=== PATIENT | male | born 1980 | race Caucasian/White ===

== ENCOUNTER 2024-03-31 12:40 | Outpatient (OUT) | payer BC, OTHER, SELFPAY ==
[2024-03-31 13:26] LABS: Alanine Aminotransferase 26 U/L (16-63); Albumin Globulin Ratio 1.3; Alkaline Phosphatase 63 U/L (46-116); Anion Gap 8.9; Aspartate Amino Transferase 12 U/L (15-37); BUN Creatinine Ratio 17.6; Bilirubin Total 0.8 mg/dL (0.2-1.0); Calcium 8.8 mg/dL (8.5-10.1); Carbon Dioxide 29.7 mmol/L (21.0-32.0); Chloride 103 mmol/L (98-107); Estimated GFR (African America >60 (>=60); Estimated GFR (Non-African Ame >60 (>=60); Globulin 3.1 g/dL; Glucose 118 mg/dL (74-106); Potassium 3.6 mmol/L (3.5-5.1); Sodium 138 mmol/L (136-145); Total Protein 7.1 g/dL (6.4-8.2)
== END 2024-03-31 12:41 | disposition home or self-care (01) ==
LOC: LAB 12:45
PROVIDERS: PCP Family Medicine; Visit Provider Family Medicine
DX: Z00.00 Encounter for general adult medical examination without abnormal findings (principal)
CPT/HCPCS: 36415; 80053

== ENCOUNTER 2024-04-10 15:48 | Outpatient (OUT) | payer BC, OTHER, SELFPAY ==
[2024-04-10 16:21] LABS: Estimated Average Glucose 105 mg/dL; Glycohemoglobin A1C 5.3 % (4.5-6.2)
[2024-04-10 16:47] LABS: Alanine Aminotransferase 33 U/L (16-63); Albumin Globulin Ratio 1.3; Albumin Level 3.9 g/dL (3.4-5.0); Alkaline Phosphatase 73 U/L (46-116); Anion Gap 8.8; Aspartate Amino Transferase 16 U/L (15-37); BUN Creatinine Ratio 16.5; Bilirubin Total 0.7 mg/dL (0.2-1.0); Carbon Dioxide 28.8 mmol/L (21.0-32.0); Chloride 102 mmol/L (98-107); Estimated GFR (African America >60 (>=60); Estimated GFR (Non-African Ame >60 (>=60); Glucose 117 mg/dL (74-106); Potassium 3.6 mmol/L (3.5-5.1); Sodium 136 mmol/L (136-145); Total Protein 6.9 g/dL (6.4-8.2)
[2024-04-12 12:09] LABS: Testosterone 230 ng/dL (264-916)
== END 2024-04-10 15:49 | disposition home or self-care (01) ==
PROVIDERS: PCP Family Medicine; Visit Provider Family Medicine
DX: Z00.00 Encounter for general adult medical examination without abnormal findings (principal); R73.9 Hyperglycemia, unspecified; E66.09 Other obesity due to excess calories; Z68.34 Body mass index [BMI] 34.0-34.9, adult
CPT/HCPCS: 36415; 80053; 83036; 84403

== ENCOUNTER 2024-04-19 16:22 | Outpatient (OUT) | payer BC, OTHER, SELFPAY ==
--- OUTSIDE RECORDS SUMMARY | 2024-04-19 16:35 | XMS_ITS | CCD ---
Author Organization [facility]on [facility] Partnership [facility] [employer] Care Team Providers Care Avionics Integration Engineer Name Role Phone DR SAURABH MUSTAFA Admitting Unavailable MISC, DR ACOSTA Primary Care Unavailable FURLOROQUE, DR SAURABH Ricketts Attending Unavailable WEST, DR ANIAL Sofia Consulting Unavailable CHRISTINAMATTIE Attending Unavailable CHRISTINAMATTIE QUARLES Admitting Unavailable FURLOROQUE, DR SAURABH Ricketts Primary Care Unavailable MATTIE VASQUEZ Consulting Unavailable Jakilong Saurabh COPELAND Primary Care Provider [phone] SAURABH MUSTAFA Attending Unavailable SAURABH MUSTAFA Referring Unavailable SAURABH MUSTAFA Primary Care Unavailable SAURABH MUSTAFA Attending Unavailable SAURABH MUSTAFA Referring Unavailable SAURABH MUSTAFA Primary Care Unavailable Problems Active Problems Problem Classification Problem Date Documented Da te Episodic/Chronic Administrative/social admission (4 sources) Encounter for pre-employment examination; Translations: [ENCOUNTER FOR PRE-EMPLOYMENT EXAM] Onset: 04-16-2022 Episodic Contraceptive and procreative management (1 source) Encounter for other general counseling and advice on contraception; Translations: [Encounter for other general counseling and advice on contraception] Onset: 02-20-2024 Episodic Other nutritional; endocrine; and metabolic disorders (2 sources) Obesity caused by energy imbalance; Translations: [Other obesity due to excess calories] Onset: 08-15-2023 08-15-2023 Chronic Other nutritional; endocrine; and metabolic disorders (2 sources) Cholesterol level - finding; Translations: [Lipoprotein deficiency] Onset: 08-15-2023 08-15-2023 Chronic Other nutritional; endocrine; and metabolic disorders (1 source) Body mass index (BMI) 33.0-33.9, adult; Translations: [Body mass index (BMI) 33.0-33.9, adult] Onset: 02-20-2024 Chronic Other nutritional; endocrine; and metabolic disorders (1 source) Other obesity due to excess calories; Translations: [Other obesity due to excess calories] Onset: 08-15-2023 Chronic Other nutritional; endocrine; and metabolic disorders (1 source) Body mass index (BMI) 34.0-34.9, adult; Translations: [Body mass index (BMI) 34.0-34.9, adult] Onset: 08-15-2023 Chronic Unclassified (1 source) discuss dianero Onset: 02-20-2024 Unclassified (1 source) Annual Exam Onset: 08-15-2023 Past or Other Problems Problem Classification Problem Date Documented Da te Episodic/Chronic Mood disorders (1 source) Mood disorders Onset: 08-15-2023 08-15-2023 Neoplasms of unspecified nature or uncertain behavior (3 sources) Neoplasm of uncertain behavior of skin of face; Translations: [Neoplasm of uncertain behavior of skin] Onset: 08-15-2023 08-15-2023 Episodic Results Test Name Value Interpretation Reference Range Facility COMPREHENSIVE METABOLIC PANE [facility] 12-29-2021 Albumin [Mass/Vol] 4.8 g/dL Normal 3.6-5.1 [facility] Comment on above: Performed By: #### 1 023, 0 #### [facility] [place] [address] Retail Pricing Coordinator: Arie Timmons MD Albumin/Globulin [Mass ratio] 2.2 {ratio} Normal 1.0-2.5 [facility] Comment on above: Performed By: #### 1 023, 0 #### [facility] [place] [address] Retail Pricing Coordinator: Arie Timmons MD ALP [Catalytic activity/Vol] 39 U/L Normal 36-130 [facility] Comment on above: Performed By: #### 1 0231, 7600 #### [facility] [place] [address] Retail Pricing Coordinator: Arie Timmons MD ALT [Catalytic activity/Vol] 14 U/L Normal 9-46 [facility] Comment on above: Performed By: #### 1 0231, 7600 #### [facility] of [place] [address] Retail Pricing Coordinator: Arie Timmons MD AST [Catalytic activity/Vol] 15 U/L Normal 10-40 [facility] Comment on above: Performed By: #### 1 0231, 7600 #### [facility] of [place] [address] Retail Pricing Coordinator: Arie Timmons MD Bilirubin [Mass/Vol] 1.1 mg/dL Normal 0.2-1.2 [facility] Comment on above: Performed By: #### 1 023, 7600 #### [facility] of [place] [address] Retail Pricing Coordinator: Aire Timmons MD BUN/CREATININE RATIO NOT APPLICABLE Normal 6-22 [facility] Comment on above: Performed By: #### 1 023, 7600 #### [facility] of [place] [address] Retail Pricing Coordinator: Arie Timmons MD Calcium [Mass/Vol] 9.4 mg/dL Normal 8.6-10.3 [facility] Comment on above: Performed By: #### 1 023, 7600 #### [facility] of [place] [address] Retail Pricing Coordinator: Arie Timmons MD Chloride [Moles/Vol] 105 mmol/L Normal 98-110 [facility] Comment on above: Performed By: #### 1 023, 7600 #### [facility] of [place] [address] Retail Pricing Coordinator: Arie Timmons MD CO2 [Moles/Vol] 26 mmol/L Normal 20-32 [facility] Comment on above: Performed By: #### 1 0231, 7600 #### [facility] of [place] [address] Retail Pricing Coordinator: Arie Timmons MD Creatinine [Mass/Vol] 0.94 mg/dL Normal 0.60-1.35 [facility] Comment on above: Performed By: #### 1 0231, 7600 #### [facility] of [address], [address] [place] [address] Retail Pricing Coordinator: Arie Timmons MD eGFR NON-AFR. JAPANESE 100 mL/min/1.73m2 Normal > OR = 60 [facility] Comment on above: Performed By: #### 1 023, 7600 #### [facility] of [address], [address] [place] [address] Retail Pricing Coordinator: Arie Timmons MD GFR/1.73 sq M.predicted among blacks MDRD (S/P/Bld) [Vol rate/Area] 116 mL/min/{1.73_m2} Normal > OR = 60 [facility] Comment on above: Performed By: #### 1 023, 7600 #### [facility] [address], [address] [place] [address] Retail Pricing Coordinator: Arie Timmons MD Globulin (S) [Mass/Vol] 2.2 g/dL Normal 1.9-3.7 [facility] Comment on above: Performed By: #### 1 023, 7600 #### [facility] [place] [address] Retail Pricing Coordinator: Arie Timmons MD Glucose [Mass/Vol] 86 mg/dL Normal 65-99 [facility] Comment on above: Result Comment: Fasting reference interval Performed By: #### 1 023, 7600 #### [facility] [place] [address] Retail Pricing Coordinator: Arie Timmons MD Potassium [Moles/Vol] 4.0 mmol/L Normal 3.5-5.3 [facility] Comment on above: Performed By: #### 1 0231, 7600 #### [facility] [place] [address] Retail Pricing Coordinator: Arie Timmons MD Protein [Mass/Vol] 7.0 g/dL Normal 6.1-8.1 [facility] Comment on above: Performed By: #### 1 023, 7600 #### [facility] of [place] [address] Retail Pricing Coordinator: Arie Timmons MD Sodium [Moles/Vol] 140 mmol/L Normal 135-146 [facility] Comment on above: Performed By: #### 1 0231, 7600 #### [facility] of [place] [address] Retail Pricing Coordinator: Arie Timmons MD Urea nitrogen [Mass/Vol] 13 mg/dL Normal 7-25 [facility] Comment on above: Performed By: #### 1 0231, 7600 #### [facility] of [place] [address] Retail Pricing Coordinator: Arie Timmons MD LIPID PANEL, [facility] - Cholesterol [Mass/Vol] 175 mg/dL Normal <200 [facility] Comment on above: Performed By: #### 1 0231, 7600 #### [facility] of [place] [address] Retail Pricing Coordinator: Arie Timmons MD Cholesterol in HDL [Mass/Vol] 48 mg/dL Normal > OR = 40 [facility] Comment on above: Performed By: #### 1 0231, 7600 #### [facility] [place] [address] Retail Pricing Coordinator: Arie Timmons MD Cholesterol in LDL [Mass/Vol] 108 mg/dL High [facility] Comment on above: Result Comment: Refe rence range: <100 Desirable range <100 mg/dL for primary prevention; <70 mg/dL for patients with CHD or diabetic patients with > or = 2 CHD risk factors. LDL-C is now calculated using the Janet calculation, which is a validated novel method providing better accuracy than the Friedewald equation in the estimation of LDL-C. Matthew CULVER et al. YESY. 2013;310(19): 7613-7943 (http://education.[employer]/faq/IOP838) Performed By: #### 1 0231, 7600 #### [facility] of [address] [place] [address] Retail Pricing Coordinator: Arie Timmons MD Cholesterol.total/C holesterol in HDL [Mass ratio] 3.6 {ratio} Normal <5.0 [facility] Comment on above: Performed By: #### 1 023, 7600 #### [facility] [address], [address] [place] [address] Retail Pricing Coordinator: Arie Timmons MD NON HDL CHOLESTEROL 127 mg/dL (calc) Normal <130 [facility] Comment on above: Result Comment: For patients with diabetes plus 1 major ASCVD risk factor, treating to a non-HDL-C goal of <100 mg/dL (LDL-C of <70 mg/dL) is considered a therapeutic option. Performed By: #### 1 023, 0 #### [facility] [address], [address] [place] [address] Retail Pricing Coordinator: Arie Timmons MD Triglyceride [Mass/Vol] 97 mg/dL Normal <150 [facility] Comment on above: Performed By: #### 1 023, 0 #### [facility] [address], [address] [place] [address] Retail Pricing Coordinator: Arie Timmons MD COVID-19 [facility] 01-09-20 20 COVID-19 Lab [facility] Not Detected Normal Not Detected [facility] Comment on above: Order Comment: Healt hcare Worker?: N Result Comment: This test was developed and its performance characteristics determined by [employer]. This test has not been FDA cleared or approved. This test has been authorized by FDA under an Emergency Use Authorization (EUA). This test is only authorized for the duration of time the declaration that circumstances exist justifying the authorization of the emergency use of in vitro diagnostic tests for detection of SARS-CoV-2 virus and/or diagnosis of COVID-19 infection under section 564(b)(1) of the Act, 21 U.S.C. 360bbb-3(b)(1), unless the authorization is terminated or revoked sooner. When diagnostic testing is negative, the possibility of a false negative result should be considered in the context of a patient's recent exposures and the presence of clinical signs and symptoms consistent with COVID-19. An individual without symptoms of COVID-19 and who is not shedding SARS-CoV-2 virus would expect to have a negative (not detected) result in this assay. Performed at: [facility] [address] [facility] [place] [id number] Psychiatric Orderly: Desiree Melendez MD, Phone: [phone] PERFORMED BY: [address] [address] PATHOLOGIST SUSTAINABLE AGRICULTURE FACULTY LISETH GRUBBS M.D. Performed By: #### C ORONAVIRUS #### [facility] , Vital Signs Date Time Vital Sign Value Performing Clinician Facility 08-15-2023 16:08-0500 Body height 182.9 cm [employer] Work Phone: [facility] 08-15-2023 16:08-0500 Body mass index (BMI) [Ratio] 34.49 kg/m2 [employer] Work Phone: [facility] 08-15-2023 16:08-0500 Body temperature 98.01 [degF] [employer] Work Phone: [facility] 08-15-2023 16:08-0500 Body weight 115.35 kg [employer] Work Phone: [facility] 08-15-2023 16:08-0500 Diastolic blood pressure 68 mm[Hg] [employer] Work Phone: [facility] 08-15-2023 16:08-0500 Heart rate 58 /min [employer] Work Phone: [facility] 08-15-2023 16:08-0500 SaO2% (BldA) [Mass fraction] 97 % [employer] Work Phone: [facility] 08-15-2023 16:08-0500 Systolic blood pressure 102 mm[Hg] [employer] Work Phone: [facility] Encounters Encounter Date Encounter Type Care Provider Facility Start: 02-20-2024 End: 02-20-2024 ambulatory SAURABH POLLACKROQUE [facility] Start: 08-15-2023 End: 08-15-2023 ambulatory SAURABH G [facility] Start: 08-15-2023 Encounter for genera l adult medical examination without abnormal findings SAURABH G [facility] Start: 08-15-2023 End: 08-15-2023 Patient encounter status Saurabh Mustafa DO Work Phone: [facility] Work Phone: Start: 08-15-2023 End: 08-15-2023 Periodic preventive med est patient 40-64yrs Saurabh Pollacknoreenroque COPELAND Work Phone: [facility] Comment on above: Well adult health juanita (Primary Dx); Class 1 obesity due to excess calories without serious comorbidity with body mass index (BMI) of 34.0 to 34.9 in adult; Neoplasm of uncertain behavior of skin of face; Low HDL (under 40) Start: 04-16-2022 End: 04-17-[address] ANILA JAUREGUI Facility:[facility] Start: 12-11-[address] SAURABH MUSTAFA Fac ility:[facility] Procedures Date Procedure Procedure Detail Performing Clinician Start: 08-15-2023 Adult depression screening assessment Saurabh Mustafa DO Work Phone: Plan of Treatment Date Care Activity Detail Author Start: 11-11-2030 DTaP,Tdap and Td Vaccines (4 - Td or Tdap) DTaP,Tdap and Td Vaccines (4 - Td or Tdap) [facility] Start: 08-20-2024 End: 08-20-2024 Patient encounter procedure 08/20/2024 3:50 PM EST [facility] [address] [place] [address] Moon Saurabh JamarcusDO [address] [place] [address] [facility] Start: 08-15-2024 Adult BMI Screening Adult BMI Screen ing [facility] Start: 08-15-2024 Depression Screening Depression Scre ening [facility] Start: 08-15-2024 Tobacco Screening Tobacco Screening [facility] Start: 07-18-2024 COVID-19 Vaccine (2 - Baltazar risk series) COVID-19 Vaccine (2 - Baltazar risk series) [facility] Comment on above: Postponed from 12/15 (Patient Refused) Start: 1998 Adult BMI Follow Up Plan Adult BMI Follow Up Plan [facility] Immunizations Immunization Date Immunization Notes Care Provider Fa cility 04-26-2023 influenza, injectabl e, quadrivalent, preservative free Saurabh Furlong DO Work Phone: [facility] 04-04-2021 influenza, injectabl e, quadrivalent, preservative free Saurabh Furlong DO Work Phone: [facility] 11-11-2020 diphtheria, tetanus toxoids and pertussis vaccine Saurabh Furlong DO Work Phone: [facility] 04-18-2020 Influenza, injectabl e, Madin [place] Canine Kidney, quadrivalent with preservative Saurabh Furlong DO Work Phone: [facility] 01-09-2020 tetanus toxoid, redu eleazar diphtheria toxoid, and acellular pertussis vaccine, adsorbed Saurabh Furlong DO Work Phone: [facility] 07-23-2019 tetanus toxoid, redu eleazar diphtheria toxoid, and acellular pertussis vaccine, adsorbed Saurabh Furlong DO Work Phone: [facility] 07-22-2019 Influenza, injectabl e, Madin Asmita Canine Kidney, preservative free, quadrivalent Saurabh Furlong DO Work Phone: [facility] 05-09-2017 influenza, injectabl e, quadrivalent, preservative free Saurabh Mustafa DO Work Phone: [facility] Payers Date Payer Category Payer Unknown [id number] 2022 Unknown [id number] 2022 Unknown [id number] 1980 Unknown [id number] 1980 Unknown [id number] 1980 Unknown [id number] 1959 Self-pay Unknown [id number] Social History Date Type Detail Facility Start: 04-05-2017 Tobacco smoking stat [facility] Never smoked tobacco [facility] Start: 04-05-2017 Tobacco use and exposure Smoke less tobacco non-user [facility] Start: 08-15-2023 Alcohol intake Current drinke r of alcohol (finding) [facility] Start: 08-15-2023 History of Social function [facility] Start: 08-15-2023 [facility] CDP [facility] Has the [employer], or [employer] threatened to shut off services in your home in past 12Mo No [facility] Do you belong to any clubs or organizations such as advent groups, unions, fraternal or athletic groups, or school groups? Yes [facility] Are you now , , , , never or living with a partner? [facility] How often to you hav e a drink containing alcohol? Monthly or less [facility] How many standard dr inks containing alcohol do you have on a typical day? 1 or 2 [facility] How often do you hav e 6 or more drinks on 1 occasion? Never [facility] How hard is it for y ou to pay for the very basics like food, housing, medical care, and heating Not hard at all [facility] Do you feel stress - tense, restless, nervous, or anxious, or unable to sleep at night because your mind is troubled all the time - these days [OSQ] Only a little [facility] Start: 04-05-2017 Alcohol Comment social [facility] [employer] [facility] Start: 1980 Sex Assigned At Not on file P Animoto [facility] Medical Equipment Procedure Code Equipment Code Equipment Origin al Text Equipment Identifier Dates Scr Cortical 2.0x10mm - [facility] - [id number] Start: 04-06-2017 History of Present illness Narrative 08-15-2023 Saurabh Jamarucs Mustafa, DO - 08/15/2023 3:50 PM EST Note Date & Type Note Facility 08-15-2023 History of Present illness Narrative Subjective Patient ID: Skyler Barrios is a 42 y.o. male. Skyler presents today for his annual physical. He has been doing well except for 1 problem. He has a growth on the right side of his face that sometimes gets painful when he touches it. He had it frozen in the past by a valet runner. It never fully went away. Sometimes it gets scale over it. He used to get a lot of sun exposure when he was younger. He gets labs done through his work. He said he will bring in a copy for our records. He said everything was good except his good cholesterol was a little low but his bad cholesterol was also low so the nurse told him that it kind of cancels each other out. Annual Exam The following portions of the patient's history were reviewed and updated as appropriate: allergies, current medications, past family history, past medical history, past social history, past surgical history, problem list, and medication reconciliation was completed including current medication and post discharge medication. Review of Systems Constitutional: Negative. HENT: Negative. Eyes: Negative. Respiratory: Negative. Cardiovascular: Negative. Gastrointestinal: Negative. Endocrine: Negative. Genitourinary: Negative. Musculoskeletal: Negative. Skin: Positive for color change. Allergic/Immunologic: Negative. Neurological: Negative. Hematological: Negative. Psychiatric/Behavioral: Negative. Objective Physical Exam Constitutional: Appearance: He is obese. HENT: Head: Normocephalic and atraumatic. Eyes: General: No scleral icterus. Extraocular Movements: Extraocular movements intact. Conjunctiva/sclera: Conjunctivae normal. Cardiovascular: Rate and Rhythm: Normal rate and regular rhythm. Pulses: Normal pulses. Heart sounds: Normal heart sounds. No murmur heard. Pulmonary: Effort: Pulmonary effort is normal. No respiratory distress. Breath sounds: Normal breath sounds. No wheezing, rhonchi or rales. Abdominal: General: Bowel sounds are normal. There is no distension. Palpations: Abdomen is soft. There is no mass. Tenderness: There is no abdominal tenderness. Hernia: No hernia is present. Musculoskeletal: General: No swelling, tenderness or deformity. Cervical back: Neck supple. Right lower leg: No edema. Left lower leg: No edema. Lymphadenopathy: Cervical: No cervical adenopathy. Skin: General: Skin is warm. Findings: Lesion (Red plaque with slight scale on the right side of his cheek, border slightly irregular anteriorly) present. Neurological: General: No focal deficit present. Mental Status: He is alert and oriented to person, place, and time. Cranial Nerves: Cranial nerves 2-12 are intact. Gait: Gait is intact. Psychiatric: Attention and Perception: Attention normal. Mood and Affect: Mood and affect normal. Speech: Speech normal. Behavior: Behavior normal. Behavior is cooperative. Thought Content: Thought content normal. Cognition and Memory: Cognition and memory normal. Judgment: Judgment normal. Assessment/Plan Skyler was seen today for annual exam. Diagnoses and all orders for this visit: Well adult health check Health maintenance discussed. Recommend that he bring in his labs for our records. Encouraged vaccinations but he defers. Class 1 obesity due to excess calories without serious comorbidity with body mass index (BMI) of 34.0 to 34.9 in adult He is obese. He would benefit from weight loss. Diet exercise and weight loss discussed. He is exercising so we did focus more on his diet and where he could trim calorie intake. He will try following his diet. We did discuss medications but will try diet and exercise 1st. Neoplasm of uncertain behavior of skin of face - Ambulatory referral to Dermatology (Non[facility]); Future Lesion on the side of his face looks like an actinic keratosis. Should be treated. I will refer him to Dermatology. Low HDL (under 40) Exercise can raise HDL. It is considered a risk factor for heart disease. Not sure that it cancels out a low LDL. Nonetheless, CV risk is likely low documented in this encounter [facility] Clinical Note 04-18-2022 Note Date & Type Note Facility 04-18-2022 Note EXAMINATION: XR CHES T 2 V HISTORY: History and physical examination, pre-employment COMPARISON: No relevant comparison available. TECHNIQUE: FINDINGS: LUNGS: No significant pulmonary parenchymal abnormalities. VASCULATURE: No increased pulmonary vasculature. PLEURA: No pneumothorax, effusion, or pleural thickening. CARDIAC: No cardiomegaly or cardiac silhouette abnormality. MEDIASTINUM: No visible mass or adenopathy. BONES: No fracture or visible bone lesion. OTHER: Negative. IMPRESSION: Normal examination. Electronically authenticated by: ANILA JAUREGUI Date: 2022-04-18 11:32 [facility] Evaluation note Note Date & Type Note Facility Evaluation note Diagnosis Well adult health check- Primary Unspecified general medical examination Class 1 obesity due to excess calories without serious comorbidity with body mass index (BMI) of 34.0 to 34.9 in adult Neoplasm of uncertain behavior of skin of face Low HDL (under 40) documented in this encounter [facility] Instructions Note Date & Type Note Facility Instructions Not on filedocumented in this en counter [facility] Reason for referral (narrative) Consultation (Routine) - Pending Review Note Date & Type Note Facility Reason for referral (narrati ve) Specialty Diagnoses / Procedures Referred By Sarika t Referred To Contact Dermatology Diagnoses Neoplasm of uncertain behavior of skin of face Saurabh Mustafa DO [address] [facility] [address] Agustin Morgan DO [address] [place] [address] Referral ID Status Reason Start Date Expiration Date Visits Requested Visits Authorized [id number] Pending Review Specialty Services Required 08/15/2023 08/14/2024 [facility] Purpose Family History No Family History Records FoundNo Family History Records FoundNo Family History Records FoundNo Family History Records Found Advance Directives No Advanced Directives Records FoundNo Advanced Directives Records FoundNo Advanced Directives Records FoundNo Advanced Directives Records Found Additional Source Comments (unrecognized sect ion and content) No Status Records FoundNo Status Records FoundNo Status Records FoundNo Status Records Found INFORMATION SOURCE (unrecogn ized section and content) DATE CREATED AUTHOR 02/05/2020 [facility] DATE CREATED AUTHOR AUTHOR'S ORGANIZ ATION 12/30/2021 [facility] DATE CREATED AUTHOR AUTHOR'S ORGANIZ ATION 04/22/2022 [facility] DATE CREATED AUTHOR AUTHOR'S ORGANIZ ATION 02/22/2024 [facility] Reason for Visit (unrecogniz ed section and content) Reason Comments Annual Exam Care Teams (unrecognized sec tion and content) Avionics Integration Engineer Relationship Specialty Start Date End Date Saurabh Mustafa DO [address] [facility] [place], [facility] [place] [address] PCP - General Family Medicine 02/19/20 FOR RECORDS PERTAINING TO PATIENTS WHO ARE OR HAVE BEEN ENROLLED IN A CHEMICAL DEPENDENCY/SUBSTANCEABUSE PROGRAM, SOME INFORMATION MAY BE OMITTED. This clinical summary was aggregated from multiple sources. Caution should be exercised in using it in the provision of clinical care. This summary normalizes information from multiple sources, and as a consequence, information in this document may materially change the coding, format and clinical context of patient data. In addition, data may be omitted in some cases. CLINICAL DECISIONS SHOULD BE BASED ON THE PRIMARY CLINICAL RECORDS. [employer] [facility] provides no warranty or guarantee of the accuracy or completeness of information in this document.
[2024-04-19 16:43] LABS: Basophils Percent Auto 0.7 % (0.2-2.0); Eosinophils Absolute Auto 0.1 10^3/uL (0.0-0.7); Eosinophils Percent Auto 1.4 % (0.9-7.0); Hemoglobin 15.2 g/dL (14.0-18.0); Lymphocytes Absolute Auto 1.4 10^3/uL (1.2-3.8); Lymphocytes Percent Auto 25.5 % (20.5-60.0); Mean Corpuscular HGB Conc 34.5 g/dL (29.9-35.2); Mean Corpuscular Hemoglobin 29.1 pg (25.9-34.0); Mean Corpuscular Volume 84.3 fL (80.0-94.0); Mean Platelet Volume 10.1 fL (9.5-13.5); Monocytes Absolute Auto 0.6 10^3/uL (0.3-0.8); Monocytes Percent Auto 10.1 % (1.7-12.0); Neutrophils Absolute Auto 3.4 10^3/uL (1.4-6.5); Neutrophils Percent Auto 62.3 % (43.0-75.0); Platelet Count 201 10^3/uL (150-450); Red Blood Count 5.22 10^6/uL (4.70-6.10); Red Cell Distribution Width 12.2 % (11.0-15.0); White Blood Count 5.5 10^3/uL (4.0-11.0)
[2024-04-26 15:09] LABS: Free Testosterone(Direct) 8.1 pg/mL (6.8-21.5); Testosterone 264 ng/dL (264-916)
== END 2024-04-19 16:23 | disposition home or self-care (01) ==
LOC: LAB 16:24
PROVIDERS: PCP Family Medicine; Visit Provider Family Medicine
DX: R79.89 Other specified abnormal findings of blood chemistry (principal)
CPT/HCPCS: 36415; 84402; 84403; 85025

== ENCOUNTER 2024-06-13 06:06 | Outpatient (OUT) | payer BC, OTHER, SELFPAY ==
--- OUTSIDE RECORDS SUMMARY | 2024-06-13 06:09 | XMS_ITS | CCD ---
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 Name Role Phone JARVIS, DR SAURABH Ricketts Admitting Unavailable MISC, DR ACOSTA Primary Care Unavailable FURLONG, DR SAURABH Ricketts Attending Unavailable WEST, DR ANILA Sofia Consulting Unavailable CHRISTINAMATTIE Attending Unavailable CHRISTINA, MATTIE Admitting Unavailable FURLONG, DR SAURABH Ricketts Primary Care Unavailable MATTIE VASQUEZ Consulting Unavailable Jakilong Saurabh COPELAND Primary Care Provider SAURABH MUSTAFA Attending Unavailable SAURABH MUSTAFA Referring Unavailable SAURABH MUSTAFA Primary Care Unavailable SAURABH MUSTAFA Attending Unavailable SAURABH MUSTAFA Referring Unavailable SAURABH MUSTAFA Primary Care Unavailable Medications Current Medications Medication Drug Class(es) Dates Sig (Normalized) Sig (Original) tirzepatide, weight loss, (ZEPBOUND) 2.5 mg/0.5 mL pen injector (6 sources) Start: 05-30-2024 tirzepatide, weight loss, (ZEPBOUND) 2.5 mg/0.5 mL pen injector Inject 2.5 mg under the skin every 7 days. 2 mL 2 05/30/2024 Active Start: 02-20-2024 End: 05-30-2024 tirzepatide, weight loss, (Z EPBOUND) 2.5 mg/0.5 mL pen injector Inject 2.5 mg under the skin every 7 days. 2 mL 02/20/2024 05/30/2024 Discontinued (Reorder) Start: 02-20-2024 tirzepatide, w eight loss, (ZEPBOUND) 2.5 mg/0.5 mL pen injector Inject 2.5 mg under the skin every 7 days. 2 mL 02/20/2024 Active Problems Active Problems Problem Classification Problem Date Documented Da te Episodic/Chronic Administrative/social admission (4 sources) Encounter for pre-employment examination; Translations: [ENCOUNTER FOR PRE-EMPLOYMENT EXAM] Onset: 04-16-2022 Episodic Contraceptive and procreative management (1 source) Encounter for other general counseling and advice on contraception; Translations: [Encounter for other general counseling and advice on contraception] Onset: 02-20-2024 Episodic Other nutritional; endocrine; and metabolic disorders (7 sources) Obesity caused by energy imbalance; Translations: [Other obesity due to excess calories] Onset: 08-15-2023 08-15-2023 Chronic Other nutritional; endocrine; and metabolic disorders (7 sources) Cholesterol level - finding; Translations: [Lipoprotein [...] index (BMI) 34.0-34.9, adult] Onset: 08-15-2023 Chronic Other screening for suspected conditions (not mental disorders or infectious disease) (7 sources) Decreased testosterone level ; Translations: [Other specified abnormal findings of blood chemistry] Onset: 04-18-2024 04-18-2024 Episodic Unclassified (1 source) discuss monjaro Onset: 02-20-2024 Unclassified (1 source) Annual Exam Onset: 08-15-2023 Past or Other Problems Problem Classification Problem Date Documented Da te Episodic/Chronic Mood disorders (6 sources) Mood disorders Onset: 08-15-2023 Resolved: 02-20-2024 08-15-2023 Neoplasms of unspecified nature or uncertain behavior (8 sources) Neoplasm of uncertain behavior of skin of face; Translations: [Neoplasm of uncertain behavior of skin] Onset: 08-15-2023 08-15-2023 Episodic Results Test Name Value Interpretation Reference Range Facility COMPREHENSIVE METABOLIC PANE Rodney 12-29-2021 Albumin [Mass/Vol] 4.8 g/dL Normal 3.6-5.1 [facility] Comment on above: Performed By: #### 1 023, 7600 #### [facility] of [address], [address] [place] [address] Syrup Shed Supervisor: Arie Timmons MD Albumin/Globulin [Mass ratio] 2.2 {ratio} Normal 1.0-2.5 [facility] Comment on above: Performed By: #### 1 023, 7600 #### [facility] of [address], [address] [place] [address] Syrup Shed Supervisor: Arie Timmons MD ALP [Catalytic activity/Vol] 39 U/L Normal 36-130 [facility] Comment on above: Performed By: #### 1 023, 7600 #### [facility] of [address], [address] [place] [address] Syrup Shed Supervisor: Arie Timmons MD ALT [Catalytic activity/Vol] 14 U/L Normal 9-46 [facility] Comment on above: Performed By: #### 1 023, 7600 #### [facility] of [place] [address] Syrup Shed Supervisor: Arie Timmons MD AST [Catalytic activity/Vol] 15 U/L Normal 10-40 [facility] Comment on above: Performed By: #### 1 023, 7600 #### [facility] of [address], [address] [place] [address] Syrup Shed Supervisor: Arie Timmons MD Bilirubin [Mass/Vol] 1.1 mg/dL Normal 0.2-1.2 [facility] Comment on above: Performed By: #### 1 0231, 7600 #### [facility] of [place] [address] Syrup Shed Supervisor: Arie Timmons MD BUN/CREATININE RATIO NOT APPLICABLE Normal 6-22 [facility] Comment on above: Performed By: #### 1 0231, 7600 #### [facility] of [address], [address] [place] [address] Syrup Shed Supervisor: Arie Timmons MD Calcium [Mass/Vol] 9.4 mg/dL Normal 8.6-10.3 [facility] Comment on above: Performed By: #### 1 0231, 7600 #### [facility] of [address], [address] [place] [address] Syrup Shed Supervisor: Arie Timmons MD Chloride [Moles/Vol] 105 mmol/L Normal 98-110 [facility] Comment on above: Performed By: #### 1 0231, 7600 #### [facility] of [place] [address] Syrup Shed Supervisor: Arie Timmons MD CO2 [Moles/Vol] 26 mmol/L Normal 20-32 [facility] Comment on above: Performed By: #### 1 0231, 7600 #### [facility] of [place] [address] Syrup Shed Supervisor: Arie Timmons MD Creatinine [Mass/Vol] 0.94 mg/dL Normal 0.60-1.35 [facility] Comment on above: Performed By: #### 1 0231, 7600 #### [facility] of [place] [address] Syrup Shed Supervisor: Arie Timmons MD eGFR NON-AFR. INDONESIAN 100 mL/min/1.73m2 Normal > OR = 60 [facility] Comment on above: Performed By: #### 1 0231, 7600 #### [facility] of [place] [address] Syrup Shed Supervisor: Arie Timmons MD GFR/1.73 sq M.predicted among blacks MDRD (S/P/Bld) [Vol rate/Area] 116 mL/min/{1.73_m2} Normal > OR = 60 [facility] Comment on above: Performed By: #### 1 0231, 7600 #### [facility] of [place] [address] Syrup Shed Supervisor: Arie Timmons MD Globulin (S) [Mass/Vol] 2.2 g/dL Normal 1.9-3.7 [facility] Comment on above: Performed By: #### 1 0231, 7600 #### [facility] of [place] [address] Syrup Shed Supervisor: Arie Timmons MD Glucose [Mass/Vol] 86 mg/dL Normal 65-99 [facility] Comment on above: Result Comment: Fasting reference interval Performed By: #### 1 0231, 7600 #### [facility] [place] [address] Syrup Shed Supervisor: Arie Timmons MD Potassium [Moles/Vol] 4.0 mmol/L Normal 3.5-5.3 [facility] Comment on above: Performed By: #### 1 023, 7600 #### [facility] [place] [address] Syrup Shed Supervisor: Arie Timmons MD Protein [Mass/Vol] 7.0 g/dL Normal 6.1-8.1 [facility] Comment on above: Performed By: #### 1 023, 7600 #### [facility] [place] [address] Syrup Shed Supervisor: Arie Timmons MD Sodium [Moles/Vol] 140 mmol/L Normal 135-146 [facility] Comment on above: Performed By: #### 1 0231, 7600 #### [facility] of [place] [address] Syrup Shed Supervisor: Arie Timmons MD Urea nitrogen [Mass/Vol] 13 mg/dL Normal 7-25 [facility] Comment on above: Performed By: #### 1 0231, 7600 #### [facility] of [place] [address] Syrup Shed Supervisor: Arie Timmons MD LIPID PANEL, [facility] 12-16 Cholesterol [Mass/Vol] 175 mg/dL Normal <200 [facility] Comment on above: Performed By: #### 1 0231, 7599 #### [facility] [address], [address] [place] [address] Syrup Shed Supervisor: Arie Timmons MD Cholesterol in HDL [Mass/Vol] 48 mg/dL Normal > OR = 40 [facility] Comment on above: Performed By: #### 1 230, 7600 #### [facility] [address], [address] [place] [address] Syrup Shed Supervisor: Arie Timmons MD Cholesterol in LDL [Mass/Vol] [...] LDL-C. Matthew CULVER et al. YESY. 2013;310(19): 1759-7450 (http://education.[employer]/faq/OLQ876) Performed By: #### 1 230, 7599 #### [facility] [address], [address] [place] [address] Syrup Shed Supervisor: Arie Timmons MD Cholesterol.total/C holesterol in HDL [Mass ratio] 3.6 {ratio} Normal <5.0 [facility] Comment on above: Performed By: #### 1 230, 0 #### [facility] [address], [address] [place] [address] Syrup Shed Supervisor: Arie Timmons MD NON HDL CHOLESTEROL 127 mg/dL (calc) Normal <130 [facility] Comment on above: Result Comment: For patients with diabetes plus 1 major ASCVD risk factor, treating to a non-HDL-C goal of <100 mg/dL (LDL-C of <70 mg/dL) is considered a therapeutic option. Performed By: #### 1 023, 7600 #### [facility] [address], [address] [place] [address] Syrup Shed Supervisor: Arie Timmons MD Triglyceride [Mass/Vol] 97 mg/dL Normal <150 [facility] Comment on above: Performed By: #### 1 0231, 7600 #### [facility] [address], [address] [place] [address] Syrup Shed Supervisor: Arie Timmons MD COVID-19 [facility] 01-09-20 20 COVID-19 Lab [facility] Not Detected Normal Not Detected [facility] Comment on above: Order Comment: Healt hcare Worker?: N Result Comment: This test was developed and its performance characteristics determined by [employer]. This test has not been FDA cleared [...] detected) result in this assay. Performed at: [facility] [address] [facility], [place] [id number] Otr Truck Driver: Desiree Melendez MD, Phone: [phone] PERFORMED BY: [facility] [address] [place] [address] PATHOLOGIST AREA SAFETY MANAGER LISETH GRUBBS M.D. Performed By: #### C ORONAVIRUS #### [facility] , Vital Signs Date Time Vital Sign Value Performing Clinician Facility 08-15-2023 16:08-0500 Body height 182.9 cm Saurabh Mustafa DO [facility] 08-15-2023 16:08-0500 Body mass index (BMI) [Ratio] 34.49 kg/m2 Saurabh Mustafa DO Work Phone: [employer] 08-15-2023 16:08-0500 Body temperature 98.01 [degF] [facility] Humph[facility]ng [facility] 08-15-2023 16:08-0500 Body weight 115.35 kg Saurabh Humphriesng DO [facility] 08-15-2023 16:08-0500 Diastolic blood pressure 68 mm[Hg] Saurabh Pollacklong DO [facility] 08-15-2023 16:08-0500 Heart rate 58 /min Saurabh Humphriesng DO [facility] 08-15-2023 16:08-0500 SaO2% (BldA) [Mass fraction] 97 % Saurabh Mustafa DO [facility] 08-15-2023 16:08-0500 Systolic blood pressure 102 mm[Hg] Saurabh Mustafa DO Work Phone: [facility] Encounters Encounter Date Encounter Type Care Provider Facility Start: 06-04-2024 End: 06-11-2024 Telephone encounter Saurabh Mustafa DO Work Phone: [facility] Start: 06-01-2024 End: 06-04-2024 Telephone encounter [facility]aurabh Mustafa DO [facility] Start: 05-30-2024 End: 05-30-2024 Refill Saurabh Mustafa DO Work Phone: [facility] Comment on above: Low testosterone in male (Primary Dx) Start: 04-18-2024 End: 04-18-2024 Orders Only Saurabh Mustafa DO Work Phone: [facility] Comment on above: Low testosterone in male (Primary Dx) Start: 02-20-2024 End: 02-20-2024 ambulatory SAURABHKAILEE POLLACKROQUE [facility] Start: 08-15-2023 End: 08-15-2023 ambulatory [place] [facility] Start: 08-15-2023 Encounter for genera l adult medical examination without abnormal findings [place] [facility] Start: 08-15-2023 End: 08-15-2023 Patient encounter status Saurabh Mustafa DO Work Phone: [facility] Work Phone: Start: 08-15-2023 End: 08-15-2023 Periodic preventive med est patient 40-64yrs Saurabh Mustafa DO Work Phone: [facility] Comment on above: Well adult health ch juanita (Primary Dx); Class 1 obesity due to excess calories without serious comorbidity with body mass index (BMI) of 34.0 to 34.9 in adult; Neoplasm of uncertain behavior of skin of face; Low HDL (under 40) Start: 04-16-2022 End: 04-17-[address] ANILA JAUREGUI Facility:[facility] Start: 12-11-[address] SAURABH MUSTAFA Fac ility:[facility] Procedures Date Procedure Procedure Detail Performing Clinician Start: 02-20-2024 Adult depression screening assessment Saurabh Pollackroque COPELAND Work Phone: Start: 08-15-2023 Adult depression screening assessment Saurabh Jakiroque COPELAND Work Phone: Plan of Treatment Date Care Activity Detail Author Start: 11-11-2030 DTaP,Tdap and Td Vaccines (4 - Td or Tdap) DTaP,Tdap and Td Vaccines (4 - Td or Tdap) [facility] Start: 02-19-2025 Adult BMI Screening Adult BMI Screen ing [facility] Start: 02-19-2025 Depression Screening Depression Scre ening [facility] Start: 02-19-2025 Tobacco Screening Tobacco Screening [facility] Start: 08-21-2024 End: 08-21-2024 Patient encounter procedure 08/21/2024 3:00 PM EST Office Visit [facility] [address] [place] [address] [address] [facility] [place] [address] Roger Tuttle MD [facility] [place] [address] [facility] Start: 08-20-2024 End: 08-20-2024 Patient encounter procedure [facility] Start: 08-15-2024 Adult BMI Screening Adult BMI Screen ing [facility] Start: 08-15-2024 Depression Screening Depression Scre ening [facility] Start: 08-15-2024 Tobacco Screening Tobacco Screening [facility] Start: 07-18-2024 COVID-19 Vaccine (2 - Baltazar risk series) COVID-19 Vaccine (2 - Baltazar risk series) [facility] Comment on above: Postponed from 12/15 (Patient Refused) Start: 03-18-2024 Influenza vaccination Influenza Vacc ine [facility] Start: 1998 Adult BMI Follow Up Plan Adult BMI Follow Up Plan [facility] End: 04-18-2025 CBC panel - Blood by Automated count CBC Lab Routine Low testosterone in male 1 Occurrences starting 04/18/2024 until 04/18/2025 [facility] [employer] Comment on above: 1 Occurrences starti ng 04/18/2024 until 04/18/2025 End: 04-18-2025 Testosterone, Total and Free, S Testosterone, Total and Free, S Lab Routine Low testosterone in male 1 Occurrences starting 04/18/2024 until 04/18/2025 [facility] Work Phone: Comment on above: 1 Occurrences starti ng 04/18/2024 until 04/18/2025 End: 05-30-2025 Testosterone, Total and Free, S Testosterone, Total and Free, S Lab Routine Low testosterone in male 1 Occurrences starting 05/30/2024 until 05/30/2025 [facility] Work Phone: Comment on above: 1 Occurrences starti ng 05/30/2024 until 05/30/2025 Immunizations Immunization Date Immunization Notes Care Provider Prosper keating 04-26-2023 influenza, injectabl e, quadrivalent, preservative free Saurabh Furlong DO Work Phone: [facility] 04-26-2023 influenza virus vaccine, unspecified formulation Saurabh Furlong DO Work Phone: [facility] 04-04-2021 influenza, injectabl e, quadrivalent, preservative free Saurabh Furlong DO Work Phone: [facility] 11-11-2020 diphtheria, tetanus toxoids and pertussis vaccine Saurabh Furlong DO Work Phone: [facility] 04-18-2020 Influenza, injectabl e, Madin Asmita Canine Kidney, quadrivalent with preservative Saurabh Furlong DO Work Phone: [facility] 01-09-2020 tetanus toxoid, redu eleazar diphtheria toxoid, and acellular pertussis vaccine, adsorbed Saurabh Furlong DO Work Phone: [facility] 07-23-2019 tetanus toxoid, redu eleazar diphtheria toxoid, and acellular pertussis vaccine, adsorbed Saurabh Furlong DO Work Phone: [facility] 07-22-2019 Influenza, injectabl e, Madin [place] Canine Kidney, preservative free, quadrivalent Saurabh Furlong DO Work Phone: [facility] 05-09-2017 influenza, injectabl e, quadrivalent, preservative free Saurabh Furlong DO Work Phone: [facility] Payers Date Payer Category Payer Managed Care Other (unspecified) MEDICAL [id number] PLAN [id number] 2023 Unknown [id number] 2022 [employer] Managed Care - Other ANTH [id number] 2022 Unknown [id number] 2022 Unknown [id number] 1980 Unknown [id number] 1980 Unknown [id number] 1980 Unknown [id number] 1959 Self-pay Unknown [id number] Social History Date Type Detail Facility Start: 04-05-2017 End: 02-20-2024 Tobacco smoking status NHIS Never smoked tobacco [facility] Start: 04-05-2017 End: 02-20-2024 Tobacco use and exposure Smokeless tobacco non-user [facility] Start: 08-15-2023 End: 02-20-2024 Alcohol intake Current drinker of alcohol (finding) [facility] Start: 08-15-2023 End: 02-20-2024 History of Social function [facility] Start: 08-15-2023 End: 02-20-2024 [facility] LEHRities [facility] Has the [employer], [employer], or water company threatened to shut off services in your home in past 12Mo No [facility] Do you belong to any clubs or organizations such as evangelical groups, unions, fraternal or athletic groups, or school groups? Yes [facility] Are you now , , , , never or living with a partner? [facility] How often to you hav e a drink containing alcohol? Monthly or less [facility] How many standard dr inks containing alcohol do you have on a typical day? 1 or 2 [facility] How often do you hav e 6 or more drinks on 1 occasion? Never [facility] How hard is it for y ou to pay for the very basics like food, housing, medical care, and heating Not hard at all [facility] Do you feel stress - tense, restless, nervous, or anxious, or unable to sleep at night because your mind is troubled all the time - these days [OSQ] Only a little [facility] Start: 04-05-2017 Alcohol Comment social [facility] Start: 1980 Sex Assigned At Not on file P [facility] Start: 02-20-2015 Sex Male (finding) [facility] Medical Equipment Procedure Code Equipment Code Equipment Origin al Text Equipment Identifier Dates Scr Cortical 2.0x10mm - Sna - [id number] Start: 04-06-2017 Scr Cortical 2.0x10mm - Sna - [id number] Start: 04-06-2017 Clinical Notes 04-18-2022 to 06-04-2024 Telephone Encounter - Cherelle Curtis - 06/04/2024 2:45 PM ESTTelephone Encounter - Cherelle Curtis - 06/04/2024 2:45 PM ESTTelephone Encounter - Cherelle Chuckangelesdomobrittani - 06/01/2024 9:54 AM EST Note Date & Type Note Facility 06-04-2024 Miscellaneous Notes Formattin g of this note might be different from the original. He is okay getting [place] please send orders. He also wondered if he would be able to up his dose of zepbound, he feels like its only working a little bit documented in this encounter [facility] 06-04-2024 Telephone encount er Note He is okay getting testosterone done at [place] please send orders. He also wondered if he would be able to up his dose of zepbound, he feels like its only working a little bit [facility] 06-01-2024 Miscellaneous Notes Formattin g of this note is different from the original. He should have a recheck appointment in about 3 months. I can send in the testosterone to [facility]. He needs to get it between 6 and 10:00 a.m. LM on VM documented in this encounter [facility] 06-01-2024 Telephone encount er Note He should have a recheck appointment in about 3 months. I can send in the testosterone to [facility]. He needs to get it between 6 and 10:00 a.m. [facility] 06-01-2024 Telephone encount er Note LM on VM [facility] 05-30-2024 Miscellaneous Notes Formattin g of this note might be different from the original. Patient also called about getting his testosterone rechecked, does he need appointment at all? He should have a recheck appointment in about 3 months. I can send in the testosterone to [facility]. He needs to get it between 6 and 10:00 a.m. documented in this encounter [facility] 05-30-2024 Telephone encount er Note Patient also called about getting his testosterone rechecked, does he need appointment at all? [facility] 05-30-2024 Telephone encount er Note He should have a recheck appointment in about 3 months. I can send in the testosterone to [facility]. He needs to get it between 6 and 10:00 a.m. [facility] 08-15-2023 History of Presen t illness Narrative Subjective Patient ID: Jaime Mccain is a 42 y.o. male. Jaime presents today for his annual physical. He has been doing well except for 1 problem. He has a growth on the right side of his face that sometimes gets painful when he touches it. He had it frozen in the past by a erp consultant. It never fully went away. Sometimes it [...] and memory normal. Judgment: Judgment normal. Assessment/Plan Jaime was seen today for annual exam. Diagnoses [...] is likely low documented in this encounter [facility] 04-18-2022 Note EXAMINATION: XR CHES T 2 [...] by: ANILA JAUREGUI Date: 2022-04-18 11:32 [facility] Evaluation note Diagnosis Well adult health check- Primary Unspecified general medical examination Class 1 obesity due to excess calories without serious comorbidity with body mass index (BMI) of 34.0 to 34.9 in adult Neoplasm of uncertain behavior of skin of face Low HDL (under 40) documented [facility] Diagnosis Low testosterone in male- Primary documented [facility] Diagnosis Low testosterone in male- Primary documented in this encounter [facility] CCBR-SYNARC SystemInstructionsNot on filedocumented in this encounter [facility] SystemInstructionsNot on filedocumented in this encounter [facility] SystemInstructionsNot on filedocumented in this encounter [facility]-SY[facility] SystemInstructionsNot on filedocumented in this encounter [facility] SystemReason for referral (narrative)* Consultation (Routine) - Pending Review Specialty Diagnoses / Procedures Referred By Contac t Referred To Contact Dermatology Diagnoses Neoplasm of uncertain behavior of skin of face Saurabh Mustafa DO [address], [place] [address] [employer] Agustin Fisher, DO [address] [place] [address] Referral ID Status Reason Start Date Expiration Date Visits Requested Visits Authorized [id number] Pending Review Specialty Services Required 08/15/2023 08/14/2024 1 1 [facility]SYNARC System Summary Purpose Family History No Family [...] section and content) DATE CREATED AUTHOR 02/05/2020 [facility] DATE CREATED AUTHOR AUTHOR'S ORGANIZ ATION 12/30/2021 [facility] DATE CREATED AUTHOR AUTHOR'S ORGANIZ ATION 04/22/2022 [facility] DATE CREATED AUTHOR AUTHOR'S ORGANIZ ATION 02/22/2024 [facility] Reason for Visit (unrecogniz ed section and content) Reason Comments Annual Exam Reason Onset Date Comments Med Refill 05/30/2024 Care Teams (unrecognized sec tion and content) 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 Relationship Specialty Start Date End Date Saurabh Mustafa DO [address], [place] [address] PCP - General Family Medicine 02/19/20 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 Relationship Specialty Start Date End Date Saurabh Mustafa DO [address], [place] [address] PCP - General Family Medicine 02/19/20 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 [facility]. provides no warranty or guarantee of the accuracy or completeness of information in this document.
[2024-06-13 06:42] LABS: Basophils Absolute Auto 0.1 10^3/uL (0.0-0.1); Eosinophils Absolute Auto 0.2 10^3/uL (0.0-0.7); Eosinophils Percent Auto 3.1 % (0.9-7.0); Hematocrit 44.3 % (42.0-54.0); Hemoglobin 15.4 g/dL (14.0-18.0); Immature Granulocytes Abs Auto 0.01 10^3/uL (0.00-0.03); Immature Granulocytes Pct Auto 0.2 % (0.0-0.5); Lymphocytes Absolute Auto 1.6 10^3/uL (1.2-3.8); Lymphocytes Percent Auto 30.2 % (20.5-60.0); Mean Corpuscular HGB Conc 34.8 g/dL (29.9-35.2); Mean Corpuscular Hemoglobin 29.1 pg (25.9-34.0); Mean Corpuscular Volume 83.7 fL (80.0-94.0); Mean Platelet Volume 10.3 fL (9.5-13.5); Monocytes Absolute Auto 0.6 10^3/uL (0.3-0.8); Monocytes Percent Auto 11.7 % (1.7-12.0); Neutrophils Absolute Auto 2.8 10^3/uL (1.4-6.5); Neutrophils Percent Auto 53.8 % (43.0-75.0); Platelet Count 192 10^3/uL (150-450); Red Blood Count 5.29 10^6/uL (4.70-6.10); Red Cell Distribution Width 12.3 % (11.0-15.0); White Blood Count 5.2 10^3/uL (4.0-11.0)
[2024-06-17 01:06] LABS: Free Testosterone(Direct) 8.7 pg/mL (6.8-21.5); Testosterone 450 ng/dL (264-916)
== END 2024-06-13 06:07 | disposition home or self-care (01) ==
PROVIDERS: PCP Family Medicine; Visit Provider Family Medicine
DX: R79.89 Other specified abnormal findings of blood chemistry (principal)
CPT/HCPCS: 36415; 84402; 84403; 85025

== ENCOUNTER 2024-06-24 14:52 | Emergency (ER) | payer BC, OTHER, SELFPAY ==
[2024-06-24 14:58] VITALS: BP 133/77; PULSE 83; TEMP 36.8; O2SAT 96; BMI 32.5
--- NOTE | 2024-06-24 15:04 | XR_ITS ---
The [address] [address] Patient Name: SKYLER BARRIOS MRN: [id number] date: 1980 Sex: M Assigned Patient Location: ED.MAIN Current Patient Location: Accession/Order Number: [id number] Exam Date: 06/24/2024 15:18 Report Date: 06/24/2024 17:01 At the request of: OMAIRA AGUILAR Procedure: XR knee RT 4V EXAM: XR knee RT 4V HISTORY: c/o pain COMPARISON: None. TECHNIQUE: 3 views of the right knee. FINDINGS: Bones: No acute fracture or aggressive appearing bony lesion. Joints: Normal alignment. No effusion. No significant degenerative findings. Soft tissues: Unremarkable. XR/XR knee RT 4V IMPRESSION: Unremarkable examination. No evidence of fracture. Electronically authenticated by: PATRICE GERBER Date: 06/24/2024 17:01
--- NOTE | 2024-06-24 15:45 | ED_ITS ---
HPI - Extremity Problem General Chief complaint: Extremity Problem, Nontraumatic Stated complaint: R KNEE PAIN Time Seen by Provider: 06/24/24 15:23 Source: patient Mode of arrival: walk-in Limitations: no limitations History of Present Illness HPI Narrative: Patient is a 43-year-old male who presents to the emergency department for 2- week history of pain in the right knee, he states he had sharper pain today. No specific injury or trauma that he is aware of. He states today he noticed swelling behind the posterior right knee. No calf pain. No redness, wounds or drainage. No medications taken prior to arrival Related Data Previous Rx's ?Medication ?Instructions ?Recorded ketorolac 10 mg tablet 10 mg PO TID PRN pain #10 tabs 06/24/24 methocarbamol 750 mg tablet 750 mg PO TID PRN pain #20 tabs 06/24/24 methylprednisolone 4 mg tablets in See Rx Instructions .Route 06/24/24 a dose pack (Medrol (Winston)) .COMPLEX #21 ea Allergies Allergy/AdvReac Type Severity Reaction Status Date / Time No Known Drug Allergies Allergy Verified 06/24/24 15:03 Review of Systems ROS Constitutional Denies: fever or chills Ears, nose, mouth, and throat Denies: throat pain or nasal discharge Cardiovascular Denies: chest pain Respiratory Denies: shortness of breath Gastrointestinal Denies: nausea or vomiting Musculoskeletal Reports: extremity pain, extremity swelling and joint pain; Denies: back pain or neck pain Integumentary/Breast Denies: rash Neurological Denies: numbness in extremities or weakness in extremities Hematologic/Lymphatic Denies: easy bruising or easy bleeding PFSH PFSH Social History Little interest or pleasure in doing things: not at all Feeling down, depressed, or hopeless: not at all Exam Narrative Exam Narrative: Gen.: Awake, alert, in no distress Head: Normocephalic, atraumatic ENT: Moist mucous membranes Respiratory: No respiratory distress, lungs clear bilaterally Cardio: Regular rate and rhythm Gastrointestinal: Abdomen is soft, nondistended and nontender to palpation Extremities: Area of firmness and swelling posterior to the right knee, calves are soft and nontender. No fluctuance or erythema, no evidence of abscess or wound infection. No bony tenderness of the anterior right patella or tibia. Psych: Normal mood and affect Neuro: No focal neuro deficit Skin: Warm, dry, intact Constitutional Vital Signs, click to edit/add: Last Vital Signs Temp 98.2 F 06/24/24 14:58 Pulse 83 06/24/24 14:58 Resp 20 06/24/24 14:58 BP 133/77 06/24/24 14:58 Pulse Ox 96 06/24/24 14:58 O2 Del Method Room Air 06/24/24 14:58 Course Vital Signs Vital signs: Vital Signs Temperature 98.2 F 06/24/24 14:58 Pulse Rate 83 06/24/24 14:58 Respiratory Rate 20 06/24/24 14:58 Blood Pressure 133/77 06/24/24 14:58 Pulse Oximetry 96 06/24/24 14:58 Oxygen Delivery Method Room Air 06/24/24 14:58 Temperature 98.2 F 06/24/24 14:58 Pulse Rate 83 06/24/24 14:58 Respiratory Rate 20 06/24/24 14:58 Blood Pressure 133/77 06/24/24 14:58 Pulse Oximetry 96 06/24/24 14:58 Oxygen Delivery Method Room Air 06/24/24 14:58 MDM - Extremity (Nontraumatic) MDM Narrative Medical decision making narrative: X-rays with no evidence of acute process, exam is consistent with soft tissue swelling in the posterior right knee. Patient placed on Toradol and Solu-Medrol in the ER and discharged home with Robaxin, Toradol, Medrol Dosepak to follow-up with orthopedics. He is placed in an Chris wrap and knee immobilizer. Rest, ice, elevate. Neurovascularly intact at discharge. Return to the ER if symptoms change or worsen SUPERVISED APC VISIT, PHYSICIAN ATTESTATION: Based on the medical record the care appears appropriate. ? Medical Records Attestation: I reviewed the patient's medical records. Imaging Data xr knee: Attestation: I have reviewed the pertinent imaging results. Discharge Plan Discharge Chief Complaint: Extremity Problem, Nontraumatic Clinical Impression: Acute pain of right knee Patient Disposition: Home, Self-Care Time of Disposition Decision: 15:41 Condition: Good Prescriptions / Home Meds: New ketorolac 10 mg tablet 10 mg PO TID PRN (Reason: pain) Qty: 10 0RF methocarbamol 750 mg tablet 750 mg PO TID PRN (Reason: pain) Qty: 20 0RF methylprednisolone [Medrol (Winston)] 4 mg tablets,dose pack See Rx Instructions .ROUTE .COMPLEX Qty: 21 0RF Rx Instructions: Taper as directed Print Language: Japanese Instructions: Knee Pain (ED) Referrals: GUILLAUME CONLEY [Primary Care Provider] - 1 week Amol Wong MD [Physician] - As needed
[2024-06-24] MEDS: METHYLPREDNISOLONE SOD SUCC PF 125 MG/2 ML VIAL IM (16:00)
[2024-06-24] MEDS: KETOROLAC TROMETHAMINE 10 MG TABLET PO (16:00)
== END 2024-06-24 16:07 | disposition home or self-care (01) ==
PROVIDERS: Emergency Provider Emergency Medicine; PCP Family Medicine
DX: M25.561 Pain in right knee (principal)
CPT/HCPCS: 73564; 96372; 99284; J2919

== ENCOUNTER 2025-04-27 06:42 | Outpatient (OUT) | payer BC, OTHER, SELFPAY ==
--- OUTSIDE RECORDS SUMMARY | 2025-04-22 16:30 | XMS_ITS | Encounter Summary ---
Author Organization [facility] tem Address [id number] [address] [place] [address] Care Team Providers Care Repair Department Supervisor Name Role Phone Saurabh Mustafa DO Primary Care Provider [phone] Reason for Visit * Reason Comments start weight loss Annual Exam Encounter Details Date Type Department Care Team (Late st Contact Info) Description 04/22/2025 4:30 PM EDT Office Visit [facility] Internal Medicine - Family Medicine [address] [address] Saurabh Mustafa DO [address], [place] [address] Well adult exam (Primary Dx); Class 1 obesity due to excess calories without serious comorbidity with body mass index (BMI) of 34.0 to 34.9 in adult; Urinary frequency; Sinus congestion; Need for immunization against influenza Social History Tobacco Use Types Packs/Day Years Used Date Smoking Tobacco: Never Smokeless Tobacco: Never Tobacco Cessation:Counseling Given: No Alcohol Use Standard Drinks/Week Comments Yes 1 (1 standard drink = 0.6 oz pur e alcohol) social [facility] Utilities Answer Date Recorded In the past 12 months has [employer], gas, oil, or water [employer] threatened to shut off services in your home? No 08/15/2023 Social Connection and Isolat ion Panel [NHANES] Answer Date Recorded In a typical week, how many times do you talk on the phone with family, friends, or neighbors? Three times a week 08/15/2023 How often do you get togethe r with friends or relatives? Once a week 08/15/2023 How often do you attend chur ch or samaritan services? Never 08/15/2023 Do you belong to any clubs o r organizations such as buddhism groups, unions, fraternal or athletic groups, or school groups? Yes 08/15/2023 How often do you attend meet ings of the clubs or organizations you belong to? More than 4 times per year 08/15/2023 Are you , , di vorced, , never , or living with a partner? 08/15/2023 AUDIT-C Answer Date Recorded Q1: How often do you have a drink containing alc ohol? Monthly or less 08/15/2023 Q2: How many drinks containi ng alcohol do you have on a typical day when you are drinking? 1 or 2 08/15/2023 Q3: How often do you have si x or more drinks on one occasion? Never 08/15/2023 Overall Financial Resource Strain (CARDIA) Answe r Date Recorded How hard is it for you to pa y for the very basics like food, housing, medical care, and heating? Not hard at all 08/15/2023 PHQ-2 Answer Date Recorded Total Score 0 04/22/2025 [facility] Occupat ional Health - Occupational Stress Questionnaire Answer Date Recorded Do you feel stress - tense, restless, nervous, or anxious, or unable to sleep at night because your mind is troubled all the time - these days? Only a little 08/15/2023 Exercise Vital Sign Answer Date Recorde d On average, how many days pe r week do you engage in moderate to strenuous exercise (like a brisk walk)? 6 days 04/22/2025 On average, how many minutes do you engage in exercise at this level? 30 min 04/22/2025 PRAPARE - Transportation Answer Date Re corded In the past 12 months, has l ack of transportation kept you from medical appointments or from getting medications? No 07/19 In the past 12 months, has l ack of transportation kept you from meetings, work, or from getting things needed for daily living? No 08/15/2023 Housing Instability Answer Date Recorde d Are you worried or concerned that in the next two months you may not have stable housing that you own, rent or stay in as a part of a household? No 08/15/2023 Childcare Answer Date Recorded Do problems getting child ca re make it difficult for you to work or study? No 08/15/2023 Employment Answer Date Recorded Do you need help finding a [facility] career center and/or a training program? No 08/15/2023 Hunger Screening Answer Date Recorded Within the past 12 months we worried whether our food would run out before we got money to buy more. Never True 04/22/2025 Within the past 12 months th e food we bought just didn't last and we didn't have money to get more. Never True 04/22/2025 Purpose - Life Answer Date Recorded I have a purpose and direction in my life. Stron gly Agree 08/15/2023 Sex and Gender Information Value Date Recorded Sex Assigned at Not on file Legal Sex Male 11:21 AM EDT Gender Identity Not on file Sexual Orientation Not on file documented as of this encounter Last Filed Vital Signs Vital Sign Reading Time Taken Comments Blood Pressure 108/60 04/22/2025 4:39 PM EDT Pulse 71 04/22/2025 4:39 PM EDT Temperature 36.6 C (97.9 F) 04/22/2025 4:39 PM EDT Respiratory Rate 18 04/22/2025 4:39 PM EDT Oxygen Saturation 97% 04/22/2025 4:39 PM EDT Inhaled Oxygen Concentration - - Weight 113.5 kg (250 lb 3.2 oz) 04/22/2025 4:39 PM EDT Height 182.9 cm (6') 04/22/2025 4:39 PM EDT Body Mass Index 33.93 04/22/2025 4:39 PM EDT documented in this encounter Progress Notes * Saurabh Mustafa, DO - 04/22/2025 4:30 PM EDT Subjective Patient ID: Jaime Mccain is a 44 y.o. male. Jaime presents for his annual wellness exam. He would like to discuss his weight. He is taking the starter dose of Wegovy at 0.25mg weekly. He is paying tapia. He is tolerating it well. He is having a couple other problems. He has been having urinary frequency and a weak stream twice. He is having difficulty breathing through nose. He has been taking sudafed with some improvement. The following portions of the patient's history were reviewed and updated as appropriate: allergies, current medications, past family history, past medical history, past social history, past surgicalhistory, problem list, and medication reconciliation was completed including current medication andpost discharge medication. Review of Systems Constitutional: Negative. HENT: Positive for congestion. Respiratory: Negative. Cardiovascular: Negative. Gastrointestinal: Negative. Genitourinary: Positive for difficulty urinating and frequency. Weak stream Musculoskeletal: Negative. Skin: Negative. Neurological: Negative. Psychiatric/Behavioral: Negative. Objective Physical Exam Vitals reviewed. Constitutional: General: He is not in acute distress. Appearance: He is obese. HENT: Head: Normocephalic. Right Ear: Tympanic membrane, ear canal and external ear normal. Left Ear: There is impacted cerumen. Nose: Rhinorrhea present. Rhinorrhea is clear. Right Nostril: No occlusion. Left Nostril: No occlusion. Right Turbinates: Not pale. Left Turbinates: Enlarged and swollen. Not pale. Mouth/Throat: Lips: [place]. Mouth: Mucous membranes are moist. Dentition: Normal dentition. Tongue: No lesions. Palate: No mass. Pharynx: Oropharynx is clear. Uvula midline. No pharyngeal swelling. Eyes: General: No scleral icterus. Extraocular Movements: Extraocular movements intact. Conjunctiva/sclera: Conjunctivae normal. Cardiovascular: Rate and Rhythm: Normal rate and regular rhythm. Heart sounds: Normal heart sounds. No murmur heard. Pulmonary: Effort: Pulmonary effort is normal. No respiratory distress. Breath sounds: Normal breath sounds. No wheezing, rhonchi or rales. Abdominal: General: There is no distension. Tenderness: There is no abdominal tenderness. There is no guarding. Hernia: No hernia is present. Genitourinary: Prostate: Normal. Not enlarged, not tender and no nodules present. Rectum: Normal. No mass, tenderness, anal fissure, external hemorrhoid or internal hemorrhoid. Normal anal tone. Musculoskeletal: Cervical back: Neck supple. Lymphadenopathy: Cervical: No cervical adenopathy. Neurological: General: No focal deficit present. Mental [...] normal. Assessment/Plan Jaime was seen today for start weight loss and annual exam. Diagnoses and all orders for this visit: Well adult exam - Comprehensive metabolic panel; Future - Lipid profile; Future - TSH with Reflex; Future - TSH with Reflex - Lipid profile - Comprehensive metabolic panel Health maintenance discussed. Check CMP and lipids. Class 1 obesity due to excess calories without serious comorbidity with body mass index (BMI) of 34.0 to 34.9 in adult - C-reactive protein; Future - C-reactive protein He is obese. He would benefit from wt loss. Diet, exercise and wt loss discussed and encouraged. Urinary frequency - POCT urinalysis dipstick only UA ok. Prostate exam normal. Sinus congestion He is having sinus congestion. He is using a decongestant which may be contributing to urinary symptoms. Stop decongestant and will do fluticasone NS. Need for immunization against influenza - Flucelvax vaccine 18 YRS plus Preservative Free IM Other orders - fluticasone propionate (FLONASE) 50 mcg/actuation nasal spray; Administer 2 sprays into each nostril in the morning. documented in this encounter Plan of Treatment Not on file documented as of this encounter Procedures Procedure Name Priority Date/Time Associated Diagnosis Comments POCT URINALYSIS DIPSTICK ONLY Routine 04/22/2025 5:14 PM EDT Urinary frequency TSH WITH REFLEX Routine 04/22/2025 5:05 PM EDT Well adult exam C-REACTIVE PROTEIN Routine 04/22/2025 5: 05 PM EDT Class 1 obesity due to excess calories without serious comorbidity with body mass index (BMI) of 34.0 to 34.9 in adult LIPID PROFILE Routine 04/22/2025 5:05 PM EDT Well adult exam COMPREHENSIVE METABOLIC PANEL Routine 04/22/2025 5:05 PM EDT Well adult exam documented in this encounter Results * POCT urinalysis dipstick only (04/22/2025 5:14 PM EDT) Pathologist [facility] External Poct Urine Color yellow MANUALLY TRANSCRIBED RESULTS External Poct Urine Appearance clear MANUALLY TRANSCRIBED RESULTS External Poct Urine Glucose Negative MANUALLY TRANSCRIBED RESULTS External Poct Urine Bilirubin Negative MANUALLY TRANSCRIBED RESULTS External Poct Urine Ketones Negative MANUALLY TRANSCRIBED RESULTS External Poct Urine Specific [place] 1.020 MANUALLY TRANSCRIBED RESULTS External Poct Urine Blood Negative MANUALLY TRANSCRIBED RESULTS External Poct Urine Ph 6.5 MANUALLY TRANSCRIBED RESULTS External Poct Urine Protein Negative MANUALLY TRANSCRIBED RESULTS External Poct Urine Urobilinogen 1.0 MANUALLY TRANSCRIBED RESULTS External Poct Urine Nitrite Negative MANUALLY TRANSCRIBED RESULTS External Poct Urine Leukocyte Esterase Negative MANUALLY TRANSCRIBED RESULTS Urine 04/22/2025 5:14 PM EDT us Saurabh Mustafa DO POINT OF CARE TEST ORDERABLE S Final Result Performing Organization Address City/[facility]/ZIP Co de Phone Number MANUALLY TRANSCRIBED RESULTS * C-reactive protein (04/22/2025 5:05 PM EDT) [facility] C REACTIVE PROTEIN <0.1 <=0.7 mg/dL 04/22/2025 11:03 PM EDT [facility] Blood Venous blood / Unknown 04/22/2025 5:05 PM EDT 04/22/2025 5:05 PM EDT us Saurabh Mustafa DO LAB BLOOD ORDERABLES Final R esult Performing Organization Address City/[facility]/ZIP Co de Phone Number [facility] [address] [place] [address], [place] [phone] * TSH with Reflex (04/22/2025 5:05 PM EDT) [facility] TSH 0.97 0.49 - 4.67 uIU/mL 04/22/2025 11:08 PM EDT [facility] Blood Venous blood / Unknown 04/22/2025 5:05 PM EDT 04/22/2025 5:05 PM EDT us Saurabh Pollacknoreenroque LAB BLOOD ORDERABLES Final R esult [facility] [address] [place] [address], [place] [phone] * (ABNORMAL) Lipid profile (04/22/2025 5:05 PM EDT) CHOLESTEROL 166 150 - 200 mg/dL 04/22/2025 11:03 PM EDT [facility] TRIGLYCERIDE 193(H) 27 - 150 mg/dL 04/22/2025 11:03 PM EDT [facility] HDL CHOLESTEROL 40 >39 mg/dL 11:03 PM EDT [facility] Comment: HDL <40 mg/dL - High Risk HDL > or = 40mg/dL- Desirable HDL >60 mg/dL - Negative Risk LDL (CALC) 87 <130 mg/dL 04/22/2025 11:03 PM EDT [facility] Comment: LDL <100 mg/dL - Desirable LDL >160 mg/dL - High Risk CHOLESTEROL:HDL 4.2 1.0 - 5.0 11:03 PM EDT [facility] VERY LOW LIPOPROTEIN 39(H) 0 - 30 mg/dL 04/22/2025 11:03 PM EDT [facility] Blood Venous blood / Unknown 04/22/2025 5:05 PM EDT 04/22/2025 5:05 PM EDT us Saurabh Mustafa DO LAB BLOOD ORDERABLES Final R esult [facility] [address] [place] [address], [place] [phone] * Comprehensive metabolic panel (04/22/2025 5:05 PM EDT) SODIUM 141 134 - 146 mmol/L 04/22/2025 11:03 PM EDT [facility] POTASSIUM 4.1 3.5 - 5.0 mmol/L 04/22/2025 11:03 PM EDT [facility] CHLORIDE 105 98 - 109 mmol/L 04/22/2025 11:03 PM EDT [facility] CARBON DIOXIDE 26 22 - 32 mmol/L 04/22/2025 11:03 PM EDT [facility] ANION GAP 10 5 - 15 mmol/L 04/22/2025 11:03 PM T [facility] BLOOD UREA NITROGEN 13 5 - 23 mg/dL 04/22/2025 11:03 PM T [facility] CREATININE 0.96 0.60 - 1.30 mg/dL 04/22/2025 11:03 PM EDT [facility] Comment:METHOD TRACEABLE TO IDGA STANDARD GLUCOSE 96 65 - 99 mg/dL 04/22/2025 11:03 PM T [facility] CALCIUM 9.4 8.5 - 10.5 mg/dL 04/22/2025 11:03 PM T [facility] TOTAL PROTEIN 7.3 6.0 - 8.0 g/dL 04/22/2025 11:03 PM [facility] ALBUMIN 4.9 3.2 - 5.3 g/dL 04/22/2025 11:03 PM T [facility] ALKALINE PHOSPHATASE 44 39 - 130 U/L 04/22/2025 11:03 PM T [facility] AST 18 <=41 U/L 04/22/2025 11:03 PM T [facility] ALT 18 <=40 U/L 04/22/2025 11:03 PM [facility] BILIRUBIN,TOTAL 0.9 0.3 - 1.2 mg/dL 04/22/2025 11:03 PM T [facility] EGFR Non-Race Dependent >90 >=60 ml/min/1.7 3sq.m 04/22/2025 11:03 PM EDT [facility] Comment: Reported eGFR is based on the CKD-EPI 2020 equation that does not use a race coefficient. Blood Venous blood / Unknown 04/22/2025 5:05 PM EDT 04/22/2025 5:05 PM EDT us Saurabh Mustafa DO LAB BLOOD ORDERABLES Final R esult [facility] [address] [place] [address], [place] [phone] documented in this encounter Visit Diagnoses Diagnosis Well adult exam- Primary Routine general medical examination at a health care facility Class 1 obesity due to excess calories without serious comorbidity with body mass index (BMI) of 34.0 to 34.9 in adult Urinary frequency Sinus congestion Other diseases of nasal cavity and sinuses Need for immunization against influenza Need for prophylactic vaccination and inoculation against influenza documented in this encounter Additional Health Concerns Assessment Noted Time PHQ-9 Depression Total Score: 0 04/22/20 25 4:39 PM EDT documented as of this encounter Care Teams Repair Department Supervisor Relationship Specialty Start Date End Date Saurabh Mustafa DO [address] [place] [address] PCP - General Family Medicine 02/19/20 documented as of this encounter
--- OUTSIDE RECORDS SUMMARY | 2025-04-27 06:46 | XMS_ITS | Encounter Summary ---
Author Organization [facility] tem Address [facility] [place] [place]-[id number] [address] [place] [address] Care Team Providers Care Wedding Cake Designer Name Role Phone KristelSaurabh nevarez Jamarcus COPELAND Primary Care Provider Encounter Details Date Type Department Care Team (Late st Contact Info) Description 04/16/2024 Telephone [facility] - Family Medicine [address] [place] [phone] Valencia Ellison CMA Social History Tobacco Use Types Packs/Day Years Used Date Smoking Tobacco: Never Smokeless Tobacco: Never Alcohol Use Standard Drinks/Week Comments Yes 0 (1 standard drink = 0.6 oz pur e alcohol) social AHC Utilities Answer Date Recorded In the past 12 months has e electric, gas, oil, or water company threatened to shut off [...] often do you attend chur ch or anabaptism services? Never 08/15/2023 Do you belong to any clubs o r organizations such as restorationist groups, unions, fraternal or athletic groups, or [...] PHQ-2 Answer Date Recorded Total Score 0 02/20/2024 [facility] of Occupat ional [facility] - Occupational Stress Questionnaire Answer Date Recorded [...] to strenuous exercise (like a brisk walk)? 4 days 08/15/2023 On average, how many minutes do you engage in exercise at this level? 20 min 08/15/2023 PRAPARE - Transportation Answer Date Re corded [...] Recorded Do you need help finding a [facility] career [facility] and/or a training program? No 08/15/2023 Hunger Screening Answer Date Recorded Within the past 12 months we worried whether our food would run out before we got money to buy more. Never True 02/20/2024 Within the past 12 months th e food we bought just didn't last and we didn't have money to get more. Never True 02/20/2024 Purpose - Life Answer Date Recorded I have a purpose and direction in my life. Hunter gly Agree 08/15/2023 Sex and Gender Information Value Date Recorded Sex Assigned at Not on file Legal Sex Male 11:21 AM EDT Gender Identity Not on file Sexual Orientation Not on file documented as of this encounter Miscellaneous Notes * Telephone Encounter - Valencia Ellison CMA - 04/16/2024 1:18 PM EDT ----- Message from Dr. Saurabh Mustafa DO sent at 04/16/2024 1:08 PM EDT ----- His testosterone was low. If he wants to pursue treatment then he needs to have it repeated with a CBC. * Telephone Encounter - Valencia Ellison CMA - 04/16/2024 1:18 PM EDT Spoke with pt. Pt verbalizes understanding. Pt would like to know what the treatment options are should he need treatment. * Telephone Encounter - Saurabh Mustafa DO - 04/16/2024 1:18 PM EDT Treatments usually involve subcutaneous or IM injections of testosterone. Pills can be expensive and difficult to get through insurances. There are many risks including increased risk of heart disease and prostate cancer. It is a controlled substance and he would have to be seen every 3 months and have labs done regularly to monitor medication and his condition documented in this encounter Plan of Treatment Not on file documented as of this encounter Visit Diagnoses Not on filedocumented in this encounter Additional Health Concerns Assessment Noted Time PHQ-9 Depression Total Score: 0 02/20/20 24 4:22 PM EDT documented as of this encounter Care Teams Wedding Cake Designer Relationship Specialty Start Date End Date Saurabh Mustafa DO [address] [place] [address] PCP - General Family Medicine 02/19/20 documented as of this encounter
--- OUTSIDE RECORDS SUMMARY | 2025-04-27 06:46 | XMS_ITS | Encounter Summary ---
Author Organization [facility] Address [facility]-[id number] [address] [place] [address] Care Team Providers Care Lithograph Press Operator Tinware Name Role Phone MoonSaurabh Jamarcus COPELAND Primary Care Provider [phone] Encounter Details Date Type Department Care Team (Late st Contact Info) Description 04/13/2024 Orders Only [facility] - Family Medicine [address] [place] [address] Nat Workman CMA Class 1 obesity due to excess calories without serious comorbidity with body mass index (BMI) of 34.0 to 34.9 in adult Social History Tobacco Use Types Packs/Day Years Used Date Smoking Tobacco: Never Smokeless Tobacco: Never Alcohol Use Standard Drinks/Week Comments Yes 0 (1 standard drink = 0.6 oz pur e alcohol) social AHC Utilities Answer Date Recorded In the past 12 months has [employer], gas, oil, or water [employer] threatened to shut off services in your [...] often do you attend chur ch or advent services? Never 08/15/2023 Do you belong to any clubs o r organizations such as faith groups, unions, fraternal or athletic groups, or [...] Answer Date Recorded Total Score 0 02/20/2024 [facility] of Occupat ional Health - Occupational Stress [...] Recorded Do you need help finding a [facility] career center and/or a training program? [...] on file documented as of this encounter Plan of Treatment Not on file documented as of this encounter Procedures Procedure Name Priority Date/Time Associated Diagnosis Comments TESTOSTERONE Routine 04/10/2024 Class 1 obesity due to excess calories without serious comorbidity with body mass index (BMI) of 34.0 to 34.9 in adult documented in this encounter Results * Testosterone (04/10/2024) Testosterone 230 SUNQUEST 04/10/2024 us Saurabh Mustafa DO LAB BLOOD ORDERABLES Final R esult SUNQUEST documented in this encounter Visit Diagnoses Diagnosis Class 1 obesity due to excess calories without serious comorbidity with body mass index (BMI) of 34.0 to 34.9 in adult documented in this encounter Additional Health Concerns Assessment Noted Time PHQ-9 Depression Total Score: 0 02/20/20 24 4:22 PM EDT documented as of this encounter Care Teams Lithograph Press Operator Tinware Relationship Specialty Start Date End Date Saurabh Mustafa DO [address] [facility] [place] [address] PCP - General Family Medicine 02/19/20 documented as of this encounter
--- OUTSIDE RECORDS SUMMARY | 2025-04-27 06:46 | XMS_ITS | Encounter Summary ---
Author Organization [facility] tem Address [facility]-[id number] [address] [place] [address] Care Team Providers Care Parachute Folder Name Role Phone Moon Saurabh Jamarcus COPELAND Primary Care Provider [phone] Encounter Details Date Type Department Care Team (Late st Contact Info) Description 04/17/2024 Telephone [facility] - [facility] [address] [facility] [facility] [place] [address] Brendan Gomez CMA Social History Tobacco Use Types Packs/Day [...] often do you attend chur ch or jewish services? Never 08/15/2023 Do you belong to any clubs o r organizations such as latter day groups, unions, fraternal or athletic groups, or [...] Answer Date Recorded Total Score 0 02/20/2024 [facility] of Occupat ional Health - Occupational Stress [...] Recorded Do you need help finding a [place] career center and/or a training program? No [...] purpose and direction in my life. Hunter whitney Agree 08/15/2023 Sex and Gender Information Value Date Recorded Sex Assigned at Not on file Legal Sex Male 11:21 AM EDT Gender Identity Not on file Sexual Orientation Not on file documented as of this encounter Miscellaneous Notes * Telephone Encounter - Brendan Gomez CMA - 04/17/2024 8:29 AM EDT I called pt and read result note. Pt verbally states he understands and would like the labs repeated with the CBC. Please send to [facility] Department documented in this encounter Plan of Treatment Not on file documented as of this encounter Visit Diagnoses Not on filedocumented in this encounter Additional Health Concerns Assessment Noted Time PHQ-9 Depression Total Score: 0 02/20/20 24 4:22 PM EDT documented as of this encounter Care Teams Parachute Folder Relationship Specialty Start Date End Date Saurabh Mustafa DO [address], [place] [address] PCP - General Family Medicine 02/19/20 documented as of this encounter
--- OUTSIDE RECORDS SUMMARY | 2025-04-27 06:46 | XMS_ITS | Encounter Summary ---
Author Organization [facility] tem Address [facility] [place]-[id number] [address] [place] [address] Care Team Providers Care Merchandiser Retail Representative Name Role Phone MoonSaurabh Jamarcus COPELAND Primary Care Provider [phone] Encounter Details Date Type Department Care Team (Late st Contact Info) Description 04/12/2024 Telephone [facility] - Family Medicine [address] [facility] [place] [address] Brendan Gomez CMA Social History [...] often do you attend chur ch or quaker services? Never 08/15/2023 Do you belong to any clubs o r organizations such as mu-ism groups, unions, fraternal or athletic groups, or [...] Answer Date Recorded Total Score 0 02/20/2024 [facility] of Occupat ional Health - Occupational Stress [...] Telephone Encounter - Brendan Gomez CMA - 04/12/2024 3:36 PM EDT Pt called back and would like to go ahead and start the Semaglutide. documented in this encounter Plan of Treatment Not on file documented as of this encounter Visit Diagnoses Not on filedocumented in this encounter Additional Health Concerns Assessment Noted Time PHQ-9 Depression Total Score: 0 02/20/20 24 4:22 PM EDT documented as of this encounter Care Teams Merchandiser Retail Representative Relationship Specialty Start Date End Date Saurabh Mustafa DO [address] [facility] [place] [address] PCP - General Family Medicine 02/19/20 documented as of this encounter
--- OUTSIDE RECORDS SUMMARY | 2025-04-27 06:46 | XMS_ITS | Encounter Summary ---
Author Organization [facility] Address [address] [place] [address] Care Team Providers Care Dining Room Coordinator Name Role Phone Saurabh Mustafa MD Unavailable [phone] Saurabh Mustafa MD Primary Care Provider [phone] Encounter Details Date Type Department Care Team (Late st Contact Info) Description 06/25/2024 Orders Only [facility] [address] [place] [address] Paul Chaidez MD [address] [place] [address] Social History Tobacco Use Types Packs/Day Years Used Date Smoking Tobacco: Never Smokeless Tobacco: Never Alcohol Use Standard Drinks/Week Comments Yes 0 (1 standard drink = 0.6 oz pur e alcohol) Sex and Gender Information Value Date Recorded Sex Assigned at Not on file Legal Sex Male 7:19 PM EDT Gender Identity Not on file Sexual Orientation Not on file documented as of this encounter Plan of Treatment Not on file documented as of this encounter Procedures Procedure Name Priority Date/Time Associated Diagnosis Comments XR KNEE 4+ VIEWS RIGHT Routine 06/25/2024 2:35 PM EST documented in this encounter Results * XR knee 4+ views right (06/25/2024 2:35 PM EST) Anatomical Region Laterality Modality Lower Extremities, Knee Right Radiogra phic Imaging us Paul Chaidez MD IMG XR PROCEDURES Final Resul t documented in this encounter Visit Diagnoses Not on filedocumented in this encounter Care Teams Dining Room Coordinator Relationship Specialty Start Date End Date Saurabh Mustafa MD PCP - General Family Medicine 07/24/24 Saurabh Mustafa MD Referring Physician Family Medicine 07/24/24 documented as of this encounter
--- OUTSIDE RECORDS SUMMARY | 2025-04-27 06:46 | XMS_ITS | Encounter Summary ---
Author Organization [facility] tem Address [facility]-[id number] [address] [place] [address] Care Team Providers Care Manufacturing Maintenance Technician Name Role Phone Saurabh Mustafa DO Primary Care Provider [phone] Encounter Details Date Type Department Care Team (Late st Contact Info) Description 04/23/2025 Results Follow-Up [facility] Internal Medicine - Family Medicine [address] [place] [address] Saurabh Mustafa DO [address], [facility] [address] POCT urinalysis dipstick only, C-reactive protein, TSH with Reflex, Additional followed-up results: 2 Social History Tobacco Use Types Packs/Day Years Used Date Smoking Tobacco: Never Smokeless Tobacco: Never Alcohol Use Standard Drinks/Week Comments Yes 1 (1 standard drink = 0.6 oz pur e alcohol) social AHC Utilities Answer Date Recorded In the past 12 months has [employer] gas, oil, or water [employer] threatened to shut off services in your home? No 08/15/2023 Social Connection and Isolat ion Panel [NHANES] Answer Date Recorded In a typical week, how many times do you talk on the phone with family, friends, or neighbors? Three times a week 08/15/2023 How often do you get togethe r with friends or relatives? Once a week 08/15/2023 How often do you attend [facility] or congregational services? Never 08/15/2023 Do you belong to any clubs o r organizations such as christian groups, unions, fraternal or athletic groups, or [...] Answer Date Recorded Total Score 0 04/22/2025 [facility] of Occupat ional Health - Occupational Stress [...] Recorded Do you need help finding a [facility] career center and/or a training program? [...] documented as of this encounter Care Teams Manufacturing Maintenance Technician Relationship Specialty Start Date End Date Saurabh Mustafa DO [address] [place] [address] PCP - General Family Medicine 02/19/20 documented as of this encounter
--- OUTSIDE RECORDS SUMMARY | 2025-04-27 06:46 | XMS_ITS | Encounter Summary ---
Author Organization [facility] Happy Inspector s tem Address [facility]-[id number] [address] [place] [address] Care Team Providers Care Cutter Operator Helper Name Role Phone KristelSaurabh nevarez Jamarcus COPELAND Primary Care Provider Encounter Details Date Type Department Care Team (Late st Contact Info) Description 04/03/2024 Orders Only [facility] - Family Medicine [address] [facility] [place] [address] Nat Workman CMA Well adult health check Social History Tobacco Use Types Packs/Day Years [...] often do you attend chur ch or adventism services? Never 08/15/2023 Do you belong to any clubs o r organizations such as druze groups, unions, fraternal or athletic groups, or [...] Answer Date Recorded Total Score 0 02/20/2024 [facility] of Occupat ional Health - Occupational [...] Recorded Do you need help finding a [facility] career center and/or a training [...] Procedure Name Priority Date/Time Associated Diagnosis Comments COMPREHENSIVE METABOLIC PANEL Routine 03/31/2024 Well adult health check documented in this encounter Results * Comprehensive metabolic panel (03/31/2024) External Albumin 4.0 SUNQUEST External Alt Sgpt 26 SUNQUEST External Anion Gap 8.9 SUNQUEST External Ast 12 SUNQUEST External Blood Urea Nitrogen Bun 18.0 SUNQUEST External Calcium Ca 8.8 SUNQUEST External Chloride 103 SUNQUEST External Co2 / Carbon Dioxide 29.7 SUNQUEST External Creatinine 1.02 SUNQUEST External Gfr Amer >60 SUNQUEST External Gfr Non Amer >60 SUNQUEST External Alkaline Phosphatase 63 SUNQUEST External Glucose Fasting Or Random (Fbs) 118 SUNQUEST External Potassium K 3.6 SUNQUEST External Sodium Na 138 SUNQUEST Total Bilirubin 0.8 SUNQUEST External Total Protein 7.1 SUNQUEST Blood 03/31/2024 us Saurabh Mustafa DO LAB BLOOD ORDERABLES Final R esult SUNQUEST documented in this encounter Visit Diagnoses Diagnosis Well adult health check Unspecified general medical examination documented in this encounter Additional Health Concerns Assessment Noted Time PHQ-9 Depression Total Score: 0 02/20/20 24 4:22 PM EDT documented as of this encounter Care Teams Cutter Operator Helper Relationship Specialty Start Date End Date Saurabh Mustafa DO [address] [facility], [place] [address] PCP - General Family Medicine 02/19/20 documented as of this encounter
--- OUTSIDE RECORDS SUMMARY | 2025-04-27 06:46 | XMS_ITS | Encounter Summary ---
Author Organization [facility] tem Address [facility]-[id number] [address] [place] [address] Care Team Providers Care Associate Partner Name Role Phone Saurabh Mustafa DO Primary Care Provider [phone] Encounter Details Date Type Department Care Team (Late st Contact Info) Description 06/27/2024 Orders Only [facility] - Family Medicine [address] [place] [address] Saurabh Mustafa DO [address], [facility] [place] [address] Social History Tobacco Use Types Packs/Day Years Used Date Smoking Tobacco: Never Smokeless Tobacco: Never Alcohol Use Standard Drinks/Week Comments Yes 0 (1 standard drink = 0.6 oz pur e alcohol) social AHC Utilities Answer Date Recorded In the past 12 months has [employer], gas, oil, or water [employer] threatened to shut off services in your [...] 08/15/2023 How often do you attend chur or yazidism services? Never 08/15/2023 Do you belong to any clubs o r organizations such as mandaen groups, unions, fraternal or athletic groups, or [...] Answer Date Recorded Total Score 0 02/20/2024 [facility] Questionnaire Answer Date Recorded [...] Recorded Do you need help finding a [facility] career center and/or a training program? [...] documented as of this encounter Care Teams Associate Partner Relationship Specialty Start Date End Date Saurabh Mustafa DO [address], [facility] [place] [address] PCP - General Family Medicine 02/19/20 documented as of this encounter
--- OUTSIDE RECORDS SUMMARY | 2025-04-27 06:46 | XMS_ITS | Encounter Summary ---
Author Organization [facility] tem Address [facility]-[id number] [address] [place] [address] Care Team Providers Care Concrete Tester Name Role Phone MoonSaurabh Jamarcus COPELAND Primary Care Provider Encounter Details Date Type Department Care Team (Late st Contact Info) Description 06/21/2024 Telephone [facility] - Family Medicine [address] [facility] [place] [address] Brendan Gomez CMA Social History [...] often do you attend chur ch or episcopalian services? Never 08/15/2023 Do you belong to any clubs o r organizations such as pentecostal groups, unions, fraternal or athletic groups, or [...] Answer Date Recorded Total Score 0 02/20/2024 [facility] of Occupat ional Health - Occupational [...] Telephone Encounter - Brendan Gomez CMA - 06/21/2024 3:20 PM EST Pt Cassandra Called and was wondering if the labs were final yet? I said it looks like they have not been reviewed by Dr ornelas. Also She was wondering if you could increase the zepbound? Or put on something else? * Telephone Encounter - Saurabh Mustafa DO - 06/21/2024 3:20 PM EST I just reviewed his testosterone and it was normal. He can increase the dose of set bound. I just sent in a new prescription for 5 mg weekly * Telephone Encounter - Brendan Gomez CMA - 06/21/2024 3:20 PM EST I called pt Cassandra and let her know. Read result note and she verbally states she understands. documented in this encounter Plan of Treatment Not on file documented as of this encounter Visit Diagnoses Not on filedocumented in this encounter Additional Health Concerns Assessment Noted Time PHQ-9 Depression Total Score: 0 02/20/20 24 4:22 PM EDT documented as of this encounter Care Teams Concrete Tester Relationship Specialty Start Date End Date Saurabh Mustafa DO [address] [facility] [place] [address] PCP - General Family Medicine 02/19/20 documented as of this encounter
--- OUTSIDE RECORDS SUMMARY | 2025-04-27 06:46 | XMS_ITS | Encounter Summary ---
Author Organization [facility] tem Address [facility][id number] [address] [place] [address] Care Team Providers Care Form Raiser Name Role Phone Saurabh Mustafa DO Primary Care Provider [phone] Encounter Details Date Type Department Care Team (Late st Contact Info) Description 09/05/2023 Orders Only [facility] - Family Medicine [address] [place] [address] Saurabh Mustafa DO [address], [place] [address] Neoplasm of uncertain behavior of skin of face Social History Tobacco Use Types Packs/Day Years Used Date Smoking Tobacco: Never Smokeless Tobacco: Never Alcohol Use Standard Drinks/Week Comments Yes 0 (1 standard drink = 0.6 oz pur e alcohol) social AHC Utilities Answer Date Recorded In the past 12 months has [employer], gas, oil, or water [employer] threatened to shut off services in your [...] How often do you attend chur or anabaptism services? Never 08/15/2023 Do you [...] PHQ-2 Answer Date Recorded Total Score 0 08/15/2023 [facility] [place] of Occupat ional Health - Occupational Stress [...] Recorded Do you need help finding a [facility] career center and/or a training program? No 08/15/2023 Hunger Screening Answer Date Recorded Within the past 12 months we worried whether our food would run out before we got money to buy more. Never True 08/15/2023 Within the past 12 months th e food we bought just didn't last and we didn't have money to get more. Never True 08/15/2023 Purpose - Life Answer Date Recorded I [...] Procedure Name Priority Date/Time Associated Diagnosis Comments AMB REFERRAL TO DERMATOLOGY Routine 09/02/2023 Neoplasm of uncertain behavior of skin of face documented in this encounter Results * Ambulatory referral to Dermatology ([facility]) (09/02/2023) us Saurabh Mustafa DO OUTPATIENT REFERRAL ORDERABL ES Final Result MANUALLY TRANSCRIBED RESULTS documented in this encounter Visit Diagnoses Diagnosis Neoplasm of uncertain behavior of skin of face documented in this encounter Additional Health Concerns Assessment Noted Time PHQ-9 Depression Total Score: 0 08/15/19 24 4:07 PM EST documented as of this encounter Care Teams Form Raiser Relationship Specialty Start Date End Date Saurabh Mustafa DO [address] [facility], [place] [address] PCP - General Family Medicine 02/19/20 documented as of this encounter
--- OUTSIDE RECORDS SUMMARY | 2025-04-27 06:46 | XMS_ITS | Encounter Summary ---
Author Organization [facility] tem Address [facility] [place]-[id number] [address] [place] [address] Care Team Providers Care Cnc Specialist Name Role Phone Moon Saurabh Jamarcus COPELAND Primary Care Provider Encounter Details Date Type Department Care Team (Late st Contact Info) Description 03/06/2024 [facility]phone [facility] Internal [facility] - Family Medicine [address] [place] [address] Laura Oconnell CMA Social History Tobacco Use Types Packs/Day Years Used Date Smoking Tobacco: Never Smokeless Tobacco: Never Alcohol Use Standard Drinks/Week Comments Yes 0 (1 standard drink = 0.6 oz pur e alcohol) social [employer] Utilities Answer Date Recorded In the past [...] often do you attend chur ch or religion services? Never 08/15/2023 Do you belong to any clubs o r organizations such as evangelical groups, unions, fraternal [...] Answer Date Recorded Total Score 0 02/20/2024 [facility] of Occupat ional Health - Occupational Stress [...] Recorded Do you need help finding a [facility] career [facility] and/or a training [...] encounter Miscellaneous Notes * Telephone Encounter - Laura Oconnell CMA - 03/06/2024 7:51 AM EDT Pt called his weight loss rx was not covered by insurance , wanted you to write it that he was diabetic, but there is nothing showing he is diabetic. * Telephone Encounter - Saurabh Mustafa DO - 03/06/2024 7:51 AM EDT We can check labs to see if he is a diabetic but otherwise I can not do that because that would be fraud. He can get semaglutide through a local pharmacy that compounds it for $200 a month if he is interested in that * Telephone Encounter - Laura Oconnell CMA - 03/06/2024 7:51 AM EDT Called left vm to cb * Telephone Encounter - Laura Oconnell CMA - 03/06/2024 7:51 AM EDT Pt called back today wants to be tested to see if he's diabetic and wants his testosterone checked also . Do you want to put in orders or do you want me to set up an appt? * Telephone Encounter - Saurabh Mustafa DO - 03/06/2024 7:51 AM EDT I sent the order to [facility] * Telephone Encounter - Laura Oconnell CMA - 03/06/2024 7:51 AM EDT Called left vm on his private vm that the orders are sent to [facility] documented in this encounter Plan of Treatment Not on file documented as of this encounter Visit Diagnoses Not on filedocumented in this encounter Additional Health Concerns Assessment Noted Time PHQ-9 Depression Total Score: 0 02/20/20 4:22 PM EDT documented as of this encounter Care Teams Cnc Specialist Relationship Specialty Start Date End Date Saurabh Mustafa DO [address] [facility], [facility] [place] [address] PCP - General Family Medicine 02/19/20 documented as of this encounter
--- OUTSIDE RECORDS SUMMARY | 2025-04-27 06:46 | XMS_ITS | Encounter Summary ---
Author Organization [employer] [facility] tem Address [facility] [id number] [address] [place] [address] Care Team Providers Care Warehouse Packer Name Role Phone KristelSaurabh nevarez Jamarcus COPELAND Primary Care Provider [phone] Reason for Visit * Reason Onset Date Comments Med Refill 04/08/2025 Encounter Details Date Type Department Care Team (Late st Contact Info) Description 04/08/2025 Refill [facility] Internal Medicine - Family Medicine [address] [place] [address] Nat Workman CMA Social History Tobacco Use Types Packs/Day Years Used Date Smoking Tobacco: Never Smokeless Tobacco: Never Alcohol Use Standard Drinks/Week Comments Yes 0 (1 standard drink = 0.6 oz pur e alcohol) social [facility] Utilities Answer Date Recorded In the past 12 months has [employer], gas, oil, or water company threatened [...] often do you attend chur ch or mormonism services? Never 08/15/2023 Do you belong to any clubs o r organizations such as catholic groups, unions, fraternal or athletic groups, or [...] Answer Date Recorded Total Score 0 02/20/2024 [facility] of Occupat ional Health - Occupational Stress [...] Recorded Do you need help finding a [facility] career center and/or a training program? [...] documented as of this encounter Care Teams Warehouse Packer Relationship Specialty Start Date End Date Saurabh Mustafa DO [address] [facility], [place] [address] PCP - General Family Medicine 02/19/20 documented as of this encounter
--- OUTSIDE RECORDS SUMMARY | 2025-04-27 06:46 | XMS_ITS | Encounter Summary ---
Author Organization [facility] tem Address [facility] [id number] [address] [place] [address] Care Team Providers Care Napping Machine Operator Name Role Phone MoonSaurabh Primary Care Provider [phone] Encounter Details Date Type Department Care Team (Late st Contact Info) Description 12/13/2024 Orders Only [facility] Internal Medicine - Family Medicine [address] [facility] [place] [phone] External, Scanning Provider Social History Tobacco Use Types Packs/Day Years Used Date Smoking Tobacco: Never Smokeless Tobacco: Never Alcohol Use Standard Drinks/Week Comments Yes 0 (1 standard drink = 0.6 oz pur e alcohol) social [employer] Utilities Answer Date Recorded In the past [...] any clubs o r organizations such as advent groups, unions, fraternal [...] Answer Date Recorded Total Score 0 02/20/2024 [facility] of Occupat ional Health - [...] Recorded Do you need help finding a [facility] career [facility] and/or a training program? No [...] Procedure Name Priority Date/Time Associated Diagnosis Comments VASC VENOUS DUPLEX LOWER RIGHT Routine 11/16/2024 9:17 AM EDT documented in this encounter Results * Vas venous duplex lwr single right (11/16/2024 9:17 AM EDT) Anatomical Region Laterality Modality Vascular Right Ultrasound us Scanning Provider External CV VASCULAR ORDERABLE S Final Result documented in this encounter Visit Diagnoses Not on filedocumented in this encounter Additional Health Concerns Assessment Noted Time PHQ-9 Depression Total Score: 0 02/20/20 24 4:22 PM EDT documented as of this encounter Care Teams Napping Machine Operator Relationship Specialty Start Date End Date Saurabh Mustafa DO [address], [place] [address] PCP - General Family Medicine 02/19/20 documented as of this encounter
--- OUTSIDE RECORDS SUMMARY | 2025-04-27 06:46 | XMS_ITS | Encounter Summary ---
Author Organization [facility] Hospital[facility]ipher[facility] tem Address [facility] [place]-[id number] [address] [place] [address] Care Team Providers Care 911 Dispatcher Name Role Phone KristelSaurabh nevarez Jamarcus COPELAND Primary Care Provider [phone] Encounter Details Date Type Department Care Team (Late st Contact Info) Description 04/11/2025 Telephone [facility] Internal Medicine - Family Medicine [address] [facility] [place] [phone] Tyra Higuera CMA Social History Tobacco Use Types Packs/Day Years Used Date Smoking Tobacco: Never Smokeless Tobacco: Never Alcohol Use Standard Drinks/Week Comments Yes 0 (1 standard drink = 0.6 oz pur e alcohol) social [employer] Utilities Answer Date Recorded In the past [...] often do you attend chur ch or latter-day services? Never 08/15/2023 Do you belong to any clubs o r organizations such as moravian groups, unions, fraternal or athletic groups, or [...] Answer Date Recorded Total Score 0 02/20/2024 [facility] of Occupat ional Health - [...] Recorded Do you need help finding a [facility] career center and/or a training [...] encounter Miscellaneous Notes * Telephone Encounter - Tyra Higuera CMA - 04/11/2025 12:57 PM EDT The Pharmacist from [facility] called and stated pt has been off of the Wegovy for 6 months and recommended that the pt start back at the .25 mg and titrate back up. So, is it possible to get a Rx re sent for the .25 mg of the Wegovy? Thank you. * Telephone Encounter - Tyra Higuera CMA - 04/11/2025 12:57 PM EDT I am just shooting out another message regarding pt's medication, and that the Pharmacist called suggesting that pt start at the low dose since not taking for a 6 month period of time. Thank you. Please advise. documented in this encounter Plan of Treatment Not on file documented as of this encounter Visit Diagnoses Not on filedocumented in this encounter Additional Health Concerns Assessment Noted Time PHQ-9 Depression Total Score: 0 02/20/20 24 4:22 PM EDT documented as of this encounter Care Teams 911 Dispatcher Relationship Specialty Start Date End Date Saurabh Mustafa DO [address], [facility] [place] [address] PCP - General Family Medicine 02/19/20 documented as of this encounter
--- OUTSIDE RECORDS SUMMARY | 2025-04-27 06:46 | XMS_ITS | Encounter Summary ---
Author Organization [facility] tem Address [facility] [id number] [address] [place] [address] Care Team Providers Care Cmo & President Name Role Phone Saurabh Mustafa DO Primary Care Provider [phone] Encounter Details Date Type Department Care Team (Late st Contact Info) Description 04/25/2025 Orders Only [facility] Internal Medicine - Family Medicine [address] [place] [phone] Saurabh Mustafa DO [address], [facility] [address] Class 1 obesity due to excess calories without serious comorbidity with body mass index (BMI) of 34.0 to 34.9 in adult (Primary Dx); Low testosterone in male Social History Tobacco Use Types Packs/Day Years Used Date Smoking Tobacco: Never Smokeless Tobacco: Never Alcohol Use Standard Drinks/Week Comments Yes 1 (1 standard drink = 0.6 oz pur e alcohol) social [facility] Utilities Answer Date Recorded In the past 12 months has [employer], gas, oil, or water company threatened to [...] week 08/15/2023 How often do you attend [facility] or protestant services? Never 08/15/2023 Do you belong to any clubs o r organizations such as sabianism groups, unions, fraternal or athletic groups, or [...] Answer Date Recorded Total Score 0 04/22/2025 [facility] of Occupat ional Health - Occupational [...] Recorded Do you need help finding a [facility] career center and/or a training program? No [...] as of this encounter Plan of Treatment Scheduled Orders Name Type Priority Associated Diagnoses Orde r Schedule Cortisol Lab Routine Class 1 obesity due to excess calories without serious comorbidity with body mass index (BMI) of 34.0 to 34.9 in adult Low testosterone in male 1 Occurrences starting 04/25/2025 until 04/25/2026 documented as of this encounter Visit Diagnoses Diagnosis Class 1 obesity due to excess calories without serious comorbidity with body mass index (BMI) of 34.0 to 34.9 in adult- Primary Low testosterone in male documented in this encounter Additional Health Concerns Assessment Noted Time PHQ-9 Depression Total Score: 0 04/22/20 25 4:39 PM EDT documented as of this encounter Care Teams Cmo & President Relationship Specialty Start Date End Date Saurabh Mustafa DO [address], [facility] [address] PCP - General Family Medicine 02/19/20 documented as of this encounter
--- OUTSIDE RECORDS SUMMARY | 2025-04-27 06:46 | XMS_ITS | Encounter Summary ---
Author Organization [facility] tem Address [facility] [id number] [address] [place] [address] Care Team Providers Care Senior Physical Therapist Name Role Phone KristelSaurabh nevarez Jamarcus COPELAND Primary Care Provider Encounter Details Date Type Department Care Team (Late st Contact Info) Description 04/11/2024 Orders Only [facility] Internal Medicine - Family Medicine [address] [facility] [address] Nat Workman CMA Hyperglycemia Social History Tobacco Use Types Packs/Day Years Used Date Smoking Tobacco: Never Smokeless Tobacco: Never Alcohol Use Standard Drinks/Week Comments Yes 0 (1 standard drink = 0.6 oz pur e alcohol) social Worth[employer] Utilities Answer Date Recorded In the past [...] often do you attend chur ch or synagogue services? Never 08/15/2023 Do you belong to any clubs o r organizations such as temple groups, unions, fraternal or athletic groups, or [...] Answer Date Recorded Total Score 0 02/20/2024 [facility] of Occupat ional Health - [...] Recorded Do you need help finding a [facility] career [facility] and/or a training [...] Associated Diagnosis Comments COMPREHENSIVE METABOLIC PANEL Routine 04/10/2024 12:19 PM EDT HEMOGLOBIN A1C Routine 04/10/2024 Hyperglycemia documented in this encounter Results * Comprehensive metabolic panel (04/10/2024 12:19 PM EDT) us Not In System Ref Prov LAB BLOOD ORDERABLES Lolita l Result Performing Organization Address [facility] de Phone Number MANUALLY TRANSCRIBED RESULTS * Hemoglobin A1c (04/10/2024) External Hemoglobin A1C 5.3 % MANUALLY TRANSCRIBED RESULTS Blood 04/10/2024 us Saurabh Mustafa DO LAB BLOOD ORDERABLES Final R esult Performing Organization Address [facility] de Phone Number MANUALLY TRANSCRIBED RESULTS documented in this encounter Visit Diagnoses Diagnosis Hyperglycemia Other abnormal glucose documented in this encounter Additional Health Concerns Assessment Noted Time PHQ-9 Depression Total Score: 0 02/20/20 24 4:22 PM EDT documented as of this encounter Care Teams Senior Physical Therapist Relationship Specialty Start Date End Date Saurabh Mustafa DO [address], [place] [address] PCP - General Family Medicine 02/19/20 documented as of this encounter
--- OUTSIDE RECORDS SUMMARY | 2025-04-27 06:46 | XMS_ITS | Encounter Summary ---
Author Organization [email or web address] tem Address [facility] [id number] [address] [place] [address] Care Team Providers Care Lorry Weigher Name Role Phone JakiSaurabh burns Jamarcus COPELAND Primary Care Provider [phone] Encounter Details Date Type Department Care Team (Latest Contact Info) Description 04/22/2025 Travel Social History Tobacco Use Types Packs/Day Years Used Date Smoking Tobacco: Never Smokeless Tobacco: Never Alcohol Use Standard Drinks/Week Comments Yes 1 (1 standard drink = 0.6 oz pur e alcohol) social [facility] Utilities Answer Date Recorded In the past 12 months has [employer] electric, gas, oil, or water company threatened [...] often do you attend chur ch or scientology services? Never 08/15/2023 Do you belong to [...] Answer Date Recorded Total Score 0 04/22/2025 [facility] of Occupat ional Health - [...] Recorded Do you need help finding a [facility] career center and/or a training program? No [...] documented as of this encounter Care Teams Lorry Weigher Relationship Specialty Start Date End Date Saurabh Mustafa DO [address] [facility], [place] [address] PCP - General Family Medicine 02/19/20 documented as of this encounter
--- OUTSIDE RECORDS SUMMARY | 2025-04-27 06:46 | XMS_ITS | Encounter Summary ---
Author Organization [facility] Address [facility] [place]-[id number] [address] [place] [address] Care Team Providers Care Seasonal Tax Preparer Name Role Phone KristelSaurabh nevarez Jamarcus COPELAND Primary Care Provider Encounter Details Date Type Department Care Team (Late st Contact Info) Description 04/20/2024 Orders Only [facility] Internal Medicine - Family Medicine [address] [facility] [facility] [place] [address] Nat Workman CMA Low testosterone in male Social History Tobacco [...] often do you attend chur ch or spiritism services? Never 08/15/2023 Do you belong to [...] Answer Date Recorded Total Score 0 02/20/2024 [facility] of Occupat ional Health - Occupational Stress [...] Recorded Do you need help finding a [facility] career [facility] and/or a training program? [...] Procedure Name Priority Date/Time Associated Diagnosis Comments CBC (NO DIFF) Routine 04/19/2024 Low testosterone in male documented in this encounter Results * CBC (04/19/2024) External Hematocrit Hct 44.0 MANUALLY TRANSCRIBED RESULTS External Hemoglobin 15.2 MANUALLY TRANSCRIBED RESULTS External Mpv 10.1 MANUALL Y TRANSCRIBED RESULTS External Platelet Count 201 MANUALLY TRANSCRIBED RESULTS External Rbc Count 5.22 MANUALLY TRANSCRIBED RESULTS External Rdw 12.2 MANUALL Y TRANSCRIBED RESULTS External Wbc Count 5.5 MANUALLY TRANSCRIBED RESULTS External Mcv 84.3 MANUALL Y TRANSCRIBED RESULTS External MCH 29.1 MANUALL Y TRANSCRIBED RESULTS External Mchc 34.5 MANUAL LY TRANSCRIBED RESULTS Blood 04/19/2024 us Saurabh Mustafa DO LAB BLOOD ORDERABLES Final R esult MANUALLY TRANSCRIBED RESULTS documented in this encounter Visit Diagnoses Diagnosis Low testosterone in male documented in this encounter Additional Health Concerns Assessment Noted Time PHQ-9 Depression Total Score: 0 02/20/20 24 4:22 PM EDT documented as of this encounter Care Teams Seasonal Tax Preparer Relationship Specialty Start Date End Date Saurabh Mustafa DO [address], [place] [address] PCP - General Family Medicine 02/19/20 documented as of this encounter
--- OUTSIDE RECORDS SUMMARY | 2025-04-27 06:46 | XMS_ITS | Encounter Summary ---
Author Organization [facility] tem Address [facility] [place]-[id number] [address] [place] [address] Care Team Providers Care Calender Feeder Name Role Phone KristelSaurabh nevarez Jamarcus COPELAND Primary Care Provider Encounter Details Date Type Department Care Team (Late st Contact Info) Description 04/27/2024 Orders Only [facility] - Family Medicine [address] [place] [address] Nat Workman CMA Low testosterone in male [...] often do you attend chur ch or yazdanism services? Never 08/15/2023 Do you belong to any clubs o r organizations such as jew groups, unions, fraternal or athletic groups, or [...] Answer Date Recorded Total Score 0 02/20/2024 [facility] of Occupat ional [...] Recorded Do you need help finding a [facility] career [facility] and/or a training program? [...] Procedure Name Priority Date/Time Associated Diagnosis Comments TESTOSTERONE, TOTAL AND FREE, S Routine 04/19/2024 Low testosterone in male documented in this encounter Results * Testosterone, Total and Free, S (04/19/2024) Testosterone 264 MANUALL Y TRANSCRIBED RESULTS Testosterone free 8.1 MA NUALLY TRANSCRIBED RESULTS Blood 04/19/2024 us Saurabh Mustafa DO LAB BLOOD ORDERABLES Final R esult MANUALLY TRANSCRIBED RESULTS documented in this encounter Visit Diagnoses Diagnosis Low testosterone in male documented in this encounter Additional Health Concerns Assessment Noted Time PHQ-9 Depression Total Score: 0 02/20/20 24 4:22 PM EDT documented as of this encounter Care Teams Calender Feeder Relationship Specialty Start Date End Date Saurabh Mustafa DO [address], [place] [address] PCP - General Family Medicine 02/19/20 documented as of this encounter
--- OUTSIDE RECORDS SUMMARY | 2025-04-27 06:46 | XMS_ITS | Encounter Summary ---
Author Organization [facility] tem Address [facility] [id number] [address] [place] [address] Care Team Providers Care Forest Fire Officer Name Role Phone Saurabh Mustafa DO Primary Care Provider [phone] Encounter Details Date Type Department Care Team (Late st Contact Info) Description 06/05/2024 Orders Only [facility] Internal Medicine - Family Medicine [address] [place] [phone] Saurabh Mustafa DO [address], [facility] [place] [address] Low testosterone in male (Primary Dx) Social History Tobacco Use Types Packs/Day Years Used Date Smoking Tobacco: Never Smokeless Tobacco: Never Alcohol Use Standard Drinks/Week Comments Yes 0 (1 standard drink = 0.6 oz pur e alcohol) social [facility] Utilities Answer Date Recorded In the past 12 months has [employer], [employer], oil, or water [employer] threatened to shut off services in your [...] How often do you attend chur or yarsanism services? Never 08/15/2023 Do you belong to [...] Answer Date Recorded Total Score 0 02/20/2024 [facility] of Occupat ional Health - Occupational Stress [...] Recorded Do you need help finding a [facility] career center and/or a training program? No [...] on file documented as of this encounter Results * CBC (06/13/2024) External Hematocrit Hct 44.3 MANUALLY TRANSCRIBED RESULTS External Hemoglobin 15.4 MANUALLY TRANSCRIBED RESULTS External Mpv 10.3 MANUALL Y TRANSCRIBED RESULTS External Platelet Count 192 MANUALLY TRANSCRIBED RESULTS External Rbc Count 5.29 MANUALLY TRANSCRIBED RESULTS External Rdw 12.3 MANUALL Y TRANSCRIBED RESULTS External Wbc Count 5.2 MANUALLY TRANSCRIBED RESULTS External Mcv 83.7 MANUALL Y TRANSCRIBED RESULTS External MCH 29.1 MANUALL Y TRANSCRIBED RESULTS External Mchc 34.8 MANUAL LY TRANSCRIBED RESULTS Blood 06/13/2024 Saurabh Mustafa DO LAB BLOOD ORDERABLES Final R esult Performing Organization Address [facility] Co de Phone Number MANUALLY TRANSCRIBED RESULTS * Testosterone, Total and Free, S (06/13/2024) Testosterone 450 MANUALL Y TRANSCRIBED RESULTS Testosterone free 8.7 MA NUALLY TRANSCRIBED RESULTS Blood 06/13/2024 Saurabh Mustafa DO LAB BLOOD ORDERABLES Final R esult Performing Organization Address [facility] Co de Phone Number MANUALLY TRANSCRIBED RESULTS documented in this encounter Visit Diagnoses Diagnosis Low testosterone in male- Primary documented in this encounter Additional Health Concerns Assessment Noted Time PHQ-9 Depression Total Score: 0 02/20/20 24 4:22 PM EDT documented as of this encounter Care Teams Forest Fire Officer Relationship Specialty Start Date End Date Saurabh Mustafa DO [address], [facility] [place] [address] PCP - General Family Medicine 02/19/20 documented as of this encounter
--- OUTSIDE RECORDS SUMMARY | 2025-04-27 06:46 | XMS_ITS | Encounter Summary ---
[facility] Organization [facility] Address [id number] [address] [place] [address] Care Team Providers Care Wedding Planner Name Role Phone KristelSaurabh nevarez Jamarcus COPELAND Primary Care Provider [phone] Encounter Details Date Type Department Care Team (Late st Contact Info) Description 04/26/2025 Telephone [facility] Internal Medicine - Family Medicine [address] [facility] [facility] [place] [id number] Tyra Higuera CMA Social History Tobacco Use Types Packs/Day Years Used Date Smoking Tobacco: Never Smokeless Tobacco: Never Alcohol Use Standard Drinks/Week Comments Yes 1 (1 standard drink = 0.6 oz pur e alcohol) social SMS AssistC Utilities Answer Date Recorded In the past [...] often do you attend chur ch or amish services? Never 08/15/2023 Do you belong to any clubs o r organizations such as quaker groups, unions, fraternal or athletic groups, or [...] Answer Date Recorded Total Score 0 04/22/2025 [facility] of Occupat ional [...] Recorded Do you need help finding a [facility] and/or a training [...] Telephone Encounter - Tyra Higuera CMA - 04/26/2025 11:35 AM EDT Pt's called and asked if pt's Wegovy can be upped to the next dosage, or to the next step up. Thank you. * Telephone Encounter - Saurabh Mustafa DO - 04/26/2025 11:35 AM EDT Yes every 4 weeks it can be stepped up. Hopefully his insurance does not make me do a prior Auth every time documented in this encounter Plan of Treatment Not on file documented as of this encounter Visit Diagnoses Not on filedocumented in this encounter Additional Health Concerns Assessment Noted Time PHQ-9 Depression Total Score: 0 04/22/20 25 4:39 PM EDT documented as of this encounter Care Teams Wedding Planner Relationship Specialty Start Date End Date Saurabh Mustafa DO [address] [place] [address] PCP - General Family Medicine 02/19/20 documented as of this encounter
--- OUTSIDE RECORDS SUMMARY | 2025-04-27 06:46 | XMS_ITS | Clinical Summary ---
Author Organization [facility] Healthcare Address [address] [place] [address] Care Team Providers Care Optical Laboratory Mechanic Name Role Phone Saurabh Mustafa MD Unavailable Saurabh Mustafa MD Primary Care Provider [phone] Allergies No known active allergies Medications Semaglutide-Weight Management 0.5 MG/0.5ML solution auto-injector 06/22/2024 Activ e Active Problems Problem Noted Date Diagnosed Date Acute postoperative pain of right knee Status post arthroscopy of right knee 10/17/2024 Family History Relation Name Status Comments Daughter Alive 1 Father Alive Mother Alive Social History Tobacco Use Types Packs/Day Years Used Date Smoking Tobacco: Never Smokeless Tobacco: Never Tobacco Cessation:Counseling Given: Not Answered Alcohol Use Standard Drinks/Week Comments Not Currently 0 (1 standard drink = 0.6 oz pur e alcohol) Sex and Gender Information Value Date Recorded Sex Assigned at Not on file Legal Sex Male 7:19 PM EDT Gender Identity Not on file Sexual Orientation Not on file Last Filed Vital Signs Vital Sign Reading Time Taken Comments Blood Pressure - - Pulse - - Temperature - - Respiratory Rate - - Oxygen Saturation - - Inhaled Oxygen Concentration - - Weight 109 kg (240 lb) 08/14/2024 11:31 AM EST Height 182.9 cm (6') 08/14/2024 11:31 AM EST Body Mass Index 32.55 08/14/2024 11:31 AM EST Plan of Treatment Health Maintenance Due Date Last Done Comments Influenza Vaccine (#1) 2025 , 04/17/2024, 04/26/2023, Additional history exists Insurance [employer] Care Teams Optical Laboratory Mechanic Relationship Specialty Start Date End Date Saurabh Mustafa MD PCP - General Family Medicine 07/24/24 Saurabh Mustafa MD Referring Physician Family Medicine 07/24/24
--- OUTSIDE RECORDS SUMMARY | 2025-04-27 06:46 | XMS_ITS | Encounter Summary ---
Author Organization [facility] tem Address [id number] [address] [place] [address] Care Team Providers Care Hotel Assistant General Manager Name Role Phone Moon Saurabh Jamarcus COPELAND Primary Care Provider [phone] Encounter Details Date Type Department Care Team (Late st Contact Info) Description 04/05/2024 [facility] [address] [facility] [place] [address] Laura Oconnell CMA Social History Tobacco Use Types Packs/Day Years Used Date Smoking Tobacco: Never Smokeless Tobacco: Never Alcohol Use Standard Drinks/Week Comments Yes 0 (1 standard drink = 0.6 oz pur e alcohol) social ICEdotC Utilities Answer Date Recorded In the past [...] any clubs o r organizations such as baptist groups, unions, fraternal or athletic groups, or [...] Answer Date Recorded Total Score 0 02/20/2024 [facility] of Occupat ional Health - Occupational [...] Recorded Do you need help finding a [place] [facility] and/or a training [...] Telephone Encounter - Laura Oconnell CMA - 04/05/2024 5:12 PM EDT Pt called would like his A1C test sent to [facility] documented in this encounter Plan of Treatment Not on file documented as of this encounter Visit Diagnoses Not on filedocumented in this encounter Additional Health Concerns Assessment Noted Time PHQ-9 Depression Total Score: 0 02/20/20 24 4:22 PM EDT documented as of this encounter Care Teams Hotel Assistant General Manager Relationship Specialty Start Date End Date Saurabh Mustafa DO [address] [facility] [place] [address] PCP - General Family Medicine 02/19/20 documented as of this encounter
--- OUTSIDE RECORDS SUMMARY | 2025-04-27 06:46 | XMS_ITS | Encounter Summary ---
Author Organization [facility] tem Address [id number] [address] [place] [address] Care Team Providers Care Tank Erector Name Role Phone Moon Saurabh Jamarcus COPELAND Primary Care Provider [phone] Encounter Details Date Type Department Care Team (Late st Contact Info) Description 04/03/2024 [facility] [address] [facility] [address] Laura Oconnell CMA Social History Tobacco Use Types Packs/Day Years Used Date Smoking Tobacco: Never Smokeless Tobacco: Never Alcohol Use Standard Drinks/Week Comments Yes 0 (1 standard drink = 0.6 oz pur e alcohol) social [employer] Utilities Answer Date Recorded In the past [...] any clubs o r organizations such as congregation groups, unions, fraternal or athletic groups, or [...] Answer Date Recorded Total Score 0 02/20/2024 [facility] of Occupat ional Health - [...] Recorded Do you need help finding a [facility] and/or a training [...] Telephone Encounter - Laura Oconnell CMA - 04/03/2024 3:50 PM EDT Pt called requesting his lab results , they are in there but not read * Telephone Encounter - Saurabh Mustafa DO - 04/03/2024 3:50 PM EDT I put the labs and recommendations to his portal. Glucose was high so he should come in for an A1c or get it done at the hospital. He will get back with us * Telephone Encounter - Laura Oconnell CMA - 04/03/2024 3:50 PM EDT Ok sounds good documented in this encounter Plan of Treatment Not on file documented as of this encounter Visit Diagnoses Not on filedocumented in this encounter Additional Health Concerns Assessment Noted Time PHQ-9 Depression Total Score: 0 02/20/20 24 4:22 PM EDT documented as of this encounter Care Teams Tank Erector Relationship Specialty Start Date End Date Saurabh Mustafa DO [address] [place] [address] PCP - General Family Medicine 02/19/20 documented as of this encounter
--- OUTSIDE RECORDS SUMMARY | 2025-04-27 06:47 | XMS_ITS | CCD ---
Author Organization [facility] Care Team Providers Care Applications Engineer Manufacturing Name Role Phone DR SAURABH CONLEY Admitting Unavailable MISC, DR ACOSTA Primary Care Unavailable JARVIS, DR SAURABH Ricketts Attending Unavailable FRESNO, DR ANILA Sofia Consulting Unavailable MATTIE VASQUEZ Attending Unavailable MATTIE VASQUEZ Admitting Unavailable JARVIS, DR SAURABH Ricketts Primary Care Unavailable MATTIE VASQUEZ Consulting Unavailable Unavailable Primary Care Provider SAURABH Hernandez Primary Care Physician [phone] Saurabh Conley MD Unavailable [phone] Saurabh Conley MD Primary Care Provider [phone] Maria T Patel Attending Unavailable Saurabh Conley DO Primary Care Provider [phone] Saurabh Conley MD Unavailable [phone] Saurabh Conley MD Primary Care Provider AMY YANG Attending Unavailable AMY YANG Referring Unavailable LOCO CABRERA Attending Unavailable LOCO CABRERA Attending Unavailable JR. CARVAJAL GEORGE C Attending UnavailPORSHA Veras Attending Unavailable LOCO CABRERA Attending Unavailable LOCO CABRERA Attending Unavailable MAGY FRANCO Attending Unavailable LOCO CABRERA Referring Unavailable LOCO CABRERA Attending Unavailable KARLA CARVAJAL Admitting Unavailable KARLA CARVAJAL Attending Unavailable SAURABH CONLEY Primary Care Unavailable SAURABH CONLEY Primary Care Unavailable KARLA CARVAJAL Admitting Unavailable KARLA CARVAJAL Attending Unavailable SAURABH CONLEY Primary Care Unavailable Sujit KAUR REFUND CLERK-C, Loco Simental Admitting Unavail able Sujit KAUR REFUND CLERK-C, Loco Simental Attending Unavail able Saurabh Conley DO Primary Care Provider [phone] SAURABH CONLEY Attending Unavailable SAURABH CONLEY Referring Unavailable SAURABH CONLEY Primary Care Unavailable Medications Current Medications Medication Drug Class(es) Dates Sig (Normalized) Sig (Original) 0.5 ML semaglutide 1 MG/ML Auto-Injector (1 source) Start: 07-17-2024 semaglutide 0.5 mg/0.5 mL (0.5 mg dose) subcutaneous solution SubCutaneous, Refills(s) 0 Start Date: 07/17/24 Status: Ordered acetaminophen 325 mg / HYDROcodone bitartrate 5 mg oral tablet (1 source) Opioid Agonist Start: 08-26-2024 End: 08-29-2024 take 1 tablet by mouth every six hours for pain HYDROcodone-aceta minophen ([place]) 5-325 MG tablet Indications: Tear of medial meniscus of right knee, initial encounter Take 1 tablet by mouth every 6 (six) hours if needed for severe pain for up to 3 days 12 tablet 08/26/2024 08/29/2024 Active fluticasone propionate 0.05 mg/actuat metered dose nasal spray (2 sources) Corticosteroid Start: 04-22-2025 take 2 spray(s) nasal route in the morning fluticasone propionate (FLONASE) 50 mcg/actuation nasal spray Administer 2 sprays into each nostril in the morning. 16 g 5 04/22/2025 Active ketorolac tromethamine 10 mg oral tablet (5 sources) Nonsteroidal Anti-inflammatory Drug, Cyclooxygenase Inhibitor End: 07-20-2024 ketorolac (Toradol) 10 MG tablet Take by mouth 07/20/2024 Discontinued (Med list cleanup) semaglutide, weight loss, (WEGOVY) 0.25 mg/0.5 mL pen injector (3 sources) Start: 04-11-2025 semaglutide, weight loss, (WEGOVY) 0.25 mg/0.5 mL pen injector Indications: Class 1 obesity due to excess calories without serious comorbidity with body mass index (BMI) of 34.0 to 34.9 in adult Inject 0.5 mL (0.25 mg total) under the skin every 7 days. 2 mL 04/11/2025 Active Semaglutide-Weight Management 0.5 MG/0.5ML solution auto-injector (20 sources) Start: 06-22-2024 Semaglutide-Weigh t Management 0.5 MG/0.5ML solution auto-injector 06/22/2024 Active Start: 06-22-2024 inject 0.6 mg by sub cutaneous injection every week Semaglutide-Weight Management 0.5 MG/0.5ML solution auto-injector Inject 0.6 mg subcutaneously weekly 06/22/2024 Active Completed/Discontinued Medications Medication Drug Class(es) Dates Sig (Normalized) Sig (Original) 1 ml methylPREDNISolone acetate 40 mg/ml injection (13 sources) Corticosteroid Start: End: methylPREDNISolone acetate (DEPO-Medrol) injection 40 mg Start: 07-06-2024 End: 07-06-2024 40 mg, Intra-articular, Once PRN Procedure, Starting on Tue07/06/24 at 1316, For 1 dose Start: 06-24-2024 End: 07-20-2024 methylPREDNISolone (Medrol D ospak) 4 MG tablets TAKE 6 TABLETS ON DAY 1 DIRECTED ON PACKAGE AND DECREASE BY 1 TAB EACH DAY FOR A TOTAL OF 6 DAYS 06/24/2024 07/20/2024 Discontinued (Med list cleanup) Start: 06-24-2024 methylPREDNISo lone (Medrol Dospak) 4 MG tablets TAKE 6 TABLETS ON DAY 1 DIRECTED ON PACKAGE AND DECREASE BY 1 TAB EACH DAY FOR A TOTAL OF 6 DAYS 06/24/2024 Active semaglutide, weight loss, (WEGOVY) 0.5 mg/0.5 mL pen injector (3 sources) Start: 07-17-2024 End: 04-22-2025 semaglutide, weight loss, (WEGOVY) 0.5 mg/0.5 mL pen injector 0.5 mL (0.5 mg total). 07/17/2024 04/22/2025 Discontinued (Dose adjustment) Start: 06-22-2024 End: 04-10-2025 semaglutide, weight loss, (W EGOVY) 0.5 mg/0.5 mL pen injector Indications: Class 1 obesity due to excess calories without serious comorbidity with body mass index (BMI) of 34.0 to 34.9 in adult Inject 0.6 mg subcutaneously weekly 2 mL 2 06/22/2024 04/10/2025 Discontinued (Dose adjustment) Start: 06-22-2024 semaglutide, w eight loss, (WEGOVY) 0.5 mg/0.5 mL pen injector Indications: Class 1 obesity due to excess calories without serious comorbidity with body mass index (BMI) of 34.0 to 34.9 in adult Inject 0.6 mg subcutaneously weekly 2 mL 2 06/22/2024 Active semaglutide, weight loss, (WEGOVY) 1 mg/0.5 mL pen injector (2 sources) Start: 04-10-2025 End: 04-11-2025 semaglutide, weight loss, (WEGOVY) 1 mg/0.5 mL pen injector Indications: Class 1 obesity due to excess calories without serious comorbidity with body mass index (BMI) of 34.0 to 34.9 in adult Inject 0.5 mL (1 mg total) under the skin every 7 days. 2 mL 2 04/10/2025 04/11/2025 Discontinued (Dose adjustment) Start: 04-10-2025 semaglutide, w eight loss, (WEGOVY) 1 mg/0.5 mL pen injector Indications: Class 1 obesity due to excess calories without serious comorbidity with body mass index (BMI) of 34.0 to 34.9 in adult Inject 0.5 mL (1 mg total) under the skin every 7 days. 2 mL 2 04/10/2025 Active tirzepatide, weight loss, (ZEPBOUND) 2.5 mg/0.5 mL pen injector (10 sources) Start: 05-30-2024 End: 06-21-2024 tirzepatide, weight loss, (ZEPBOUND) 2.5 mg/0.5 mL pen injector Inject 2.5 mg under the skin every 7 days. 2 mL 2 05/30/2024 06/21/2024 Discontinued (Dose adjustment) Start: 05-30-2024 tirzepatide, w eight loss, (ZEPBOUND) 2.5 mg/0.5 [...] every 7 days. 2 mL 02/20/2024 Active tirzepatide, weight loss, (ZEPBOUND) 5 mg/0.5 mL pen injector (2 sources) Start: 06-21-2024 End: 06-22-2024 tirzepatide, weight loss, (ZEPBOUND) 5 mg/0.5 mL pen injector Inject 5 mg under the skin every 7 days. 2 mL 2 06/21/2024 06/22/2024 Discontinued (Formulary change) Start: 06-21-2024 tirzepatide, w eight loss, (ZEPBOUND) 5 mg/0.5 mL pen injector Inject 5 mg under the skin every 7 days. 2 mL 2 06/21/2024 Active Problems Active Problems Problem Classification Problem Date Documented Date Episodic/Chronic Administrative/social admission (4 sources) Encounter for pre-employment examination; Translations: [ENCOUNTER FOR PRE-EMPLOYMENT EXAM] Onset: 04-16-2022 Episodic Genitourinary symptoms and ill-defined conditions (2 sources) Increased frequency of urination; Translations: [Frequency of micturition] Onset: 04-22-2025 04-22-2025 Episodic Immunizations and screening for infectious disease (2 sources) Needs influenza immunization; Translations: [Encounter for immunization] Onset: 04-22-2025 04-22-2025 Episodic Joint disorders and dislocations; trauma-related (8 sources) Derangement of right knee; Translations: [Unspecified internal derangement of right knee] 06-27-2024 Chronic Joint disorders and dislocations; trauma-related (5 sources) Tear of medial meniscus of knee; Translations: [Other tear of medial meniscus, current injury, right knee, initial encounter] 07-20-2024 Episodic Other connective tissue disease (4 sources) Synovial cyst of right popliteal space; Translations: [Synovial cyst of popliteal space [[place]], right knee] 07-06-2024 Episodic Other connective tissue disease (4 sources) Pain of right lower leg; Translations: [Pain in right lower leg] 11-16-2024 Episodic Other endocrine disorders (1 source) Testicular hypofunction; Translations: [Testicular hypofunction] Onset: 07-17-2024 Chronic Other nervous system disorders (8 sources) Other acute postprocedural pain; Translations: [Pain in joint, lower leg] Onset: 10-17-2024 10-17-2024 Episodic Other non-traumatic joint disorders (9 sources) Pain in right knee; Translations: [Pain in joint, lower leg] Onset: 08-26-2024 06-26-2024 Episodic Other nutritional; endocrine; and metabolic disorders (20 sources) Obesity caused by energy imbalance; Translations: [Other obesity due to excess calories] Onset: 08-15-2023 08-15-2023 Chronic Other nutritional; endocrine; and metabolic disorders (18 sources) Cholesterol level - finding; Translations: [Lipoprotein [...] conditions (not mental disorders or infectious disease) (16 sources) Decreased testosterone level ; Translations: [Other specified abnormal findings of blood chemistry] Onset: 04-18-2024 04-18-2024 Episodic Other upper respiratory disease (1 source) Congestion of nasal sinus; Translations: [Nasal congestion] 04-22-2025 Episodic Other upper respiratory disease (1 source) Nasal congestion; Translations: [Nasal congestion] Onset: 04-22-2025 Episodic Residual codes; unclassified (16 sources) History of arthroscopy of knee joint; Translations: [Other specified postprocedural states] Onset: 10-17-2024 09-10-2024 Episodic Unclassified (1 source) Obesity, class 1; Translations: [Obesity, class 1] Onset: 08-15-2023 Unclassified (1 source) start weight loss Onset: 04-22-2025 Unclassified (1 source) Annual Exam Onset: 04-22-2025 Past or Other Problems Problem Classification Problem Date Documented Da te Episodic/Chronic Contraceptive and procreative management (1 source) Patient encounter status; Translations: [Encounter for other general counseling and advice on contraception] 02-20-2024 Episodic Diabetes mellitus without complication (1 source) Hyperglycemia; Translations: [Hyperglycemia, unspecified] 04-05-2024 Episodic Mood disorders (17 sources) Mood disorders Onset: 08-15-2023 Resolved: 04-22-2025 08-15-2023 Neoplasms of unspecified nature or uncertain behavior (18 sources) Neoplasm of uncertain behavior of skin of face; Translations: [Neoplasm of uncertain behavior of skin] Onset: 08-15-2023 08-15-2023 Episodic Results Test Name Value Interpretation Reference Range Facility C-REACTIVE PROTEINon 025 CRP [Mass/Vol] mg/L Normal <=0.7 [facility] Comment on above: Performed By: #### C RP #### [facility] ([facility]) [address] [place] [address] VIR COMPREHENSIVE METABOLIC PANE Rodney 04-22-2025 Albumin [Mass/Vol] 4.9 g/dL Normal 3.2-5.3 [facility] Comment on above: Performed By: #### C MP #### [facility] ([facility]) [address] [place] [address] VIR ALP [Catalytic activity/Vol] 44 U/L Normal 39-130 [facility] Comment on above: Performed By: #### C MP #### [facility] ([facility]) [address] [place] [address] VIR ALT [Catalytic activity/Vol] 18 U/L Normal <=40 [facility] Comment on above: Performed By: #### C MP #### [facility] ([facility]) [address] [place] [address] VIR Anion gap [Moles/Vol] 10 mmol/L Normal 5-15 [facility] Comment on above: Performed By: #### C MP #### [facility] ([facility]) [address] [place] [address] VIR AST [Catalytic activity/Vol] 18 U/L Normal <=41 [facility] Comment on above: Performed By: #### C MP #### [facility] ([facility]) [address] [place] [address] VIR Bilirubin [Mass/Vol] 0.9 mg/dL Normal 0.3-1.2 [facility] Comment on above: Performed By: #### C MP #### [facility] ([facility]) [address] [place] [address] VIR Calcium [Mass/Vol] 9.4 mg/dL Normal 8.5-10.5 [facility] Comment on above: Performed By: #### C MP #### [facility] ([facility]) [address] [place] [address] VIR Chloride [Moles/Vol] 105 mmol/L Normal 98-109 [facility] Comment on above: Performed By: #### C MP #### [facility] ([facility]) [address] [place] [address] VIR CO2 [Moles/Vol] 26 mmol/L Normal 22-32 [facility] Comment on above: Performed By: #### C MP #### [facility] ([facility]) [address] [place] [address] VIR Creatinine [Mass/Vol] 0.96 mg/dL Normal 0.60-1.30 [facility] Comment on above: Result Comment: METH OD TRACEABLE TO IDMS STANDARD Performed By: #### C MP #### [facility] ([facility]) [address] [place] [address] VIR EGFR (CKD-EPI) NON-RACE DEPENDENT >^90 Normal >=60 [facility] Comment on above: Result Comment: Repo rted eGFR is based on the CKD-EPI 2020 equation that does not use a race coefficient. Performed By: #### C MP #### [facility] ([facility]) [address] [place] [address] VIR Glucose [Mass/Vol] 96 mg/dL Normal 65-99 [facility] Comment on above: Performed By: #### C MP #### [facility] ([facility]) [address] [place] [address] VIR Potassium [Moles/Vol] 4.1 mmol/L Normal 3.5-5.0 [facility] Comment on above: Performed By: #### C MP #### [facility] ([facility]) [address] [place] [address] VIR Protein [Mass/Vol] 7.3 g/dL Normal 6.0-8.0 [facility] Comment on above: Performed By: #### C MP #### [facility] ([facility]) [address] [place] [address] VIR Sodium [Moles/Vol] 141 mmol/L Normal 134-146 [facility] Comment on above: Performed By: #### C MP #### [facility] ([facility]) [address] [place] [address] VIR Urea nitrogen [Mass/Vol] 13 mg/dL Normal 5-23 [facility] Comment on above: Performed By: #### C MP #### [facility] ([facility]) [address] [place] [address] VIR LIPID PROFILEon 04-22-2025 Cholesterol [Mass/Vol] 166 mg/dL Normal 150-200 [facility] Comment on above: Performed By: #### L IPR #### [facility] ([facility]) [address] [place] [address] VIR Cholesterol in HDL [Mass/Vol] 40 mg/dL Normal >39 [facility] Comment on above: Result Comment: HDL <40 mg/dL - High Risk HDL > or = 40mg/dL- Desirable HDL >60 mg/dL - Negative Risk Performed By: #### L IPR #### [facility] ([facility]) [address] [place] [address] VIR Cholesterol in LDL [Mass/Vol] 87 mg/dL Normal <130 [facility] Comment on above: Result Comment: LDL <100 mg/dL - Desirable LDL >160 mg/dL - High Risk Performed By: #### L IPR #### [facility] ([facility]) [address] [place] [address] VIR CHOLESTEROL:HDL 4.2 Normal 1.0-5.0 [facility] Comment on above: Performed By: #### L IPR #### [facility] ([facility]) [address] [place] [address] VIR Triglyceride [Mass/Vol] 193 mg/dL High 27-150 [facility] Comment on above: Performed By: #### L IPR #### [facility] ([facility]) [address] [place] [address] VIR VERY LOW LIPOPROTEIN 39 mg/dL High 0-30 [facility] Comment on above: Performed By: #### L IPR #### [facility] ([facility]) [address] [place] [address] VIR POCT urinalysis dipstick [facility] 04-22-2025 Appearance (U) clear [facility] Urine Bilirubin Negative [facility] Urine Blood Negative [facility] Urine Color yellow [facility] Urine Glucose Negative [facility] Urine Ketones Negative [facility] Urine Leukocyte Esterase Negative [facility] Urine Nitrite Negative [facility] Urine Ph 6.5 [facility] Urine Protein Negative [facility] Urine Specific [place] 1.02 [facility] Urine Urobilinogen 1.0 [facility] TSH WITH REFLEXon 04-22-2025 TSH 0.97 uIU/mL Normal 0.49-4.67 [facility] Comment on above: Performed By: #### T [facility] #### [facility] ([facility]) [address] [place] [address] VIR Coding Summaryon 11-22-2024 Coding Summary HTMLBase 64 BykvdzcoIRu6xNl+PGhlYWQ +QD8ZNWOhK82otRNxwG9pR2 NMTElOSywgQVBQTElOSyIgb hQjWQ5oiCIwCFUq IC8+OS7xXUKyZxgzoQEgu5D 7pRQ0L83jmc3wPIsraFJ8LT MsMuLhibrfh2lghIa3IFypX mluOyBt AVForK07YXJ3tM64Vj70bBT jcEFzf2gynDd8QmTkWDDzJQ B9nBurGMcoj5FcNEBdB05qp VYfq4J6 JKZvjKnbrRPtXzLazMV3jB7 mFMqpeajpf6vjxgwaSyc1lf 13rLToy9O6vYI8A8XjvtJ2F GJvbGQg XoujiPNToW3scaxyi9qxegd qBdQeCUEiEFn5IYb3SWRnyI ipItRaEJ57YPS2YVImizMrK 2FsLWFs fRemUhG8t9B7Lj2UG0HAMrj aG1AQJLMQUPmfjPU+PC90cj 26R4UpBgmiAaf4TBHbVCN7l SU3dT2s SIRwLMswj1U1xJC9L2DweqX jkz3sn7xuVFZeLZuwZ26ydK Vvx4Y2FNRctGW4VGNbaSiqJ iBzaG93 Oyc+JAMutZrka6EoFxhyw9m co2mvaIw2PcxhNHMpnrDtpE wdCOH1a8ZnYi3dMOTeySW9w DG8mQ5m KgNfEsK1SSqbE283ThCeqGL pVjqnV50kH7KcfKZ+PHRyPj b8RZNubRcfEJ4sQ1UwKOIji mctbGVm vCyxZP3vDITpeoiuENNudY5 pUXCgQ9h7JtHdGgD9UEtjY1 JzLYDidzraMc88nI1aXtDxL rL0CWic X5VexcE7MRAeqROhEJalNIZ 1K76ju2C1KADwKDBvLSI0oP E3mG4auGaxhggwcSWaeXpks mVydGlj NRikSOthV842QIWxnGznEdE vZGluZyBEYXRlOiAgMDUvMD gvMjAyNTwvdGQ+DFLcYFU3w WxlPSAn oMJqZPthXm9avQxlaTrtXB8 sGLIdfigzOUQomV3rNJIkbI IqnPpmGI2cZDPyqibmi210W iAxMHB0 HNHwuUJmE5HynR0dUiOzINQ gTADbI8AucZJkOQguI162ZE zbEvH3NDYqqqRlV0WdOTBoa WduOiB0 y2T9Ep3Nq2GgwvpyO5TogFN aChDfSysfGVq7N8ChJsduhX I+HR52TMRxLF09ELj4CYK0e WxlPSdi ADPtZ4NyhT8oOmGhWLPrMVL kOyc+PHRhYmxlIHdpZHRoPS stUCApCsXkiXpgWE8lBl6cO GVyLWNv sYzemWZrZrCfy7seRNScKSi uGL8rqMvgY7DoyUK4ZRKod8 p9Up02Y53fA9SgyLA+PGNvb IX3hWQ3 oA0zQzRaBwR0JMivY055UnB kyDNvJubgg2oua9mvwNd8Gl E3CIJyqyCokFncFCO0j8YmN o52Q01t IHdpZHRoPSIxNSUiIHZhbGl len9rsV3mUk2+QECjtLI7cB N6sN2gIdCpHfN6SNbjM023R nRvcCIv Xkuio6qrz6ffhDo2OyUqTAK yzqNllTykWFY5p6MgJg51R0 NduLlgx1SvYod5ze14jCLes 6B8fKK2 K8AtOCVxoialpEVwtJaxFE3 eHZLtdlneUKLxtL6fHHIwF3 d3QyQjOlB1OIqoI1LawoZ3B GJvbGQg QXAkzJTJlN8qgcomn3tdcia wIuTePWWeEFi5DJu7PDRrgK lgJhPlETN6YyM8JDG5wUUdy C6epPgg jeiowG5bRmc+JTT3yUZdeEK JWA6bAxkcrNZ+THEsPPB2gP iiRZxmNBSkhQ7zIHKkX6w8N iAwLjA1 MYhvR5YjarM9WXBafOIfIJT hvQCQzZ3giemsy1kofbabPx ZjYZEtWPa7EWx3HJZtrGmqO iBsZWZ0 AkE7EYW7qRTjwL1dcCnpfpo xkX2rKjf+DjznoItrVAS8RJ q7D0MrEth1HPKnuHbeIR7zw GFkZGlu Ub2ewTjbaHltPF6gNKElxiy lq541RbVsj6sqNFDwyGUsMF ozLLK7C15zw2L7SOUxIENkJ FN7bKH3 vA0hhCipazdfiKXesSgvfbE hkCdaOAavBVhjT687FAFdzS nvLlJtQGm9R4SvDow4WOVvk DmvSJ2f oBCoLJttQv5urQynePuxZM2 zCXGimnetm231PeMrb6qyMN IkxORtBZlrCLI3D75sq0V1Y CMwMDAw APK0rQT7kD6afBpczamlaUK mdDsgdmVydGljYWwtYWxpZ2 33IWDhmQuaCgXcpVf2Z5YhV jp2NICp sDofSV9adCBzNOjzPf8glPg xsVhrFD0lFIKpiybxa447Hq Mgi2izWVCllCHgGPsbDDH3K 79pb2W9 AYWsTSYqGOA9aUI7jY1uvUs nbjogbGVmdDsgdmVydGljYW fzAAdaM147FWIgqAscFfEnb GllbnQg LOjuAQj4O5PdSjvziAL+PC9 7DDIsJM23iTHdxLWke6vpcW j7GsDwVQNvSJX4gGjfPWvxr 3JkZXIt W96yvBIvz4W7MXGvaCdyjYB aWjMujKO5qA0tURrkhzekd3 whjwngGmvsr8lkdn14dX82P 29sIHdp ZHRoPSIzMCUiIHZhbGlnbj0 caG3tSz0+WGSsaWN2eGX1pE 1lCZEwCbB1GQwjE672XbPuy CIvPjxj g0xms9xmtQo8EiT0VWBemcM frAluHXC0l4CfGk94D62wKJ dpZHRoPSIyMCUiIHZhbGlnb q5mxJ1j Ii8+ZYWmrIM3gOB2pY2wSuF aEwQ8FSbpK105BvJugTDiSt ymU94iV5QecVB+THPcBdb7V CBzdHls JI4jvDZcEXygPr0vPYK3ViA lWmUoGDgtQ2HiETOxlavfrq twmGE0AHFdSSFopJ94Vz6zw DogMTBw yFJKlD7hvkifi8ypqksrLuG pGOCrMKk6LQp8TSXntHhbBe ZsAKW3ZoB9QMM1iTGyoI7kn Glnbjog nF9vW6JkEOLoselcEq43zG6 eTdCfRoF9XJtjIwf+TUFTT0 6lGOsBNH6fUXTZN2iAUM11R C69hWLr w9D9kTC0D7LaFKQpmpkymbe nrYR0UFPpIJLmyM02cNPlWP jhCp5oy7X0s657NUMoUFXbv V58Hz8k wTleWLIvbNLQpN9ntpoee8e agugeIxUdWBQsDLt1FQu5OH NrwZoeBiDkTNR3VpG7OTU2u QUnjP3s pKblemacsZ8hZhv+MDIvMjY eZDa6OIhxnNX+EJZmKGL5iZ qkWVoaWIHciK6aBQLmT9p0J iAwLjA1 KWkvN7CrDPKtkhdrDy43jO3 nHwVqXjN0BWlwF2LuqpF0NC LpiEQhDFymXBD7H99sr0Y1S CMwMDAw QRM0kZI1eY9wdLkszbkcyGM mdDsgdmVydGljYWwtYWxpZ2 65GIVwcEkmJkK5VOeaTQIlK J89XP77 uZVtf1S3hLU3N7KbKLSeuwn dvcpdwCG5OMLwAECzwA22tV ZfNSxkCe5of5B9l596ZWDaY DUwaW47 Ht3bpVbsQQCgiYCKeY5nppp fn0fuyoqeJdGnLCEkADj9DT c9AKXufNaaCcUbAFK8BtU4F BC6hUFn lL6jgTxzmqpqvA5xMgt+TUF MRTwvdGQ+PTZwKCE6aVjyDI exBKWceV5gACFxQ8b4WsYhU nI9BPji V4ZgLVLjbayjEb93eQ3lKiH nBcA6EMmmV9UxvkW6FAOapW YpKYreMYK7T73pe9K0UNCqG DAwMDA7 tJW3oZ6wzJfhtfglzSJfcVf faeSzkHduHIxwJFtiO170HK YevOngJr7CZJ77SL49Z8XlO jwvdGFi bGU+PHRhYmxlIHdpZHRoPSc qMVSqOdAjdIbrZK5tAv3hYJ MsZMEdxKdxkIGgBjNri2cyZ XBzZTsg HN1koUurQ5YpsRC0RWLrc6g 2Gu95S71hL8QbsCA+PGNvbC X8kTI4iZ7rCaCcChR6LZstM 249InRv oXSzXrabe4djf0oevMm4HqN zFPLpgtWktVthSCX5t8AePc 62C05lOSytUXAbITYcBFEmD HZhbGln bc1qyB2yLf7+UKIrdEB3gPN 1rE3bQwVvKaM6LNfhT016Hm AceBTqNfjnT26cK4OgdZC+P HRyPjx0 CWKioWbuJO0jmILbVBduWf0 uZFI7PvLsCmUwPEjhG6LqZP XcamrdskewmRD9NLPgFMGsc E84Js6p rSorFm0cMVKaBAT1ZQCyqAA rW2UmbQ8oSjPfLDEpWMZiP9 BctQPvISamU830GKdwVsW3P HZlcnRp I5TvHWYmwTiqTrJ1g2Y6Sb7 QuCuffQHiPU7uYlLoHGw0L0 BkYjz2MSEdhWpfCF8zaSKrD DdeSe0j jAdgvBmdYV5bPBMmkjmmu17 9AaBjk1alZJMsbVMvXUfiMM N5K39yv3R6DYOyCBNuRTX8r SF6kJ0l bGlnbjogbGVmdDsgdmVydGl gOIhtTPoeP181BNNwqNdiSs FURus7Y0OaXwa6ADVmlMxkD E7aeNOh USmbHd8mlKtsgWzwEE8jAQI uziseu976VeEyz6ssRUAgmS MtPPbgXLU5J47xj6F1FFDcS DAwMDA7 lNP4vR1iaIheaxwsnQOglJv schUceJlqSFsyAKtjY054OX QxvSatGf1ZLed4N6ZlBug3M CBzdHls LG8opYBiFWbtOe7nnHyvxFw xOC9gAUKtiurmv708QgUji3 lwFRQixWFyMXbkDIF3J95bu 4D3QHWn GABaIXC9tZY1oP9tpCqqxig gbGVmdDsgdmVydGljYWwtYW tnL845SVHrhWtfDiIgeBKaH jwvdGQ+ XJ57mt54U1BpXzglEsm3OZR sQGT6lST5eC8cIORsIYutp3 T1cRD2B1ChqjVxpk6nv3vlX XBzZTog Y29 (more content not included)... [facility] Provider [place] 11-16-2024 Provider Orders [id number] [facility] US LE Venous Duplex Righton 11-16-2024 US LE Venous Duplex Right Ultrasound venous duplex scan right lower extremity CLINICAL: Right calf pain. TECHNIQUE: Tobin-scale, color Doppler and Duplex examination of the right lower extremity was performed with and without provocative maneuvers. FINDINGS: Comparison: None. Sonographic examination of the right lower extremity deep venous system to include the common femoral, superficial femoral and popliteal veins, demonstrates normal compressibility, color-flow, respiratory variation, and augmentation. The origin of the greater saphenous vein demonstrates normal compression, and there is normal color-flow in the proximal profunda femoral vein. There is normal color-flow in the posterior tibial and peroneal veins. In the popliteal fossa is a complex fluid structure with some internal echoes and debris measuring 2.9 x 2.1 x 1.5 cm consistent with a Mills's cyst. IMPRESSION: 1. No deep venous thrombosis in the right lower extremity. 2. 2.9 x 2.1 x 1.5 cm right popliteal fossa/Mills's cysts. Final Dictated by: Shreyas Montana MD Dictated DT/TM: 11/16/24 12:08 Signed (Electronic Signature): Shreyas Montana MD 11/16/24 12:11 p Technologist: [facility] Coding Summaryon 08-29-2024 Coding Summary HTMLBase 64 DjrwusbhIWv0uLv+PGhlYWQ +XO0SARHvJ90dwFMdjH9tV3 NMTElOSywgQVBQTElOSyIgb cLdPE2stMFsOZXa IC8+MS6gMHWpCwadtBCcy8F 6wXG9H80cva3oSHrvuEG4TW ZbXiBfpvmsb2lpiDe8ECpjH mluOyBt ZGFvmD54PBB1yC15Wh65tVZ rxQYhx2hwnZq0BnOvSFKkKN Z8yWrlLRjwn5LfGAOzS24tn EInk0I0 LGGbvUwukNWyLiXelAI3oV9 oGXazmlzlr3dganppBni6ya 63sVBpk9B6zTN0W2IxiqZ2I GJvbGQg DccgaFUOuT4hiycze5zxtfi zVoEoBWWlPSz1GPq7KKHdtN kbWqGzCE29PNI8XJAfreQzX 2FsLWFs fNcuZoJ6r1E0Jd3IQ9FTBxp qH5JXJXAYQAfszAK+PC90cj 86S6FsJrnvExt8NYHyLIB1k CN6bH4w BQDcHYftj7V7uTK0D2ForfC vvl6sy0ftFBWgGEgiH00cjX Asm2E0VCMwvFP2TMNsbTyqX iBzaG93 Oyc+YARrwCcjn9DxCsitw9z qx1lydGy4PybeTSZcvgBfiI ovDAF8u5JtPr9tJBYfwZW3c NP4sW1i HtMbSqD6GVddI260DeJqoCW xIklpW43mJ6WzeZV+PHRyPj n8AZGizRahAN3bE6QcXQAgw mctbGVm lKidMC5sGTYhcrvgIFSzkL0 pXLNdB5j1BcCtOgQ6RFdtR8 TiMRQnxgglHh48iT7lJrFmT kF8BCof Y4UxcaK2VIBlyIOfCMbmINK 8X35qb7P6KUBfJJAhWEM2bB F0hT2ilJgihlllyRLifQwpz mVydGlj BIzbRTmlF768GIBpyEmwIrA vZGluZyBEYXRlOiAgMDIvMT IvMjAyNTwvdGQ+QNFaPLR2y WxlPSAn zIStQZghPy1raMnsoGliKY8 dSQKqxtxpKZIeaQ4iKTMxcH McmBbiRH8lSDUnzmiov344E iAxMHB0 MZRnkWMvH2WohT7bHfAtKZO xQZMoH7QgkEOpWYkcE939DG djKwW0HMMirmGwH7NhSEXlg WduOiB0 k7J7Uk1Jd0PlznzaS3LjfMM hPrCpHnetAOi5O3SvPpravV I+ST22HHPaPT16JIw3STP6a WxlPSdi EDBrZ7EkyU6uAhSyYRAbWYV kOyc+PHRhYmxlIHdpZHRoPS kiJPBhOeKnkYqqHR7uWd0oJ GVyLWNv uQhvkAXeJuRsc4ppHXKjGBh wSX5inKteA5KjrJR3UMEhg0 y8Xv48W47hU0LkrET+PGNvb FW9fBZ7 wN5xTjWtCtM1PNysU441ZpH gfFGxQxicr1ukv3fnsTd2Kz C4WHUlmuEzqTrpRBN4c8PpR z80N76r IHdpZHRoPSIxNSUiIHZhbGl jxd7icR6sRd1+LARjzGU6vD G2dC9wLvAsWlZ0QHyfB465L nRvcCIv Kjugd4byf5yyaHs5XcCeXZE bqbQfhMrcBFJ5u1ZdBd71S3 XimFqkg7GbBoy9cw50kLBbz 3C3kUK2 J5ByMLIttrynqXTuwQajNQ5 sZBGitybwOKVqlT1tKXGsK5 b6NeVkHkU6DHoyY4KtcsQ9C GJvbGQg KSVkxOORhA1vqkcsk5rquhm yQeChGDXwKXd8ISr9ZBLbjS lgGuXjDAU2NqA5LZR6rKTrp D4tkCpa vcwxkM7oOuz+IQQ0xDFueCB DBK7fNbrgmHR+QUToDTA8tZ yqAKnaGULmyM8lYJLdD3z8D iAwLjA1 RBplI0HcsjL0YFStjPTgMSW gnMXIrZ3qexazq3xtlhapCh XcZCImQWr6OQf7AQWmbUqwT iBsZWZ0 AtF2CUE8fPAffK7arRkpykc qbT1rCga+BawakUcxBBM3XL a9V0LuKrr9MFAspNyrZU1hh GFkZGlu Ja4soIuknJmjRJ7pEAVpael td145HdWku6tkGEAczEHmZV puPDP9A18ir5A9GXZrMXRwX BX0tVV3 qZ5paOskowcnsAQvsRqkyqK jbOwcWLadIAupD683ISLrwD wxChBuGCe4D9ElOjv5UFJmk DzfKM6o oXRbTIrzTj9xiUqzcSpmJD8 kECMgxnrvq479QoLsg7eoFU YfrKJvZIstCZC5N20ne6A9T CMwMDAw LBV3uBC2tO8paPhgrtqdwQU mdDsgdmVydGljYWwtYWxpZ2 05HVKdgWugJeKecXi4P9LbS je3SVJp rWgzVF1yjEPySCkqOi3hsIh owJgnZT8gFPVieabwe356Lx Nyu4piKQCvzSCbBMvhOIA7Y 79ol2S1 RZGoVWJaYJC3wOC1iZ6niIk nbjogbGVmdDsgdmVydGljYW geYSpoO871QGUpqPyeSuDnf GllbnQg XOlrZUr8D9NtGphdbMV+PC9 2VABbYM02lDLnyYAfx7tukO w2QhLyVOKwRYE6gIpdVHscl 3JkZXIt Z82ahICrl6A5UINqfUdhmKX nMtWvvKZ2wD5iDNlsohwoq2 ubiiopDpkly0lpzu07pW88R 29sIHdp ZHRoPSIzMCUiIHZhbGlnbj0 xdW4uJq9+YOZhlWO3gEO4yN 4kCRClWaD9NCagD167XtEna CIvPjxj j2dnn9luxDw5IqO9VWRcijJ qkQuiAYA3b9UjBm46I94mEA dpZHRoPSIyMCUiIHZhbGlnb c8xgP6y Ii8+FROpnUB6gMP3qW2iPuY qRkA7ZKtbQ654TsXwpEKeVg wlY58sU4SzmQF+MCStJjv0Q CBzdHls TR1ghWIvLGcfKf5kLXB5CpW hUiZjEVfsE1CwGCEuqwhard arwYE2KFLvYPTuqR26Lh4sa DogMTBw fVDExC3nkxdzh3oxswaoTxV fGPLnCXw6VOy9XSQxvGijKo VdHGZ2JbX4DLB8gLStjK7te Glnbjog tO2kC1LiLSOshobyOh17pO4 uScKsFwT0MYnvGye+TUFTT0 7rATyVWK5wFMPUK0yMLQ71E P20qGCb i1W2iPC2A6IiTRJehkswatv woEY1OYJfHRXftE76jEHuAU wnJq4gu7R0h014HMUiPAZzo N24Hv2x rSbhPTTjuKZDbM0ihgxsn2c sngzaIkAxKLXqHCh6IAp8IP WwkRwmVfTmUKE8HnH1VSD2h JKyrP2l kUgtffsltP5aKje+MDIvMjY aNEs9PStlwDX+QJJwJYW8sY suUDcqQPHlrH6mNEVrT0k6Z iAwLjA1 JZxxZ2QrZURretxjXq68kE5 hLoGjKnZ1RWqwN1SmteF4WM WcdHIoHMcyUDX4B49eq5L3C CMwMDAw AVC9vGQ0rY9nmYpvcngsrZD mdDsgdmVydGljYWwtYWxpZ2 46IHRvcDsnPjQzIFllYXJzP L63IW15 wHWra7P4wNZ0R9AaMTCrcpa gywwduFK8HXBgHATlbL87fR HaDRnjLm8yp7B4s318CDYcU DUwaW47 Vp2ziYfeGHGcyFGFcS5gvgn qj5bxquhfIcSaRTFlFMl9QZ a9IGNbyYuuIjLoPVR3ErF7I RN5aFRf mN7zcDkxfqyzdE1lQti+TUF MRTwvdGQ+KXLyAER3gLzpDN dwIDKwtG1zRKTmO7o9VyBnV cR3QYow F2WeCWHnelqiQn81vY3iSpT wFsE9CJyvA6QluqP9WXGojB WuWHqgJPK9H64cv1E5OAKnL DAwMDA7 fTV6nP1jwMdeyqogwTMbtBf qjcYymGptQNvaYUwkU174XT BldYbrSpKkpQOVgDGiSFP4F I01AC29 Z6UlEddmnXCabXM+PHRhYmx lIHdpZHRoPScxMDAlJyBzdH jtDQ7pEt3eRRCtIBRcpVtbk HNlOiBj k4mjCNFsPOyaHH6acJdaI0A ptKL8ZTEyl5d4Yv94O36tT7 JvdXA+MLIhaAL8cAA5cZ3zW zAlIiB2 KEyoV926BgWvfIWzHtzgy2y ac8incUr9QbOcMCVnchElwP zzTYS3r3HuDo08X75eTKtwW HRoPSIy XCPyUSKxdZboyc5scW3dCa9 +CTRexZE0qEE3uD7jJsEqBx T2JAseT270PqEdcOHjEmlbA 31tV7Hg dXA+ZDQaDlk7HLKjcXcaJZ2 vbHElTIbcBp1gNKT1SoFcVe BwLZppX9AaPNWonvwothpai KV8FCQh ENEhjD76Fa2hlNklEq3xQVB kDGS0SMNxkIWrC1IfmJ0rKm MrKZAxIVCxC4LkjLLdGCocD 246IGxl WjC1MDUvwoNrW3KoJQQrzIm lYrD1v5O0Qf0PyEsygRZtOC 5sOwLiMNn7X8MaYbn9MMOqo DjoIB7b kIClZLywKj8jgXaezLtjOT9 zLALekueat604IkRcn7lhCY NxxGHsCDvuURL4K65qi7L7U CMwMDAw FRX5hAR6yF3rsFpslbvguZN mdDsgdmVydGljYWwtYWxpZ2 44FHLneWueYsXGDif8F6OzZ pg1ZRFb mMopTD4gvVPvSMfdOc7igPg ovBliAQ9cLUZiimtdb942Uh Yaq9xgMPXvzSMcTMkzKCO3W 77xm5Y6 OAQrQVVaHAM4kZB6wP6vbVl nbjogbGVmdDsgdmVydGljYW skPQzqP613WAZqaCnhQw7TQ zc4V0Cj Rxh4VWYiyUqlXZ3xdPQkXQi vEb2vfAqojDnyQI5qUDHhlj kqn604VjSwk0txSQVofAPjK GltZXM7 E03vu2G2LCBpDWBmDXH4vUP 9wK4idIljetmipAYtvNaqav FbhGvoWIhnILdhN382BDAhv DsnPlBh eWVyOjwvdGQ+BR53lz85R7K iIqowGwr1RKHoXEB2hND0xH 2sBQIiHMajy1N4xRY7F1Tff tRxvf5l b2x (more content not included)... [facility] Consent Formson 08-28-2024 Consent Forms [id number]#[id number] TGTIFF [facility] Telemetry Stripson Telemetry Strips [id number]#[id number] TGTIFF [facility] Anesthesia Noteon 08-27-2024 Anesthesia Note Patient: SKYLER BARRIOS Age: 43 years Sex: MALE : 1980 Associated Diagnoses: None Author: Kaiden Ashraf MD Postoperative Information Post Operative Note: Post Anesthesia Care Unit. Health Status Allergies: Allergic Reactions (All) No known allergies Physical Examination Vital Signs 08/27/2024 10:59 EST Temperature Temporal 35.8 DegC LOW Heart Rate Monitored 66 bpm Respiratory Rate 16 br/min Systolic Blood Pressure 122 mmHg HI Diastolic Blood Pressure 83 mmHg HI Mean Arterial Pressure, Cuff 96 mmHg SpO2 99 % Oxygen Therapy Room air General: No acute distress. Respiratory: Respirations are non-labored. Review / Management Condition: Stable. Assessment Anesthetic outcome No anesthetic complications noted. Adequate pain relief. No Complaint of nausea and vomiting. Plan Transfer/ Discharge: Patient can be discharged from PACU when criteria met. Condition stable. [Electronically Signed on: 08/27/2024 12:39 EST] Kaiden Ashraf MD [Verified on: 08/27/2024 12:39 EST] Kaiden Ashraf MD [facility] Anesthesia Note Patient: SKYLER BARRIOS Age: 43 years Sex: MALE : 1980 Associated Diagnoses: None Author: Kaiden Ashraf MD Preoperative Information Anesthesia history: Patient history: No difficult intubation, No malignant hyperthermia. Family history: No malignant hyperthermia. Review of Systems Respiratory: witnesses snoring and apnea episodes, No shortness of breath. Cardiovascular: No known HI, No chest pain. Gastrointestinal: No heartburn. Health Status Allergies: Allergic Reactions (All) No known allergies Current medications: Home Medications (2) Active Multivitamin, generic 1 tab(s), Oral, Daily semaglutide 0.5 mg/0.5 mL (0.5 mg dose) subcutaneous solution 0.5 mg, Subcutaneous, qFriday Problem list: All Problems No Chronic Problems / Cerner NKP Histories Family History: Entire family history is negative. Procedure history: Closed fracture of left hand ([id number]). Comments: 08/14/2024 13:01 YORDY Barton RN, Cleopatra Acevedo with pinning Social History Electronic Cigarette/Vaping Assessment Electronic Cigarette Use: Never. Alcohol Assessment Use: Current. Beer, 1-2 times per year Tobacco Assessment Never tobacco user Tobacco Use:. Substance Abuse Assessment Substance use: Never. . Physical Examination Vital Signs (last 24 hrs) Last Charted Temp Temporal L 36.2 DegC (AUG 27 07:05) Heart Rate Peripheral 60 bpm (AUG 27 07:05) Resp Rate 16 br/min (AUG 27 07:05) SBP 113 mmHg (AUG 27 07:05) DBP H 84 mmHg (AUG 27 07:05) General: Alert and oriented, No acute distress. Airway: Mallampati classification: II (soft palate, fauces, uvula visible). Mouth: Adequate opening. Respiratory: Respirations are non-labored. Cardiovascular: Normal rate. Review / Management Laboratory Results Plan [place] [employer] Anesthesiologists (ASA) physical status classification: Class II. Anesthetic Preoperative Plan Anesthesia: General. . Anesthetic plan, risks, benefits, and alternatives discussed with the patient and/or family. Patient verbalized understanding. Family/Guardian present. Informed consent was given. Consent was signed by the patient. [Electronically Signed on: 08/27/2024 08:17 EST] Kaiden Ashraf MD [Verified on: 08/27/2024 08:17 EST] Kaiden Ashraf MD Normal [facility] Inpatient Patient Summaryon 08-27-2024 [place] [address] Patient Discharge Instructions Name: SKYLER BARRIOS : 1980 Patient Address: [address] [place] [address] Primary Care Provider: Name: SAURABH CONLEY After you are discharged if you find you have any questions, please, call [phone] ext [phone] to speak to a nurse. The Pharmacy at [facility] is open Tuesday through Tuesday from 9A to 6P and Tuesday and Tuesday from 9A to 5P Discharge Diagnosis: Acute pain of right knee Prescription Information: If you have been given a prescription for narcotics, seek immediate medical attention if you have any difficulty breathing or any sudden status changes such as confusion and sleepiness. If you or anyone you know is experiencing suicidal thoughts, mental health, alcohol and/or drug addiction problems; contact the Mental [facility] Recovery [facility] 07/02 Crisis Hotline -Text 4HEMA vh 491149. If you received any narcotics, sedation, or any other medication that causes drowsiness for the next 24 hours, unless otherwise directed: ? Do not drive a car. ? Do not operate machinery such as power tools, lawn mowers, drills, sewing machines, or stoves ? Avoid alcoholic beverages and drugs for allergies, nerves, or sleep ? Do not make important personal or business decisions or sign any legal documents [facility] would like to thank you for allowing us to assist you with your healthcare needs. The following includes patient education materials and information regarding your injury/illness. SKYLER BARRIOS has been given the following list of follow-up instructions, prescriptions, and patient education materials: Follow-up Instructions With: Address: When: [place] [address] [facility] (1) 09/10/2024 9:30 AM Medications During the course of your visit, your medication list was updated with the most current information. The details of those changes are reflected below: Medications to Continue That Have Not Changed Other Medications multivitamin (Multivitamin, generic) 1 tab(s) Oral (given by mouth) every day. semaglutide (semaglutide 0.5 mg/0.5 mL (0.5 mg dose) subcutaneous solution) 0.5 Milligram Subcutaneous (under the skin) Every Tuesday. It is important to always keep an active list of medications available so that you can share with other providers and manage your medications appropriately. As an additional courtesy, we are also providing you with your final active medications list that you can keep with you. multivitamin (Multivitamin, generic) 1 tab(s) Oral (given by mouth) every day. semaglutide (semaglutide 0.5 mg/0.5 mL (0.5 mg dose) subcutaneous solution) 0.5 Milligram Subcutaneous (under the skin) Every Tuesday. Take only the medications listed above. Contact your doctor prior to taking any medications not on this list. Medication leaflets, if any, will display below Diet & Activity Patient Activity Level: As Tolerated Patient Diet: Regular Patient Activity Restrictions: Discontinue Alcohol Use, No driving, No heavy lifting, Stop Smoking Patient education materials, if any, will display below Arthroscopic Surgery Discharge Instructions 1.) Keep ice on your knee after surgery. You may use the ice bag provided to you by the hospital or one from home. The ice should be applied at least 3 times a day for 20 minute intervals. 2.) Keep your knee elevated above the level of your hear. You may prop your leg up on pillows as long as the knee is higher than your heart. 3.) Move your knee. Please, do not be afraid to move the knee joint. It will be stiff and sore in the beginning, but this will slowly improve with healing time 4.) Wiggle your toes and exercise your ankle. These muscle pumps with help to take the swelling out of your knee and enhance circulation to the leg. Wiggle your toes and exercise your ankle for ten minutes every hour that you are awake. 5.) You may remove all bandages from your knee after 3 days. There may be some blood and drainage on the bandages, this is to be expected. You may clean the puncture sites with hydrogen peroxide and a cotton swab three times a day. Keep band aids over the puncture sites until scabbed over. 6.) If don't already have them, you will be issued a walker or crutches to aid in ambulation. No weightbearing to right lower extremity for 6 weeks with crutches secondary to meniscal repair 7.) Do not immerse your knee under water until the puncture sites have completely healed. You may shower and pat the knee dry after you remove the bandages starting in 3 days. 8.) Keep your follow up appoinment. 9.) If you notice foul odor, excessive drainage, calf pain, shortness of breath or increased swelling or pain call the office or proceed to the nearest Hospital Emergency Room. 10.) Be kind to yourself and do (more content not included)... Normal [facility] MAGR Intraoperative Recordon 08-27-2024 MAGR Intraoperative Record MAGR Intra-Op Record Summary Primary Physician: KARLA CARVAJAL DO Finalized Date/Time: 08/27/24 10:35:34 Pt. Name: SKYLER BARRIOS/Sex: 1980 MALE Med Rec #: [id number] Physician: KARLA CARVAJAL DO Financial #: [id number] Pt. Type: D Room/Bed: / Admit/Disch: 08/27/24 07:00:00 - Institution: Case Times MAGR Entry 1 Patient In Room Time 08/27/24 09:30:00 Out Room Time 08/27/24 10:23:00 Anesthesia Start Time 08/27/24 09:31:00 Stop Time 08/27/24 10:24:00 Surgery Start Time 08/27/24 09:55:00 Stop Time 08/27/24 10:17:00 Last Modified By: Yvette Vega RN 08/27/24 10:34:26 Case Attendance MAGR Entry 1 Entry 2 Entry 3 Case Attendee KARLA CARVAJAL Satya S MD Gump RN, Leandra Role Performed Surgeon - Primary Anesthesiologist of [place] Record Time In 08/27/24 09:46:00 08/27/24 09:30:00 08/27/24 09:30:00 Time Out 08/27/24 10:18:00 08/27/24 10:23:00 08/27/24 10:23:00 Procedure Arthroscopy Knee(Right) Arthroscopy Knee(Right) Arthroscopy Knee(Right) Last Modified By: Gary RN, Yvette Vega RN, Yvette Reid RN 08/27/24 10:34:27 08/27/24 10:34:27 08/27/24 10:34:27 Entry 4 Entry 5 Case Attendee Kirsten Goodwin [address] MENDER Role Performed Machinist [employer] Personnel Time In 08/27/24 09:30:00 08/27/24 09:30:00 Time Out 08/27/24 10:23:00 08/27/24 10:23:00 Procedure Arthroscopy Knee(Right) Arthroscopy Knee(Right) Last Modified By: Gary RNYvette RN, Leandra 08/27/24 10:34:27 08/27/24 10:34:27 Surgical Procedures MAGR Pre-Care Text: A.20 Verifies operative procedure, surgical site, and laterality Im.150 Develops individualized plan of care Entry 1 Procedure Arthroscopy Knee Primary Procedure Yes Primary Surgeon KARLA CARVAJAL DO Modifiers Right Surgeon Comment RIGHT KNEE ARTHROSCOPY Start 08/27/24 09:55:00 - MEDIAL MENISCUS TEAR Stop 08/27/24 10:17:00 Anesthesia Type General Surgical Service Orthopedics Wound Class Clean Technique Details Closure Technique N/A Entire procedure Yes was performed via laparoscope or robotic assistance Last Modified By: Yvette Vega RN 08/27/24 10:34:29 Post-Care Text: O.730 The patient's care is consistent with the individualized perioperative plan of care General Case Data MAGR Pre-Care Text: A.350.1 Classifies surgical wound Entry 1 Case Information OR MAGR OR 01 Case Level Level 4 Wound Class Clean Specialty Orthopedics ASA Class 2 Diagnosis Preop Diagnosis RIGHT MEDIAL MENISCUS Postop Same As Preop Yes TEAR Postop Diagnosis RIGHT MEDIAL MENISCUS TEAR Blunt or No Is the procedure No penetrating injury considered occured prior to Emergent/Urgent? the start of the procedure: Last Modified By: Yvette Vega RN 08/27/24 10:34:40 Post-Care Text: O.760 Patient receives consistent and comparable care regardless of the setting Time Out MAGR Entry 1 Procedure(s) Arthroscopy Knee(Right) Time Out Checklist Verifications Team Introductions Yes Confirmed Identity, Yes Completed Procedure, Incision Site, and Consent(s) Presence of Yes Site Verification, Yes Necessary Site Marking, Site Procedural Marking Equipment, Devices, Alternative, and/or and Implants Site Marking Verified Exception in Accordance with Facility Policy Anesthesia Review Antibiotic Received Yes All Anesthesia Yes Within an Concerns Addressed Appropriate Time Interval Prior to Surgical Incision Surgeon Review Anticipated Blood Yes Expected Case Yes Loss Risk Addressed Duration Addressed Critical and Yes Non-Routine Steps to be Performed Addressed Nurse Review Equipment Yes Fire Risk Yes Checks/Concerns Assessment Addressed Completed and Interventions Performed Diagnostic and Yes Sterilization n/a Radiological Test Concerns Addressed Results Displayed are Appropriate and Labeled Other Concerns n/a Addressed Time Out Kaiden Ashraf MD, Gump Time Out Time 08/27/24 09:54:00 Participants HENRY, Ruba Crawford [address] MENDER, Kirsten Goodwin ROAD MENDER, KARLA CARVAJAL DO Last Modified By: Yvette Vega RN 08/27/24 10:01:51 General Comments: [employer] Patient Positioning MAGR Pre-Care Text: A.280 Identifies baseline musculoskeletal status Im.40 Positions the patient Im.80 Applies safety devices Entry 1 Procedure Arthroscopy Knee(Right) Body Position Supine Left Arm Position Extended on padded arm Right Arm Position Extended on padded arm board board Left Leg Position Dangling Right Leg Position Dangling Feet Uncrossed? Yes Press Points Checked Yes Positioning Device Arm Boards, Safety Outcome Met (O.80) Yes Strap, Leg Gonsalves Last Modified By: Yvette Vega RN 08/27/24 10:00:27 Post-Care Text: E.290 Evaluates musculoskeletal status O.80 Patient is free from signs and symptoms of injury related to positioning Skin Prep MAGR (more content not included)... [facility] MAGR PACU Recordon MAGR PACU Record MAGR PACU Record Summary Primary Physician: KARLA CARVAJAL DO Finalized Date/Time: 08/27/24 11:07:19 Pt. Name: SKYLER BARRIOS./Sex: 1980 MALE Med Rec #: [id number] Physician: KARLA CARVAJAL DO Financial #: [id number] Pt. Type: D Room/Bed: / Admit/Disch: 08/27/24 07:00:00 - Institution: PACU Case Times MAGR Entry 1 In PACU I 08/27/24 10:26:00 Discharge from PACU 08/27/24 10:56:00 I Last Modified By: Maria Esther Lake RN 08/27/24 11:07:13 Finalized By: Maria Esther Lake RN Document Signatures Signed By: Maria Esther Lake RN 08/27/24 11:07 [facility] MAGR Postoperative Recordon 08-27-2024 MAGR Postoperative Record MAGR Phase II Record Summary Primary Physician: KARLA CARVAJAL DO Finalized Date/Time: 08/27/24 12:27:15 Pt. Name: SKYLER BARRIOS WALTER Portillo/Sex: 1980 MALE Med Rec #: [id number] Physician: KARLA CARVAJAL DO Financial #: [id number] Pt. Type: D Room/Bed: 206/1 Admit/Disch: 08/27/24 07:00:00 - Institution: Phase II Case Times MAGR Pre-Care Text: Patient is free from s/s of injury. Patient remains free from compromised physical state related to surgery or anesthesia. Patient comfort maintained. Patient/family verbalize understanding of discharge instructions. Entry 1 In PACU II 08/27/24 10:59:00 Discharge from PACU 08/27/24 12:12:00 II Last Modified By: Maria Esther Lake RN 08/27/24 12:27:11 Post-Care Text: The patient remains free from s/s of injury. Patient's vital signs stable, circulation maintained, return to preop mental and physical status, opsite/dressing intact, minimal or absent nausea and vomiting, tolerates po intake. Patient verbalizes adequate pain control. Patient/family express understanding of discharge instructions. Finalized By: Maria Esther Lake RN Document Signatures Signed By: Maria Esther Lake RN 08/27/24 12:27 [facility] MAGR Preoperative Recordon 0 08-27-2024 MAGR Preoperative Record MAGR Pre-Op Record Summary Primary Physician: KARLA CARVAJAL DO Finalized Date/Time: 08/27/24 10:36:14 Pt. Name: SKYLER BARRIOS /Sex: 1980 MALE Med Rec #: [id number] Physician: KARLA CARVAJAL DO Financial #: [id number] Pt. Type: D Room/Bed: / Admit/Disch: 08/27/24 07:00:00 - Institution: Pre-Op Case Times MAGR Pre-Care Text: Patient will be optimally prepared for surgery. Patient is free from s/s of injury. Provide information to patient/family related to plan of care. Verify patient allergies. Confirm identity and verify consent before the operative or invasive procedure. Entry 1 Patient Arrival Time 08/27/24 07:09:00 Preop Departure 08/27/24 09:29:00 Last Modified By: Maria Esther Lake RN 08/27/24 10:36:10 Post-Care Text: Patient is prepared mentally and physically and is ready for surgery. The patient remains free from s/s of injury. Patient/family express understanding of plan of care and participate in decisions affecting his or her perioperrative plan of care. Allergies documented appropriately. Patient identifiers and consent correct. General Comments: Pt arrives to psw ambulatory. PT denies cp, sob, cough or flu like symptoms. Pt denies pacemaker/defibillator or sleep apnea. Finalized By: Maria Esther Lake RN Document Signatures Signed By: Maria Esther Lake RN 08/27/24 10:36 [facility] Patient Handouton 08-27-2024 Patient Handout Arthroscopic Surgery Discharge Instructions 1.) Keep ice on your knee after surgery. You may use the ice bag provided to you by the hospital or one from home. The ice should be applied at least 3 times a day for 20 minute intervals. 2.) Keep your knee elevated above the level of your hear. You may prop your leg up on pillows as long as the knee is higher than your heart. 3.) Move your knee. Please, do not be afraid to move the knee joint. It will be stiff and sore in the beginning, but this will slowly improve with healing time 4.) Wiggle your toes and exercise your ankle. These muscle pumps with help to take the swelling out of your knee and enhance circulation to the leg. Wiggle your toes and exercise your ankle for ten minutes every hour that you are awake. 5.) You may remove all bandages from your knee after 3 days. There may be some blood and drainage on the bandages, this is to be expected. You may clean the puncture sites with hydrogen peroxide and a cotton swab three times a day. Keep band aids over the puncture sites until scabbed over. 6.) If don't already have them, you will be issued a walker or crutches to aid in ambulation. No weightbearing to right lower extremity for 6 weeks with crutches secondary to meniscal repair 7.) Do not immerse your knee under water until the puncture sites have completely healed. You may shower and pat the knee dry after you remove the bandages starting in 3 days. 8.) Keep your follow up appoinment. 9.) If you notice foul odor, excessive drainage, calf pain, shortness of breath or increased swelling or pain call the office or proceed to the nearest Hospital Emergency Room. 10.) Be kind to yourself and do your exercises. Get planety of rest. Healing takes time. 11.) If you have been supplied with a brace, keep it in place at all times. 12.) For the next 24 hours do not drink any alcoholic beverages, drive a motore vehicle, operate machinery or powertools, make important decisions or sign important papers. 13.) You may feel dizzy, lightheaded or sleepy following surgery. Make sure you have someone with you for the rest of today. Normal [facility] Progress Note - Ayan 02 Progress Note - Nurse Spoke with pt and informed him to be at hospital 7am and NPO after MN, he verbalizes understanding. [Electronically Signed on: 08/24/2024 11:49 EST] Richard Bustos RN [Verified on: 08/24/2024 11:49 EST] Richard Bustos RN [facility] Progress Note - Nurseon - Progress Note - Nurse Dr Muse reviews pt chart and no new orders were received. [Electronically Signed on: 08/15/2024 13:01 EST] Richard Bustos RN [Verified on: 08/15/2024 13:01 EST] Richard Bustos RN [facility] Ambulatory Visit Summaryon 1 Ambulatory Visit Summary Ambulatory Visit Summary SKYLER BARRIOS :1980 Visit Date:07/17/2024 Ambulatory Visit Instructions Your Diagnosis Hypogonadism male Your Care Team Attending Physician - CHERIE Patel APRN, Maria T Zimmer Primary Care Physician - SAURABH CONLEY DO This Is Your Medications List Contact prescribing physician if questions or concerns semaglutide (semaglutide 0.5 mg/0.5 mL (0.5 mg dose) subcutaneous solution) Discharge Vitals Temperature (Oral) 37 ???C Heart Rate (Peripheral) 71 Respiratory Rate 18 Blood Pressure 127/79 Height 184 cm Height 72 in Weight 112.2 kg Weight 247.358 lb BMI 33.14 Medications What How Much When Instructions Unchanged semaglutide (semaglutide 0.5 mg/ 0.5 mL (0.5 mg dose) subcutaneous solution) Contact prescribing physician if questions or concerns Allergies No Known Allergies Patient Survey You may receive a survey via text or e-mail asking about your office visit. Please share your experience with us by completing your survey. We appreciate your feedback and thank you for choosing us for your care. Education Materials Hypogonadism, Male Male hypogonadism is a condition of having a level of testosterone that is lower than normal. Testosterone is a chemical, or hormone, that is made mainly in the testicles. In boys, testosterone is responsible for the development of male characteristics during puberty. These include: ??? Making the penis bigger. ??? Growing and building the muscles. ??? Growing facial hair. ??? Deepening the voice. In adult men, testosterone is responsible for maintaining: ??? An interest in sex and the ability to have sex. ??? Muscle mass. ??? Sperm production. ??? Red blood cell production. ??? Bone strength. Testosterone also gives men energy and a sense of well-being. Testosterone normally decreases as men age and the testicles make less testosterone. Testosterone levels can vary from man to man. Not all men will have signs and symptoms of low testosterone. Weight, alcohol use, medicines, and certain medical conditions can affect a man's testosterone level. What are the causes? This condition is caused by: ??? A natural decrease in testosterone that occurs as a man grows older. This is the main cause of this condition. ??? Use of medicines, such as antidepressants, steroids, and opioids. ??? Diseases and conditions that affect the testicles or the making of testosterone. These include: ? Injury or damage to the testicles from trauma, cancer, cancer treatment, or infection. ? Diabetes. ? Sleep apnea. ? Genetic conditions that men are born with. ? Disease of the pituitary gland. This gland is in the brain. It produces hormones. ? Obesity. ? Metabolic syndrome. This is a group of diseases that affect blood pressure, blood sugar, cholesterol, and belly fat. ? HIV or AIDS. ? Alcohol abuse. ? Kidney failure. ? Other long-term or chronic diseases. What are the signs or symptoms? Common symptoms of this condition include: ??? Loss of interest in sex (low sex drive). ??? Inability to have or maintain an erection (erectile dysfunction). ??? Feeling tired (fatigue). ??? Mood changes, like irritability or depression. ??? Loss of muscle and body hair. ??? Infertility. ??? Large breasts. ??? Weight gain (obesity). How is this diagnosed? Your health care provider can diagnose hypogonadism based on: ??? Your signs and symptoms. ??? A physical exam to check your testosterone levels. This includes blood tests. Testosterone levels can change throughout the day. Levels are highest in the morning. You may need to have repeat blood tests before getting a diagnosis of hypogonadism. Depending on your medical history and test results, your health care provider may also do other tests to find the cause of low testosterone. How is this treated? This condition is treated with testosterone replacement therapy. Testosterone can be given by: ??? Injection or through pellets inserted under the skin. ??? Gels or patches placed on the skin or in the mouth. Testosterone therapy is not for everyone. It has risks and side effects. Your health care provider will consider your medical history, your risk for prostate cancer, your age, and your symptoms before putting you on testosterone replacement therapy. Follow these instructions at home: ??? Take jino-nai-uwjpokc and prescription medicines only as told by your health care provider. ??? Eat foods that are high in fiber, such as beans, whole grains, and fresh fruits and vegetables. Limit foods that are high in fat and processed sugars, such as fried or sweet foods. ??? If you drink alcohol: ? Limit how much you have to 0???2 drinks a day. ? Know how much alcohol is in your drink. In the [place] one drink equals one 12 oz bottle of bee (more content not included)... Normal [facility] No Panel Informationon 07-06 Loco Cabrera NP 07/06/2024 1:19 PM L Inj/Asp: R knee on 07/06/2024 1:16 PM Indications: pain Details: 21 G needle, anterolateral approach Medications: 40 mg methylPREDNISolone acetate 40 MG/ML Outcome: tolerated well, no immediate complications Site cleaned with isopropyl alcohol Procedure, treatment alternatives, risks and benefits explained, specific risks discussed. Consent was given by the patient. [facility] SOAMAI [facility] [employer] MR KNEE RIGHT WO IV CONTRAST on 07-03-2024 MR KNEE RIGHT WO IV CONTRAST EXAMINATION/TECHNIQUE: MR KNEE RIGHT WO IV CONTRAST HISTORY: Right posterior knee pain and swelling. COMPARISON: Radiographs 06/24/2024. RESULT: MENISCI: Medial Meniscus: Increased signal at the posterior root, possibly contacting the articular surface, possible partial radial tear, without significant meniscal displacement. Lateral Meniscus: Intact LIGAMENTS: ACL, PCL, MCL, and LCL complex intact. CARTILAGE: Appears within normal limits. TENDONS: Mild distal quadriceps and patellar tendinosis, without tear. Popliteus intact. BONES AND MARROW: No evidence of fracture or bone marrow replacing process. MUSCLES: Muscle bulk and signal intensity are normal. JOINT FLUID AND SYNOVIUM: No joint effusion. No synovitis. Small Mills's cyst with thin septations. OTHER: No other significant abnormality. IMPRESSION: Possible nondisplaced medial meniscal tear at the posterior root. Mild extensor mechanism tendinosis. Small Mills's cyst. ELECTRONICALLY SIGNED BY: Mike Dumas MD Normal Not Available COMPREHENSIVE METABOLIC PANE [facility] 12-29-2021 Albumin [Mass/Vol] 4.8 g/dL Normal 3.6-5.1 [facility] Comment on above: Performed By: #### 1 0231, 7600 #### [facility] [address], [address] [place] [address] Geography Professor: Arie Timmons MD Albumin/Globulin [Mass ratio] 2.2 {ratio} Normal 1.0-2.5 [facility] Comment on above: Performed By: #### 1 0231, 7600 #### [facility] [place] [address] Geography Professor: Arie Timmons MD ALP [Catalytic activity/Vol] 39 U/L Normal 36-130 [facility] Comment on above: Performed By: #### 1 0231, 7600 #### [facility] [place] [address] Geography Professor: Arie Timmons MD ALT [Catalytic activity/Vol] 14 U/L Normal 9-46 [facility] Comment on above: Performed By: #### 1 0231, 7600 #### [facility] [address], [address] [place] [address] Geography Professor: Arie Timmons MD AST [Catalytic activity/Vol] 15 U/L Normal 10-40 [facility] Comment on above: Performed By: #### 1 0231, 7600 #### [facility] of [address], [address] [place] [address] Geography Professor: Arie Timmons MD Bilirubin [Mass/Vol] 1.1 mg/dL Normal 0.2-1.2 [facility] Comment on above: Performed By: #### 1 0231, 7600 #### [facility] of [address], [address] [place] [address] Geography Professor: Arie Timmons MD BUN/CREATININE RATIO NOT APPLICABLE Normal 6-22 [facility] Comment on above: Performed By: #### 1 0231, 7600 #### [facility] of [place] [address] Geography Professor: Arie Timmons MD Calcium [Mass/Vol] 9.4 mg/dL Normal 8.6-10.3 [facility] Comment on above: Performed By: #### 1 023, 7600 #### [facility] of [place] [address] Geography Professor: Arie Timmons MD Chloride [Moles/Vol] 105 mmol/L Normal 98-110 [facility] Comment on above: Performed By: #### 1 0231, 7600 #### [facility] of [place] [address] Geography Professor: Arie Timmons MD CO2 [Moles/Vol] 26 mmol/L Normal 20-32 [facility] Comment on above: Performed By: #### 1 0231, 7600 #### [facility] of [place] [address] Geography Professor: Arie Timmons MD Creatinine [Mass/Vol] 0.94 mg/dL Normal 0.60-1.35 [facility] Comment on above: Performed By: #### 1 0231, 7600 #### [facility] of [address], [address] [place], [place] [address] Geography Professor: Arie Timmons MD eGFR NON-AFR. CHADIAN 100 mL/min/1.73m2 Normal > OR = 60 [facility] Comment on above: Performed By: #### 1 0231, 7600 #### [facility] of [address], [address] [place] [address] Geography Professor: Arie Timmons MD GFR/1.73 sq M.predicted among blacks MDRD (S/P/Bld) [Vol rate/Area] 116 mL/min/{1.73_m2} Normal > OR = 60 [facility] Comment on above: Performed By: #### 1 0231, 7600 #### [facility] of [place] [address] Geography Professor: Arie Timmons MD Globulin (S) [Mass/Vol] 2.2 g/dL Normal 1.9-3.7 [facility] Comment on above: Performed By: #### 1 023, 7600 #### [facility] of [address], [address] [place] [address] Geography Professor: Arie Timmons MD Glucose [Mass/Vol] 86 mg/dL Normal 65-99 [facility] Comment on above: Result Comment: Fasting reference interval Performed By: #### 1 0231, 7600 #### [facility] of [place] [address] Geography Professor: Arie Timmons MD Potassium [Moles/Vol] 4.0 mmol/L Normal 3.5-5.3 [facility] Comment on above: Performed By: #### 1 0231, 7600 #### [facility] of [place] [address] Geography Professor: Arie Timmons MD Protein [Mass/Vol] 7.0 g/dL Normal 6.1-8.1 [facility] Comment on above: Performed By: #### 1 0231, 7600 #### [facility] [place] [address] Geography Professor: Arie Timmons MD Sodium [Moles/Vol] 140 mmol/L Normal 135-146 [facility] Comment on above: Performed By: #### 1 0231, 7600 #### [facility] [address], [address] [place] [address] Geography Professor: Arie Timmons MD Urea nitrogen [Mass/Vol] 13 mg/dL Normal 7-25 [facility] Comment on above: Performed By: #### 1 0231, 7600 #### [facility] of [address], [address] [place] [address] Geography Professor: Arie Timmons MD LIPID PANEL, [facility] 12-16 Cholesterol [Mass/Vol] 175 mg/dL Normal <200 [facility] Comment on above: Performed By: #### 1 0231, 7600 #### [facility] [address], [address] [place] [address] Geography Professor: Arie Timmons MD Cholesterol in HDL [Mass/Vol] 48 mg/dL Normal > OR = 40 [facility] Comment on above: Performed By: #### 1 023, 7600 #### [facility] [place] [address] Geography Professor: Arie Timmons MD Cholesterol in LDL [Mass/Vol] [...] Friedewald equation in the estimation of LDL-C. Mtathew SS et al. YESY. 2013;310(19): 3731-3754 (http://education.[employer].SelStor/faq/MON266) Performed By: #### 1 0231, 7600 #### [facility] [address], [address] [place] [address] Geography Professor: Arie Timmons MD Cholesterol.total/C holesterol in HDL [Mass ratio] 3.6 {ratio} Normal <5.0 [facility] Comment on above: Performed By: #### 1 023, 7600 #### [facility] [address], [address] [place] [address] Geography Professor: Arie Timmons MD NON HDL CHOLESTEROL 127 mg/dL (calc) Normal <130 [facility] Comment on above: Result Comment: For patients with diabetes plus 1 major ASCVD risk factor, treating to a non-HDL-C goal of <100 mg/dL (LDL-C of <70 mg/dL) is considered a therapeutic option. Performed By: #### 1 0231, 7600 #### [facility] [address], [address] [place] [address] Geography Professor: Arie Timmons MD Triglyceride [Mass/Vol] 97 mg/dL Normal <150 [facility] Comment on above: Performed By: #### 1 023, 0 #### [facility] [address], [address] [place] [address] Geography Professor: Arie Timmons MD COVID-19 [facility] 01-09-20 20 COVID-19 Lab [facility] Not Detected Normal Not Detected [facility] Comment on above: Order Comment: Healt hcare Worker?: N Result Comment: This test was developed and its performance characteristics determined by [employer]. This test has not been FDA cleared [...] detected) result in this assay. Performed at: [facility] [address] [facility], [place], [place] [id number] Pattern Wheel Maker: Desiree Melendez MD, Phone: [phone] PERFORMED BY: [facility] [address] PATHOLOGIST MAINTENANCE J[employer] LISETH GRUBBS M.D. Performed By: #### C ORONAVIRUS #### [facility] , Vital Signs Date Time Vital Sign Value Performing Clinician Facility 04-22-2025 16:39-0400 Body height 182.9 cm [facility] Work Phone: [facility] 04-22-2025 16:39-0400 Body mass index (BMI) [Ratio] 33.93 kg/m2 [facility] Work Phone: [facility] 04-22-2025 16:39-0400 Body temperature 97.9 [degF] SaurabhFortem DO Work Phone: [facility] 04-22-2025 16:39-0400 Body weight 113.49 kg Graviton DO Work Phone: [facility] 04-22-2025 16:39-0400 Diastolic blood pressure 60 mm[Hg] Graviton DO Work Phone: [facility] 04-22-2025 16:39-0400 Heart rate 71 /min Graviton DO Work Phone: [facility] 04-22-2025 16:39-0400 Respiratory rate 18 /min Graviton DO Work Phone: [facility] 04-22-2025 16:39-0400 SaO2% (BldA) [Mass fraction] 97 % Graviton DO Work Phone: [facility] 04-22-2025 16:39-0400 Systolic blood pressure 108 mm[Hg] Saurabh Furlong DO Work Phone: [facility] 08-14-2024 11:31-0500 Body height 182.9 cm Porsha GEORGE Work Phone: [facility] 08-14-2024 11:31-0500 Body mass index (BMI) [Ratio] 32.55 kg/m2 Porsha GEORGE Work Phone: [facility] 08-14-2024 11:31-0500 Body weight 108.86 kg Porsha GEORGE Work Phone: [facility] 07-17-2024 10:41-0500 Blood Pressure Location Maria T Orzech [facility] 07-17-2024 10:41-0500 Body temperature 98.6 [degF] Maria T Orzech [facility] 07-17-2024 10:41-0500 Diastolic blood pressure 79 mm[Hg] Maria T Orzech [facility] 07-17-2024 10:41-0500 Heart rate 71 /min Maria T Orzech [facility] 07-17-2024 10:41-0500 Respiratory rate 18 /min Maria T Orzech [facility] 07-17-2024 10:41-0500 Systolic blood pressure 127 mm[Hg] Maria T Orzech [facility] 06-27-2024 08:07-0500 Body height 182.9 cm Amy Yang NP Work Phone: [facility] 06-27-2024 08:07-0500 Body mass index (BMI) [Ratio] 32.55 kg/m2 Amy Yang NP Work Phone: [facility] 06-27-2024 08:07-0500 Body weight 108.86 kg Amy Apling REFUND CLERK Work Phone: [facility] 02-20-2024 16:23-0400 Body height 182.9 cm Saurabh Furlong DO Work Phone: [facility] 02-20-2024 16:23-0400 Body mass index (BMI) [Ratio] 33.77 kg/m2 Saurabh Furlong DO Work Phone: [facility] 02-20-2024 16:23-0400 Body temperature 97.9 [degF] Saurabh Furlong DO Work Phone: [facility] 02-20-2024 16:23-0400 Body weight 112.95 kg Saurabh Furlong DO Work Phone: [facility] 02-20-2024 16:23-0400 Diastolic blood pressure 78 mm[Hg] Saurabh Furlong DO Work Phone: [facility] 02-20-2024 16:23-0400 Heart rate 56 /min Saurabh Furlong DO Work Phone: [facility] 02-20-2024 16:23-0400 Respiratory rate 18 /min Saurabh Furlong DO Work Phone: [facility] 02-20-2024 16:23-0400 SaO2% (BldA) [Mass fraction] 98 % Saurabh Furlong DO Work Phone: [facility] 02-20-2024 16:23-0400 Systolic blood pressure 116 mm[Hg] Saurabh Furlong DO Work Phone: [facility] 08-15-2023 16:08-0500 Body height 182.9 cm Saurabh Furlong DO Work Phone: [facility] 08-15-2023 16:08-0500 Body mass index (BMI) [Ratio] 34.49 kg/m2 Saurabh Furlong DO Work Phone: [facility] [employer] 08-15-2023 16:08-0500 Body temperature 98.01 [degF] Saurabh Conley DO Work Phone: [facility] [employer] 08-15-2023 16:08-0500 Body weight 115.35 kg Saurabh Conley DO Work Phone: [facility] [employer] [facility] 08-15-2023 16:08-0500 Diastolic blood pressure 68 mm[Hg] Saurabh Conley DO Work Phone: [facility] [employer] [facility] 08-15-2023 16:08-0500 Heart rate 58 /min Saurabh Conley DO Work Phone: [facility] [employer] [facility] 08-15-2023 16:08-0500 SaO2% (BldA) [Mass fraction] 97 % Saurabh Conley DO Work Phone: [facility] [employer] [facility] 08-15-2023 16:08-0500 Systolic blood pressure 102 mm[Hg] Saurabh Conley DO Work Phone: [facility] [employer] [facility] Encounters Encounter Date Encounter Type Care Provider Facility Start: 04-25-2025 End: 04-25-2025 Orders Only Saurabh Conley DO Work Phone: [facility] Comment on above: Class 1 obesity due to excess calories without serious comorbidity with body mass index (BMI) of 34.0 to 34.9 in adult (Primary Dx); Low testosterone in male Start: 04-22-2025 [facility] Start: 04-22-2025 Encounter for genera l adult medical examination without abnormal findings SAURABH G [facility] Start: 04-22-2025 End: 04-22-2025 Patient encounter status Saurabh Conley DO Work Phone: [facility] [employer] Work Phone: Start: 04-22-2025 End: 04-22-2025 Periodic preventive med est patient 40-64yrs Saurabh Conley DO Work Phone: [facility] Comment on above: Well adult exam ([facility] nadege Dx); Class 1 obesity due to excess calories without serious comorbidity with body mass index (BMI) of 34.0 to 34.9 in adult; Urinary frequency; Sinus congestion; Need for immunization against influenza Start: 04-11-2025 End: 04-11-2025 Orders Only Saurabh Conley DO [facility] Comment on above: Class 1 obesity due to excess calories without serious comorbidity with body mass index (BMI) of 34.0 to 34.9 in adult (Primary Dx) Start: 04-10-2025 End: 04-10-2025 Orders Only Saurabh Conley DO Work Phone: [facility] Comment on above: Class 1 obesity due to excess calories with serious comorbidity and body mass index (BMI) of 33.0 to 33.9 in adult (Primary Dx); Class 1 obesity due to excess calories without serious comorbidity with body mass index (BMI) of 34.0 to 34.9 in adult Start: 04-08-2025 End: 04-10-2025 Telephone encounter [facility] Start: 11-16-2024 End: 11-16-2024 Telephone encounter Jr. Karla Carvajal DO Work Phone: [facility] Start: 11-16-2024 End: 11-16-2024 ambulatory SAURABH CONLEY Facility:[facility] Start: 11-16-2024 End: 11-16-2024 Postop follow up visit related to original px Loco Cabrera REFUND CLERK Work Phone: [facility] Comment on above: Pain and swelling of right lower leg Start: 10-25-2024 End: 10-25-2024 Postop follow up visit related to original px Loco Cabrera REFUND CLERK Work Phone: [facility] Comment on above: Status post arthrosc opy of right knee (Primary Dx) Start: 10-25-2024 End: 10-25-2024 ambulatory LOCO CABRERA Not Available Start: 10-25-2024 End: 10-25-2024 Bamboo flowsheet Loco Cabrera REFUND CLERK Work Phone: [facility] Start: 10-25-2024 End: 10-25-2024 Bamboo flowsheet Loco Cabrera REFUND CLERK Work Phone: [facility] Start: 10-16-2024 End: 10-16-2024 ambulatory Magy Franco PT Work Phone: [facility] Comment on above: Acute postoperative pain of right knee (Primary Dx); Status post arthroscopy of right knee Start: 10-16-2024 End: 10-16-2024 Bamboo flowsheet Magy Franco PT Work Phone: [facility] Start: 10-16-2024 End: 10-16-2024 Bamboo flowsheet Magy Franco PT Work Phone: [facility] Start: 10-08-2024 End: 10-08-2024 Postop follow up visit related to original px Loco Cabrera REFUND CLERK Work Phone: [facility] Comment on above: Status post arthrosc opy of right knee (Primary Dx) Start: 10-08-2024 End: 10-08-2024 ambulatory LOCO CABRERA Not Available Start: 09-10-2024 End: 09-10-2024 Bamboo flowsheet Loco Cabrera REFUND CLERK Work Phone: [facility] Start: 09-10-2024 End: 09-10-2024 Bamboo flowsheet Loco Cabrera REFUND CLERK Work Phone: [facility] Start: 09-10-2024 End: 09-10-2024 Postop follow up visit related to original px Loco Cabrera REFUND CLERK Work Phone: [facility] Comment on above: Status post arthrosc opy of right knee (Primary Dx) Start: 09-10-2024 End: 09-10-2024 ambulatory LOCO CABRERA Not Available Start: 08-27-2024 End: 08-27-2024 ambulatory SAURABH CONLEY Facility:[facility] Start: 08-26-2024 End: 08-26-2024 Refill Loco Cabrera REFUND CLERK Work Phone: [facility] Comment on above: Tear of medial menis cus of right knee, initial encounter (Primary Dx) Start: 08-14-2024 End: 08-14-2024 Bamboo flowsheet Porsha العراقي PA Work Phone: [facility] Start: 08-14-2024 End: 08-14-2024 Bamboo flowsheet Porsha العراقي PA Work Phone: [facility] Start: 08-14-2024 End: 08-14-2024 Patient encounter procedure Porsha GEORGE Work Phone: [facility] Comment on above: Pre-op examination ( Primary Dx) Start: 08-14-2024 End: 08-14-2024 Preprocedural examination done Porsha العراقي PA Work Phone: [facility] Work Phone: Start: 08-14-2024 End: 08-14-2024 ambulatory PORSHA العراقي Not Available Start: 07-24-2024 End: 07-24-2024 Bambrodie Carvajal DO Work Phone: [facility] Start: 07-24-2024 End: 07-24-2024 Bambrodie Carvajal DO Work Phone: [facility] Start: 07-24-2024 End: 07-24-2024 Office outpatient visit 25 minutes Jr. Karla Carvajal DO Work Phone: [facility] Comment on above: Tear of medial menis cus of right knee, initial encounter (Primary Dx); Right knee pain, unspecified chronicity Start: 07-24-2024 End: 07-24-2024 ambulatory KARLA MILNER Not Available Start: 07-20-2024 End: 07-20-2024 Bamboo flowsheet Loco Cabrera REFUND CLERK Work Phone: [facility] [facility] Start: 07-20-2024 End: 07-20-2024 Bamboo flowsheet Loco Cabrera REFUND CLERK Work Phone: [facility] Start: 07-20-2024 End: 07-20-2024 Office outpatient visit 15 minutes Loco Cabrera REFUND CLERK Work Phone: [facility] Comment on above: Tear of medial menis cus of right knee, initial encounter (Primary Dx); Mills's cyst of knee, right; Right knee pain, unspecified chronicity Start: 07-20-2024 End: 07-20-2024 ambulatory LOCO CABRERA Not Available Start: 07-17-2024 End: 07-17-2024 ambulatory Maria T X Orgeorge Facility:[facility] Start: 07-17-2024 End: 07-17-2024 Patient encounter procedure Maria T X Orgeorge [facility] Start: 07-06-2024 End: 07-06-2024 Bamboo flowsheet Loco Cabrera REFUND CLERK Work Phone: [facility] Start: 07-06-2024 End: 07-06-2024 Bamboo flowsheet Loco Cabrera REFUND CLERK Work Phone: [facility] Start: 07-06-2024 End: 07-06-2024 ambulatory LOCO CABRERA Not Available Start: 07-06-2024 End: 07-06-2024 Office outpatient visit 25 minutes Loco Cabrera REFUND CLERK Work Phone: [facility] Comment on above: Internal derangement of right knee (Primary Dx); Right knee pain, unspecified chronicity; Mills's cyst of knee, right Start: 07-04-2024 End: 07-04-2024 Telephone encounter Amy Yang REFUND CLERK Work Phone: [facility] Comment on above: MDP Request Start: 07-03-2024 End: 07-03-2024 ambulatory AMY YANG Not Available Start: 06-27-2024 End: 06-27-2024 Bamboo flowsheet Amy Yang REFUND CLERK Work Phone: [facility] Start: 06-27-2024 End: 06-27-2024 Bamboo flowsheet Amy Yang REFUND CLERK Work Phone: [facility] Start: 06-27-2024 End: 06-27-2024 Office outpatient new 30 minutes Amy Yang REFUND CLERK Work Phone: [facility] Comment on above: Right knee pain, uns pecified chronicity (Primary Dx); Internal derangement of right knee Start: 06-27-2024 End: 06-27-2024 ambulatory AMY YANG Not Available Start: 06-22-2024 End: 06-26-2024 Orders Only Saurabh Humphriesng DO Work Phone: [facility] Comment on above: Class 1 obesity due to excess calories without serious comorbidity with body mass index (BMI) of 34.0 to 34.9 in adult (Primary Dx) Start: 06-21-2024 End: 06-21-2024 Orders Only Saurabh Humphriesng DO Work Phone: [facility] Start: 06-04-2024 End: 06-11-2024 Telephone encounter Saurabh Humphriesng DO Work Phone: [facility] Start: 06-01-2024 End: 06-04-2024 Telephone encounter Saurabh Pollacklong DO Work Phone: [facility] Start: 05-30-2024 End: 05-30-2024 Orders Only Saurabh G Furlong DO Work Phone: [facility] Comment on above: Low testosterone in male (Primary Dx) Start: 04-18-2024 End: 04-18-2024 Orders Only Saurabh G Furlong DO Work Phone: [facility] Comment on above: Low testosterone in male (Primary Dx) Start: 04-05-2024 End: 04-05-2024 Orders Only Saurabh Conley DO Work Phone: [facility] Comment on above: Hyperglycemia (Prima ry Dx) Start: 03-10-2024 End: 03-10-2024 Orders Only Saurabh Conley DO Work Phone: [facility] Comment on above: Well adult health juanita (Primary Dx); Class 1 obesity due to excess calories without serious comorbidity with body mass index (BMI) of 34.0 to 34.9 in adult Start: 03-10-2024 End: 03-10-2024 Patient encounter status Saurabh Conley DO Work Phone: [facility] Work Phone: Start: 02-20-2024 End: 02-20-2024 Office outpatient visit 15 minutes Saurabh Conley DO Work Phone: [facility] Comment on above: Class 1 obesity due to excess calories with serious comorbidity and body mass index (BMI) of 33.0 to 33.9 in adult (Primary Dx); Vasectomy evaluation Start: 08-15-2023 End: 08-15-2023 Patient encounter status Saurabh Conley DO Work Phone: [facility] Work Phone: Start: 08-15-2023 End: 08-15-2023 Periodic preventive med est patient 40-64yrs Saurabh Conley DO Work Phone: [facility] [...] JAUREGUI Facility:[facility]1 Start: 12-11-[address] SAURABH CONLEY Fac ility:[facility] Procedures Date Procedure Procedure Detail Performing Clinician Start: 04-22-2025 Urnls dip stick/tabl et rgnt non-auto w/o micrscp Saurabh Conley DO Work Phone: Start: 04-22-2025 Adult depression scr eening assessment Saurabh Conley DO Work Phone: Start: 11-16-2024 Dup-scan xtr veins unilateral/limited study Loco Cabrera REFUND CLERK Work Phone: Start: 07-06-2024 Arthrocentesis aspir &/inj major jt/bursa w/o Loco Cabrera REFUND CLERK Work Phone: Start: 02-20-2024 Adult depression scr eening assessment Saurabh Conley DO Work Phone: Start: 08-15-2023 Adult depression scr eening assessment Saurabh Conley DO Work Phone: Plan of Treatment Date Care Activity Detail Author Start: 11-11-2030 DTaP,Tdap and Td Vaccines (4 - Td or Tdap) DTaP,Tdap and Td Vaccines (4 - Td or Tdap) [facility] Start: 04-22-2026 Adult BMI Screening Adult BMI Screen ing [facility] Start: 04-22-2026 Depression Screening Depression Scre ening [facility] Start: 04-22-2026 Tobacco Screening Tobacco Screening [facility] Start: 04-22-2025 End: 04-22-2025 Patient encounter procedure 04/22/2025 4:30 PM EDT Office Visit [facility] [address] [place] [phone] Saurabh Conley DO [address], [place] [address] [facility] Start: 09-01-2025 Influenza vaccination Influenza Vacc ine [facility] Start: 02-19-2025 Adult BMI Screening Adult BMI Screen ing [facility] Start: 02-19-2025 Depression Screening Depression Scre ening [facility] Start: 02-19-2025 Tobacco Screening Tobacco Screening [facility] Start: 11-19-2024 End: 11-19-2024 Patient encounter procedure 11/19/2024 3:00 PM EDT Office Visit [facility] [address] [place] [phone] Loco Cabrera, REFUND CLERK [address] [place] [address] [facility] Start: 11-16-2024 End: 11-16-2024 Patient encounter procedure 11/16/2024 10:00 AM EDT Office Visit [facility] [address] [place] [address] Loco Cabrera, REFUND CLERK [address] [place] [address] [facility] Start: 10-30-2024 End: 10-30-2024 ambulatory 10/30/2024 5:00 PM EDT Treatment [facility] [address] [place] [phone] Adelina Mattson PTA [facility] Start: 10-25-2024 End: 10-25-2024 Patient encounter procedure [facility] Comment on above: Arrived Start: 10-23-2024 End: 10-23-2024 ambulatory 10/23/2024 5:00 PM EDT Treatment [facility] [address] [place] [address] Adelina Mattson PTA [facility] Start: 10-16-2024 End: 10-16-2024 ambulatory [facility] Comment on above: Status post arthrosc opy of right knee Start: 10-08-2024 End: 10-08-2024 Patient encounter procedure 10/08/2024 9:15 AM EDT Office Visit [facility] [address] [place] [address] Loco Cabrera, REFUND CLERK [address] [place], [place] [id number] [facility] Start: 09-10-2024 End: 09-10-2024 Patient encounter procedure [facility] Comment on above: Arrived Start: 08-21-2024 End: 08-21-2024 Patient encounter procedure 08/21/2024 3:00 PM EST Office Visit [facility] [address] [place] [address] [facility] [place] [address] Roger Tuttle MD [address] [place] [address] [facility] Start: 08-20-2024 End: 08-20-2024 Patient encounter procedure [facility] Start: 08-15-2024 Adult BMI Screening Adult BMI Screen ing [facility] Start: 08-15-2024 [facility]: 08-15-2024 Tobacco Screening Tobacco Screening [facility] Start: 08-14-2024 End: 08-14-2024 Patient encounter procedure [facility] Comment on above: Pre-op examination ( Primary Dx) Start: 08-03-2024 End: 08-03-2024 Patient encounter procedure 08/03/2024 8:15 AM EST Office Visit [facility] [address] [place] [address] Jr. aKrla Carvajal C, DO [address] [facility] [address] [place] [address] [facility] Start: 07-24-2024 End: 07-24-2024 Patient encounter procedure 07/24/2024 8:45 AM EST Office Visit [facility] [address] [place] [address] Jr. Karla Carvajal DO [address] [facility] [address] [place] [address] Arrived [facility] Comment on above: Arrived Start: 07-20-2024 End: 07-20-2024 Patient encounter procedure [facility] Comment on above: Arrived Start: 07-18-2024 COVID-19 Vaccine (2 - Baltazar risk series) COVID-19 Vaccine (2 - Baltazar risk series) [facility] Comment on above: Postponed from 12/15 (Patient Refused) Start: 07-06-2024 End: 07-06-2024 Patient encounter procedure 07/06/2024 8:30 AM EST Office Visit [facility] [address] [place] [address] Loco Cabrera, REFUND CLERK [address] [place] [address] [facility] Start: 06-27-2024 End: 06-27-2025 MR Knee - right WO contrast MR knee right wo IV contrast Imaging High Priority Internal derangement of right knee Expected: 06/27/2024 (Approximate), Expires: 06/27/2025 [facility] Work Phone: Comment on above: Expected: 06/27/2024 (Approximate), Expires: 06/27/2025 Start: 06-27-2024 End: 06-27-2024 Patient encounter procedure 06/27/2024 8:00 AM EST Office Visit [facility] [address] [place] [address] Amy Yang, REFUND CLERK [address] [facility] [address] [place] [address] Right knee pain, unspecified chronicity (Primary Dx) [facility] Comment on above: Right knee pain, uns pecified chronicity (Primary Dx) Start: 03-18-2024 Influenza vaccination Influenza Vacc ine [facility] Start: 05-31-2021 COVID-19 Vaccine (2 - Baltazar risk series) COVID-19 Vaccine (2 - Baltazar risk series) [facility] Start: 1998 Adult BMI Follow Up Plan Adult BMI Follow Up Plan [facility] End: 04-22-2026 C-reactive protein C-reactive protein Lab Routine Class 1 obesity due to excess calories without serious comorbidity with body mass index (BMI) of 34.0 to 34.9 in adult 1 Occurrences starting 04/22/2025 until 04/22/2026 [facility] Comment on above: 1 Occurrences starti ng 04/22/2025 until 04/22/2026 C-reactive protein C-reactive pr otein Lab Routine Class 1 obesity due to excess calories without serious comorbidity with body mass index (BMI) of 34.0 to 34.9 in adult 04/22/2025 5:05 PM EDT [facility] End: 04-18-2025 CBC panel - Blood by Automated count CBC Lab Routine Low testosterone in male 1 Occurrences starting 04/18/2024 until 04/18/2025 [facility] Comment on above: 1 Occurrences starti ng 04/18/2024 until 04/18/2025 End: 03-10-2025 Comprehensive metabolic 2000 panel - Serum or Plasma Comprehensive metabolic panel Lab Routine Well adult health check 1 Occurrences starting 03/10/2024 until 03/10/2025 [employer] Work Phone: Comment on above: 1 Occurrences starti ng 03/10/2024 until 03/10/2025 End: 04-22-2026 Comprehensive metabolic 2000 panel - Serum or Plasma Comprehensive metabolic panel Lab Routine Well adult exam 1 Occurrences starting 04/22/2025 until 04/22/2026 [employer] Work Phone: Comment on above: 1 Occurrences starti ng 04/22/2025 until 04/22/2026 Comprehensive metabo lic 2000 panel - Serum or Plasma Comprehensive metabolic panel Lab Routine Well adult exam 04/22/2025 5:05 PM EDT [facility] End: 04-25-2026 Cortisol Cortisol Lab Routine Class 1 obesity due to excess calories without serious comorbidity with body mass index (BMI) of 34.0 to 34.9 in adult Low testosterone in male 1 Occurrences starting 04/25/2025 until 04/25/2026 [employer] Work Phone: Comment on above: 1 Occurrences starti ng 04/25/2025 until 04/25/2026 End: 04-05-2025 Hemoglobin A1c/Hemoglobin.total in Blood Hemoglobin A1c Lab Routine Hyperglycemia 1 Occurrences starting 04/05/2024 until 04/05/2025 [employer] Phone: Comment on above: 1 Occurrences starti ng 04/05/2024 until 04/05/2025 End: 04-22-2026 Lipid 1996 panel - Serum or Plasma Lipid profile Lab Routine Well adult exam 1 Occurrences starting 04/22/2025 until 04/22/2026 [facility] Comment on above: 1 Occurrences starti ng 04/22/2025 until 04/22/2026 Lipid 1996 panel - Serum or Plasma Lipid profile Lab Routine Well adult exam 04/22/2025 5:05 PM EDT [facility] End: 03-10-2025 Testosterone [Mass/volume] in Serum or Plasma Testosterone Lab Routine Class 1 obesity due to excess calories without serious comorbidity with body mass index (BMI) of 34.0 to 34.9 in adult 1 Occurrences starting 03/10/2024 until 03/10/2025 [facility] Comment on above: 1 Occurrences starti ng 03/10/2024 until 03/10/2025 End: 04-18-2025 Testosterone, Total and Free, S Testosterone, Total and Free, S Lab Routine Low testosterone in male 1 Occurrences starting 04/18/2024 until 04/18/2025 [employer] Work Phone: Comment on above: 1 Occurrences starti ng 04/18/2024 until 04/18/2025 End: 05-30-2025 Testosterone, Total and Free, S Testosterone, Total and Free, S Lab Routine Low testosterone in male 1 Occurrences starting 05/30/2024 until 05/30/2025 [employer] Work Phone: Comment on above: 1 Occurrences starti ng 05/30/2024 until 05/30/2025 End: 04-22-2026 TSH with Reflex TSH with Reflex Lab Routine Well adult exam 1 Occurrences starting 04/22/2025 until 04/22/2026 [facility] Comment on above: 1 Occurrences starti ng 04/22/2025 until 04/22/2026 TSH with Reflex TSH with Reflex Lab Routine Well adult exam 04/22/2025 5:05 PM EDT [facility] Immunizations Immunization Date Immunization Notes Care Provider Prosper keating 04-22-2025 influenza, injectabl e, madin asmita canine kidney, preservative free Saurabh Furlong DO Work Phone: [facility] 04-22-2025 Immunization, In Clinic,; Translations: [Drug or medicament (substance)] Saurabh Furlong DO Work Phone: [facility] 04-17-2024 influenza virus vaccine, unspecified formulation Maria T Orzech [facility] 04-17-2024 influenza, seasonal, injectable, preservative free Saurabh Furlong DO Work Phone: [facility] 04-26-2023 influenza virus vaccine, unspecified formulation Saurabh Furlong DO Work Phone: [facility] 04-26-2023 influenza, injectabl e, quadrivalent, preservative free Saurabh Furlong DO Work Phone: [facility] 04-04-2021 influenza virus vaccine, unspecified formulation Maria T Orzech [facility] 04-04-2021 influenza, injectabl e, quadrivalent, preservative free Saurabh Furlong DO Work Phone: [facility] 11-17-2020 SARS-CoV-2 (COVID-19 ) Ad26 vaccine, recombinant Maria T Orzech [facility] Comment on above: Result Comment: 2023: [id number] 11-11-2020 diphtheria, tetanus toxoids and pertussis vaccine Saurabh Furlong DO Work Phone: [facility] 04-18-2020 influenza virus vaccine, unspecified formulation Maria T Orzech [facility] 04-18-2020 Influenza, injectabl e, Madin Asmita Canine Kidney, quadrivalent with preservative Saurabh Furlong DO Work Phone: [facility] 01-09-2020 tetanus toxoid, redu eleazar diphtheria toxoid, and acellular pertussis vaccine, adsorbed Saurabh Furlong DO Work Phone: [facility] 07-23-2019 tetanus toxoid, redu eleazar diphtheria toxoid, and acellular pertussis vaccine, adsorbed Saurabh Furlong DO Work Phone: [facility] 07-22-2019 influenza virus vaccine, unspecified formulation Maria T Orzech [facility] 07-22-2019 Influenza, injectabl e, Madin Asmita Canine Kidney, preservative free, quadrivalent Saurabh Furlong DO Work Phone: [facility] 05-09-2017 influenza virus vaccine, unspecified formulation Maria T Orzech [facility] 05-09-2017 influenza, injectabl e, quadrivalent, preservative free Saurabh Furlong DO Work Phone: [facility] Payers Date Payer Category Payer Private Health Insurance [employer] [id number] 2023 Unknown [id number] 2023 Managed Care Other (unspecified) MEDICAL NFBGWK-ZBH-[id number] PLAN [id number] 2022 [facility] [id number] 2022 [email or web address] Managed Care - Other ANTHEM [id number] 2022 Unknown [id number]. [id number] 2015 Unknown [id number] 2015 Unknown [id number] 1980 Unknown [id number] [id number]. 593 1980 Unknown [id number] 2.16.840.1.021509.3.579.2. 727 1980 Unknown [id number] 2.16.840.1.925771.3.579.2. 1258 1980 Unknown [id number] 2.16840.1.779339.3.579.2. 1258 1980 Unknown [id number] 2.16840.1.795465.3.579.2. 1258 1980 Unknown [id number] 2.16.840.1.299630.3.579.2. 1258 1980 Unknown [id number] 2.16840.1.030404.3.579.2. 9 1980 Unknown [id number] 2.16840.1.055792.3.579.2. 1258 1980 Unknown [id number] 2.16840.1.103832.3.579.2. 1258 1980 Unknown [id number] 2.16.840.1.444532.3.579.2. 1258 1980 Unknown [id number] 2.16.840.1.620262.3.579.2. 1258 1980 Unknown [id number] 2.16.840.1.937184.3.579.2. 1258 1980 Unknown [id number] 2.16.840.1.421837.3.579.2. 718 1980 Unknown [id number] 2.16.840.1.239304.3.579.2. 718 1980 Unknown [id number] 2.16.840.1.704059.3.579.2. 718 1980 Unknown [id number] 2.16.840.1.809185.3.579.2. 1286 1959 Self-pay Unknown [id number]. 593 Social History Date Type Detail Facility Start: 02-20-2024 End: 06-25-2024 Tobacco smoking status ALIS Never smoked tobacco [facility] Start: 02-20-2024 End: 06-25-2024 Tobacco use and exposure Smokeless tobacco non-user [facility] Start: 06-27-2024 End: 04-22-2025 Alcoholic beverage intake Current drinker of alcohol (finding) [facility] Start: 08-15-2023 End: 06-27-2024 History of Social function [facility] Start: 08-15-2023 End: 06-27-2024 Tobacco use panel [facility] Start: 1980 Sex assigned at Not on file P [facility] Tobacco smoking status Never [facility] Start: 07-24-2024 End: 10-08-2024 Alcoholic beverage intake Ex-drinker (finding) [facility] re Has the [employer], or mSeller threatened to shut off services in your home in past 12Mo No [facility] Do you belong to any clubs or organizations such as buddhist groups, unions, fraternal or athletic groups, or school groups? Yes [facility] Are you now , , , , never or living with a partner? [facility] How often to you hav e a drink containing alcohol? Monthly or less [facility] How many standard dr inks containing alcohol do you have on a typical day? 1 or 2 [facility] How often do you hav e 6 or more drinks on 1 occasion? Never [facility] Do you feel stress - tense, restless, nervous, or anxious, or unable to sleep at night because your mind is troubled all the time - these days [OSQ] Only a little [facility] Start: 04-05-2017 Alcohol Comment social [facility] Start: 02-20-2015 Sex Male (finding) [facility] Medical Equipment Procedure Code Equipment Code Equipment Origin al Text Equipment Identifier Dates Scr Cortical 2.0x10mm - Sna - [id number] Start: 04-06-2017 Scr Cortical 2.0x10mm - Sna - [id number] Start: 04-06-2017 Functional Status Date Assessment Result Facility 07-17-2024 Functional Status N/A [facility] Clinical Notes 04-18-2022 to 04-22-2025 Saurabh Conley, DO - 04/22/2025 4:30 PM EDTTelephone Encounter - Tyra Higuera, SURGICAL RESIDENT - 04/08/2025 10:43 AM EDTTelephone Encounter - Saurabh Conley, DO - 04/08/2025 10:43 AM EDT Note Date & Type Note Facility 04-22-2025 History of Present illness Narrative Subjective Patient ID: Skyler Barrios is a 44 y.o. male. Skyler presents for his annual wellness exam. He [...] Enlarged and swollen. Not pale. Mouth/Throat: Lips: [place]. Mouth: Mucous membranes are moist. Dentition: Normal [...] normal. Assessment/Plan Skyler was seen today for start weight loss [...] in the morning. documented in this encounter [facility] 04-08-2025 Miscellaneous Notes Pt's called and stated that pt wasn't happy with how [facility] was mixing his Semaglutide. They were inquiring about having it sent to [facility] for the Brand name. Thank you. Please advise. He is going to need an appointment to discuss. To get the brand name I am going to have to do a prior authorization and they are going to want a starting weight and I do not have that. He has not been seen in over a year. It was different with [facility] since he was paying [facility] [id number]. Pt stated he is going to pay out of pocket for the brand name through [facility] I guess. So, do you still want to see him even though it has been over a year? Thank you. I will send it in until his next appointment. It looks like he was still on a low-dose of semaglutide. Last dose it looks like it was 0.6 mg. Is that correct? Pt was notified of [facility] documented in this encounter [facility] 04-08-2025 Telephone encounter Note Pt's called and stated that pt wasn't happy with how [facility] was mixing his Semaglutide. They were inquiring about having it sent to [facility] for the Brand name. Thank you. Please advise. [facility] 04-08-2025 Telephone encounter Note He is going to need an appointment to discuss. To get the brand name I am going to have to do a prior authorization and they are going to want a starting weight and I do not have that. He has not been seen in over a year. It was different with [facility] since he was paying [facility] [id number]. [facility] 04-08-2025 Telephone encounter Note Pt stated he is going to pay out of pocket for the brand name through [facility] I guess. So, do you still want to see him even though it has been over a year? Thank you. [facility] 04-08-2025 Telephone encounter Note I will send it in until his next appointment. It looks like he was still on a low-dose of semaglutide. Last dose it looks like it was 0.6 mg. Is that correct? [facility] 04-08-2025 Telephone encounter Note Pt was notified of Rx being called in to [facility] 11-16-2024 History of Present illness Narrative Images from the original note were not included. HISTORY OF PRESENT ILLNESS: POST OP PT Skyler Barrios is an 44 y.o. @ male. (EST PT) PO RT KNEE [facility] 08/27/24 (11WKS 4DAYS). STATES HIS SWELLING AND PAIN HAVE INCREASED SINCE LAST APPOINTMENT. HIS NOTICED HE HAD PITTING EDEMA LAST NIGHT AND WANTED HIM SEEN TODAY. NO CALF PAIN BUT PAIN IN KNEE WITH INCREASED ACTIVITY. REVIEW OF SYSTEMS: General: Denies fever, fatigue or weight loss Lungs: Denies SOB Cardio: Denies chest pain GI: Denies indigestion or abdominal pain Neuro: Denies numbness or tingling, denies new onset paralysis Musculoskeletal: ( see note) PHYSICAL EXAM: Right Knee Exam Right knee exam is normal. Tenderness Right knee tenderness location: Compartments soft, DIFFUSE KNEE PAIN. Range of Motion The patient has normal right knee ROM. Extension: 0 Flexion: 120 (tightness on terminal flexion) Tests Varus: negative Valgus: negative Other Erythema: absent Scars: present (well healing portals) Sensation: normal Pulse: present Swelling: moderate Effusion: no effusion present Comments: Patient is noted to have increased swelling in lower extremity. -homans. Procedures Orders Placed This Encounter Procedures Vascular US lower extremity venous duplex right STAT Vascular US RT lower extremity to be done at [facility]. Rule out DVT. S/p RT knee scope 08/27/24. Loco spoke to RAD department, will send patient over now. Standing Status: Future Number of Occurrences: 1 Expected Date: 11/16/2024 Expiration Date: 11/16/2025 Reason for exam:: Rule out DVT ASSESSMENT: ICD-10-CM 1. Pain and swelling of right lower leg M79.661 Vascular US lower extremity venous duplex right M79.89 Vascular US lower extremity venous duplex right PLAN: I recommend patient have ultrasound of the right lower extremity due to increased swelling. Patient was set up with STAT ultrasound at [facility] who called with results. He was found to have no DVT on ultrasound. I discussed results with patient and recommend that he use compression socks, ice and elevate after work. Follow up in 2-3 weeks for RCK. If still having pain he will then follow up with Dr. Carvajal. Questions answered in laymen terms at the bedside. The diagnosis, home exercise plan and any ongoing restrictions/ recommendations reviewed. If unable to be reached in office, I recommend evaluation at nearest Emergency Room if any symptoms worsened or new symptoms develop for requiring urgent evaluation. Loco Cabrera ULTRASOUND SPEC-CHASSIS ENGINEER documented in this encounter [facility] 11-16-2024 Telephone encounter Note Patient's called in stating patient has appt with Loco on Sunday 11/19. She discovered last night that patient has pitting edema. She thinks he needs seen today for this. This is on his right leg from knee cap down. He cannot sit down more then 20 min at a time. He always has swelling and has gotten worse in the last month. Patient ; Cassandra [phone] ext [phone] [facility] 11-16-2024 Miscellaneous Notes Patient's called in stating patient has appt with Loco on Sunday 11/19. She discovered last night that patient has pitting edema. She thinks he needs seen today for this. This is on his right leg from knee cap down. He cannot sit down more then 20 min at a time. He always has swelling and has gotten worse in the last month. Patient ; Cassadnra [phone] ext [phone] documented in this encounter [facility] 10-25-2024 History of Present illness Narrative Images from the original note were not included. HISTORY OF PRESENT ILLNESS: POST OP PT Skyler Barrios is an 44 y.o. @ male. (EST PT) PO RT KNEE SCOPE MEDIAL MENISCUS 08/27/24 (8WKS 3DAYS). S/P TRANSITIONING TO FWB- ONLY 1 PT VISIT SINCE LAST VISIT CONTINUES NWB WITH CRUTCHES. DENIES PAIN. INTERMITTENT SORENESS MEDIAL KNEE. +IBU FOR SWELLING. +ICE AND ELEVATING. DENIES N/T. UNABLE TO FULLY EXTEND LEG. WORKING ON GENTLE ROM. OCCAS WAKES AT HS IF HE ROLLS THE WRONG WAY. DENIES ISSUES WITH INCISIONS. REVIEW OF SYSTEMS: General: Denies fever, fatigue or weight loss Lungs: Denies SOB Cardio: Denies chest pain GI: Denies indigestion or abdominal pain Neuro: Denies numbness or tingling, denies new onset paralysis Musculoskeletal: ( see note) PHYSICAL EXAM: Right Knee Exam Right knee exam is normal. Tenderness Right knee tenderness location: Compartments soft. Range of Motion The patient has normal right knee ROM. Extension: 0 Flexion: 120 (tightness on terminal flexion) Tests Varus: negative Valgus: negative Other Erythema: absent Scars: present (well healing portals) Sensation: normal Pulse: present Swelling: mild Effusion: no effusion present Comments: Operative lower extremity was noted to be neurovascularly intact. Patient was able to motor feet, toes and ankles in all anatomic planes bilaterally with 5 out of 5 strength. Operative knee's patellar tracking was optimal and quad/ham strength was 5 out of 5 to operative lower extremity. There was no varus valgus, anterior-posterior, or rotatory instability noted to the operative knee. Swelling was well controlled, patella was not ballotable and compartments were soft to the operative lower extremity. Dorsalis pedis and posterior tibial pulses were present and equal bilaterally. There was no evidence of infection or ascending lymphangitis to operative lower extremity. Sensation to light touch was intact to all dermatomes to bilateral lower extremities. Negative Homans and negative Mo were noted bilaterally to lower extremities. Incision was healing without evidence of infection Procedures No orders of the defined types were placed in this encounter. ASSESSMENT: ICD-10-CM 1. Status post arthroscopy of right knee Z98.890 PLAN: Patient is 8 weeks s/p right meniscus repair. He is doing great with improved ROM and little to no pain. He is doing HEP with no issues. He is cleared to return to work but should avoid kneeling, squatting or pivoting. Follow up in 1 month for RCK. Questions answered in laymen terms at the bedside. The diagnosis, home exercise plan and any ongoing restrictions/ recommendations reviewed. If unable to be reached in office, I recommend evaluation at nearest Emergency Room if any symptoms worsened or new symptoms develop for requiring urgent evaluation. Loco Cabrera ULTRASOUND SPEC-CHASSIS ENGINEER documented in this encounter [facility] 10-08-2024 History of Present illness Narrative Images from the original note were not included. HISTORY OF PRESENT ILLNESS: POST OP PT Skyler Barrios is an 44 y.o. @ male. (EST PT) PO RT KNEE SCOPE MEDIAL MENISCUS 08/27/24 (6 WKS). CONTINUES NWB WITH CRUTCHES. DENIES PAIN. INTERMITTENT SORENESS MEDIAL KNEE. +IBU FOR SWELLING. +ICE AND ELEVATING. DENIES N/T. UNABLE TO FULLY EXTEND LEG. WORKING ON GENTLE ROM. OCCAS WAKES AT HS IF HE ROLLS THE WRONG WAY. DENIES ISSUES WITH INCISIONS. REVIEW OF SYSTEMS: General: Denies fever, fatigue or weight loss Lungs: Denies SOB Cardio: Denies chest pain GI: Denies indigestion or abdominal pain Neuro: Denies numbness or tingling, denies new onset paralysis Musculoskeletal: ( see note) PHYSICAL EXAM: Right Knee Exam Tenderness Right knee tenderness location: soreness medial knee. Range of Motion Extension: 5 Flexion: 100 Tests Varus: negative Valgus: negative Other Sensation: normal Pulse: present Swelling: mild Comments: Using crutches for ambulation MR knee right wo IV contrast Narrative: EXAMINATION/TECHNIQUE: MR KNEE RIGHT WO IV CONTRAST HISTORY: Right posterior knee pain and swelling. COMPARISON: Radiographs 06/24/2024. RESULT: MENISCI: Medial Meniscus: Increased signal at the posterior root, possibly contacting the articular surface, possible partial radial tear, without significant meniscal displacement. Lateral Meniscus: Intact LIGAMENTS: ACL, PCL, MCL, and LCL complex intact. CARTILAGE: Appears within normal limits. TENDONS: Mild distal quadriceps and patellar tendinosis, without tear. Popliteus intact. BONES AND MARROW: No evidence of fracture or bone marrow replacing process. MUSCLES: Muscle bulk and signal intensity are normal. JOINT FLUID AND SYNOVIUM: No joint effusion. No synovitis. Small Mills's cyst with thin septations. OTHER: No other significant abnormality. Impression: Possible nondisplaced medial meniscal tear at the posterior root. Mild extensor mechanism tendinosis. Small Mills's cyst. ELECTRONICALLY SIGNED BY: Mike Dumas MD Procedures Orders Placed This Encounter Procedures Ambulatory referral to Physical Therapy No deep squatting or rotating while standing. Standing Status: Future Standing Expiration Date: 04/10/2025 Referral Priority: Routine Referral Type: Rehabilitation - Outpatient Referral Reason: Specialty Services Required Referred to Provider: Jose James PT Requested Specialty: Physical Therapy Number of Visits Requested: 1 ASSESSMENT: ICD-10-CM 1. Status post arthroscopy of right knee Z98.890 Ambulatory referral to Physical Therapy PLAN: Patient is 6 weeks s/p right medial meniscal root repair. He is cleared to start using his crutches to do partial weightbearing and transitioning to WBAT over the next 2 weeks. I recommend that he work with PT on ROM as he still has some stiffness with extension. He will follow up in 2 weeks for RCK. 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 Questions answered in laymen terms at the bedside. The diagnosis, home exercise plan and any ongoing restrictions/ recommendations reviewed. If unable to be reached in office, I recommend evaluation at nearest Emergency Room if any symptoms worsened or new symptoms develop for requiring urgent evaluation. Loco Cabrera ULTRASOUND SPEC-CHASSIS ENGINEER documented in this encounter [facility] 09-10-2024 History of Present illness Narrative Images from the original note were not included. HISTORY OF PRESENT ILLNESS: POST OP PT Skyler Barrios is an 43 y.o. @ male. 1ST PO RT KNEE SCOPE MEDIAL MENISCUS 08/27/24 (2 WKS). C/O SWELLING. PT REMOVED SUTURES 1 DAY AGO- PT CONTINUES NWB WITH CRUTCHES- +IBUPROFEN PRN- PT DID ICE INITIALLY REVIEW OF SYSTEMS: General: Denies fever, fatigue or weight loss Lungs: Denies SOB Cardio: Denies chest pain GI: Denies indigestion or abdominal pain Neuro: Denies numbness or tingling, denies new onset paralysis Musculoskeletal: ( see note) PHYSICAL EXAM: Right Knee Exam Tenderness Right knee tenderness location: Compartments soft, soreness over medial and anterior knee. Range of Motion Extension: 0 Flexion: 80 (tightness on terminal flexion) Other Erythema: absent Scars: present (Portals well healing, sutures removed, no erythema, drainge or discharge, no dehisence) Sensation: normal Pulse: present Swelling: mild Effusion: effusion (consistent with surgery) present Comments: Operative lower extremity was noted to be neurovascularly intact. Patient was able to motor feet, toes and ankles in all anatomic planes bilaterally. Swelling was well controlled, patella was not ballotable and compartments were soft to the operative lower extremity. Dorsalis pedis and posterior tibial pulses were present and equal bilaterally. There was no evidence of infection or ascending lymphangitis to operative lower extremity. Sensation to light touch was intact to all dermatomes to bilateral lower extremities. Negative Homans and negative Mo were noted bilaterally to lower extremities. Incision was healing without evidence of infection. Patient is NWB and using crutches. ROM not stressed due to meniscus repair Procedures No orders of the defined types were placed in this encounter. ASSESSMENT: ICD-10-CM 1. Status post arthroscopy of right knee Z98.890 PLAN: Patient is 2 weeks s/p right medial meniscus repair. I discussed surgery and reviewed surgical images. He is to avoid any weightbearing for 6 weeks and to continue using crutches. He may work on gentle ROM. Follow up in 4 weeks for RCK. Questions answered in laymen terms at the bedside. The diagnosis, home exercise plan and any ongoing restrictions/ recommendations reviewed. If unable to be reached in office, I recommend evaluation at nearest Emergency Room if any symptoms worsened or new symptoms develop for requiring urgent evaluation. Loco Cabrera ULTRASOUND SPEC-CHASSIS ENGINEER documented in this encounter [facility] 08-28-2024 Note [id number]#1.00[facility] 08-28-2024 Note [id number]#1.00[facility] 08-27-2024 Note Education Materials Arthroscopic Surgery Discharge Instructions 1.) Keep ice on your knee after surgery. You may use the ice bag provided to you by the hospital or one from home. The ice should be applied at least 3 times a day for 20 minute intervals. 2.) Keep your knee elevated above the level of your hear. You may prop your leg up on pillows as long as the knee is higher than your heart. 3.) Move your knee. Please, do not be afraid to move the knee joint. It will be stiff and sore in the beginning, but this will slowly improve with healing time 4.) Wiggle your toes and exercise your ankle. These muscle pumps with help to take the swelling out of your knee and enhance circulation to the leg. Wiggle your toes and exercise your ankle for ten minutes every hour that you are awake. 5.) You may remove all bandages from your knee after 3 days. There may be some blood and drainage on the bandages, this is to be expected. You may clean the puncture sites with hydrogen peroxide and a cotton swab three times a day. Keep band aids over the puncture sites until scabbed over. 6.) If don't already have them, you will be issued a walker or crutches to aid in ambulation. No weightbearing to right lower extremity for 6 weeks with crutches secondary to meniscal repair 7.) Do not immerse your knee under water until the puncture sites have completely healed. You may shower and pat the knee dry after you remove the bandages starting in 3 days. 8.) Keep your follow up appoinment. 9.) If you notice foul odor, excessive drainage, calf pain, shortness of breath or increased swelling or pain call the office or proceed to the nearest Hospital Emergency Room. 10.) Be kind to yourself and do your exercises. Get planety of rest. Healing takes time. 11.) If you have been supplied with a brace, keep it in place at all times. 12.) For the next 24 hours do not drink any alcoholic beverages, drive a motore vehicle, operate machinery or powertools, make important decisions or sign important papers. 13.) You may feel dizzy, lightheaded or sleepy following surgery. Make sure you have someone with you for the rest of today. [facility] 08-27-2024 Note [facility]WEST Clinical Discharge Summary PERSON INFORMATION Name SKYLER BARRIOS Age 43 Years 1980 Sex MALE Language Indonesian PCP SAURABH CONLEY Marital Status Phone Med Service Ambulatory Surgery Acct# Arrival 08/27/2024 07:00:00 Visit Reason SURGERY - RIGHT KNEE ARTHROSCOPY - MEDIAL MENISCUS TEAR Acuity LOS 000 00:22 Address: [address] [place] [address] Comment: PROVIDER INFORMATION VITALS INFORMATION Vital Sign Triage Latest Temp Oral Temp Temporal 36.2 DegC 35.8 DegC Temp Intravascular Temp Axillary Temp Rectal 02 Sat 100 % 100 % Respiratory Rate 18 br/min 16 br/min Peripheral Pulse Rate 60 bpm 60 bpm Apical Heart Rate Blood Pressure 122 mmHg / 86 mmHg 124 mmHg / 90 mmHg Comment: MEDICAL INFORMATION Allergy Info: No known allergies Medication List: Medications to Continue That Have Not Changed Other Medications multivitamin (Multivitamin, generic) 1 tab(s) Oral (given by mouth) every day. semaglutide (semaglutide 0.5 mg/0.5 mL (0.5 mg dose) subcutaneous solution) 0.5 Milligram Subcutaneous (under the skin) Every Tuesday. Comment: Lab and Radiology Results Laboratory or Other Results This Visit (last charted value for your 08/27/2024 visit) No Laboratory or Other Results This Visit DIET & ACTIVITY Patient Activity Level: As Tolerated Patient Diet: Regular Patient Activity Restrictions: Discontinue Alcohol Use, No driving, No heavy lifting, Stop Smoking DISCHARGE INFORMATION Discharge Disposition: Discharge Location: DEPART REASON INCOMPLETE INFORMATION PATIENT EDUCATION INFORMATION Instructions: [facility] Arthroscopy Discharge Instructions (MHATRICK) Follow up: With: Address: When: Loco Cabrera [address] [place] [id number] [facility] (1) 09/10/2024 9:30 AM DIAGNOSIS Acute pain of right knee Comment: PHYS DOC NOTES [facility] 08-26-2024 Telephone encounter Note Post op pain rx. PDMP reviewed [facility] 08-26-2024 Miscellaneous Notes Post op pain rx. PDMP reviewed documented in this encounter [facility] 08-14-2024 History of Present illness Narrative Images from the original note were not included. GENERAL HISTORY AND PHYSICAL: NAME: Skyler Barrios : 1980 HISTORY OF PRESENT ILLNESS: Skyler Barrios is an 43 y.o. @ male. Here for surgery instructions R KNEE SCOPE W/ MM @[facility] 08/27/2024. PAST MEDICAL HISTORY: Past Medical History: Diagnosis Date Mills's cyst 07-04-24 Tear of meniscus of knee 07-04-24 PAST SURGICAL HISTORY: Past Surgical History: Procedure Laterality Date HAND SURGERY Right Screws placed and removed SOCIAL HISTORY: Social History Occupational History Not on file Tobacco Use Smoking status: Never Smokeless tobacco: Never Substance and Sexual Activity Alcohol use: Not Currently Drug use: Never Sexual activity: Yes Partners: Female ALLERGIES: No Known Allergies MEDICATIONS: Current Outpatient Medications Medication Instructions Semaglutide-Weight Management 0.5 MG/0.5ML solution auto-injector REVIEW OF SYSTEMS: Review of Systems Constitutional: Negative for fatigue, fever and unexpected weight change. Eyes: Negative for redness and visual disturbance. Gastrointestinal: Negative for abdominal pain. Denies Indigestion Musculoskeletal: See note: Skin: Negative for color change and rash. Neurological: Negative for light-headedness and numbness. Vitals: Body mass index is 32.55 kg/m . PHYSICAL EXAM: Physical Exam Constitutional: General: He is not in acute distress. Appearance: Normal appearance. HENT: Head: Normocephalic and atraumatic. Right Ear: External ear normal. Left Ear: External ear normal. Nose: Nose normal. No rhinorrhea. Mouth/Throat: Mouth: Mucous membranes are moist. Pharynx: No posterior oropharyngeal erythema. Eyes: Extraocular Movements: Extraocular movements intact. Conjunctiva/sclera: Conjunctivae normal. Cardiovascular: Rate and Rhythm: Normal rate and regular rhythm. Pulses: Normal pulses. Heart sounds: No murmur heard. Pulmonary: Effort: Pulmonary effort is normal. No respiratory distress. Breath sounds: Normal breath sounds. No wheezing or rhonchi. Abdominal: Palpations: Abdomen is soft. Tenderness: There is no abdominal tenderness. Musculoskeletal: Cervical back: Normal range of motion and neck supple. Lymphadenopathy: Cervical: No cervical adenopathy. Skin: General: Skin is warm and dry. Findings: No erythema or rash. Neurological: General: No focal deficit present. Mental Status: He is alert and oriented to person, place, and time. Psychiatric: Mood and Affect: Mood normal. Behavior: Behavior normal. No orders of the defined types were placed in this encounter. ASSESSMENT: ICD-10-CM 1. Pre-op examination Z01.818 PLAN: This patient presents for preadmission testing for upcoming surgery. Complete history with medical, surgery, and current allergy and medication list obtained. Consent for surgery signed and witnessed after verbal consent to perform surgery received. All questions answered and proposed surgery scheduled. R KNEE SCOPE W/ MM @[facility] 08/27/2024 PAT W/ [facility] 08/14/2024 PAT @[facility] 08/14/2024 @1PM HAS CRUTCHES CPT 87524 No follow-ups on file. documented in this encounter [facility] 07-24-2024 History of Present illness Narrative Images from the original note were not included. HISTORY OF PRESENT ILLNESS: EST PT Skyler Barrios is an 43 y.o. @ male. (EST PT) RT KNEE. HERE TO DISCUSS KNEE ARTHROSCOPY XRAY [facility] 06/24/24 (PUSHED TO PACS) MRI EPIC 07/03/24 DEPO INJECTION 07/06/24 MDP 06/24/24 KNEE IMMOBILIZER NO PT PAIN POSTERIOR AND FEELS LOTS OF SORENESS/PRESSURE RIGHT BEHIND PATELLA. INTERMITTENT MEDIAL PAIN. DENIES RADIATION. INCREASED PAIN WITH WALKING AND PIVOTING. TAKING TYL. USING ICE AND ELEVATING. DENIES N/T, SWELLING. DENIES POPPING/GRINDING. +CRACKING. DENIES LOCKING. DENIES GIVING OUT. +WAKES AT HS. MARELY: INTERMITTENT PAIN SINCE 12/2023. NKI. WOKE UP AND HAD PAIN. ON 06/24/24 HE NOTICED A KNOT POSTERIOR KNEE AFTER CRAWLING ON THE FLOOR. WENT TO [facility] ER. ALLERGIES: No Known Allergies HOME MEDICATIONS: Current Outpatient Medications Medication Instructions Semaglutide-Weight Management 0.5 MG/0.5ML solution auto-injector PHYSICAL EXAM: Knee Musculoskeletal Exam Gait Gait is normal. Antalgic: right Inspection Leg length disparity: no discrepancy Right Erythema: none Effusion: mild Edema: none Ecchymosis: none Deformity: none Alignment: normal Palpation Right Increased warmth: none Masses: none Tenderness: present Medial joint line: moderate Medial joint line comment: posterior Patella: moderate Range of Motion Right Right knee range of motion is normal and full. Active extension: 0 Passive extension: 0 Active flexion: 120 Passive flexion: 120 Range of motion additional comments: + PAIN ON TERMINAL FLEXION AND EXTENSION Strength Right Right knee strength is normal. Extension: 5/5. Extension is affected by pain. Flexion: 5/5. Flexion is affected by pain. Instability Right Instability signs: none - stable Varus stress grade: normal Valgus stress grade: normal Anterior drawer: normal Medial Aleksandra test: positive Neurovascular Right Right knee neurovascular exam is normal. Pulses - PT: normal Posterior tibial: 2+ Capillary refill: warm and well-perfused Special Signs Right Right knee special signs are normal. Patellar apprehension: none General Constitutional: appears stated age Labored breathing: no Psychiatric: normal mood and affect Neurological: alert Skin: intact Lymphadenopathy: none Vitals: There is no height or weight on file to calculate BMI. Tobacco Use: Low Risk (07/24/2024) Patient History Smoking Tobacco Use: Never Smokeless Tobacco Use: Never Passive Exposure: Not on file Alcohol Use: Not At Risk (08/15/2023) Received from [facility] Frequency of Alcohol Consumption: Monthly or less Average Number of Drinks: 1 or 2 Frequency of Binge Drinking: Never IMAGING: Procedures No orders of the defined types were placed in this encounter. ASSESSMENT: ICD-10-CM 1. Tear of medial meniscus of right knee, initial encounter S83.241A 2. Right knee pain, unspecified chronicity M25.561 PLAN: Medial meniscus tear on MRI. We have discussed his case with him at length and we have recommended a diagnostic and operative arthroscopy of his right knee because he has not responded to rest, ice, nonsteroidal anti-inflammatories and home exercise program. We'll see him back on the day of surgery for an arthroscopy of his right knee. We have discussed both surgical and nonsurgical treatment options with the patient at length and the risks and benefits associated with both. The patient is requesting surgical intervention because they have not responded to outpatient treatment options including but not limited to rest ice, and home exercise program. Pain and decreased range of motion are affecting the patient's ability to sleep and activities of daily living and we have recommended surgical intervention. Questions answered in laymen terms at the bedside. The diagnosis, home exercise plan and any ongoing restrictions/ recommendations reviewed. If unable to be reached in office, I recommend evaluation at nearest Emergency Room if any symptoms worsened or new symptoms develop for requiring urgent evaluation. documented in this encounter [facility] 07-20-2024 History of Present illness Narrative Images from the original note were not included. HISTORY OF PRESENT ILLNESS: EST PT Skyler Barrios is an 43 y.o. @ male. (EST PT) RT KNEE S/P DEPO INJ 07/06 (2 WKS) XRAY [facility] 06/24/24 (PUSHED TO PACS) MRI EPIC 07/03/24 DEPO INJECTION 07/06/24 MDP 06/24/24 KNEE IMMOBILIZER TOOK ABOUT 5 DAYS TO KICK IN, THEN PAIN WAS CUT IN HALF ABOUT 50% FOR 5 DAYS. NOW GETTING BACK TO HOW IT WAS. PAIN POSTERIOR AND FEELS LOTS OF SORENESS/PRESSURE RIGHT BEHIND PATELLA. DENIES RADIATION. TAKING IBU. USING ICE AND ELEVATING. DENIES N/T, SWELLING. DENIES POPPING/GRINDING. +CRACKING. DENIES GIVING OUT. +WAKES AT HS. MARELY: INTERMITTENT PAIN SINCE 12/2023. NKI. WOKE UP AND HAD PAIN. ON 04/24/24 HE NOTICED A KNOT POSTERIOR KNEE AFTER CRAWLING ON THE FLOOR. ALLERGIES: No Known Allergies HOME MEDICATIONS: Current Outpatient Medications Medication Instructions Semaglutide-Weight Management 0.5 MG/0.5ML solution auto-injector PHYSICAL EXAM: Knee Musculoskeletal Exam Gait Gait is normal. Inspection Leg length disparity: no discrepancy Right Erythema: none Effusion: mild Edema: none Ecchymosis: none Deformity: none Alignment: normal Palpation Right Increased warmth: none Masses: none Tenderness: present Medial joint line: moderate Medial joint line comment: posterior Patella: moderate Range of Motion Right Right knee range of motion is normal and full. Range of motion additional comments: + PAIN ON TERMINAL FLEXION AND EXTENSION Strength Right Right knee strength is normal. Extension: 5/5. Extension is affected by pain. Flexion: 5/5. Flexion is affected by pain. Instability Right Instability signs: none - stable Varus stress grade: normal Valgus stress grade: normal Anterior drawer: normal Medial Aleksandra test: positive Neurovascular Right Right knee neurovascular exam is normal. Pulses - PT: normal Posterior tibial: 2+ Capillary refill: warm and well-perfused Special Signs Right Right knee special signs are normal. Patellar apprehension: none General Constitutional: appears stated age Labored breathing: no Psychiatric: normal mood and affect Neurological: alert Skin: intact Lymphadenopathy: none Vitals: There is no height or weight on file to calculate BMI. Tobacco Use: Low Risk (07/20/2024) Patient History Smoking Tobacco Use: Never Smokeless Tobacco Use: Never Passive Exposure: Not on file Alcohol Use: Not At Risk (08/15/2023) Received from [facility] Frequency of Alcohol Consumption: Monthly or less Average Number of Drinks: 1 or 2 Frequency of Binge Drinking: Never IMAGING: MRI dated 07/03/2024 from [facility] imaging of the right knee demonstrated possible nondisplaced medial meniscal tear at the posterior root. Procedures No orders of the defined types were placed in this encounter. ASSESSMENT: ICD-10-CM 1. Tear of medial meniscus of right knee, initial encounter S83.241A 2. Mills's cyst of knee, right M71.21 3. Right knee pain, unspecified chronicity M25.561 PLAN: Patient states that he only had 50% relief with injection for 5 days and that pain has returned. I believe that patient has posterior horn medial meniscus tear and should meet with Dr. Carvajal to further discuss knee arthroscopy. Questions answered in laymen terms at the bedside. The diagnosis, home exercise plan and any ongoing restrictions/ recommendations reviewed. If unable to be reached in office, I recommend evaluation at nearest Emergency Room if any symptoms worsened or new symptoms develop for requiring urgent evaluation. Loco Cabrera ULTRASOUND SPEC-CHASSIS ENGINEER documented in this encounter [facility] 07-17-2024 Evaluation + Plan note Diagnostic Tests PendingTestosterone Level Total 07/17/24 [facility] 07-17-2024 Hospital Discharge instructions Patient Education 07/17/2024 11:10:34 Hypogonadism, Male Hypogonadism, Male Male hypogonadism is a condition of having a level of testosterone that is lower than normal. Testosterone is a chemical, or hormone, that is made mainly in the testicles. In boys, testosterone is responsible for the development of male characteristics during puberty. These include: Making the penis bigger. Growing and building the muscles. Growing facial hair. Deepening the voice. In adult men, testosterone is responsible for maintaining: An interest in sex and the ability to have sex. Muscle mass. Sperm production. Red blood cell production. Bone strength. Testosterone also gives men energy and a sense of well-being. Testosterone normally decreases as men age and the testicles make less testosterone. Testosterone levels can vary from man to man. Not all men will have signs and symptoms of low testosterone. Weight, alcohol use, medicines, and certain medical conditions can affect a man's testosterone level. What are the causes? This condition is caused by: A natural decrease in testosterone that occurs as a man grows older. This is the main cause of this condition. Use of medicines, such as antidepressants, steroids, and opioids. Diseases and conditions that affect the testicles or the making of testosterone. These include: ?Injury or damage to the testicles from trauma, cancer, cancer treatment, or infection. ?Diabetes. ?Sleep apnea. ?Genetic conditions that men are born with. ?Disease of the pituitary gland. This gland is in the brain. It produces hormones. ?Obesity. ?Metabolic syndrome. This is a group of diseases that affect blood pressure, blood sugar, cholesterol, and belly fat. ?HIV or AIDS. ?Alcohol abuse. ?Kidney failure. ?Other long-term or chronic diseases. What are the signs or symptoms? Common symptoms of this condition include: Loss of interest in sex (low sex drive). Inability to have or maintain an erection (erectile dysfunction). Feeling tired (fatigue). Mood changes, like irritability or depression. Loss of muscle and body hair. Infertility. Large breasts. Weight gain (obesity). How is this diagnosed? Your health care provider can diagnose hypogonadism based on: Your signs and symptoms. A physical exam to check your testosterone levels. This includes blood tests. Testosterone levels can change throughout the day. Levels are highest in the morning. You may need to have repeat blood tests before getting a diagnosis of hypogonadism. Depending on your medical history and test results, your health care provider may also do other tests to find the cause of low testosterone. How is this treated? This condition is treated with testosterone replacement therapy. Testosterone can be given by: Injection or through pellets inserted under the skin. Gels or patches placed on the skin or in the mouth. Testosterone therapy is not for everyone. It has risks and side effects. Your health care provider will consider your medical history, your risk for prostate cancer, your age, and your symptoms before putting you on testosterone replacement therapy. Follow these instructions at home: Take tkeu-hhl-oqzwjem and prescription medicines only as told by your health care provider. Eat foods that are high in fiber, such as beans, whole grains, and fresh fruits and vegetables. Limit foods that are high in fat and processed sugars, such as fried or sweet foods. If you drink alcohol: ?Limit how much you have to 0 2 drinks a day. ?Know how much alcohol is in your drink. In the [place] one drink equals one 12 oz bottle of beer (355 mL), one 5 oz glass of wine (148 mL), or one 1 oz glass of hard liquor (44 mL). Return to your normal activities as told by your health care provider. Ask your health care provider what activities are safe for you. Keep all follow-up visits. This is important. Contact a health care provider if: You have any of the signs or symptoms of low testosterone. You have any side effects from testosterone therapy. Summary Male hypogonadism is a condition of having a level of testosterone that is lower than normal. The natural drop in testosterone production that occurs with age is the most common cause of this condition. Low testosterone can also be caused by many diseases and conditions that affect the testicles and the making of testosterone. This condition is treated with testosterone replacement therapy. There are risks and side effects of testosterone therapy. Your health care provider will consider your age, medical history, symptoms, and risks for prostate cancer before putting you on testosterone therapy. This information is not intended to replace advice given to you by your health care provider. Make sure you discuss any questions you have with your health care provider. Document Revised: 03/05/2021 Document Reviewed: 03/05/2021 Userlike Live Chat Patient Education 2023 [email or web address] [facility] 07-17-2024 Note Urology Office/Clini c Note Chief Complaint referral - low testosterone HPI Staff 43yr old male self referral for low testosterone. PCP recommended he get a second opinion about testosterone level. Denies all urinary symptoms. Testosterone: 04/10/24 - 230 04/19/24 - 06/13/24 - 450 History of Present Illness I have reviewed and verified the staff HPI to be accurate for this encounter. Portions of this record may have been created with voice recognition artificial intelligence software, specifically [employer], [employer] and or [employer]. Substitutions may have occurred due to the inherent limitations of voice recognition and artificial intelligence software. Review of Systems PHQ Score Initial Depression Screen Score: 0 SCORE Physical Exam Vitals & Measurements T: 37 ???C(Oral) HR: 71(Peripheral) RR: 18 BP: 127/79 HT: 72 in HT: 184 cm WT: 112.2 kg WT: 247.358 lb BMI: 33.14 General: Well developed, well nourished, in no acute distress. Assessment/Plan IPSS 6, QoL 2 LANI 25 UA today without signs of blood or infection 1. Hypogonadism male (E29.1: Testicular hypofunction) Testosterone: 04/10/24 - total (at 408 pm) 04/19/24 - total, 8.1 free (at 438 pm) 06/13/24 - 450 total, 8.7 free (at 637 am) Pt asked PCP to check T level based on difficulty losing weight, lower energy levels. He denies any issues with erections, mood, libido. PCP had recommended he get further evaluation at our office regarding hypogonadism. Today, I discussed his testosterone levels. Although he has had what appears to be 2 low levels, these were in appropriate timing as they were after 4 PM. He does have an appropriately timed testosterone level at around 6:30 in the morning which was within normal limits, 450. I advised patient that based on this level, hypogonadism is likely not the source of his symptoms. Will recheck testosterone level with appropriate timing. If recheck is low, would need confirmation testosterone level. If within normal limits, would advise patient to follow-up with PCP. -Testosterone level at [facility], stressed importance of timing prior to 10 AM. If within normal limits, follow-up as needed Ordered: Body Mass Index (BMI) documented 3008F Current tobacco non-user 1036F Depression Screening Negative 3352F Influenza immunization status assessed 1030F Medication list documented in medical record 1159F Most recent diastolic blood pressure <80 mm Hg 3078F Review of all meds by a prescribing practitioner or clinical pharmacist documented in EHR 1160F Systolic BP <130 mm Hg (Most Recent) 3074F Testosterone Level Total Urnls Dip Stick Auto w/o Microscopy POC 47604 Follow-up No qualifying data available Patient Education Hypogonadism, Male Problem List/Past Medical History Ongoing No qualifying data Historical No qualifying data Medications semaglutide 0.5 mg/0.5 mL (0.5 mg dose) subcutaneous solution, SubCutaneous Allergies No Known Allergies Social History Alcohol Current. Beer, Wine, Liquor. 1-2 times per month., 07/16/2024 Substance Abuse Never., 07/16/2024 Tobacco Never (less than 100 in lifetime) Tobacco Use:. Never Smokeless Tobacco Use:., 07/17/2024 Family History Arthritis: Grandparent. Breast cancer: Grandparent. High cholesterol: Mother. Hypertension: Mother. Immunizations Vaccine Date Status Comments influenza virus vaccine, inactivated 04/17/2024 Recorded influenza virus vaccine, inactivated 04/26/2023 Recorded influenza virus vaccine, inactivated 04/04/2021 Recorded SARS-CoV-2 (COVID-19) Ad26 vaccine 11/17/2020 Recorded 2024-07-17: TPV40 influenza virus vaccine, inactivated 04/18/2020 Recorded diphtheria/pertussis, acel/tetanus adult 01/09/2020 Recorded diphtheria/pertussis, acel/tetanus adult 07/23/2019 Recorded influenza virus vaccine, inactivated 07/22/2019 Recorded influenza virus vaccine, inactivated 05/09/2017 Recorded Lab Results Ambulatory Point of Care Results Bilirubin Urine Dipstick: Negative (07/17/24 10:45:00) Blood Urine Dipstick: Negative (07/17/24 10:45:00) Glucose Urine Dipstick: Negative (07/17/24 10:45:00) Ketones Urine Dipstick: Negative (07/17/24 10:45:00) Leukocytes Urine Dipstick: Negative (07/17/24 10:45:00) Nitrite Urine Dipstick: Negative (07/17/24 10:45:00) Protein Urine Dipstick: Negative (07/17/24 10:45:00) Specific [place] Urine Dipstick: >=1.030 (07/17/24 10:45:00) Urine Appearance Urine Dipstick: Clear (07/17/24 10:45:00) Urine Color Urine Dipstick: Yellow (07/17/24 10:45:00) Urobilinogen Urine Dipstick: Normal 0.2-1 EU/dl (07/17/24 10:45:00) pH Urine Dipstick: 6 (07/17/24 10:45:00) [facility] Comment on above: Result Comment: Elec tronically Signed By: CHERIE Patel APRN, [place] X\.br\Date and Time Signed: 07/17/24 11:10 EST 07-17-2024 Note Patient Education Urology Hypogonadism, Male Male hypogonadism is a condition of having a level of testosterone that is lower than normal. Testosterone is a chemical, or hormone, that is made mainly in the testicles. In boys, testosterone is responsible for the development of male characteristics during puberty. These include: ??? Making the penis bigger. ??? Growing and building the muscles. ??? Growing facial hair. ??? Deepening the voice. In adult men, testosterone is responsible for maintaining: ??? An interest in sex and the ability to have sex. ??? Muscle mass. ??? Sperm production. ??? Red blood cell production. ??? Bone strength. Testosterone also gives men energy and a sense of well-being. Testosterone normally decreases as men age and the testicles make less testosterone. Testosterone levels can vary from man to man. Not all men will have signs and symptoms of low testosterone. Weight, alcohol use, medicines, and certain medical conditions can affect a man's testosterone level. What are the causes? This condition is caused by: ??? A natural decrease in testosterone that occurs as a man grows older. This is the main cause of this condition. ??? Use of medicines, such as antidepressants, steroids, and opioids. ??? Diseases and conditions that affect the testicles or the making of testosterone. These include: ? Injury or damage to the testicles from trauma, cancer, cancer treatment, or infection. ? Diabetes. ? Sleep apnea. ? Genetic conditions that men are born with. ? Disease of the pituitary gland. This gland is in the brain. It produces hormones. ? Obesity. ? Metabolic syndrome. This is a group of diseases that affect blood pressure, blood sugar, cholesterol, and belly fat. ? HIV or AIDS. ? Alcohol abuse. ? Kidney failure. ? Other long-term or chronic diseases. What are the signs or symptoms? Common symptoms of this condition include: ??? Loss of interest in sex (low sex drive). ??? Inability to have or maintain an erection (erectile dysfunction). ??? Feeling tired (fatigue). ??? Mood changes, like irritability or depression. ??? Loss of muscle and body hair. ??? Infertility. ??? Large breasts. ??? Weight gain (obesity). How is this diagnosed? Your health care provider can diagnose hypogonadism based on: ??? Your signs and symptoms. ??? A physical exam to check your testosterone levels. This includes blood tests. Testosterone levels can change throughout the day. Levels are highest in the morning. You may need to have repeat blood tests before getting a diagnosis of hypogonadism. Depending on your medical history and test results, your health care provider may also do other tests to find the cause of low testosterone. How is this treated? This condition is treated with testosterone replacement therapy. Testosterone can be given by: ??? Injection or through pellets inserted under the skin. ??? Gels or patches placed on the skin or in the mouth. Testosterone therapy is not for everyone. It has risks and side effects. Your health care provider will consider your medical history, your risk for prostate cancer, your age, and your symptoms before putting you on testosterone replacement therapy. Follow these instructions at home: ??? Take kofz-ohu-mzwpyab and prescription medicines only as told by your health care provider. ??? Eat foods that are high in fiber, such as beans, whole grains, and fresh fruits and vegetables. Limit foods that are high in fat and processed sugars, such as fried or sweet foods. ??? If you drink alcohol: ? Limit how much you have to 0?2 drinks a day. ? Know how much alcohol is in your drink. In the [place] one drink equals one 12 oz bottle of beer (355 mL), one 5 oz glass of wine (148 mL), or one 1? oz glass of hard liquor (44 mL). ??? Return to your normal activities as told by your health care provider. Ask your health care provider what activities are safe for you. ??? Keep all follow-up visits. This is important. Contact a health care provider if: ??? You have any of the signs or symptoms of low testosterone. ??? You have any side effects from testosterone therapy. Summary ??? Male hypogonadism is a condition of having a level of testosterone that is lower than normal. ??? The natural drop in testosterone production that occurs with age is the most common cause of this condition. ??? Low testosterone can also be caused by many diseases and conditions that affect the testicles and the making of testosterone. ??? This condition is treated with testosterone replacement therapy. ??? There are risks and side effects of testosterone therapy. Your health care provider will consider your age, medical history, symptoms, and risks for prostate cancer before putting you on testosterone therapy. This information is not intended to replace advice given to you by your health care provider. Make sure you discuss any (more content not included)... [facility] 07-06-2024 History of Present illness Narrative Associated Order(s): L Inj/Asp: R knee Post-Procedure Diagnose(s): Internal derangement of right knee Images from the original note were not included. Chief Complaint Patient presents with Right Knee - Follow-up HISTORY OF PRESENT ILLNESS: Skyler Barrios is an 43 y.o. @ male. (EST W/NADEGE) RT KNEE - HERE FOR MRI RESULTS [facility] 07/03/24 XRAY [facility] 06/24/24 (PUSHED TO PACS) MRI EPIC 07/03/24 MDP 06/24/24 KNEE IMMOBILIZER PAIN MOSTLY POSTERIOR, CAN BE LATERAL. WORSE WITH PROLONGED WB. DENIES RADIATION. +KETOROLAC AT HS, IBU DURING THE DAY. +ICE AND ELEVATING. SWELLING HAS GONE DOWN SOME. STATES KNOT HAS GONE DOWN. DENIES N/T. DENIES POPPING/GRINDING. DENIES GIVING OUT. +WAKES AT HS. TRIES NOT TO FLEX OR EXTEND LEG ALL THE WAY. MARELY: INTERMITTENT PAIN SINCE 12/2023. NKI. WOKE UP AND HAD PAIN. ON 04/24/24 HE NOTICED A KNOT POSTERIOR KNEE AFTER CRAWLING ON THE FLOOR. ALLERGIES: No Known Allergies HOME MEDICATIONS: Current Outpatient Medications Medication Instructions ketorolac (Toradol) 10 MG tablet Take by mouth methylPREDNISolone (Medrol Dospak) 4 MG tablets TAKE 6 TABLETS ON DAY 1 DIRECTED ON PACKAGE AND DECREASE BY 1 TAB EACH DAY FOR A TOTAL OF 6 DAYS Semaglutide-Weight Management 0.5 MG/0.5ML solution auto-injector REVIEW OF SYSTEMS: General: Denies fever, fatigue or weight loss Skin: Denies rash, sores or skin changes Eyes: Denies visual disturbance or pain GI: Denies indigestion or abdominal pain Neuro: Denies numbness or tingling, denies new onset paralysis Musculoskeletal: ( see note) PHYSICAL EXAM: Right Knee Exam Tenderness Right knee tenderness location: posterior and lateral knee pain. pain along biceps femoris. Range of Motion Extension: 0 Flexion: 120 (guarded) Tests Varus: negative Valgus: negative Celina: Anterior - negative Posterior - negative Other Erythema: absent Sensation: normal Pulse: present Swelling: mild Comments: Pain in posterior knee with Aleksandra testing. Vitals: There is no height or weight on file to calculate BMI. IMAGING: I reviewed MRI from [facility] imaging dated 07/03/2024 which demonstrated Possible nondisplaced medial meniscal tear at the posterior root. Mild extensor mechanism tendinosis. Small Mills's cyst. ASSESSMENT: ICD-10-CM 1. Internal derangement of right knee M23.91 2. Right knee pain, unspecified chronicity M25.561 L Inj/Asp: R knee on 07/06/2024 1:16 PM Indications: pain Details: 21 G needle, anterolateral approach Medications: 40 mg methylPREDNISolone acetate 40 MG/ML Outcome: tolerated well, no immediate complications Site cleaned with isopropyl alcohol Procedure, treatment alternatives, risks and benefits explained, specific risks discussed. Consent was given by the patient. PLAN: I reviewed MRI findings with the patient and discussed treatment options, answered questions. I discussed with the patient the option of an injection as his pain has improved with MDP and is mostly in posterior knee. I advised the patient of risks associated with an injection including a reaction to medication, infection, failure to improve and possible worsening. The patient demonstrated understanding. Patient requesting injection. Skin Cleansed with alcohol swab. Utilizing aseptic technique patient given 40mg Depomedrol was injected. Patient tolerated this well. Neurovasc intact s/p injection. Post injection care instructions discussed. If still painful in 2 weeks consider discussion of right knee arthroscopy. Questions answered in laymen terms at the bedside. The diagnosis, home exercise plan and any ongoing restrictions/ recommendations reviewed. If unable to be reached in office, I recommend evaluation at nearest Emergency Room if any symptoms worsened or new symptoms develop for requiring urgent evaluation. 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 I may do an injection which could help more than MDP would but need to see patient first. Patient's called stating patient would like another MDP sent to [facility] in [place], he states it helped greatly with his swelling. Patient did have MRI yesterday and is to follow up with Wei on Tuesday. NKDA. Please advise, thank you documented in this encounter [facility] 07-04-2024 Telephone encounter Note Id wait until appointment with me. I may do an injection which could help more than MDP would but need to see patient first. [facility] Work Phone: 07-04-2024 Telephone encounter Note Patient's called stating patient would like another MDP sent to [facility] in [place], he states it helped greatly with his swelling. Patient did have MRI yesterday and is to follow up with Wei on Tuesday. NKDA. Please advise, thank you [facility] 06-27-2024 History of Present illness Narrative Images from the original note were not included. Subjective Patient ID: Skyler Barrios is a 43 y.o. male. Right Knee: He notes he is doing a little better with the oral steroid but still having issues, he has possibly 3 days remaining. Notes intermittent pain in the knee for several months (December 2023) he denies a realized injury, he notes he woke up one day and began having pain, mostly when he first gets up. 3 days ago (04/24/24), he notes he began having more pain and noticed a knot behind his knee after crawling on the floor. Denies injury. Went to [facility] on 06/24/24 and had an x-ray. Was given toradol and solumedrol in the ER. He was sent home with robaxin, toradol, MDP, an kiana wrap and knee immobilizer. He has not been wearing immobilizer, it was causing him more pain with his leg fully extended. Pain is posterior knee, intermittent. Worse with extension. Discomfort with walking, notes he is careful not to straighten leg all of the way. Notes that there is a knot posterior knee. Pain is a 7-8/10 at worst. Taking IBU as needed for pain. He continues with MDP, he has 2 more days of this. He has used ice and heat with some relief. He has been elevating. Pain does wake him at night. Denies n/t. Admits minimal swelling. Denies cracking, popping, grinding. Denies locking/catching. Denies giving out sensation. Prior Treatment: [facility] ER 06/24/24, XR [facility] RT Knee 06/24/24, kiana wrap, knee immobilizer, toradol, MDP (06/24/24), robaxin, IBU, Ice, Heat Objective Right Knee Exam Tests Aleksandra: Medial - negative Lateral - positive Knee Musculoskeletal Exam Gait Limp: right Inspection Right Erythema: none Effusion: none Edema: mild Ecchymosis: none Palpation Right Crepitus: patellofemoral Tenderness: present Lateral joint line: mild Medial joint line: mild Palpation additional comments: Over popilteal space Range of Motion Right Active extension: 0 Active flexion: 125 Left Active extension: 0 Active flexion: 125 Strength Right Extension: 4/5. Flexion: 4/5. Left Extension: 4/5. Flexion: 4/5. Instability Right Medial Aleksandra test: negative Lateral Aleksandra test: positive Neurovascular Neurovascular additional comments: Negative homans sign I reviewed [facility] er note from 06/24/24. I reviewed the xrays of the right knee done on 06/24/24 at [facility] they are unremarkable for fracture. Assessment/Plan Encounter Diagnoses: ICD-10-CM 1. Right knee pain, unspecified chronicity M25.561 2. Internal derangement of right knee M23.91 MR knee right wo IV contrast discussion of due to failure of conservative treatment would recommend an MRI of the right knee without contrast, activities as tolerated, f/u s/p MRI to be done at [facility] in [place] documented in this encounter [facility] 06-22-2024 Miscellaneous Notes Patient needed the Zepbound to go to [facility] Okay. It was actually generic Ozempic that goes to a [facility] so that is what threw me off documented in this encounter [facility] 06-22-2024 Telephone encounter Note Patient needed the Zepbound to go to [facility] 06-22-2024 Telephone encounter Note Okay. It was actually generic Ozempic that goes to a [facility] so that is what threw me off [facility] 06-04-2024 Miscellaneous Notes He is okay getting testosterone done at [facility] please send orders. He also wondered if he would be able to up his dose of zepbound, he feels like its only working a little bit documented in this encounter [facility] 06-04-2024 Telephone encounter Note He is okay getting testosterone done at [facility] please send orders. He also wondered if he would be able to up his dose of zepbound, he feels like its only working a little bit [facility] 06-01-2024 Miscellaneous Notes He should have a recheck appointment in about 3 months. I can send in the testosterone to [facility]. He needs to get it between 6 and 10:00 a.m. LM on VM documented in this encounter [facility] 06-01-2024 Telephone encounter Note He should have a recheck appointment in about 3 months. I can send in the testosterone to [facility]. He needs to get it between 6 and 10:00 a.m. [facility] 06-01-2024 Telephone encounter Note LM on VM [facility] 05-30-2024 Miscellaneous Notes Patient also called about getting his testosterone rechecked, does he need appointment at all? He should have a recheck appointment in about 3 months. I can send in the testosterone to [facility]. He needs to get it between 6 and 10:00 a.m. documented in this encounter [facility] 05-30-2024 Telephone encounter Note Patient also called about getting his testosterone rechecked, does he need appointment at all? [facility] 05-30-2024 Telephone encounter Note He should have a recheck appointment in about 3 months. I can send in the testosterone to [facility]. He needs to get it between 6 and 10:00 a.m. [facility] 02-20-2024 History of Present illness Narrative Subjective Patient ID: Skyler Barrios is a 43 y.o. male. Skyler presents today to discuss his weight. He is obese. He would like to lose some weight to get healthier. He has been exercising in his changed his diet in his eating healthier. He has lost 5 lb since July. He is interested in injectable medication like Mounjaro. He would also like a referral to have a vasectomy done. He is not interested in anymore children. The following portions of the patient's history were reviewed and updated as appropriate: allergies, current medications, past family history, past medical history, past social history, past surgical history, problem list, and medication reconciliation was completed including current medication and post discharge medication. Review of Systems Constitutional: Positive for activity change and appetite change. Respiratory: Negative. Cardiovascular: Negative. Neurological: Negative. Psychiatric/Behavioral: Negative. Objective Physical Exam Constitutional: General: He is not in acute distress. HENT: Head: Normocephalic. Cardiovascular: Rate and Rhythm: Normal rate and regular rhythm. Pulses: Normal pulses. Heart sounds: Normal heart sounds. No murmur heard. Pulmonary: Effort: Pulmonary effort is normal. No respiratory distress. Breath sounds: No wheezing, rhonchi or rales. Musculoskeletal: Cervical back: Neck supple. Neurological: General: No focal deficit present. Mental [...] normal. Assessment/Plan Skyler was seen today for discuss alanna. Diagnoses and all orders for this visit: Class 1 obesity due to excess calories with serious comorbidity and body mass index (BMI) of 33.0 to 33.9 in adult He is obese. He would benefit from weight loss. He has had a modest weight loss with improved diet and exercise habits. We discussed risks and benefits of various medications. He is not interested in phentermine. He would like to try the injections. He was interested in Mounjaro but will use Zepbound which is the other brand name of Mounjaro which has been approved for weight loss. Vasectomy evaluation - [facility] - [place], [place]; Future Refer to urology for discussion of vasectomy. Other orders - tirzepatide, weight loss, (ZEPBOUND) 2.5 mg/0.5 mL pen injector; Inject 2.5 mg under the skin every 7 days. documented in this encounter [facility] 08-15-2023 History of Present illness Narrative Subjective Patient ID: Skyler Barrios is a 42 y.o. male. Skyler presents today for his annual physical. He has been doing well except for 1 problem. He has a growth on the right side of his face that sometimes gets painful when he touches it. He had it frozen in the past by a insulator helper. It never fully went away. Sometimes it [...] is likely low documented in this encounter [facility] 04-18-2022 Note EXAMINATION: XR CHES T [...] JAUREGUI Date: 2022-04-18 11:32 [facility] Evaluation note Diagnosis Right knee pain, unspecified chronicity- Primary Internal derangement of right knee [facility] Diagnosis Internal derangement of right knee- Primary Right knee pain, unspecified chronicity Mills's cyst of knee, right [facility]* Diagnosis Tear of medial meniscus of right knee, initial encounter- Primary Mills's cyst of knee, right Right knee pain, unspecified chronicity documented in this encounter [facility]* Diagnosis Tear of medial meniscus of right knee, initial encounter- Primary Right knee pain, unspecified chronicity documented in this encounter [facility]* Diagnosis Pre-op examination- Primary documented in this encounter [facility]* Diagnosis Tear of medial meniscus of right knee, initial encounter- Primary documented in this encounter [facility]* Diagnosis Well adult health check- Primary Unspecified general medical examination Class 1 obesity due to excess calories without serious comorbidity with body mass index (BMI) of 34.0 to 34.9 in adult Neoplasm of uncertain behavior of skin of face Low HDL (under 40) [facility] Diagnosis Class 1 obesity due to excess calories with serious comorbidity and body mass index (BMI) of 33.0 to 33.9 in adult- Primary Vasectomy evaluation Other general counseling and advice for contraceptive management [facility] Diagnosis Well adult health check- Primary Unspecified general medical examination Class 1 obesity due to excess calories without serious comorbidity with body mass index (BMI) of 34.0 to 34.9 in adult documented [facility]* Diagnosis Low testosterone in male- Primary documented in [facility]* Diagnosis Hyperglycemia- Primary Other abnormal glucose documented in this encounter [facility]* Diagnosis Low testosterone in male- Primary documented [facility]* Diagnosis Class 1 obesity due to excess calories without serious comorbidity with body mass index (BMI) of 34.0 to 34.9 in adult- Primary documented [facility]* Diagnosis Status post arthroscopy of right knee- Primary Other postprocedural status documented in this encounter [facility]* Diagnosis Status post arthroscopy of right knee- Primary Other postprocedural status documented in this encounter [facility]* Diagnosis Acute postoperative pain of right knee- Primary Status post arthroscopy of right knee Other postprocedural status documented in this encounter [facility]* Diagnosis Status post arthroscopy of right knee- Primary Other postprocedural status [facility]* Diagnosis Pain and swelling of right lower leg [facility]* Diagnosis Class 1 obesity due to excess calories with serious comorbidity and body mass index (BMI) of 33.0 to 33.9 in adult- Primary Class 1 obesity due to excess calories without serious comorbidity with body mass index (BMI) of 34.0 to 34.9 in adult [facility] Diagnosis Well adult exam- Primary Routine general medical examination at a health care facility Class 1 obesity due to excess calories without serious comorbidity with body mass index (BMI) of 34.0 to 34.9 in adult Urinary frequency Sinus congestion Other diseases of nasal cavity and sinuses Need for immunization against influenza Need for prophylactic vaccination and inoculation against influenza [facility] Diagnosis Class 1 obesity due to excess calories without serious comorbidity with body mass index (BMI) of 34.0 to 34.9 in adult- Primary Low testosterone in male [facility] Narrative No data available for this section [facility] InstructionsNot on filedocumented in this encounter [facility] filedocumented in this encounter [facility] filedocumented in this encounter [facility] filedocumented in this encounter [facility] filedocumented in this encounter [facility] on filedocumented in this encounter [facility] filedocumented in this encounter [facility] filedocumented in this encounter [facility] filedocumented in this encounter [facility] No data available for this section [facility] reason for referral (narrative)* Consultation (Routine) - Pending Review Specialty Diagnoses / Procedures Referred By Sarika simental Referred To Contact Dermatology Diagnoses Neoplasm of uncertain behavior of skin of face Saurabh Conley, DO [address], [place] [address] Agustin Morgan, DO [address] [place] [address] Referral ID Status Reason Start Date Expiration Date Visits Requested Visits Authorized [id number] Pending Review Specialty Services Required 08/15/2023 08/14/2024 1 1 [facility] for referral (narrative)* Consultation (Routine) - Pending Review Specialty Diagnoses / Procedures Referred By Sarika simental Referred To Contact Urology Diagnoses Vasectomy evaluation JakinoreenSaurabh nevarez DO [address], [place] [address] [facility] [address] [place] [address] Referral ID Status Reason Start Date Expiration Date Visits Requested Visits Authorized [id number] Pending Review Specialty Services Required 02/20/2024 02/19/2025 1 1 [facility] for visit Narrative* Rehabilitation - Outpatient (Routine) - Authorized Specialty Diagnoses / Procedures Referred By Sarika simental Referred To Contact Physical Therapy Diagnoses Status post arthroscopy of right knee Procedures HI OFFICE/OUTPATIENT [facility] 60 MINUTES Loco Cabrera, REFUND CLERK [address] [place] [address] Phone: tel: fax: Jose James, PT [address] [place] [address] Phone: tel: fax: Referral ID Status Reason Start Date Expiration Date Visits Requested Visits Authorized [id number] Authorized Specialty Services Required 10/08/2024 04/06/2025 39 39 [facility] Summary Purpose Family History No Family History Records FoundNo Family History Records FoundNo Family History Records Found No data available for this section No Family History Records FoundNo Family History [...] section and content) DATE CREATED AUTHOR 02/05/2020 [facility] DATE CREATED AUTHOR AUTHOR'S ORGANIZ ATION 12/30/2021 [facility] DATE CREATED AUTHOR AUTHOR'S ORGANIZ ATION 04/22/2022 [facility] DATE CREATED AUTHOR AUTHOR'S ORGANIZ ATION 08/01/2024 [facility] DATE CREATED AUTHOR AUTHOR'S ORGANIZ ATION 10/27/2024 [facility] DATE CREATED AUTHOR AUTHOR'S ORGANIZ ATION 11/24/2024 [facility] DATE CREATED AUTHOR AUTHOR'S ORGANIZ ATION 04/25/2025 [facility] Reason for Visit (unrecogniz ed section and content) Reason Comments Pain Reason Onset Date Comments MDP Request 07/04/2024 Reason Comments Follow-up Reason Comments Follow-up Reason Comments Pain Reason Comments Pre-op Exam Reason Comments Annual Exam Reason Comments discuss monjaro Reason Onset Date Comments Med Refill 05/30/2024 Reason Comments start weight loss Annual Exam Patient Care team informatio n (unrecognized section and content) Applications Engineer Manufacturing Relationship Specialty Start Date End Date Saurabh Cnoley MD [address] [place] [address] PCP - General Family Medicine 07/24/24 Saurabh Conley MD [address] [place] [address] Referring Physician Family Medicine 07/24/24 Applications Engineer Manufacturing Relationship Specialty Start Date End Date Saurabh Conley MD [address] [place] [address] PCP - General Family Medicine 07/24/24 Saurabh Conley MD [address] [place] [address] Referring Physician Family Medicine 07/24/24 Applications Engineer Manufacturing Relationship Specialty Start Date End Date Saurabh Conley MD [address] [place] [address] PCP - General Family Medicine 07/24/24 Saruabh Conley MD [address] [place] [address] Referring Physician Family Medicine 07/24/24 Applications Engineer Manufacturing Relationship Specialty Start Date End Date Saurabh Conley MD [address] [place] [address] PCP - General Family Medicine 07/24/24 Saurabh Conley MD [address] [place] [address] Referring Physician Family Medicine 07/24/24 Applications Engineer Manufacturing Relationship Specialty Start Date End Date Saurabh Conley DO [address] [place] [address] PCP - General Family Medicine 02/19/20 Applications Engineer Manufacturing Relationship Specialty Start Date End Date JakikatySaurabh [address] [place] [address] PCP - General Family Medicine 02/19/20 Applications Engineer Manufacturing Relationship Specialty Start Date End Date JakinoreenSaurabh nevarez [address] [place] [address] PCP - General Family Medicine 02/19/20 Applications Engineer Manufacturing Relationship Specialty Start Date End Date Jakikaty Saurabh Jamarcus [address] [place] [address] PCP - General Family Medicine 02/19/20 Applications Engineer Manufacturing Relationship Specialty Start Date End Date Jarvis Saurabh Ricketts [address] [place] [address] PCP - General Family Medicine 02/19/20 Applications Engineer Manufacturing Relationship Specialty Start Date End Date JakikatySaurabh [address] [place] [address] PCP - General Family Medicine 02/19/20 Applications Engineer Manufacturing Relationship Specialty Start Date End Date Saurabh Conley DO [address] [place] [address] PCP - General Family Medicine 02/19/20 Applications Engineer Manufacturing Relationship Specialty Start Date End Date Saurabh Conley MD [address], [place] [address] PCP - General Family Medicine 07/24/24 Saurabh Conley MD [address] [facility] [place] [address] Referring Physician Family Medicine 07/24/24 Applications Engineer Manufacturing Relationship Specialty Start Date End Date Saurabh Conley MD PCP - General Family Medicine 07/24/24 Saurabh Conley MD Referring Physician Family Medicine 07/24/24 Applications Engineer Manufacturing Relationship Specialty Start Date End Date Saurabh Conley MD PCP - General Family Medicine 07/24/24 Saurabh Conley MD Referring Physician Family Medicine 07/24/24 Applications Engineer Manufacturing Relationship Specialty Start Date End Date Saurabh Conley MD PCP - General Family Medicine 07/24/24 Saurabh Conley MD Referring Physician Family Medicine 07/24/24 Applications Engineer Manufacturing Relationship Specialty Start Date End Date Saurabh Conley MD PCP - General Family Medicine 07/24/24 Saurabh Conley MD Referring Physician Family Medicine 07/24/24 Applications Engineer Manufacturing Relationship Specialty Start Date End Date Saurabh Conley MD PCP - General Family Medicine 07/24/24 Saurabh Conley MD Referring Physician Family Medicine 07/24/24 Applications Engineer Manufacturing Relationship Specialty Start Date End Date Saurabh Conley DO [address], [place] [address] PCP - General Family Medicine 02/19/20 Applications Engineer Manufacturing Relationship Specialty Start Date End Date Saurabh Conley DO [address], [place] [address] PCP - General Family Medicine 02/19/20 FOR [...] BE BASED ON THE PRIMARY CLINICAL RECORDS. [facility] [employer] [facility]. provides no warranty or guarantee of the accuracy or completeness of information in this document.
--- OUTSIDE RECORDS SUMMARY | 2025-04-27 06:47 | XMS_ITS | Encounter Summary ---
[id number] [address] [place] [address] Care Team Providers Care Linux System Admin Name Role Phone KristelSaurabh nevarez Jamarcus COPELAND Primary Care Provider Encounter Details Date Type Department Care Team (Late st Contact Info) Description 06/20/2024 Orders Only [facility] - [facility] [address] [place] [address] Nat Workman CMA Low testosterone in male [...] often do you attend chur ch or moravian services? Never 08/15/2023 Do you belong to [...] Answer Date Recorded Total Score 0 02/20/2024 [facility] - Occupational [...] a purpose and direction in my life. Julienn gly Agree 08/15/2023 Sex and Gender Information Value Date Recorded Sex Assigned at Not on file Legal Sex Male 11:21 AM EDT Gender Identity Not on file Sexual Orientation Not on file documented as of this encounter Plan of Treatment Not on file documented as of this encounter Procedures Procedure Name Priority Date/Time Associated Diagnosis Comments TESTOSTERONE, TOTAL AND FREE, S Routine 06/13/2024 Low testosterone in male CBC (NO DIFF) Routine 06/13/2024 Low testosterone in male documented in this encounter Results * Testosterone, Total and Free, S (06/13/2024) Testosterone 450 MANUALL Y TRANSCRIBED RESULTS Testosterone free 8.7 MA NUALLY TRANSCRIBED RESULTS Blood 06/13/2024 Saurabh Mustafa DO LAB BLOOD ORDERABLES Final R Digital Path Performing Organization Address [facility] de Phone Number MANUALLY TRANSCRIBED RESULTS * CBC (06/13/2024) External Hematocrit Hct 44.3 [...] ORDERABLES Final R esult Performing Organization Address [facility] Co de Phone Number MANUALLY TRANSCRIBED RESULTS documented in this encounter Visit Diagnoses Diagnosis Low testosterone in male documented in this encounter Additional Health Concerns Assessment Noted Time PHQ-9 Depression Total Score: 0 02/20/20 24 4:22 PM EDT documented as of this encounter Care Teams Linux System Admin Relationship Specialty Start Date End Date Saurabh Mustafa DO [address] [facility], [place] [address] PCP - General Family Medicine 02/19/20 documented as of this encounter
--- OUTSIDE RECORDS SUMMARY | 2025-04-27 06:47 | XMS_ITS | Encounter Summary ---
Author Organization [facility] tem Address [id number] [address] [place] [address] Care Team Providers Care Special Service Officer Name Role Phone Saurabh Mustafa DO Primary Care Provider [phone] Reason for Visit * Reason Comments Med Change Request Encounter Details Date Type Department Care Team (Late st Contact Info) Description 06/21/2024 Refill [facility] Internal Medicine - Family Medicine [address] [place] [address] Saurabh Mustafa DO [address], [facility] [place] [address] Social History Tobacco Use Types Packs/Day Years Used Date Smoking Tobacco: Never Smokeless Tobacco: Never Alcohol Use Standard Drinks/Week Comments Yes 0 (1 standard drink = 0.6 oz pur e alcohol) social [facility] Utilities Answer Date Recorded In the past 12 months has [employer], [employer], oil, or water [employer] threatened to shut off services in your [...] How often do you attend chur or rastafari services? Never 08/15/2023 Do you belong to any clubs o r organizations such as lutheran groups, unions, fraternal or athletic groups, or [...] Date Recorded Total Score 0 02/20/2024 [facility] - Occupational [...] Recorded Do you need help finding a [facility] career center and/or a training program? [...] documented as of this encounter Care Teams Special Service Officer Relationship Specialty Start Date End Date Saurabh Mustafa DO [address], [place] [address] PCP - General Family Medicine 02/19/20 documented as of this encounter
== END 2025-04-27 06:43 | disposition home or self-care (01) ==
LOC: LAB 06:44
PROVIDERS: PCP Family Medicine; Visit Provider Family Medicine
DX: R79.89 Other specified abnormal findings of blood chemistry (principal); E66.811 Obesity, class 1; E66.09 Other obesity due to excess calories; Z68.34 Body mass index [BMI] 34.0-34.9, adult
CPT/HCPCS: 36415; 82533

== ENCOUNTER 2025-05-08 05:37 | Emergency (ER) | payer BC, OTHER, SELFPAY ==
[2025-05-08 05:47] VITALS: BP 111/81; PULSE 67; TEMP 36.8; O2SAT 100; BMI 32.5
--- OUTSIDE RECORDS SUMMARY | 2025-05-08 05:52 | XMS_ITS | CCD ---
Author Organization [facility] Care Team Providers Care Machine Tool Technician Instructor Name Role Phone DR SAURABH MUSTAFA Admitting Unavailable MISC, DR ACOSTA Primary Care Unavailable JARVIS, DR SAURABH Ricketts Attending Unavailable RALEIGH, DR ANILA Sofia Consulting Unavailable MATTIE VASQUEZ Attending Unavailable MATTIE VASQUEZ Admitting Unavailable JARVIS, DR SAURABH Ricketts Primary Care Unavailable MATTIE VASQUEZ Consulting Unavailable Unavailable Primary Care Provider SAURABH Hernandez Primary Care Physician Saurabh Mustafa MD Unavailable [phone] Saurabh Mustafa MD Primary Care Provider Maria T Patel Attending Unavailable Saurabh Mustafa DO Primary Care Provider Saurabh Mustafa MD Unavailable Saurabh Mustafa MD Primary Care Provider AMY YANG Attending Unavailable AMY YANG Referring Unavailable LOCO CABRERA Attending Unavailable LOCO CABRERA Attending Unavailable JR. CARVAJAL GEORGE C Attending UnavailPORSHA Veras Attending Unavailable LOCO CABRERA Attending Unavailable LOCO CABRERA Attending Unavailable KRISTY FRANCO Attending Unavailable LOCO CABRERA Referring Unavailable LOCO CABRERA Attending Unavailable KARLA CARVAJAL Admitting Unavailable KARLA CARVAJAL Attending Unavailable SAURBAH MUSTAFA Primary Care Unavailable SAURABH MUSTAFA Primary Care Unavailable KARLA CARVAJAL Admitting Unavailable KARLA CARVAJAL Attending Unavailable SAURABH MUSTAFA Primary Care Unavailable Sujit [employer] [employer], Loco Meredith Admitting Unavail able Sujit [employer], Loco Meredith Attending Unavail able Saurabh Mustafa DO Primary Care Provider [phone] SAURABH MUSTAFA Attending Unavailable SAURABH MUSTAFA Referring Unavailable SAURABH MUSTAFA Primary Care Unavailable Medications Current Medications MedicationDrug Class(es)DatesSig (Normalized)Sig (Original)0.5 ML semaglutide 1 MG/ML Auto-Injector (1 source)Start: 57-23-4536ltnqcfppxyk 0.5 mg/0.5 mL (0.5 mg dose) subcutaneous solution SubCutaneous, Refills(s) 0 Start Date: 07/17/24 Status: Ordered acetaminophen 325 mg / HYDROcodone bitartrate 5 mg oral tablet (1 source)Opioid AgonistStart: 08-26-2024 End: 56-57-3945gvpo 1 tablet by mouth every six hours for painHYDROcodone- acetaminophen ([place]) 5-325 MG tablet Indications: Tear of medial meniscus of right knee, initial encounter Take 1 tablet by mouth every 6 (six) hours if needed for severe pain for up to 3 days 12 tablet 08/26/2024 08/29/2024 Active fluticasone propionate 0.05 mg/actuat metered dose nasal spray (3 sources)CorticosteroidStart: 41-48-8130zvcp 2 spray(s) nasal route in the morningfluticasone propionate (FLONASE) 50 mcg/actuation nasal spray Administer 2 sprays into each nostrilin the morning. 16 g 5 04/22/2025 Activeketorolac tromethamine 10 mg oral tablet (5 sources)Nonsteroidal Anti-inflammatory Drug, Cyclooxygenase Inhibitor End: 49-22-1417wqcvoxtqg (Toradol) 10 MG tablet Take by mouth 07/20/2024 Discontinued (Med list cleanup)semaglutide, weight loss, (WEGOVY) 0.5 mg/0.5 mL pen injector (4 sources)Start: 74-77-0723nxciwdkzfvg, weight loss, (WEGOVY) 0.5 mg/0.5 mL pen injector Indications: Class 1 obesity due to excess calories without serious comorbidity with body mass index (BMI) of 34.0 to 34.9 in adult Inject 0.5 mL (0.5 mg total) under the skin every 7 days. 2 mL 04/29/2025 ActiveStart: 07-17-2024 End: 54-27-7798vrprsgklaby, weight loss, (WEGOVY) 0.5 mg/0.5 mL pen injector 0.5 mL (0.5 mg total). 07/17/2024 04/22/2025 Discontinued (Dose adjustment)Start: 06-22-2024 End: 62-39-8419hpcfqduldbo, weight loss, (WEGOVY) 0.5 mg/0.5 mL pen injector Indications: Class 1 obesity due to excess calories without serious comorbidity with body mass index (BMI) of 34.0 to 34.9 in adult Inject 0.6 mg subcutaneously weekly 2 mL 2 06/22/2024 04/10/2025 Discontinued (Dose adjustment)Start: 71-20-3782mlrvhgbpzdd, weight loss, (WEGOVY) 0.5 mg/0.5 mL pen injector Indications: Class 1 obesity due to excess calories without serious comorbidity with body mass index (BMI) of 34.0 to 34.9 in adult Inject 0.6 mg subcutaneously weekly 2 mL 2 06/22/2024 ActiveSemaglutide-Weight Management 0.5 MG/0.5ML solution auto-injector (20 sources)Start: 28-10-0068Mzicsrqcoxw-Weight Management 0.5 MG/0.5ML solution auto-injector 06/22/2024 ActiveStart: 71-03-8780kbrxmk 0.6 mg by subcutaneous injection every weekSemaglutide-Weight Management 0.5 MG/0.5ML solution auto- injector Inject 0.6 mg subcutaneously weekly 06/22/2024 Active Completed/Discontinued Medications MedicationDrug Class(es)DatesSig (Normalized)Sig (Original)1 ml methylPREDNISolone acetate 40 mg/ml injection (13 sources)CorticosteroidStart: 07-06-2024 End: 46-00-7768rzelxuVAJQMGZohqmb acetate (DEPO-Medrol) injection 40 mgStart: 07-06-2024 End: 78-09-901284 mg, Intra-articular, Once PRN Procedure, Starting on Tue07/06/24 at 1316, For 1 doseStart: 06-24-2024 End: 22-72-3406xfozgvEWRZJTZmqdme (Medrol Dospak) 4 MG tablets TAKE 6 TABLETS ON DAY 1 DIRECTED ON PACKAGE AND DECREASE BY 1 TAB EACH DAY FOR A TOTAL OF 6 DAYS 06/24/2024 07/20/2024 Discontinued (Med list cleanup)Start: 06-24-2024 methylPREDNISolone (Medrol Dospak) 4 MG tablets TAKE 6 TABLETS ON DAY 1 DIRECTED ON PACKAGE AND DECREASE BY 1 TAB EACH DAY FOR A TOTAL OF 6 DAYS 06/24/2024 Activesemaglutide, weight loss, (WEGOVY) 0.25 mg/0.5 mL pen injector (4 sources)Start: 04-11-2025 End: 44-75-2936pitsctpfgpc, weight loss, (WEGOVY) 0.25 mg/0.5 mL pen injector Indications: Class 1 obesity due to excess calories without serious comorbidity with body mass index (BMI) of 34.0 to 34.9 in adult Inject 0.5 mL (0.25 mg total) under the skin every 7 days. 2 mL 04/11/2025 04/29/2025 Discontinued (Doseadjustment)Start: 54-10-1658wpyxkyqijes, weight loss, (WEGOVY) 0.25 mg/0.5 mL pen injector Indications: Class 1 obesity due to excess calories without serious comorbidity with body mass index (BMI) of 34.0 to 34.9 in adult Inject 0.5 mL (0.25 mg total) under the skin every 7 days. 2 mL 04/11/2025 Active semaglutide, weight loss, (WEGOVY) 1 mg/0.5 mL pen injector (2 sources)Start: 04-10-2025 End: 61-14-9051odpnoclsuvk, weight loss, (WEGOVY) 1 mg/0.5 mL pen injector Indications: Class 1 obesity due to excess calories without serious comorbidity with body mass index (BMI) of 34.0 to 34.9 in adult Inject 0.5 mL (1 mg total) under the skin every 7 days. 2 mL 2 04/10/2025 04/11/2025 Discontinued (Dose adjustment)Start: 93-28-6284ibwfzmwacst, weight loss, (WEGOVY) 1 mg/0.5 mL pen injector Indications: Class 1 obesity due to excess calories without serious comorbidity with body mass index (BMI) of 34.0 to 34.9 in adult Inject 0.5 mL (1 mg total) under the skin every 7 days. 2 mL 2 04/10/2025 Activetirzepatide, weight loss, (ZEPBOUND) 2.5 mg/0.5 mL pen injector (10 sources)Start: 05-30-2024 End: 95-87-2540sujimacnjoe, weight loss, (ZEPBOUND) 2.5 mg/0.5 mL pen injector Inject 2.5 mg under the skin every 7 days. 2 mL 2 05/30/2024 06/21/2024 Discontinued (Dose adjustment)Start: 77-41-1791kletozyufeq, weight loss, (ZEPBOUND) 2.5 mg/0.5 mL pen injector Inject 2.5 mg under the skin every 7 days. 2 mL 2 05/30/2024 ActiveStart: 02-20-2024 End: 39-95-4741jukgwzxtrpk, weight loss, (ZEPBOUND) 2.5 mg/0.5 mL pen injector Inject 2.5 mg under the skin every 7 days. 2 mL 02/20/2024 05/30/2024 Discontinued (Reorder)Start: 49-61-2607nxvygwhppan, weight loss, (ZEPBOUND) 2.5 mg/0.5 mL pen injector Inject 2.5 mg under the skin every 7 days. 2 mL 02/20/2024 Activetirzepatide, weight loss, (ZEPBOUND) 5 mg/0.5 mL pen injector (2 sources)Start: 06-21-2024 End: 66-20-8831misnqnmzbgt, weight loss, (ZEPBOUND) 5 mg/0.5 mL pen injector Inject 5 mg under the skin every 7 days. 2 mL 2 06/21/2024 06/22/2024 Discontinued (Formulary change)Start: 41-96-9299rjluuulxxkn, weight loss, (ZEPBOUND) 5 mg/0.5 mL pen injector Inject 5 mg under the skin every 7 days. 2 mL 2 06/21/2024 Active Problems Active Problems Problem ClassificationProblemDateDocumented DateEpisodic/Chronic Administrative/social admission (4 sources)Encounter for pre-employment examination; Translations: [ENCOUNTER FOR PRE-EMPLOYMENT EXAM]Onset: 96-05-4077XesumtasSmlgxfmmvidsu symptoms and ill- defined conditions (2 sources)Increased frequency of urination; Translations: [Frequency of micturition]Onset: 944293-63-3586KslqfdtrBydqzadbqrwji and screening for infectious disease (2 sources)Needs influenza immunization; Translations: [Encounter for immunization]Onset: 231039-44-4543QrqvrvpsOctrb disorders and dislocations; trauma-related (8 sources)Derangement of right knee; Translations: [Unspecified internal derangement of right knee]15-39-2777DiorwjeHpvwo disorders and dislocations; trauma-related (5 sources)Tear of medial meniscus of knee; Translations: [Other tear of medial meniscus, current injury, right knee, initial encounter]22-12-8313SanqqwljCxqti connective tissue disease (4 sources)Synovial cyst of right popliteal space; Translations: [Synovial cyst of popliteal space [[place]], right knee]20-93-5742PjnthbcsXpenz connective tissue disease (4 sources)Pain of right lower leg; Translations: [Pain in right lower leg] 60-69-9809BvjgxsaqIhgaz endocrine disorders (1 source)Testicular hypofunction; Translations: [Testicular hypofunction]Onset: 49-01-2764ZmcrcooWgwoe nervous system disorders (8 sources)Other acute postprocedural pain; Translations: [Pain in joint, lower leg]Onset: 167032-66-8971AjwiyhiuQphsd non-traumatic joint disorders (9 sources)Pain in right knee; Translations: [Pain in joint, lower leg]Onset: 268482-35-3453EazjomtoDkjuj nutritional; endocrine; and metabolic disorders (20 sources)Obesity caused by energy imbalance; Translations: [Other obesity due to excess calories]Onset: 566904-47-0959ZpninidVzpvm nutritional; endocrine; and metabolic disorders (19 sources)Cholesterol level - finding; Translations: [Lipoprotein deficiency] Onset: 669592-79-7512VuxeutpPgisz nutritional; endocrine; and metabolic disorders (1 source)Other obesity due to excess calories; Translations: [Other obesity due to excess calories]Onset: 57-73-0145XagmoehUqeih nutritional; endocrine; and metabolic disorders (1 source)Body mass index (BMI) 34.0-34.9, adult; Translations: [Body mass index (BMI) 34.0-34.9, adult]Onset: 68-14-5095HnuifrhTprky upper respiratory disease (1 source)Congestion of nasal sinus; Translations: [Nasal congestion]04-22-2025 EpisodicOther upper respiratory disease (1 source)Nasal congestion; Translations: [Nasal congestion]Onset: 04-22-2025 EpisodicResidual codes; unclassified (16 sources)History of arthroscopy of knee joint; Translations: [Other specified postprocedural states]Onset: 559735-24-5224AafyaykjAosqgemmptqu (1 source)Obesity, class 1; Translations: [Obesity, class 1]Onset: 08-15-2023 Unclassified (1 source)start weight lossOnset: 05-63-2651Hdlhbcfmxgsq (1 source)Annual ExamOnset: 04-22-2025 Past or Other Problems Problem ClassificationProblemDateDocumented DateEpisodic/ChronicContraceptive and procreative management (1 source)Patient encounter status; Translations: [Encounter for other general counseling and advice on contraception]62-94-3215AtlhaolhLztsmtpd mellitus without complication (1 source)Hyperglycemia; Translations: [Hyperglycemia, unspecified]04-05-2024 EpisodicMood disorders (18 sources)Mood disordersOnset: 08-15-2023 Resolved: 887565-27-9849Tftcyskga of unspecified nature or uncertain behavior (19 sources)Neoplasm of uncertain behavior of skin of face; Translations: [Neoplasm of uncertain behavior of skin]Onset: 800103-08-2384CewzqdguOktwe screening for suspected conditions (not mental disorders or infectious disease) (17 sources)Decreased testosterone level ; Translations: [Other specified abnormal findings of blood chemistry]Onset: 703622-11-8941Endifvpf Results Test NameValueInterpretationReference RangeFacilityC-REACTIVE PROTEINon 56-02-4315DLC [Mass/Vol]mg/LNormal<=0.7[facility]ulatory PPGComment on above:Performed By: #### CRP #### [facility] ([facility]) [address] [place] [address] VIRCOMPREHENSIVE METABOLIC PANELon 45-47-9401Zlshylu [Mass/Vol] 4.9 g/dLNormal3.2-5.3PTwin City Hospital Ambulatory PPGComment on above:Performed By: #### CMP #### [facility] ([facility]) [address] [place] [address] VIRALP [Catalytic activity/Vol]44 U/ILumyok10-898NtkWnaywu Hospital Ambulatory PPGComment on above:Performed By: #### CMP #### [facility] ([facility]) [address] [place] [address] VIRALT [Catalytic activity/Vol]18 U/LNormal<=40[facility] PPGComment on above:Performed By: #### CMP #### [facility] ([facility]) [address] [place] [address] VIRAnion gap [Moles/Vol]10 mmol/LNormal5-15[facility]ulatory PPGComment on above:Performed By: #### CMP #### [facility] ([facility]) [address] [place] [address] VIRAST [Catalytic activity/Vol]18 U/LNormal<=41[facility] PPGComment on above:Performed By: #### CMP #### [facility] ([facility]) [address] [place] [address] VIRBilirubin [Mass/Vol]0.9 mg/dLNormal0.3-1.2PTwin City Hospital Ambulatory PPGComment on above:Performed By: #### CMP #### [facility] ([facility]) [address] [place] [address] VIRCalcium [Mass/Vol]9.4 mg/dLNormal8.5-10.5PTwin City Hospital Ambulatory PPGComment on above:Performed By: #### CMP #### [facility] ([facility]) [address] [place] [address] VIRChloride [Moles/Vol]105 mmol/YVftedp34-794RmrCdtypn Hospital Ambulatory PPGComment on above:Performed By: #### CMP #### [facility] ([facility]) [address] [place] [address] VIRCO2 [Moles/Vol]26 mmol/HRodhfb13-53RvpExwxuz Hospital Ambulatory PPGComment on above:Performed By: #### CMP #### [facility] ([facility]) [address] [place] [address] VIRCreatinine [Mass/Vol]0.96 mg/dLNormal0.60-1.30[facility]ulatory PPGComment on above:Result Comment: METHOD TRACEABLE TO IDMS STANDARDPerformed By: #### CMP #### [facility] ([facility]) [address] [place] [address] VIREGFR (CKD-EPI) NON-RACE DEPENDENT>^90Normal>=60[facility]ulatory PPGComment on above:Result Comment: Reported eGFR is based on the CKD-EPI 2020 equation that does not use a race coefficient.Performed By: #### CMP #### [facility] ([facility]) [address] [place] [address] VIRGlucose [Mass/Vol]96 mg/yYRpkgnl78-65NfsSvrvgd Hospital Ambulatory PPGComment on above:Performed By: #### CMP #### [facility] ([facility]) [address] [place] [address] VIRPotassium [Moles/Vol]4.1 mmol/LNormal3.5-5.0[facility]ulatory PPGComment on above:Performed By: #### CMP #### [facility] ([facility]) [address] [place] [address] VIRProtein [Mass/Vol]7.3 g/dLNormal6.0-8.0[facility] PPGComment on above:Performed By: #### CMP #### [facility] ([facility]) [address] [place] [address] VIRSodium [Moles/Vol]141 mmol/XMlnson845-380EoqOvufoa Hospital Ambulatory PPGComment on above:Performed By: #### CMP #### [facility] ([facility]) [address] [place] [address] VIRUrea nitrogen [Mass/Vol]13 mg/dLNormal5-23[facility]ulatory PPGComment on above:Performed By: #### CMP #### [facility] ([facility]) [address] [place] [address] VIRLIPID PROFILEon 19-31-5852Acweasbtflw [Mass/Vol]166 mg/dL Huqwsd804-574DajXxfudv Hospital Ambulatory PPGComment on above:Performed By: #### LIPR #### [facility] ([facility]) [address] [place] [address] VIRCholesterol in HDL [Mass/Vol]40 mg/dLNormal>39[facility] PPGComment on above:Result Comment: HDL <40 mg/dL - High Risk HDL > or = 40mg/dL- Desirable HDL >60 mg/dL - Negative RiskPerformed By: #### LIPR #### [facility] ([facility]) [address] [place] [address] VIRCholesterol in LDL [Mass/Vol]87 mg/dLNormal<130[facility] PPGComment on above:Result Comment: LDL <100 mg/dL - Desirable LDL >160 mg/dL - High RiskPerformed By: #### LIPR #### [facility] ([facility]) [address] [place] [address] VIRCHOLESTEROL:HDL4.3Ipcwew3.0-5.0[facility]ulatory PPGComment on above:Performed By: #### LIPR #### [facility] ([facility]) [address] [place] [address] VIRTriglyceride [Mass/Vol]193 mg/lAKaot23-845TdnVrkbqb Hospital Ambulatory PPGComment on above:Performed By: #### LIPR #### [facility] ([facility]) [address] [place] [address] VIRVERY LOW NMHMUYGRXYI80 mg/dLHigh0-30[facility]ulatory PPGComment on above:Performed By: #### LIPR #### [facility] ([facility]) [address] [place] [address] VIRPOCT urinalysis dipstick onlyon 54-82-2492Bnjuqtoxnq (U) clearChillicothe [facility] SystemExternal Poct Urine BilirubinNegativeLakeHealth TriPoint Medical CenterExternal Poct Urine BloodNegativeLakeHealth TriPoint Medical CenterExternal Poct Urine ColoryellowLakeHealth TriPoint Medical CenterExternal Poct Urine GlucoseNegative [facility] CenterExternal Poct Urine KetonesNegativeLakeHealth TriPoint Medical CenterExternal Poct Urine Leukocyte EsteraseNegativeLakeHealth TriPoint Medical Center External Poct Urine NitriteNegativeLakeHealth TriPoint Medical CenterExternal Poct Urine Ph 6.5PBrown Memorial HospitalExternal Poct Urine ProteinNegativeLakeHealth TriPoint Medical CenterExternal Poct Urine Specific Gravity1.02[facility] CenterExternal Poct Urine Urobilinogen1.0[facility] CenterTS WITH REFLEXon 65-27-0628DXF7.97 uIU/mLNormal0.49-4.67[facility]ulatory PPGComment on above:Performed By: #### TSHR #### [facility] ([facility]) [address] [place] [address] VIRCoding Summaryon 60-72-8101Qbutpc SummaryHTMLBase 64 HlvfedsyVAg8uZv+PGhlYWQ+MY8ZYOEyN35gdHSvwP6qL3HLHSjIRetuSFSQHLxVJaOorxMgLE7ugWQr ZXJu [file] Y29 (more content not included)...NormalMagruder HospitalProvider Orderson 88-95-7507Vxchatnw [id number]#1.00OTGTIFF St. [facility] Medical CenterUS LE Venous Duplex Righton 55-58-4927WO LE Venous Duplex RightUltrasound venous duplex scan right lower extremity CLINICAL: [...] Shreyas Montana MD 11/16/24 12:11 p Technologist: [facility] HospitalCoding Summaryon 48-64-3062Qspygn Summary HTMLBase 64 KpcmukxjMKo8mBg+PGhlYWQ+MX8NUOBzP95rwZVukJ4hH5GLRHmFZuzkPQVAUHyNTzIdfiVsOT8nhHKx ZXJu [file] b2x (more content not included)...[facility] HospitalConsent Formson 43-84-4242Xsigohj [id number]#1.00OTGTIFF St. Mary's Medical CenterTelemetry Stripson 36-13-1410Gnznnscpo Strips [id number]#1.00OTGTIFFSt. Mary's Medical Center Anesthesia Noteon 90-67-6101Ykfpzqnjde NotePatient: SKYLER BARRIOS Age: 43 years Sex: MALE [...] [Verified on: 08/27/2024 12:39 EST] Kaiden Ashraf MDSt. Mary's Medical CenterAnesthesia NotePatient: SKYLER BARRIOS Age: 43 years Sex: MALE : 1980 Associated Diagnoses: None Author: Kaiden Ashraf MD Preoperative Information Anesthesia history: Patient history: No difficult intubation, No malignant hyperthermia. Family history: No malignant hyperthermia. Review of Systems Respiratory: witnesses snoring and apnea episodes, No shortness of breath. Cardiovascular: No known SD, No chest pain. Gastrointestinal: No heartburn. Health [...] Procedure history: Closed fracture of left hand ([id number]). Comments: 08/14/2024 13:01 YORDY - Mick FIGUEROA, Cleopatra Acevedo with pinning Social History Electronic Cigarette/Vaping Assessment Electronic Cigarette Use: Never. Alcohol Assessment Use: Current. Beer, 1-2 times per year Tobacco Assessment Never tobacco user Tobacco Use:. Substance Abuse Assessment Substance use: Never. . Physical Examination Vital Signs (last 24 hrs) Last Charted Temp Temporal L 36.2 DegC (AUG 27 07:05) Heart Rate Peripheral 60 bpm (AUG 27:) Resp Rate 16 br/min (AUG 27:) SBP 113 mmHg (AUG 27:) DBP H 84 mmHg (AUG 27:) General: Alert and oriented, No acute distress. Airway: Mallampati classification: II (soft palate, fauces, uvula visible). Mouth: Adequate opening. Respiratory: Respirations are non-labored. Cardiovascular: Normal rate. Review / Management Laboratory Results Plan [place] [employer] (ASA) physical status classification: Class II. Anesthetic Preoperative Plan Anesthesia: General. . Anesthetic plan, risks, benefits, and alternatives discussed with the patient and/or family. Patient verbalized understanding. Family/Guardian present. Informed consent was given. Consent was signed by the patient. [Electronically Signed on: 08/27/2024 08:17 EST] Kaiden Ashraf MD [Verified on: 08/27/2024 08:17 EST] Kaiden Ashraf MDSt. Mary's Medical CenterInpatient Patient Summaryon 08-27-2024 Inpatient Patient Summary[address] [address] Patient Discharge Instructions Name: SKYLER BARRIOS : 1980 Patient Address: [address] [address] Primary Care Provider: Name: JARVIS SAURABH After you are discharged if you find you have any questions, please, call [phone] ext [phone] to speak to a nurse. The Pharmacy at [facility] is open Tuesday through Tuesday from 9A to 6P and Tuesday and Tuesday from 9A to 5P Discharge Diagnosis: Acute pain of right knee Prescription Information: If you have been given a prescription for narcotics, seek immediate medical attention if you have any difficulty breathing or any sudden status changes such as confusion andsleepiness. If you or anyone you know is experiencing suicidal thoughts, mental health, alcohol and/or drug addiction problems; contact the [facility] 07/02 Crisis Hotline -text 4hope to 741741. If you received any narcotics, sedation, or [...] business decisions or sign any legal documents [facility] would like to thank you for allowing us to assist you with your healthcare needs.The following includes patient education materials and information regarding your injury/illness. SKYLER BARRIOS has been given the following list of follow-up instructions, prescriptions, and patient education materials: Follow-up Instructions With: Address: When: Loco Cabrera [address] [place] [id number] Business (1) 09/10/2024 9:30 AM Medications During the [...] ice bag provided to you by the the [facility] from home. The ice should be applied [...] your toes and exercise your ankle for tenminutes every hour that you are awake. 5.) [...] to yourself and do (more content not included)...[facility] Intraoperative Recordon [id number] Intraoperative RecordMAGR Intra-Op Record Summary Primary Physician: KARLA CARVAJAL DO Finalized Date/Time: 08/27/24 10:35:34 Pt. Name: SKYLER BARRIOSEMEKA Pugh./Sex: 1980 MALE Med Rec #: [id number] Physician: KARLA CARVAJAL DO Financial #: [id number] Pt. Type: D Room/Bed: / Admit/Disch: 08/27/24 [...] KARLA CARVAJAL Satya S MD Gump RN, Yvette Role Performed Surgeon - Primary Anesthesiologist of Director Of Collections And Archives Record Time In 08/27/24 09:46:00 08/27/24 09:30:00 08/27/24 09:30:00 Time Out 08/27/24 10:18:00 08/27/24 10:23:00 08/27/24 10:23:00 Procedure Arthroscopy Knee(Right) Arthroscopy Knee(Right) Arthroscopy Knee(Right) Last Modified By: Gary FIGUEROA, Yvette Vega RN, Yvette Reid RN 08/27/24 10:34:27 08/27/24 10:34:27 08/27/24 10:34:27 Entry 4 Entry 5 Case Attendee Kirsten Goodwin Kelly FINANCE ADMINISTRATOR FINANCE ADMINISTRATOR Role Performed Real Estate Transaction Manager Scrub Personnel Time In 08/27/24 09:30:00 08/27/24 09:30:00 Time Out 08/27/24 10:23:00 08/27/24 10:23:00 Procedure Arthroscopy Knee(Right) Arthroscopy Knee(Right) Last Modified By: Yvette Vega RN, RN, Leandra 08/27/24 10:34:27 08/27/24 10:34:27 Surgical [...] n/a Addressed Time Out Kaiden Ashraf MD, Gary Time Out Time 08/27/24 09:54:00 Participants RN, Ruba Crawford Kelly FINANCE ADMINISTRATOR, Kirsten Goodwin CST, KARLA CARVAJAL DO Last Modified By: Yvette Vega RN 08/27/24 10:01:51 General Comments: BROOKS FLOWERS-ARTHREX TIA ASTORGA-ARTHPAPI Patient Positioning MAGR Pre-Care Text: A.280 Identifies [...] positioning Skin Prep MAGR (more content not included)...[facility] PACU Recordon [id number] PACU [facility] Record Summary Primary Physician: KARLA CARVAJAL DO Finalized Date/Time: 08/27/24 11:07:19 Pt. Name: SKYLER BARRIOS/Sex: 1980 MALE Med Rec #: [id number] Physician: KARLA CARVAJAL DO Financial #: [id number] Pt. Type: D Room/Bed: / Admit/Disch: 08/27/24 07:00:00 - Institution: PACU Case Times MAGR Entry 1 In PACU I 08/27/24 10:26:00 Discharge from PACU 08/27/24 10:56:00 I Last Modified By: Maria Esther Lake RN 08/27/24 11:07:13 Finalized By: Maria Esther Lake RN Document Signatures Signed By: Maria Esther Lake RN 08/27/24 11:07[facility] Postoperative Recordon [id number] Postoperative RecordMAGR Phase II Record Summary Primary Physician: KARLA CARVAJAL DO Finalized Date/Time: 08/27/24 12:27:15 Pt. Name: SKYLER BARRIOS/Sex: 1980 MALE Med Rec #: [id number] Physician: KARLA CARVAJAL DO Financial #: [id number] Pt. Type: D Room/Bed: [facility] Admit/Disch: 08/27/24 07:00:00 - Institution: Phase II Case Times MAGR Pre-Care Text: Patient is free from s/s of injury. Patient remains free from compromised physical state related tosurgery or anesthesia. Patient comfort maintained. Patient/family verbalize [...] Signed By: Maria Esther Lake RN 08/27/24 12:27[facility] Preoperative Recordon [id number] Preoperative RecordMAGR Pre-Op Record Summary Primary Physician: KARLA CARVAJAL DO Finalized Date/Time: 08/27/24 10:36:14 Pt. Name: SKYLER BARRIOS /Sex: 1980 MALE Med Rec #: [id number] Physician: KARLA CARVAJAL DO Financial #: [id number] Pt. Type: D Room/Bed: / Admit/Disch: 08/27/24 [...] ready for surgery. The patient remains free froms/s of injury. Patient/family express understanding of plan of care and participate in decisions affectinghis or her perioperrative plan of care. Allergies documented appropriately. Patient identifiers and consent correct. General Comments: Pt arrives to w ambulatory. PT denies cp, sob, cough or flu like symptoms. Pt denies pacemaker/defibillator or sleep apnea. Finalized By: Maria Esther Lake RN Document Signatures Signed By: Maria Esther Lake RN 08/27/24 10:36[facility] CenterPatient Handouton [id number] HandoutArthroscopic Surgery Discharge Instructions 1.) Keep ice on your knee after surgery. You may use the ice bag provided to you by the the [facility] from home. The ice should be applied [...] your toes and exercise your ankle for tenminutes every hour that you are awake. 5.) [...] someone with you for the rest of today.[facility] Note - Nurseon [id number] Note - NurseSpoke with pt and informed him to be at hospital 7am and NPO after MN, he verbalizes understanding. [Electronically Signed on: 08/24/2024 11:49 EST] Richard Bustos RN [Verified on: 08/24/2024 11:49 EST] Richard Bustos RNClinton [facility] Hospital Note - Nurseon 08-15-2024 Progress Note - NurseDr Micha reviews pt chart and no new orders were received. [Electronically Signed on: 08/15/2024 13:01 EST] Richard Bustos RN [Verified on: 08/15/2024 13:01 EST] Richard Bustos RNNoSumma Health Akron CampusAmbulatory Visit Summaryon 07-17-2024 Ambulatory Visit SummaryAmbulatory Visit Summary SKYLER BARRIOS :1980 Visit Date:07/17/2024 Ambulatory Visit Instructions Your Diagnosis Hypogonadism male Your Care Team Attending Physician - CHERIE Patel APRN, Maria T Zimmer Primary Care Physician - SAURABH MUSTAFA DO This Is Your Medications List Contact [...] older. This is the main cause of thiscondition. ??? Use of medicines, such as antidepressants, [...] Follow these instructions at home: ??? Take fabd-sql-cgyeqyd and prescription medicines only as told by [...] equals one 12 oz bottle of bee (morecontent not included)...[facility] Informationon [id number] Kamille Cabrera NP 07/06/2024 1:19 PM L Inj/Asp: R knee on 07/06/2024 1:16 PM Indications: pain Details: 21 G needle, anterolateral approach Medications: 40 mg methylPREDNISolone acetate 40 MG/ML Outcome: tolerated well, no immediate complications Site cleaned with isopropyl alcohol Procedure, treatment alternatives, risks and benefits explained, specific risks discussed. Consent was given by the patient. [facility] KNEE RIGHT WO IV CONTRASTon [id number] KNEE RIGHT WO IV CONTRASTEXAMINATION/TECHNIQUE: MR KNEE RIGHT WO IV CONTRAST HISTORY: Right posterior knee pain and swelling. COMPARISON: Radiographs 06/24/2024. RESULT: MENISCI: Medial Meniscus: Increased signal at the posterior root, possibly contacting the articular surface,possible partial radial tear, without significant meniscal displacement. [...] Mills's cyst. ELECTRONICALLY SIGNED BY: Mike Dumas MDNormalNot AvailableCOMPREHENSIVE METABOLIC PANELon [id number] [Mass/Vol]4.8 g/dLNormal3.6-5.1Quest DiagnosticsComment on above:Performed By: #### 16367, 7600 #### [facility] [place] [address] [employer]: Arie Timmons MDAlbumin/Globulin [Mass ratio]2.2 {ratio}Normal 1.0-2.5Quest DiagnosticsComment on above:Performed By: #### 67220, 7600 #### [facility] [place] [address] Novel[employer] Dipper: Arie Timmons MDALP [Catalytic activity/Vol]39 U/SHahofi09-570 Quest DiagnosticsComment on above:Performed By: #### 44740, 7600 #### [facility] [place] [address] [employer]pper: Arie Timmons MDALT [Catalytic activity/Vol]14 U/LNormal9-46 Quest DiagnosticsComment on above:Performed By: #### 14104, 7600 #### [facility] [place] [address] [employer]pper: Arie Timmons MDAST [Catalytic activity/Vol]15 U/JBlxnuk19-78 [facility] DiagnosticsComment on above:Performed By: #### 65012, 7600 #### [facility] [place] [address] Novel[employer]pper: Arie Timmons MDBilirubin [Mass/Vol]1.1 mg/dLNormal0.2-1.2 Quest DiagnosticsComment on above:Performed By: #### 28191, 7600 #### [facility] of [place] [address] [place] , [address] [place] [address] Novelty Dipper: Arie Timmons MDBUN/CREATININE RATIONOT APPLICABLENormal6-22 Quest DiagnosticsComment on above:Performed By: #### 89773, 7600 #### [facility] of [place] [address] [place] , [address] [place] [address] Novelty Dipper: Arie Timmons MDCalcium [Mass/Vol]9.4 mg/dLNormal8.6-10.3Quest DiagnosticsComment on above:Performed By: #### 34496, 7600 #### [facility] of [address] , [address] [place] [address] Novelty Dipper: Arie Timmons MDChloride [Moles/Vol]105 mmol/AXijcxj58-943 Quest DiagnosticsComment on above:Performed By: #### 60436, 7600 #### [facility] of [address] , [address] [place] [address] Novelty Dipper: Arie Timmons MDCO2 [Moles/Vol]26 mmol/OEvylnj38-90Leesa DiagnosticsComment on above:Performed By: #### 98368, 7600 #### [facility] of [place] [address] [place] , [address] [place] [address] Novelty Dipper: Arie Timmons MDCreatinine [Mass/Vol]0.94 mg/dLNormal0.60-1.35 Quest DiagnosticsComment on above:Performed By: #### 68779, 7600 #### [facility] of [address] , [address] [place] [address] Novelty Dipper: Arie Timmons MDeGFR NON-AFR. NFADMZEW685 mL/min/1.20q4Bmwolr> OR = 60Quest DiagnosticsComment on above:Performed By: #### 92462, 7600 #### [facility] of [address] , [address] [place] [address] Novelty Dipper: Arie Timmons MDGFR/1.73 sq M.predicted among blacks MDRD (S/P/Bld) [Vol rate/Area]116 mL/min/{1.73_m2}Normal> OR = 60[facility] Comment on above:Performed By: #### 63651, 7600 #### [facility] of [address], [address] [place] [address] Novelty Dipper: Arie Timmons MDGlobulin (S) [Mass/Vol]2.2 g/dLNormal1.9-3.7 Quest DiagnosticsComment on above:Performed By: #### 37825, 7600 #### [facility] of [place] [address] Novel[employer] Dipper: Arie Timmons MDGlucose [Mass/Vol]86 mg/dDTwmjvc94-31Yhalq DiagnosticsComment on above:Result Comment: Fasting reference intervalPerformed By: #### 23465, 7600 #### [facility] of [address], [address] [place] [address] Novelty Dipper: Arie Timmons MDPotassium [Moles/Vol]4.0 mmol/LNormal3.5-5.3 Quest DiagnosticsComment on above:Performed By: #### 68220, 7600 #### [facility] [place] [address] Novel[employer] Dipper: Arie Timmons MDProtein [Mass/Vol]7.0 g/dLNormal6.1-8.1Quest DiagnosticsComment on above:Performed By: #### 79723, 7600 #### [facility] [place] [address] Novel[employer] Dipper: Arie Timmons MDSodium [Moles/Vol]140 mmol/ZPijbqz764-386Rsbue DiagnosticsComment on above:Performed By: #### 53212, 7600 #### [facility] of [place] [address] Novelty Dipper: Arie Timmons MDUrea nitrogen [Mass/Vol]13 mg/dLNormal7-25 Quest DiagnosticsComment on above:Performed By: #### 07976, 7600 #### [facility] [address], [address] [place] [address] Novelty Dipper: Arie Timmons MDLIPID PANEL, STANDARD 14-47-0377Agpfhqljamh [Mass/Vol]175 mg/dLNormal<200Quest DiagnosticsComment on above:Performed By: #### 08928, 7600 #### [facility] [address], [address] [place] [address] Novelty Dipper: Arie Timmons MDCholesterol in HDL [Mass/Vol]48 mg/dLNormal> OR = 40Quest DiagnosticsComment on above:Performed By: #### 69419, 7600 #### [facility] [address], [address] [place] [address] Novelty Dipper: Arie Timmons MDCholesterol in LDL [Mass/Vol]108 mg/dLHigh Quest DiagnosticsComment on above:Result Comment: Reference range: <100 Desirable range <100 mg/dL for primary prevention; <70 mg/dL for patients with CHD or diabetic patients with > or = 2 CHD risk factors. LDL-C is now calculated using the Janet calculation, which is a validated novel method providing better accuracy than the Friedewald equation in the estimation of LDL-C. Matthew CULVER et al. YESY. 2013;310(19): 4329-4632 (http://education.NearDesk.Learnerator/faq/SZU747)Performed By: #### 78163, 0 #### [facility] [address], [address] [place] [address] Novelty Dipper: Arie ROMEROholesterojavan.total/Cholesterol in HDL [Mass ratio]3.6 {ratio}Normal<5.0Quest DiagnosticsComment on above:Performed By: #### 33233, 7600 #### [facility] [address], [address] [place] [address] Novelty Dipper: Arie OTTO HDL UKXGZPTZAFI552 mg/dL (calc)Normal<130 Quest DiagnosticsComment on above:Result Comment: For patients with diabetes plus 1 major ASCVD risk factor, treating to a non-HDL-C goal of <100 mg/dL (LDL-C of <70 mg/dL) is considered a therapeutic option.Performed By: #### 66662, 7600 #### [facility] [address], [address] [place], [place] [address] Novelty Dipper: Arie Timmons MDTriglyceride [Mass/Vol]97 mg/dLNormal<150Quest DiagnosticsComment on above:Performed By: #### 06650, 7600 #### [facility] [address], [address] [place], [place] [address] Novel[employer]: Arie Timmons MDCOVID-19 Lab Corpon [id number]-19 Lab CorpNot DetectedNormalNot DetectedMckitrick HospitalComment on above:Order Comment: Healthcare Worker?: NResult Comment: This test was developed and its performance characteristics determined by [employer]. This test has not been FDA cleared [...] detected) result in this assay. Performed at: [facility] [address] [facility], [place], [place] [id number] Soil Expert: Desiree Melendez MD, Phone: [phone] PERFORMED BY: [facility] [place] [address] PATHOLOGIST PRIMARY CARE PHYSICIAN LISETH GRUBBS M.D.Performed By: #### CORONAVIRUS #### [facility] , Vital Signs Date TimeVital SignValuePerforming WcjatrzpxXponcrtk37-44-3566 16:39-0400Body omagro392.9 cmDennis Furlong DO Work Phone: [employer]10-06-2025 16:39-0400Body mass index (BMI) [Ratio]33.93 kg/i8Lvtmnp Furlong DO Work Phone: [facility]10-06-2025 16:39-0400Body qstucnaeote21.9 [degF]Saurabh Furlong DO Work Phone: [employer]10-06-2025 16:39-0400Body ozjnel413.49 kgDennis Furlong DO Work Phone: [facility]10-06-2025 16:39-0400Diastolic blood cmusotuh57 mm[Hg]Saurabh Furlong DO Work Phone: [employer]10-06-2025 16:39-0400Heart rate 71 /minDennis Furlong DO Work Phone: [employer]10-06-2025 16:39-0400 Respiratory rate18 /minDennis Furlong DO Work Phone: [facility]10-06-2025 16:39-2753PcA7% (BldA) [Mass fraction]97 %Saurabh Furlong DO Work Phone: [employer]10-06-2025 16:39-0400Systolic blood haqblgeb772 mm[Hg]Saurabh Furlong DO Work Phone: [employer]01-28-2025 11:31-0500Body .9 cmMaze العراقي PA Work Phone: [facility] HospitalTsbdpfogxu85-24-7778 11:31-0500Body mass index (BMI) [Ratio]32.55 kg/z3Feagtsb العراقي PA Work Phone: [facility] HospitalLwrouipjxa72-45-3801 11:31-0500Body fdetkk000.86 kgMatthew العراقي PA Work Phone: [facility] HospitalWwfnlqtztm09-26-4171 10:41-0500Blood Pressure LocationAurora Orzech [facility]12-31-2024 10:41-0500Body sapyhqpvgbr79.6 [degF]Maria T Orzech [facility]12-31-2024 10:41-0500Diastolic blood yplqolbg01 mm[Hg]Maria T Orzech [facility]12-31-2024 10:41-0500Heart rate71 /minAurora Orzech [facility]12-31-2024 10:41-0500Respiratory rate18 /minAurora Orzech [facility]12-31-2024 10:41-0500Systolic blood uldylraw184 mm[Hg]Maria T Orzech [facility]12-11-2024 08:07-0500Body kyarpd979.9 cmMaria Apling [employer] Work Phone: [facility] HospitalOghpqekzxy12-55-7230 08:07-0500Body mass index (BMI) [Ratio]32.55 kg/a8Xygud Apling [employer] Work Phone: [facility] HospitalVslaccpkew04-91-5245 08:07-0500Body tgjwme340.86 kgMaria Apling [employer] Work Phone: [facility] HospitalFkhrkdugnh68-94-2711 16:23-0400Body ijzkbe977.9 cmDennis Furlong DO Work Phone: [facility]08-05-2024 16:23-0400Body mass index (BMI) [Ratio]33.77 kg/b3Wctnhr Furlong DO Work Phone: [facility]08-05-2024 16:23-0400Body gacslauznyl33.9 [degF]Saurabh Furlong DO Work Phone: [facility]08-05-2024 16:23-0400Body .95 kgDennis Furlong DO Work Phone: [facility]08-05-2024 16:23-0400Diastolic blood epzmjjhv28 mm[Hg]Saurabh Furlong DO Work Phone: [facility]08-05-2024 16:23-0400Heart rate 56 /minDennis Furlong DO Work Phone: [facility]08-05-2024 16:23-0400 Respiratory rate18 /minDennis Furlong DO Work Phone: [facility]08-05-2024 16:23-9098HlY3% (BldA) [Mass fraction]98 %Saurabh Furlong DO Work Phone: [facility]08-05-2024 16:23-0400Systolic blood mm[Hg]Saurabh Furlong DO Work Phone: [facility]01-29-2024 16:08-0500Body hppard111.9 cmDennis Furlong DO Work Phone: [facility]01-29-2024 16:08-0500Body mass index (BMI) [Ratio]34.49 kg/y9Xfabag Furlong DO Work Phone: [facility]01-29-2024 16:08-0500Body pbreudokdmb96.01 [degF]Saurabh Mustafa DO Work Phone: [facility] Bwmxsy01-32-7110 16:08-0500Body akqada877.35 kgSaurabh Mustafa DO Work Phone: [facility] Yyhkhr12-98-4931 16:08-0500Diastolic blood iffxkbor59 mm[Hg]Saurabh Mustafa DO Work Phone: [facility]01-29-2024 16:08-0500Heart rate 58 /minDennis Jarvis DO Work Phone: [facility]01-29-2024 16:08-4137IcI6% (BldA) [Mass fraction]97 %Saurabh Mustafa DO Work Phone: [facility] Pzidpj86-64-8491 16:08-0500Systolic blood mm[Hg]Saurabh Mustafa DO Work Phone: [facility] Encounters Encounter DateEncounter TypeCare ProviderFacilityStart: 04-29-2025 End: 89-65-4568Zblvgt Sangeeta Mustafa DO Work Phone: [facility] Internal Medicine - Family MedicineComment on above:Class 1 obesity due to excess calories without serious comorbidity with body mass index (BMI) of 34.0 to 34.9 in adult (Primary Dx) Start: 04-25-2025 End: 36-59-4685Rsyhax Sangeeta Mustafa DO Work Phone: [facility] Internal Medicine - Family MedicineComment on above:Class 1 obesity due to excess calories without serious comorbidity with body mass index (BMI) of 34.0 to 34.9 in adult (Primary Dx); Low testosterone in maleStart: 80-22-0020jqipxcrgtkWWCGKLMiddle [facility] Ambulatory PPGStart: 16-41-4904Tltmuydka for general adult medical examination without abnormal findingsMiddle Park [facility] Ambulatory PPGStart: 04-22-2025 End: 34-36-5046Abdtgtl encounter statusSaurabh Mustafa DO Work Phone: [facility] Work Phone: Start: 04-22-2025 End: 79-45-1191Msjvzmem preventive med est patient 40-64yrsDennis Jamarcus Mustafa DO Work Phone: [facility] Internal Medicine - Family MedicineComment on above:Well adult exam (Primary Dx); Class 1 obesity due to excess calories without serious comorbidity with body mass index (BMI) of 34.0 to 34.9 in adult; Urinary frequency; Sinus congestion; Need for immunization against influenzaStart: 04-11-2025 End: 52-89-3931Exanpw OnlySaurabh Mustafa DO Work Phone: [facility] Internal Medicine - Family MedicineComment on above:Class 1 obesity due to excess calories without serious comorbidity with body mass index (BMI) of 34.0 to 34.9 in adult (Primary Dx) Start: 04-10-2025 End: 68-58-0198Jvzkby OnlySaurabh Mustafa DO Work Phone: [facility] Internal Medicine - Family MedicineComment on above:Class 1 obesity due to excess calories with serious comorbidity and body mass index (BMI) of 33.0 to 33.9 in adult (Primary Dx); Class 1 obesity due to excess calories without serious comorbidity with body mass index (BMI) of 34.0 to 34.9 in adultStart: 04-08-2025 End: 85-57-9576Oxqqaeepe encounterTyra Higuera CMAProMedica Physicians Internal Medicine - Family MedicineStart: 11-16-2024 End: 79-86-4406Opwkpvlan encounterJrAlexis Carvajal DO Work Phone: NOXO SWS ORTHOStart: 11-16-2024 End: 25-17-4590efotqyrlraYNANTS G FURLONGFacility:[facility] Systemtart: 11-16-2024 End: 90-49-9571Qhdirb follow up visit related to original Yuval Cabrera [employer] Work Phone: NOGH PCF ORTHOComment on above:Pain and swelling of right lower legStart: 10-25-2024 End: 31-04-9388Oowaen follow up visit related to original Yuval Cabrera [employer] Work Phone: NORK FB ORTHOPAEDICSComment on above:Status post arthroscopy of right knee (Primary Dx)Start: 10-25-2024 End: 89-42-0949bjothlxozuNRNCY T OLSENNot AvailableStart: 10-25-2024 End: 19-32-0062Xcxxew flowsarielLoco Kamille Sujit [employer] Work Phone: NOXV FB ORTHOPAEDICSStart: 10-25-2024 End: 74-83-5333Tkftad flowsSarahkamille Kamille Sujit [employer] Work Phone: NOJF FB ORTHOPAEDICSStart: 10-16-2024 End: 78-44-7514rkmxlpglkfTgxbgi J Evans PT Work Phone: NOHJ FB PTComment on above:Acute postoperative pain of right knee (Primary Dx); Status post arthroscopy of right kneeStart: 10-16-2024 End: 81-37-7912Qqdjmj Catalina Franco PT Work Phone: NOWF FB PTStart: 10-16-2024 End: 36-63-5540Wudszi Catalina Franco PT Work Phone: NOCB FB PTStart: 10-08-2024 End: 19-60-6648Tuwjlc follow up visit related to original Yuval Cabrera [employer] Work Phone: NOQP FB ORTHOPAEDICSComment on above:Status post arthroscopy of right knee (Primary Dx)Start: 10-08-2024 End: 16-19-0212iufoysakloKQDKC T OLSENNot AvailableStart: 09-10-2024 End: 52-45-3043Ggnzpt flowsBaljeet Kamille Sujit [employer] Work Phone: NOBE FB ORTHOPAEDICSStart: 09-10-2024 End: 92-81-6623Bpiehr flowsBaljeet Cabrera [employer] Work Phone: noms FB ORTHOPAEDICSStart: 09-10-2024 End: 06-69-7108Wnuzgk follow up visit related to original Yuval Meredith Cabrera [employer] Work Phone: noms FB ORTHOPAEDICSComment on above:Status post arthroscopy of right knee (Primary Dx)Start: 09-10-2024 End: 31-91-8378ohqdfiiiiaQLIQN Kamille Melissa AvailableStart: 08-27-2024 End: 93-28-2868tfbndbeenoLWMDEA G FURLONGFacility:[facility] HospitalStart: 08-26-2024 End: 53-74-5557KawfjtXanva Kamille Sujit [employer] Work Phone: noms FB ORTHOPAEDICSComment on above:Tear of medial meniscus of right knee, initial encounter (Primary Dx)Start: 08-14-2024 End: 00-86-6704Kgjubc flowsheetPorsha GEORGE Work Phone: noms FB ORTHOPAEDICSStart: 08-14-2024 End: 01-21-6832Scytlr flowsheetMaze GEORGE Work Phone: noms FB ORTHOPAEDICSStart: 08-14-2024 End: 22-10-0285Ulnzrvz encounter procedureMaze GEORGE Work Phone: noms FB ORTHOPAEDICSComment on above:Pre-op examination (Primary Dx)Start: 08-14-2024 End: 74-14-6325Yqcpswifgexvt examination doneMaze GEORGE Work Phone: [facility] Work Phone: Start: 08-14-2024 End: 56-50-8929btwrsgwwdhVLOLRYY J MEYERNot AvailableStart: 07-24-2024 End: 36-35-4073Ufvpaz flowsheetJr. Karla Carvajal DO Work Phone: noms FB ORTHOPAEDICSStart: 07-24-2024 End: 71-89-5154Yzvoaf flowsheetJr. Karla Carvajal DO Work Phone: noms FB ORTHOPAEDICSStart: 07-24-2024 End: 15-87-1081Jpdtbp outpatient visit 25 minutesJr. Karla Carvajal DO Work Phone: noms FB ORTHOPAEDICSComment on above:Tear of medial meniscus of right knee, initial encounter (Primary Dx); Right knee pain, unspecified chronicityStart: 07-24-2024 End: 77-77-4841vwivwetkqfWV., KARLA CARVAJALNot AvailableStart: 07-20-2024 End: 87-08-4074Sbfbne Nam Cabrera [employer] Work Phone: NOMS ORTHOStart: 07-20-2024 End: 56-01-7862Hyltda Nam Cabrera [employer] Work Phone: NOMS ORTHOStart: 07-20-2024 End: 95-38-6760Gbrmuj outpatient visit 15 minutesLoco Cabrera [employer] Work Phone: NOBR PCF ORTHOComment on above:Tear of medial meniscus of right knee, initial encounter (Primary Dx); Mills's cyst of knee, right; Right knee pain, unspecified chronicityStart: 07-20-2024 End: 74-20-9654ietusozzjiEZNVB T OLSENNot AvailableStart: 07-17-2024 End: 33-58-7033hohuyuupwfVnwnyv X OrzechFacility:EU BellevueStart: 07-17-2024 End: 87-31-4503Jasulxx encounter procedureAurora X Orzech [facility] start: 07-06-2024 End: 77-06-0822Qrctwsbrayan Cabrera [employer] Work Phone: NOMS ORTHOStart: 07-06-2024 End: 05-00-6882Kisteibrayan Cabrera [employer] Work Phone: NOVI ORTHOStart: 07-06-2024 End: 31-64-8949nndsegtzbnNOMVT T OLSENNot AvailableStart: 07-06-2024 End: 62-51-5222Qiavzw outpatient visit 25 minutesGrant Kamille Cabrera [employer] Work Phone: NOFX PCF ORTHOComment on above:Internal derangement of right knee (Primary Dx); Right knee pain, unspecified chronicity; Mills's cyst of knee, rightStart: 07-04-2024 End: 18-10-5979Iqcfwuwlp encounterMaria B Apling [employer] Work Phone: NOZN FB ORTHOPAEDICSComment on above:MDP RequestStart: 07-03-2024 End: 02-88-4363cehhdvnktgGUJYE B APLINGNot AvailableStart: 06-27-2024 End: 48-56-7602Wbbilu flowsheetMaria B Apling [employer] Work Phone: NOIH ORTHOStart: 06-27-2024 End: 68-59-3225Ejeook flowsheetMaria B Apling [employer] Work Phone: noms ORTHOStart: 06-27-2024 End: 70-85-5283Wrzyow outpatient new 30 minutesMaria B Apling [employer] Work Phone: noms PCF ORTHOComment on above:Right knee pain, unspecified chronicity (Primary Dx); Internal derangement of right kneeStart: 06-27-2024 End: 94-74-1463nhfdpkbulwQSZWN B APLINGNot AvailableStart: 06-22-2024 End: 12-27-3549Zykyus OnlyDennis G Furlong DO Work Phone: [facility] - Family MedicineComment on above:Class 1 obesity due to excess calories without serious comorbidity with body mass index (BMI) of 34.0 to 34.9 in adult (Primary Dx) Start: 06-21-2024 End: 32-83-0472Zyhhvu OnlyDennis G Furlong DO Work Phone: [facility] - Family MedicineStart: 06-04-2024 End: 17-96-2220Lkdfsiwdp encounterDenrylan Pollacklong DO Work Phone: [facility] - [facility] MedicineStart: 06-01-2024 End: 66-14-2055Mzfqnrrjk encounterDenrylan Pollacklong DO Work Phone: [facility] Medicine - Family MedicineStart: 05-30-2024 End: 77-20-1621Ecsiuo OnlyDennis Jamarcus Pollacklong DO Work Phone: [facility] Internal Medicine - Family MedicineComment on above:Low testosterone in male (Primary Dx)Start: 04-18-2024 End: 97-06-5695Grponn OnlyDennis Jamarcus Pollacklong DO Work Phone: [facility] Internal Medicine - Family MedicineComment on above:Low testosterone in male (Primary Dx)Start: 04-05-2024 End: 55-48-5300Gwkmpp OnlyDennis Jamarcus Furlong DO Work Phone: [facility] Internal Medicine - Family MedicineComment on above:Hyperglycemia (Primary Dx)Start: 03-10-2024 End: 08-02-9811Fsqczg OnlyDennis Jamarcus Furlong DO Work Phone: [facility] Internal Medicine - Family MedicineComment on above:Well adult health check (Primary Dx); Class 1 obesity due to excess calories without serious comorbidity with body mass index (BMI) of 34.0 to 34.9 in adultStart: 03-10-2024 End: 86-29-3908Tvsjreu encounter statusDenrylan Pollacklong DO Work Phone: [facility] Work Phone: Start: 02-20-2024 End: 40-60-0406Tqrnbw outpatient visit 15 minutesDennis G Jakilong DO Work Phone: [facility] Phys[facility] Internal Medicine - Family MedicineComment on above:Class 1 obesity due to excess calories with serious comorbidity and body mass index (BMI) of 33.0 to 33.9 in adult (Primary Dx); Vasectomy evaluationStart: 08-15-2023 End: 69-89-6991Psiuzcn encounter statusSaurabh Mustafa DO Work Phone: [facility] Work Phone: Start: 08-15-2023 End: 27-85-0244Xgfcaeig preventive med est patient 40-64yrsDennmirian Mustafa DO Work Phone: [facility] Medicine - Family MedicineComment on above:Well adult health check (Primary Dx); Class 1 obesity due to excess calories without serious comorbidity with body mass index (BMI) of 34.0 to 34.9 in adult; Neoplasm of uncertain behavior of skin of face; Low HDL (under 40)Start: 04-16-2022 End: 52-12-6368sblptorrdkDG ANILA Sofia WESTFacility:K0Sneuu: 32-09-9767yusoykoeflUT SAURABH MUSTAFAFacility:H1 Procedures DateProcedureProcedure DetailPerforming ClinicianStart: 24-35-7915Scugr dip stick/tablet rgnt non-auto w/o micrscpDrene Mustafa DO Work Phone: Start: 16-53-2827Wummq depression screening assessment Saurabh Mustafa DO Work Phone: Start: 94-85-1826Dwf-scan xtr veins unilateral/limited studyLoco Cabrera [employer] Work Phone: Start: 34-12-1835Finiyigzecucry aspir&/inj major jt/bursa w/o usLoco Cabrera [employer] Work Phone: Start: 81-51-5437Oylat depression screening assessment Saurabh Mustafa DO Work Phone: Start: 57-83-2029Achhn depression screening assessment Saurabh Mustafa DO Work Phone: Plan of Treatment DateCare ActivityDetailAuthorStart: 02-96-1796YXtM,Tdap and Td Vaccines (4 - Td or Tdap)DTaP,Tdap and Td Vaccines (4 - Td or Tdap)ProMEssentia Health SystemStart: 97-42-7084Joywn BMI ScreeningAdult BMI ScreeningProMercy Health Anderson Hospitalca Health SystemStart: 22-80-1258Xyqcibnyoy ScreeningDepression ScreeningPro[facility] Health SystemStart: 11-58-9618Qkqbnsj ScreeningTobacco ScreeningPro[facility] Health SystemStart: 04-22-2025 End: 69-27-4424Nbstbhu encounter dehqlihnd24/06/2025 4:30 PM EDT Office Visit [facility] [address] [place] [address] Saurabh Mustafa DO [address], [place] [address] [facility] - Family MedicineStart: 71-55-5492Ywnmbsiqg vaccinationInfluenza VaccineProNorth [facility] Health SystemStart: 17-50-8069Dxkup BMI ScreeningAdult BMI ScreeningProNorth [facility] Health SystemStart: 28-55-2403Guvtarzhxb ScreeningDepression ScreeningPro[facility] Health SystemStart: 35-03-9752Khkerva ScreeningTobacco ScreeningChillicothe [facility] SystemStart: 11-19-2024 End: 93-83-7967Wesxsev encounter fleqsahmb23/05/2025 3:00 PM EDT Office Visit [facility] [address] [place] [address] Loco Cabrera, ASHLEIGH [address] [place] [address] [facility]OPAEDICSStart: 11-16-2024 End: 39-42-9079Wvczydg encounter uokeuycyd71/02/2025 10:00 AM EDT Office Visit [facility] [address] [place] [phone] Loco Cabrera, [employer] [address] [place], [place] [phone] [facility] PCF ORTHOStart: 10-30-2024 End: 85-13-4259vnwsfjmoio15/15/2025 5:00 PM EDT Treatment [facility] [address] [place] [phone] Adelina Mattson PTANOMS PRATT PTStart: 10-25-2024 End: 55-89-1636Hmwqnrl encounter procedureNOMS FB ORTHOPAEDICSComment on above: ArrivedStart: 10-23-2024 End: 82-33-6104zambuoplix81/08/2025 5:00 PM EDT Treatment [facility] [address] [place] [address] Adelina Mattson PTANOMS PRATT PTStart: 10-16-2024 End: 49-06-0701kkhutmdjueDDRH FB PTComment on above:Status post arthroscopy of right kneeStart: 10-08-2024 End: 57-39-8330Rdhvlzc encounter /24/2025 9:15 AM EDT Office Visit [facility] [address] [place] [address] Loco Cabrera, [employer] [address] [place] [address] [facility] FB ORTHOPAEDICSStart: 09-10-2024 End: 36-58-7412Kjtknly encounter procedureNOMS FB ORTHOPAEDICSComment on above: ArrivedStart: 08-21-2024 End: 22-12-6686Rhacpsf encounter /04/2025 3:00 PM EST Office Visit [facility] [address] [place] [address] [place] [address] Roger Tuttle MD [address] [place] [id number] [facility]inary SurgeonsStart: 08-20-2024 End: 10-49-1436Tqpwoco encounter procedureProMedica Physicians Internal Medicine - Family MedicineStart: 21-09-6773Onfre BMI ScreeningAdult BMI Screening [facility] SystemStart: 93-77-4189Tinrueqdis ScreeningDepression Screening [facility] Health SystemStart: 95-42-5750Otvxdtd ScreeningTobacco Screening [facility] SystemStart: 08-14-2024 End: 46-25-3039Xbjqogk encounter procedureNOMS FB ORTHOPAEDICSComment on above: Pre-op examination (Primary Dx)Start: 08-03-2024 End: 88-49-7840Bobqkdb encounter syzfsqxcw15/17/2025 8:15 AM EST Office Visit [facility] [address] [place] [address] Jr. Karla Carvajal, DO [address] [facility] [address] [place] [address] [facility] PCF ORTHOStart: 07-24-2024 End: 82-99-6587Oyohxpe encounter xobyngals90/07/2025 8:45 AM EST Office Visit [facility] [address] [place] [phone] Jr. Karla Carvajal, DO [address] [facility] [address] [place] [address] ArrivedNOMS FB ORTHOPAEDICSComment on above:ArrivedStart: 07-20-2024 End: 78-64-6060Qdudspy encounter procedureNOMS PCF ORTHOComment on above:Arrived Start: 95-83-9709UVXRJ-19 Vaccine (2 - Baltazar risk series)COVID-19 Vaccine (2 - Baltazar risk series)[facility] SystemComment on above:Postponed from 12/15/2020 (Patient Refused)Start: 07-06-2024 End: 89-90-6347Rjcqwyu encounter forqmtnon27/20/2024 8:30 AM EST Office Visit [facility] [address] [place] [address] Loco Cabrera, [employer] [address] [place], [place] [phone] [facility] PCF ORTHOStart: 06-27-2024 End: 82-41-2832JP Knee - right WO contrastMR knee right wo IV contrast Imaging High Priority Internal derangement of right knee Expected: 06/27/2024 (Approximate), Expires: 06/27/2025[facility] Work Phone: Comment on above:Expected: 06/27/2024 (Approximate), Expires: 06/27/2025Start: 06-27-2024 End: 11-55-9370Rjvxgvm encounter toqsrvamb72/11/2024 8:00 AM EST Office Visit [facility] [address] [facility] [place] [address] Amy Yang, [employer] [address] [facility] [address] [place] [address] Right knee pain, unspecified chronicity (Primary Dx) [facility] PCF ORTHOComment on above:Right knee pain, unspecified chronicity (Primary Dx)Start: 17-66-9075Kqxagtfwd vaccinationInfluenza VaccineChillicothe VA Medical Center SystemStart: 40-91-7956IZLGD-19 Vaccine (2 - Baltazar risk series)COVID-19 Vaccine (2 - Baltazar risk series)[facility] Centertart: 32-89-0678Rmavk BMI Follow Up PlanAdult BMI Follow Up [facility] End: 72-53-2358Z-reactive proteinC-reactive protein Lab Routine Class 1 obesity due to excess calories without serious comorbidity with body mass index (BMI) of 34.0 to 34.9 in adult 1 Occurrences starting 04/22/2025 until 04/22/2026 [facility] SystemComment on above:1 Occurrences starting 04/22/2025 until 6C-reactive proteinC-reactive protein Lab Routine Class 1 obesity due to excess calories without serious comorbidity with body mass index (BMI) of 34.0 to 34.9 in adult 04/22/2025 5:05 PM [facility] End: 30-53-2619RCO panel - Blood by Automated countCBC Lab Routine Low testosterone in male 1 Occurrences starting 04/18/2024 until 04/18/2025ProSnowGate SystemComment on above:1 Occurrences starting 04/18/2024 until 04/18/2025 End: 84-71-8188Uhpqfpvkvzavj metabolic 2000 panel - Serum or PlasmaComprehensive metabolic panel Lab Routine Well adult health check 1 Occurrences starting 03/10/2024until 03/10/2025[facility] Work Phone: Comment on above:1 Occurrences starting 03/10/2024 until 03/10/2025 End: 32-16-3443Olcbxvfptmmui metabolic 2000 panel - Serum or PlasmaComprehensive metabolic panel Lab Routine Well adult exam 1 Occurrences starting 04/22/2025 until 04/22/2026[facility] Work Phone: Comment on above:1 Occurrences starting 04/22/2025 until 04/22/2026omprehensive metabolic 2000 panel - Serum or Plasma Comprehensive metabolic panel Lab Routine Well adult exam 04/22/2025 5:05 PM EDT [employer] End: 01-47-8643HfzwrwjeCybozwsx Lab Routine Class 1 obesity due to excess calories without serious comorbidity with body mass index (BMI) of 34.0 to 34.9 in adult Low testosterone in male 1 Occurrences starting 04/25/2025 until 04/25/2026[employer] Work Phone: Comment on above:1 Occurrences starting 04/25/2025 until 04/25/2026 End: 72-35-4273Witbwtymqb A1c/Hemoglobin.total in BloodHemoglobin A1c Lab Routine Hyperglycemia 1 Occurrences starting 04/05/2024 until 04/05/2025 [employer] Work Phone: Comment on above:1 Occurrences starting 04/05/2024 until 04/05/2025 End: 60-85-0715Kglsk 1995 panel - Serum or PlasmaLipid profile Lab Routine Well adult exam 1 Occurrences starting 04/22/2025 until 04/22/2026ProSnowGate SystemComment on above:1 Occurrences starting 04/22/2025 until 04/22/2026Lipid 1995 panel - Serum or PlasmaLipid profile Lab Routine Well adult exam 04/22/2025 5:05 PM [employer] [facility] End: 88-13-2069Zbtehgzoqtxj [Mass/volume] in Serum or PlasmaTestosterone Lab Routine Class 1 obesity due to excess calories without serious comorbidity with body mass index (BMI) of 34.0 to 34.9 in adult 1 Occurrences starting 03/10/2024 until 03/10/2025[facility] HospitalThe Caddy CompanyComment on above:1 Occurrences starting 03/10/2024 until 03/10/2025 End: 66-72-3958Zomuascxkmzu, Total and Free, STestosterone, Total and Free, S Lab Routine Low testosterone in male 1 Occurrences starting 04/18/2024 until 04/18/2025[facility] Work Phone: Comment on above:1 Occurrences starting 04/18/2024 until 04/18/2025 End: 21-18-4445Zvxonbqajnob, Total and Free, STestosterone, Total and Free, S Lab Routine Low testosterone in male 1 Occurrences starting 05/30/2024 until 05/30/2025[facility] Work Phone: Comment on above:1 Occurrences starting 05/30/2024 until 05/30/2025 End: 05-54-1198ZEB with ReflexTSH with Reflex Lab Routine Well adult exam 1 Occurrences starting 04/22/2025 until 04/22/2026[facility] HospitalThe Caddy CompanyComment on above:1 Occurrences starting 04/22/2025 until 04/22/2026TS with ReflexTSH with Reflex Lab Routine Well adult exam 04/22/2025 5:05 PM [employer] [facility] Immunizations Immunization DateImmunizationNotesCare AubalmpzGmfyrtsb20-91-4987vpqlnskly, injectable, madin morena canine kidney, preservative Clayton FurLinea DO Work Phone: [facility] HospitalThe Caddy CompanyYqzscz65-31-4939Uvvzbrfwkkcq, In Clinic,; Translations: [Drug or medicament (substance)]Saurabh Furlong DO Work Phone: [facility] HospitalThe Caddy CompanyBqowvb12-25-4235qyjtwqlov virus vaccine, unspecified formulationAumelissa Beckch [facility]10-01-2024influenza, seasonal, injectable, preservative freeDennis Furlong DO Work Phone: [facility] Qpduwp71-80-5951vhahigjlz virus vaccine, unspecified formulationDennis Furlong DO Work Phone: [facility]10-10-2023influenza, injectable, quadrivalent, preservative freeDennis Furlong DO Work Phone: [facility] Twtdgn43-92-8978natqfotfo virus vaccine, unspecified formulationAurora Orzech [facility]09-18-2021influenza, injectable, quadrivalent, preservative freeDennis Furlong DO Work Phone: [facility] Iolnkq76-86-0943JPYC-NbE-3 (COVID-19) Ad26 vaccine, recombinantAurora Orzech [facility] HospitalComment on above:Result Comment: 2024-07-17: HPV0267-99-0013jzzpntnbav, tetanus toxoids and pertussis vaccineDennis Furlong DO Work Phone: [facility] Dwifgc07-99-2205blsgtocyc virus vaccine, unspecified formulationAurora Orzech [facility]10-02-2020Influenza, injectable, Madin [employer] Canine Kidney, quadrivalent with preservativeDennis Furlong DO Work Phone: [facility] Nalemk43-30-5332wqbnvnk toxoid, reduced diphtheria toxoid, and acellular pertussis vaccine, adsorbedDennis Furlong DO Work Phone: [facility]01-06-2020tetanus toxoid, reduced diphtheria toxoid, and acellular pertussis vaccine, adsorbedDennis Furlong DO Work Phone: [facility]01-05-2020influenza virus vaccine, unspecified formulationAurora Orzech [facility]01-05-2020Influenza, injectable, Madin [employer] Canine Kidney, preservative free, quadrivalentDennis Furlong DO Work Phone: [facility] Jyjbnl44-04-8089wxtfljrjo virus vaccine, unspecified formulationAurora Orzech [facility]10-23-2017influenza, injectable, quadrivalent, preservative freeDennis Furlong DO Work Phone: [facility] Payers DatePayer CategoryPayerPolicy [id number] Health InsuranceMEDICAL MUTUAL Member Subscriber Plan / Payer (Effective 2023-Present) Name: Skyler Barrios Relation to Subscriber: Spouse Name: Cassandra Barrios Date of : 1985 Address: [address] [place] [address] Payer ID: Not on file Group ID: [id number] Type: Not on file Address: [place] [id number] [id number] 08-67-9757Dmjvdyh Care Other (unspecified)MEDICAL EWOONS-HED-IMRESRM PLAN [id number] Alamos Medical Center [id number]4-2914QjwyLovelace Rehabilitation Hospital Managed Care - OtherANTHEM Member Subscriber Plan / Payer (Effective 2022- Present) Name: Skyler Barrios Relation to Subscriber: Self Name: Skyler Barrios Payer ID:[id number] (IC) Type: Not on file Address: [address] [place] [id number] [id number] HcywbswSYN61[id number] 2.16.840.1.325355.3.579.2.593 [id number] 2.0.1.688899.3.579.2.20827-68-8932Sjvignj2364087 2..1.316497.3.579.2.093411-27-5155Rcdfchp6979287 2..1.233112.3.579.2.631356-41-9353Uzjukaz9457967 2..1.527815.3.579.2.745956-80-9696Nhkpwps6327369 2..1.964738.3.579.2.932793-88-8629Ppbdyoh1485050 2..1.280167.3.579.2.899491-37-1156Bgfntrc7113504 2..1.779427.3.579.2.952774-60-0237Egmmplz3208690 2..1.691055.3.579.2.337038-60-8026Ixdastu2321882 2..1.724012.3.579.2.147840-98-4433Vlisuyo4113647 2..1.867891.3.579.2.046865-59-0265Lrrzctr5157624 2..1.160020.3.579.2.962165-36-8544Jsishes75444856 2..1.169027.3.579.2.10629-13-9224Cameiul74118537 2..1.514968.3.579.2.62337-79-8623Ffhvcdw14782868 2..1.644982.3.579.2.18302-06-9081Fbdqxqt610766985 2..1.043010.3.579.2.891958-46-5375Qham-ceyJxitxqi2074383 2.16.840.1.883739.3.579.2.593 Social History DateTypeDetailFacilityStart: 02-20-2024 End: 35-31-9599Juakeko smoking status NHISNever smoked tobaccoNOPR Healthcare Start: 02-20-2024 End: 81-24-5616Neakrhl use and exposureSmokeless tobacco non-userChillicothe VA Medical Center SystemStart: 06-27-2024 End: 36-14-3768Vgynuchla beverage intakeCurrent drinker of alcohol (finding) [facility] SystemStart: 08-15-2023 End: 73-36-7831Gywlcjw of Social functionChillicothe VA Medical Center SystemStart: 08-15-2023 End: 84-16-5254Nwfglvx use UK Healthcaretart: 1980 Sex assigned at birthNot on fileProMercy Memorial HospitalTobacco smoking status NeverExecutive [facility]rology of [facility] BellevueStart: 07-24-2024 End: 39-77-9594Mhoifshyt beverage intakeEx-drinker (finding)[facility] HealthcareHas the electric, gas, oil, or water company threatened to shut off services in your home in past 12MoNoProMedica Health SystemDo you belong to any clubs or organizations such as sikhism groups, unions, fraternal or athletic groups, or school groups?YesProMedica Health SystemAre you now , , , , never or living with a partner?MarriedProNorth [facility] Specialty Hospital Health System How often to you have a drink containing alcohol?Monthly or lessProMedica Health SystemHow many standard drinks containing alcohol do you have on a typical day?1 or 2ProMedica Health SystemHow often do you have 6 or more drinks on 1 occasion? NeverProMedica Health SystemDo you feel stress - tense, restless, nervous, or anxious, or unable to sleep at night because yourmind is troubled all the time - these days [OSQ]Only a littleProMansfield Hospital SystemStart: 04-42-8837Tccdmmj CommentsocialChillicothe VA Medical Center SystemStart: 13-21-2742UouOnji (finding)[facility] [employer] Medical Equipment Procedure CodeEquipment CodeEquipment Original TextEquipment IdentifierDatesScr Cortical 2.0x10mm - Sna - [id number]: 51-19-2158Zhz Cortical 2.0x10mm - Sna - [id number]: 04-06-2017 Functional Status OnorFfqmumeiuiHfwjmlNvfkxopu16-05-5978Ferrvshpph StatusN/AExec[facility] Clinical Notes 04-18-2022 to 04-22-2025 Note Date & IupmOwiuKadwzgdn56-96-6019 History of Present illness Narrative* Saurabh Ricketts Jarvis, DO - 04/22/2025 4:30 PM EDT Subjective Patient ID: Skyler Barrios is a [...] Enlarged and swollen. Not pale. Mouth/Throat: Lips: Whitetail. Mouth: Mucous membranes are moist. Dentition: Normal [...] nostril in the morning. documented in this encounterLakeHealth TriPoint Medical Center09-22-2025 Miscellaneous Notes* Telephone Encounter - Tyra Higuera CMA - 04/08/2025 10:43 AM EDT Pt's called and stated that pt wasn't happy with how [facility] was mixing his Semaglutide. They were inquiring about having it sent to [facility] for the Brand name. Thank you. Please advise. * Telephone Encounter - Saurabh Mustafa DO - 04/08/2025 10:43 AM EDT He is going to need an appointment to discuss. To get the brand name I am going to have to do a prior authorization and they are going to want a starting weight and I do not have that. He has not been seen in over a year. It was different with [facility] since he was paying [employer] ijf-ml-bsuvpj. * Telephone Encounter - Tyra Higuera CMA - 04/08/2025 10:43 AM EDT Pt stated he is going to pay out of pocket for the brand name through [facility] I guess. So, do you stillwant to see him even though it has been over a year? Thank you. * Telephone Encounter - Saurabh Mustafa DO - 04/08/2025 10:43 AM EDT I will send it in until his next appointment. It looks like he was still on a low-dose of semaglutide. Last dose it looks like it was 0.6 mg. Is that correct? * Telephone Encounter - Tyra Higuera CMA - 04/08/2025 10:43 AM EDT Pt was notified of Rx being called in to [facility] [place]. documented in this encounterRockingham Memorial HospitalThe Caddy Company09-22-2025 Telephone encounter Note* Telephone Encounter - Tyra Higuera CMA - 04/08/2025 10:43 AM EDT Pt's called and stated that pt wasn't happy with how [facility] was mixing his Semaglutide. They were inquiring about having it sent to [facility] for the Brand name. Thank you. Please advise. [facility]do[facility] Telephone encounter Note* Telephone Encounter - Saurabh Mustafa DO - 04/08/2025 10:43 AM EDT He is going to need an appointment to discuss. To get the brand name I am going to have to do a prior authorization and they are going to want a starting weight and I do not have that. He has not been seen in over a year. It was different with [facility] since he was paying [employer] dlq-ng-ydbwim. [employer]09-22-2025 Telephone encounter Note* Telephone Encounter - Tyra Higuera CMA - 04/08/2025 10:43 AM EDT Pt stated he is going to pay out of pocket for the brand name through [facility] I guess. So, do you stillwant to see him even though it has been over a year? Thank you. [employer]09-22-2025 Telephone encounter Note* Telephone Encounter - Saurabh Mustafa DO - 04/08/2025 10:43 AM EDT I will send it in until his next appointment. It looks like he was still on a low-dose of semaglutide. Last dose it looks like it was 0.6 mg. Is that correct? [employer]09-22-2025 Telephone encounter Note* Telephone Encounter - Tyra Higuera CMA - 04/08/2025 10:43 AM EDT Pt was notified of Rx being called in to [facility] [place]. [facility]05-02-2025 History of Present illness Narrative* Loco Cabrera NP - 11/16/2024 10:00 AM EDT Images from the original note were not [...] to have increased swelling in lower extremity. -fawadns. Procedures Orders Placed This Encounter Procedures Vascular US lower extremity venous duplex right STAT Vascular US RT lower extremity to be done at [facility]. Rule out DVT. S/p RT knee scope [...] right lower extremity due to increased swelling. Patientwas set up with STAT ultrasound at [facility] who called with results. He was found to have no DVT onultrasound. I discussed results with patient and recommend that he use compression socks, ice and el evate after work. Follow up in 2-3 weeks [...] develop for requiring urgent evaluation. 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 She discovered last night that patient has pitting edema. She thinks he needs seen today for this. This is on his right leg from knee cap down. He cannot sit down more then 20 min at a time. He always has swelling and hasgotten worse in the last month. Patient ; Cassandra [phone] ext [phone] [facility] [id number] Miscellaneous Notes* Telephone Encounter - Faiza Dawn - 11/16/2024 8:10 AM EDT Patient's called in stating patient has appt with Loco on Sunday 11/19. She discovered last night that patient has pitting edema. She thinks he needs seen today for this. This is on his right leg from knee cap down. He cannot sit down more then 20 min at a time. He always has swelling and hasgotten worse in the last month. Patient ; Cassandra [phone] ext [phone] documented in this encounterUniversity HospitalIsyjzdpttj22-03-0876 History of Present illness Narrative* Loco Cabrera NP - 10/25/2024 3:30 PM EDT Images from the original note were not included. HISTORY OF PRESENT ILLNESS: POST OP PT Skyler Barrios is an 44 y.o. @ male. (EST PT) PO RT KNEE SCOPE MEDIAL MENISCUS 08/27/24 (8WKS 3DAYS). S/P TRANSITIONING TO [facility]- ONLY 1 PTVISIT SINCE LAST VISIT CONTINUES NWB WITH CRUTCHES. DENIES PAIN. INTERMITTENT SORENESS MEDIAL KNEE. +IBU FOR SWELLING. +ICE AND ELEVATING. DENIES N/T. UNABLE TO FULLY EXTEND LEG. WORKING ON GENTLE ROM. OCCAS WAKES AT HS IFHE ROLLS THE WRONG WAY. DENIES ISSUES WITH [...] ballotable and compartments were soft to the operativelower extremity. Dorsalis pedis and posterior tibial pulses were present and equal bilaterally. There was no evidence of infection or ascending lymphangitis to operative lower extremity. Sensation tolight touch was intact to all dermatomes to [...] develop for requiring urgent evaluation. Loco Cabrera PLASTER MAKER-CARRY OUT CLERK AND SHELF STOCKER documented in this encounterUniversity HospitalGhybvrvhej87-23-6499 History of Present illness Narrative* Loco Cabrera NP - 10/08/2024 9:15 AM EDT Images from the original note were not [...] ON GENTLE ROM. OCCAS WAKES AT HS IFHE ROLLS THE WRONG WAY. DENIES ISSUES WITH [...] the posterior root, possibly contacting the articular surface,possible partial radial tear, without significant meniscal displacement. [...] He is cleared to start using his crutchesto do partial weightbearing and transitioning to WBAT [...] develop for requiring urgent evaluation. Loco Cabrera PLASTER MAKER-CARRY OUT CLERK AND SHELF STOCKER documented in this encounterUniversity [id number] History of Present illness Narrative* Loco Cabrera NP - 09/10/2024 9:30 AM EST Images from the original note were not [...] the operative lower extremity. Dorsalis pedis and pos terior tibial pulses were present and equal bilaterally. [...] develop for requiring urgent evaluation. Loco Cabrera PLASTER MAKER-CARRY OUT CLERK AND SHELF STOCKER documented in this encounterUniversity HospitalXggsiolbto52-03-6404 Note [id number]#1.00[facility]02-11-2025 [id number]#[address] [place] [address] 08-27-2024 NoteEducation Materials Arthroscopic Surgery Discharge Instructions 1.) Keep ice on your knee after surgery. You may use the ice bag provided to you by the [facility] from home. The ice should be applied [...] your toes and exercise your ankle for tenminutes every hour that you are awake. 5.) [...] drive a motore vehicle, operate machinery or powerAction Online Entertainment, make important decisions or sign important papers. 13.) You may feel dizzy, lightheaded or sleepy following surgery. Make sure you have someone with you for the rest of today.[facility] CenterWaoxknwv51-12-6763 Note [facility] 2RALEIGH Clinical Discharge Summary PERSON INFORMATION Name SKYLER BARRIOS Age 43 Years 1980 Sex MALE Language Kenyan PCP SAURABH MUSTAFA Marital Status Phone Med Service Ambulatory Surgery N [id number] Acct# Arrival 08/27/2024 07:00:00 Visit Reason SURGERY - RIGHT KNEE ARTHROSCOPY - MEDIAL MENISCUS TEAR Acuity LOS 000 00:22 Address: [address] [place] [id number] Comment: PROVIDER INFORMATION VITALS INFORMATION Vital Sign [...] EDUCATION INFORMATION Instructions: Stepanic Arthroscopy Discharge Instructions (MHMPATRICK) Follow up: With: Address: When: Loco Cabrera [address] [place] [id number] [facility] (1) 09/10/2024 9:30 AM DIAGNOSIS Acute pain of right knee Comment: PHYS YENI [facility]02-09-2025 Telephone encounter Note* Telephone Encounter - Loco Cabrera NP - 08/26/2024 3:20 PM EST Post op pain rx. PDMP reviewed University [id number] Miscellaneous Notes* Telephone Encounter - Lcoo Cabrera NP - 08/26/2024 3:20 PM EST Post op pain rx. PDMP reviewed documented in this encounterUniversity HospitalMcnklcrzjt36-31-4273 History of Present illness Narrative* DORIS Burgos - 08/14/2024 11:15 AM EST Images from the original note were not included. GENERAL HISTORY AND PHYSICAL: NAME: Skyler Barrios : 1980 HISTORY OF PRESENT ILLNESS: Skyler Barrios is an 43 y.o. @ male. Here for surgery instructions R KNEE SCOPE W/ MM @[facility] 08/27/2024. PAST MEDICAL HISTORY: Past Medical History: [...] surgery received. All questions answered and proposed surgeryscheduled. R KNEE SCOPE W/ MM @[facility] 08/27/2024 PAT W/ [facility] 08/14/2024 PAT @[facility] 08/14/2024 @1PM HAS CRUTCHES CPT 38154 No follow-ups on file. documented in this encounterUniversity HospitalAdbazndfmy03-61-5696 History of Present illness Narrative* Karla Ligia Carvajal, DO - 07/24/2024 8:45 AM EST Images from the original note were not included. HISTORY OF PRESENT ILLNESS: EST PT Skyler Barrios is an 43 y.o. @ male. (EST PT) RT KNEE. HERE TO DISCUSS KNEE ARTHROSCOPY XRAY [facility] 06/24/24 (PUSHED TO PACS) MRI [...] AFTER CRAWLING ON THE FLOOR. WENT TO [facility] ER. ALLERGIES: No Known Allergies [...] Use: Not At Risk (08/15/2023) Received from [employer] AUDIT-C Frequency of Alcohol Consumption: Monthly or [...] see him back on the day of surgeryfor an arthroscopy of his right knee. We [...] motion are affecting the patient's ability to sleepand activities of daily living and we have recommended surgical intervention. Questions answered in laymen terms at the bedside. The diagnosis, home exercise plan and any ongoing restrictions/ recommendations reviewed. If unable to be reached in office, I recommend evaluation at nearest Emergency Room if any symptoms worsened or new symptoms develop for requiring urgent evaluation. documented in this encounterUniversity [id number] History of Present illness Narrative* Loco Cabrera NP - 07/20/2024 7:15 AM EST Images from the original note were not [...] Use: Not At Risk (08/15/2023) Received from [employer] AUDIT-C Frequency of Alcohol Consumption: Monthly or less Average Number of Drinks: 1 or 2 Frequency of Binge Drinking: Never IMAGING: MRI dated 07/03/2024 from [facility] imaging of the right knee demonstrated possible [...] develop for requiring urgent evaluation. Loco Cabrera PLASTER MAKER-CARRY OUT CLERK AND SHELF STOCKER documented in this encounterUniversity [id number] Evaluation + Plan note Diagnostic Tests Pending * Testosterone Level Total 07/17/24 [facility] 12-31-2024 Hospital Discharge instructions Patient Education 07/17/2024 11:10:34 [...] older. This is the main cause of thiscondition. Use of medicines, such as antidepressants, steroids, [...] therapy. Follow these instructions at home: Take mshh-ksj-hqduyau and prescription medicines only as told by [...] for prostate cancer before putting you on testosteronetherapy. This information is not intended to replace advice given to you by your health care provider. Make sure you discuss any questions you have with your health care provider. Document Revised: 03/05/2021 Document Reviewed: 03/05/2021 Pretty Padded Room Patient Education 2023 [employer]. [facility] 12-31-2024 NoteUrology Office/Clinic Note Chief Complaint referral - low testosterone HPI Staff 43yr old male self referral for low testosterone. PCP recommended he get a second opinion about testosterone level. Denies all urinary symptoms. Testosterone: 04/10/24 - 230 04/19/24 - 264 06/13/24 - 450 History of Present Illness I have reviewed and verified the staff HPI to be accurate for this encounter. Portions of this record may have been created with voice recognition artificial intelligence software, specifically [employer], [employer] and or [employer]. Substitutions may have occurred due to the [...] male (E29.1: Testicular hypofunction) Testosterone: 04/10/24 - 230 total (at 408 pm) 04/19/24 - 264 total, 8.1 free (at 438 pm) 06/13/24 - 450 total, 8.7 free (at 637 am) Pt asked PCP to check T level based on difficulty losing weight, lower energy levels. He denies anyissues with erections, mood, libido. PCP had recommended [...] morning which was within normal limits, 450. Iadvised patient that based on this level, hypogonadism is likely not the source of his symptoms. Will recheck testosterone level with appropriate timing. If recheck is low, would need confirmation alanna tosterone level. If within normal limits, would advise patient to follow-up with PCP. -Testosterone level at [facility], stressed importance of timing prior [...] Urnls Dip Stick Auto w/o Microscopy POC [id number] Follow-up No qualifying data available Patient Education [...] Protein Urine Dipstick: Negative (07/17/24 10:45:00) Specific Prichard Urine Dipstick: >=1.030 (07/17/24 10:45:00) Urine Appearance Urine Dipstick: Clear (07/17/24 10:45:00) Urine Color Urine Dipstick: Yellow (07/17/24 10:45:00) Urobilinogen Urine Dipstick: Normal 0.2-1 EU/dl (07/17/24 10:45:00) pH Urine Dipstick: 6 (07/17/24 10:45:00)[facility] Metrohealth SystemComment on above:Result Comment: Electronically Signed By: CHERIE Patel APRN, [place] X\.br\Date and Time Signed: 07/17/24 11:10 [id number] NotePatient Education Urology Hypogonadism, Male Male hypogonadism is [...] Follow these instructions at home: ??? Take cwqv-mft-njmsvuy and prescription medicines only as told by your health care provider. ??? Eat foods that are high in fiber, such as beans, whole grains, and fresh fruits and vegetables.Limit foods that are high in fat and [...] sure you discuss any (more content not included)...[facility]12-20-2024 History of Present illness Narrative* Loco Cabrera, [employer] - 07/06/2024 8:30 AM ESTAssociated Order(s): L Inj/Asp: R knee Post-Procedure Diagnose(s): Internal derangement of right knee Images from the original note were not included. Chief Complaint Patient presents with Right Knee - Follow-up HISTORY OF PRESENT ILLNESS: Sykler Barrios is an 43 y.o. @ male. (EST W/JEROME) RT KNEE - HERE FOR MRI RESULTS [facility] 07/03/24 XRAY [facility] 06/24/24 (PUSHED TO PACS) MRI EPIC 07/03/24 MDP 06/24/24 KNEE IMMOBILIZER PAIN MOSTLY POSTERIOR, CAN BE LATERAL. WORSE WITH PROLONGED WB. DENIES RADIATION. +KETOROLAC AT HS,IBU DURING THE DAY. +ICE AND ELEVATING. SWELLING HAS GONE DOWN SOME. STATES KNOT HAS GONE DOWN. DENIES N/T. DENIES POPPING/GRINDING. DENIES GIVING OUT. +WAKES AT HS. TRIES NOT TO FLEX OR EXTEND LEGALL THE WAY. MARELY: INTERMITTENT PAIN SINCE 12/2023. [...] calculate BMI. IMAGING: I reviewed MRI from [facility] imaging dated 07/03/2024 which demonstrated Possible nondisplaced [...] develop for requiring urgent evaluation. Loco Cabrera PLASTER MAKER-CARRY OUT CLERK AND SHELF STOCKER documented in this [facility]12-18-2024 Telephone encounter Note* Telephone Encounter - Claudia Ruiz - 07/04/2024 1:02 PM EST Patient's notified, thank you [facility] [id number] Miscellaneous Notes* Telephone Encounter - Claudia Ruiz - 07/04/2024 1:02 PM EST Patient's notified, thank you * Telephone Encounter - Loco Cabrera NP - 07/04/2024 12:23 PM EST Id wait until appointment with me. I may do an injection which could help more than MDP would but need to see patient first. * Telephone Encounter - Claudia Ruiz - 07/04/2024 12:11 PM EST Patient's called stating patient would like another MDP sent to [facility] in [place], he states it helped greatly with his swelling. Patient did have MRI yesterday and is to follow up with Wei on Tuesday. NKDA. Please advise, thank you documented in this [facility]12-18-2024 Telephone encounter Note* Telephone Encounter - Loco Cabrera NP - 07/04/2024 12:23 PM EST Id wait until appointment with me. I may do an injection which could help more than MDP would but need to see patient first. [email or web address] Work Phone: [phone] 160-850212-18-2024 Telephone encounter Note* Telephone Encounter - Claudia Ruiz - 07/04/2024 12:11 PM EST Patient's called stating patient would like another MDP sent to [facility] in [place], he states it helped greatly with his swelling. Patient did have MRI yesterday and is to follow up with Wei on Tuesday. NKDA. Please advise, thank you [email or web address] History of Present illness Narrative* Amy Yang NP - 06/27/2024 8:00 AM EST Images from the original note were not included. Subjective Patient ID: Skyler Barrios is a 43 y.o. male. Right Knee: He notes he is doing a little better with the oral steroid but still having issues, he has possibly3 days remaining. Notes intermittent pain in the knee for several months (December 2023) he denies a realized injury, he notes he woke up one day and began having pain, mostly when he first gets up. 3 days ago (04/24/24), he notes he began having more pain and noticed a knot behind his knee after crawling on the floor.Denies injury. Went to [facility] on 06/24/24 and had an [...] he has 2 more days of this. Hehas used ice and heat with some relief. He has been elevating. Pain does wake him at night. Denies n/t. Admits minimal swelling. Denies cracking, popping, grinding. Denies locking/catching. Denies giving out sensation. Prior Treatment: [facility] ER 06/24/24, XR [facility] RT Knee 06/24/24, kiana wrap, [...] additional comments: Negative homans sign I reviewed [facility] er note from 06/24/24. I reviewed the xrays of the right knee done on 06/24/24 at [facility] they are unremarkable for fracture. Assessment/Plan Encounter Diagnoses: ICD-10-CM 1. Right knee pain, unspecified chronicity M25.561 2. Internal derangement of right knee M23.91 MR knee right wo IV contrast discussion of due to failure of conservative treatment would recommend an MRI of the right knee without contrast, activities as tolerated, f/u s/p MRI to be done at [facility] in [place] documented in this encounterUniversity HospitalDtmsxehhmb73-08-1300 Miscellaneous Notes* Telephone Encounter - Candis Meraz CMA - 06/22/2024 11:27 AM EST Patient needed the Zepbound to go to [facility] not [facility] * Telephone Encounter - Saurabh Mustafa DO - 06/22/2024 11:27 AM EST Okay. It was actually generic Ozempic that goes to a [facility] so that is what threw me off documented in this encounterLake[facility]12-06-2024 Telephone encounter Note* Telephone Encounter - Candis Meraz CMA - 06/22/2024 11:27 AM EST Patient needed the Zepbound to go to [facility]12-06-2024 Telephone encounter Note* Telephone Encounter - Saurabh Mustafa DO - 06/22/2024 11:27 AM EST Okay. It was actually generic Ozempic that goes to a [facility] so that is what threw me off [facility]11-18-2024 Miscellaneous Notes* Telephone Encounter - Cherelle Curtis - 06/04/2024 2:45 PM EST He is okay getting testosterone done at [place] please send orders. He also wondered if he would be able to up his dose of zepbound, he feels like its only working a little bit documented in this encounterLakeHealth [facility] Center11-18-2024 Telephone encounter Note* Telephone Encounter - Cherelle Curtis - 06/04/2024 2:45 PM EST He is okay getting testosterone done at [place] please send orders. He also wondered if he would be able to up his dose of zepbound, he feels like its only working a little bit [facility]11-15-2024 Miscellaneous Notes* Telephone Encounter - Cherelle Curtis - 06/01/2024 9:54 AM EST He should have a recheck appointment in about 3 months. I can send in the testosterone to [facility]. He needs to get it between 6 and 10:00 a.m. * Telephone Encounter - [facility] Kirsten - 06/01/2024 9:54 AM EST LM on VM documented in this encounterLakeHealth [facility] Center11-15-2024 Telephone encounter Note* Telephone Encounter - [facility] Edwinbrittani - 06/01/2024 9:54 AM EST He should have a recheck appointment in about 3 months. I can send in the testosterone to [facility]. He needs to get it between 6 and 10:00 a.m. [facility]11-15-2024 Telephone encounter Note* Telephone Encounter - Cherelle Kirsten - 06/01/2024 9:54 AM EST LM on VM [facility]11-13-2024 Miscellaneous Notes* Telephone Encounter - Cherelle Curtis - 05/30/2024 3:57 PM EST Patient also called about getting his testosterone rechecked, does he need appointment at all? * Telephone Encounter - Saurabh Mustafa DO - 05/30/2024 3:57 PM EST He should have a recheck appointment in about 3 months. I can send in the testosterone to [facility]. He needs to get it between 6 and 10:00 a.m. documented in this encounterLakeHealth [facility] Center11-13-2024 Telephone encounter Note* Telephone Encounter - Cherelle Curtis - 05/30/2024 3:57 PM EST Patient also called about getting his testosterone rechecked, does he need appointment at all? [facility]11-13-2024 Telephone encounter Note* Telephone Encounter - Saurabh Ricketts DO Jarvis - 05/30/2024 3:57 PM EST He should have a recheck appointment in about 3 months. I can send in the testosterone to [facility]. He needs to get it between 6 and 10:00 a.m. [facility]08-05-2024 History of Present illness Narrative* Suarabh Mustafa DO - 02/20/2024 4:15 PM EDT Subjective Patient ID: Skyler Barrios is a [...] andpost discharge medication. Review of Systems Constitutional: Positive [...] Assessment/Plan Skyler was seen today for discuss monarslanro. Diagnoses and all orders for this visit: Class 1 obesity due to excess calories with serious comorbidity and body mass index (BMI) of 33.0 to 33.9 in adult He is obese. He would benefit from weight loss. He has had a modest weight loss with improved diet and exercise habits. We discussed risks and benefits of various medications. He is not interested inphentermine. He would like to try the injections. He was interested in Mounjaro but will use Zepbound which is the other brand name of Mounjaro which has been approved for weight loss. Vasectomy evaluation - [facility] - [place], [place]; Future Refer to urology for discussion of vasectomy. Other orders - tirzepatide, weight loss, (ZEPBOUND) 2.5 mg/0.5 mL pen injector; Inject 2.5 mg under the skin every 7 days. documented in this encounterLakeHealth [facility] Center01-29-2024 History of Present illness Narrative* Saurabh Mustafa DO - 08/15/2023 3:50 PM EST Subjective Patient ID: Skyler Barrios is a 42 y.o. male. Skyler presents today for his annual physical. He has been doing well except for 1 problem. He has a growth on the right side of his face that sometimes gets painful when he touches it. He had it frozen in the past by a guide travel. It never fully went away. Sometimes it gets scale over it. He usedto get a lot of sun exposure when [...] keratosis. Should be treated. I will refer himto Dermatology. Low HDL (under 40) Exercise can raise HDL. It is considered a risk factor for heart disease. Not sure that it cancels out a low LDL. Nonetheless, CV risk is likely low documented in this encounterRockingham Memorial HospitalThe [employer]addy Company10-02-2022 NoteEXAMINATION: XR CHEST 2 V HISTORY: History and physical examination, [...] Electronically authenticated by: ANILA JAUREGUI Date: 2022-04-18 11:32[facility]* Diagnosis Right knee pain, unspecified chronicity- Primary Internal derangement of right knee documented in this encounter [facility] HealthcareEvaluation note* Diagnosis Internal derangement of right knee- Primary Right knee pain, unspecified chronicity Mills's cyst of knee, right documented in this encounter [facility] HealthcareEvaluation note* Diagnosis Tear of medial meniscus of right knee, initial encounter- Primary Mills's cyst of knee, right Right knee pain, unspecified chronicity documented in this encounter [facility] HealthcareEvaluation note* Diagnosis Tear of medial meniscus of right knee, initial encounter- Primary Right knee pain, unspecified chronicity documented in this encounter [facility] HealthcareEvaluation note* Diagnosis Pre-op examination- Primary documented in this encounter [facility] HealthcareEvaluation note* Diagnosis Tear of medial meniscus of right knee, initial encounter- Primary documented in this encounter [facility] HealthcareEvaluation note* Diagnosis Well adult health check- Primary Unspecified general medical examination Class 1 obesity due to excess calories without serious comorbidity with body mass index (BMI) of 34.0 to 34.9 in adult Neoplasm of uncertain behavior of skin of face Low HDL (under 40) documented in this encounter [facility]* Diagnosis Class 1 obesity due to excess calories with serious comorbidity and body mass index (BMI) of 33.0 to 33.9 in adult- Primary Vasectomy evaluation Other general counseling and advice for contraceptive management documented in this encounter [facility] note* Diagnosis Well adult health check- Primary Unspecified general medical examination Class 1 obesity due to excess calories without serious comorbidity with body mass index (BMI) of 34.0 to 34.9 in adult documented in this encounter [facility]* Diagnosis Low testosterone in male- Primary documented in this encounter [facility]* Diagnosis Hyperglycemia- Primary Other abnormal glucose documented in this encounter [facility]* Diagnosis Low testosterone in male- Primary documented in this encounter [facility]* Diagnosis Class 1 obesity due to excess calories without serious comorbidity with body mass index (BMI) of 34.0 to 34.9 in adult- Primary documented in this encounter [facility]* Diagnosis Status post arthroscopy of right knee- Primary Other postprocedural status documented in this encounter [facility] HealthcareEvaluation note* Diagnosis Status post arthroscopy of right knee- Primary Other postprocedural status documented in this encounter [facility] HealthcareEvaluation note* Diagnosis Acute postoperative pain of right knee- Primary Status post arthroscopy of right knee Other postprocedural status documented in this encounter [facility] HealthcareEvaluation note* Diagnosis Status post arthroscopy of right knee- Primary Other postprocedural status documented in this encounter [facility] HealthcareEvaluation note* Diagnosis Pain and swelling of right lower leg documented in this encounter [facility] HealthcareEvaluation note* Diagnosis Class 1 obesity due to excess calories with serious comorbidity and body mass index (BMI) of 33.0 to 33.9 in adult- Primary Class 1 obesity due to excess calories without serious comorbidity with body mass index (BMI) of 34.0 to 34.9 in adult documented in this encounter [facility] Diagnosis Well adult exam- [...] inoculation against influenza [facility] Diagnosis Class 1 obesity due to excess calories without serious comorbidity with body mass index (BMI) of 34.0 to 34.9 in adult- Primary Low testosterone in male documented in this [facility]* Diagnosis Class 1 obesity due to excess calories without serious comorbidity with body mass index (BMI) of 34.0 to 34.9 in adult- Primary [facility] Narr[facility] No data available for this section [facility] InstructionsNot on filedocumented in this encounter [...] available for this section [facility] reason for referral (narrative)* Consultation (Routine) - Pending ReviewSpecialtyDiagnoses / ProceduresReferred By ContactReferred To ContactDermatology Diagnoses Neoplasm of uncertain behavior of skin of face Saurabh Mustafa, DO [address], [place] [address] [facility], DO [address] [place] [address] Referral IDStatusReasonStart DateExpiration DateVisits RequestedVisits [id number] Review Specialty Services Required / [facility] for referral (narrative)* Consultation (Routine) - Pending ReviewSpecialtyDiagnoses / ProceduresReferred By ContactReferred To ContactUrology Diagnoses Vasectomy evaluation Jarvis Saurabh Ricketts, DO [address], [place] [address] [facility] [address] [place] [address] Referral IDStatusReasonStwapello DateExpiration DateVisits RequestedVisits [id number] Review Specialty Services Required / [facility] for visit Narrative* Rehabilitation - Outpatient (Routine) - AuthorizedSpecialtyDiagnoses / ProceduresReferred By Contact Referred To ContactPhysical Therapy Diagnoses Status post arthroscopy of right knee Procedures NC OFFICE/OUTPATIENT NEW HIGH MDM 60 MINUTES Loco Cabrera, [employer] [address] [place] [address] Phone: tel: fax: Jose James, PT [address] [place] [address] Phone: tel: fax: Referral IDStatusReasonStart DateExpiration DateVisits RequestedVisits [id number] Specialty Services Required [id number] [facility] Summary Purpose Family History No [...] section and content) DATE CREATED AUTHOR 02/05/2020 [facility] DATE CREATED AUTHOR AUTHOR'S ORGANIZ ATION 12/30/2021 [facility] DATE CREATED AUTHOR AUTHOR'S ORGANIZ ATION 04/22/2022 [facility] DATE CREATED AUTHOR AUTHOR'S ORGANIZ ATION 08/01/2024 [facility] DATE CREATED AUTHOR AUTHOR'S ORGANIZ ATION 10/27/2024 [facility] DATE CREATED AUTHOR AUTHOR'S ORGANIZ ATION 11/24/2024 [facility] DATE CREATED AUTHOR AUTHOR'S ORGANIZ ATION 04/25/2025 [facility] Reason for Visit (unrecogniz ed section and content) ReasonCommentsPainReasonOnset DateCommentsMDP Dtqckwe12/18/2024ReasonComments Laslam-rgTpvileIttrpmrwXsaeig-vhGnnvmvWesrzjojDuplOtaoyyUhsdhlqmGfc-op Exam ReasonCommentsAnnual ExamReasonCommentsdiscuss monjaroReasonOnset DateComments Med Qfmiwq034ReasonCommentsstart weight lossAnnual Exam Patient Care team informatio n (unrecognized section and content) Team MemberRelationshipSpecialtyStart DateEnd Date Saurabh Mustafa MD [address] [place] [address] PCP - Generalmily Medicine07/24/24 Saurabh Mustafa MD [address], [place] [address] Referring Physicianmily Medicine07/24/24Team MemberRelationshipSpecialtyStart DateEnd Date Saurabh Mustafa MD [address], [place] [address] PCP - [facility] Medicine07/24/24 Saurabh Mustafa MD [address], [place] [address] Referring [facility]icianBoston [facility] Medicine07/24/24Team MemberRelationshipSpecialtyStart DateEnd Date Saurabh Mustafa MD [address], [place] [address] PCP - [facility] Medicine07/24/24 Saurabh Mustafa MD [address], [place] [address] Referring Physicianmi Medicine07/24/24Team MemberRelationshipSpecialtyStart DateEnd Date Saurabh Mustafa MD [address], [place] [address] PCP - [facility] Medicine07/24/24 Saurabh Mustafa MD [address], [place] [address] Referring [facility] Medicine07/24/24Team MemberRelationshipSpecialtyStart DateEnd Date JakikatySaurabhDO [address], [place] [address] [facility]02/19/20Team MemberRelationshipSpecialtyStart DateEnd Date Saurabh Mustafa DO [address], [place] [address] [facility]02/19/20Team MemberRelationshipSpecialtyStart DateEnd Date Saurabh Mustafa DO [address], [place] [address] [facility]02/19/20am MemberRelationshipSpecialtyStart DateEnd Date Saurabh Mustafa DO [address], [place] [address] PCP - [facility] Medicine02/19/20Team MemberRelationshipSpecialtyStart DateEnd Date Saurabh Mustafa DO [address], [place] [address] PCP - [facility] Medicine02/19/20Team MemberRelationshipSpecialtyStart DateEnd Date Saurabh Mustafa DO [address], [place] [address] PCP - GeneralFamily Medicine02/19/20Team MemberRelationshipSpecialtyStart DateEnd Date Saurabh Mustafa DO [address], [place] [address] PCP - GeneralFamily Medicine02/19/20Team MemberRelationshipSpecialtyStart DateEnd Date Saurabh Mustafa MD [address], [place] [address] PCP - GeneralFamily Medicine07/24/24 Saurabh Mustafa MD [address], [place] [address] Referring Physicianmily Medicine07/24/24Team MemberRelationshipSpecialtyStart DateEnd Date Saurabh Mustafa MD PCP - Generalmily Medicine07/24/24 Saurabh Mustafa MD Referring PhysicianFamily Medicine07/24/24Team MemberRelationshipSpecialtyStart DateEnd Date Saurabh Mustafa MD PCP - GeneralFamily Medicine07/24/24 Saurabh Mustafa MD Referring PhysicianFamily Medicine07/24/24Team MemberRelationshipSpecialtyStart DateEnd Date Saurabh Mustafa MD PCP - Generalmily Medicine07/24/24 Saurabh Mustafa MD Referring [facility]icianBoston [facility] Medicine07/24/24Team MemberRelationshipSpecialtyStart DateEnd Date Saurabh Mustafa MD PCP - [facility] Medicine07/24/24 Saurabh Mustafa MD Referring [facility]icianBoston [facility] Medicine07/24/24Team MemberRelationshipSpecialtyStart DateEnd Date Saurabh Mustafa MD PCP - [facility] Medicine07/24/24 Saurabh Mustafa MD Referring [facility]icianBoston [facility] Medicine07/24/24Team MemberRelationshipSpecialtyStart DateEnd Date Saurabh Mustafa DO [address], [place] [address] PCP - Generalmily Medicine02/19/20Team MemberRelationshipSpecialtyStart DateEnd Date Saurabh Mustafa DO [address], [place] [address] PCP - [facility] Medicine02/19/20Team MemberRelationshipSpecialtyStart DateEnd Date Saurabh Mustafa DO [address], [place] [address] [facility]02/19/20 FOR RECORDS PERTAINING TO PATIENTS WHO ARE [...] BE BASED ON THE PRIMARY CLINICAL RECORDS. [facility] [employer] [facility]. provides no warranty or guarantee of the accuracy or completeness of information in this document.
--- OUTSIDE RECORDS SUMMARY | 2025-05-08 05:53 | XMS_ITS | Encounter Summary ---
Author Organization [facility] tem Address [id number] [address] [place] [address] Care Team Providers Care Hospice Administrator Name Role Phone Saurabh Mustafa DO Primary Care Provider [phone]- [phone] Encounter Details DateTypeDepartmentCare Team (Latest Contact Info)Yufgthytbho06/09/2025Orders Only [facility] - [facility] [address] [place] [address] Saurabh Mustafa DO [address], [facility] [place] [address] Class 1 obesity due to excess calories without serious comorbidity with body mass index (BMI) of 34.0 to 34.9 in adult (Primary Dx); Low testosterone in male Social History Tobacco UseTypesPacks/DayYears UsedDateSmoking Tobacco: NeverSmokeless Tobacco: NeverAlcohol UseStandard Drinks/WeekCommentsYes1 (1 standard drink = 0.6 oz pure alcohol)[facility] UtilitiesAnswerDate RecordedIn the past 12 months has the electric, gas, oil, or water company threatened to shut off services in your home?No08/15/2023Social Connection and Isolation PanelAnswerDate RecordedIn a typical week, how many times do you talk on the phone with family, friends, or neighbors?Three times a week08/15/2023How often do you get together with friends or relatives?Once a week08/15/2023How often do you attend christian or anabaptism services?Never08/15/2023o you belong to any clubs or organizations such as christian groups, unions, fraternal or athletic groups, or school groups?Yes 08/15/2023How often do you attend meetings of the clubs or organizations you belong to?More than 4 times per year08/15/2023re you , , , , never , or living with a partner?Zbxehhh3008/15/2023 AUDIT-CAnswerDate RecordedQ1: How often do you have a drink containing alcohol? Monthly or less08/15/2023Q2: How many drinks containing alcohol do you have on a typical day when you are drinking?1 or Q3: How often do you have six or more drinks on one occasion?Never08/15/2023Overall Financial Resource Strain (CARDIA)AnswerDate RecordedHow hard is it for you to pay for the very basics like food, housing, medical care, and heating?Not hard at all08/15/2023HQ-2 AnswerDate RecordedTotal Ueijv723Finmountainstar healthcare [place] of Occupational Health - Occupational Stress QuestionnaireAnswerDate RecordedDo you feel stress - tense, restless, nervous, or anxious, or unable to sleep at night because your mind is troubled all the time - these days?Only a suewhh9008/15/2023Exercise Vital SignAnswerDate RecordedOn average, how many days per week do you engage in moderate to strenuous exercise (like a brisk walk)?6 days04/22/2025On average, how many minutes do you engage in exercise at this level?30 min04/22/2025PRAPARE - TransportationAnswerDate RecordedIn the past 12 months, has lack of transportation kept you from medical appointments or from getting medications?No 08/15/2023In the past 12 months, has lack of transportation kept you from meetings, work, or from getting things needed for daily living?No08/15/2023 Housing InstabilityAnswerDate RecordedAre you worried or concerned that in the next two months you may not have stable housing that you own, rent or stay in as a part of a household?No08/15/2023hildcareAnswerDate RecordedDo problems getting child and family counselor make it difficult for you to work or study?No08/15/2023 EmploymentAnswerDate RecordedDo you need help finding a local career center and/or a training program?No08/15/2023Hunger ScreeningAnswerDate RecordedWithin the past 12 months we worried whether our food would run out before we got money to buy more.Never True04/22/2025Within the past 12 months the food we bought just didn't last and we didn't have money to get more.Never True04/22/2025 Purpose - LifeAnswerDate RecordedI have a purpose and direction in my life. Strongly Agree08/15/2023Sex and Gender InformationValueDate RecordedSex Assigned at BirthNot on fileLegal JwqCnky4202/20/2015 11:21 AM EDTGender IdentityNot on fileSexual OrientationNot on filedocumented as of this encounter Plan of Treatment Not on file documented as of this encounter Results * Cortisol (04/27/2025)ComponentValueRef RangeTest MethodAnalysis TimePerformed AtPathologist SignatureCortisol U6.9MANUALLY TRANSCRIBED RESULTSSpecimen (Source)Anatomical Location / LateralityCollection Method / VolumeCollection TimeReceived TimeBloodVenous blood / Gofpiir5004/27/2025 Narrative Authorizing ProviderResult TypeResult StatusSaurabh Mustafa DOLAB BLOOD ORDERABLESFinal ResultPerforming OrganizationAddressCity/State/ZIP CodePhone Number MANUALLY TRANSCRIBED RESULTS documented in this encounter Visit Diagnoses Diagnosis Class 1 obesity due to excess calories without serious comorbidity with body mass index (BMI) of 34.0 to 34.9 in adult- Primary Low testosterone in male documented in this encounter Additional Health Concerns AssessmentNoted TimePHQ-9 Depression Total Score: 4:39 PM EDT documented as of this encounter Care Teams Team MemberRelationshipSpecialtyStart DateEnd Date Saurabh Mustafa DO [address] [facility], [place] [address] PCP - GeneralFamily Medicine02/19/20documented as of this encounter
--- OUTSIDE RECORDS SUMMARY | 2025-05-08 05:53 | XMS_ITS | Encounter Summary ---
Author Organization [facility] tem Address [id number] [address] [place] [address] Care Team Providers Care Account Group Supervisor Name Role Phone Saurabh Mustafa DO Primary Care Provider [phone]- [phone] Encounter Details DateTypeDepartmentCare Team (Latest Contact Info)Ffaspgfmria36/14/2025Results [facility] [address] [place] [address] Saurabh Mustafa DO [address], [facility] [place] [address] Cortisol Social History Tobacco UseTypesPacks/DayYears UsedDateSmoking Tobacco: NeverSmokeless Tobacco: NeverAlcohol UseStandard Drinks/WeekCommentsYes1 (1 standard drink = 0.6 oz pure alcohol)[facility] UtilitiesAnswerDate RecordedIn the past 12 months has the [employer] gas, oil, or water [facility] threatened to shut off services in your home?No08/15/2023Social Connection and Isolation PanelAnswerDate RecordedIn a typical week, how many times do you talk on the phone with family, friends, or neighbors?Three times a week08/15/2023How often do you get together with friends or relatives?Once a week08/15/2023How often do you attend scientologist or christian services?Never08/15/2023o you belong to any clubs or organizations such as scientologist groups, unions, fraternal or athletic groups, or school groups?Yes 08/15/2023How often do you attend meetings of the clubs or organizations you belong to?More than 4 times per year08/15/2023re you , , , , never , or living with a partner?Pytldgw8808/15/2023 AUDIT-CAnswerDate RecordedQ1: How often do you have [...] and heating?Not hard at all08/15/2023HQ-2 AnswerDate RecordedTotal Janew071Finhighland ridge hospital [place] of Occupational Health - Occupational Stress QuestionnaireAnswerDate RecordedDo you feel stress - tense, restless, nervous, or anxious, or unable to sleep at night because your mind is troubled all the time - these days?Only a tlkqla6208/15/2023Exercise Vital SignAnswerDate RecordedOn average, how many days [...] household?No08/15/2023hildcareAnswerDate RecordedDo problems getting child and family services worker make it difficult for you to work [...] InformationValueDate RecordedSex Assigned at BirthNot on fileLegal ZliTljt8802/20/2015 11:21 AM EDTGender IdentityNot on fileSexual OrientationNot on filedocumented as of this encounter Plan of Treatment Not on file documented as of this encounter Visit Diagnoses Not on filedocumented in this encounter Additional Health Concerns AssessmentNoted TimePHQ-9 Depression Total Score: 4:39 PM EDT documented as of this encounter Care Teams Team MemberRelationshipSpecialtyStart DateEnd Date Saurabh Mustafa DO [address] [facility], [place] [address] PCP - GeneralFamily Medicine02/19/20documented as of this encounter
--- OUTSIDE RECORDS SUMMARY | 2025-05-08 05:53 | XMS_ITS | Clinical Summary ---
Author Organization [facility] Address [address] [place] [address] Care Team Providers Care Tube Puller Name Role Phone Saurabh Mustafa MD Unavailable [phone] Saurabh Mustafa MD Primary Care Provider [phone]- [phone] Allergies No known active allergies Medications MedicationSigDispense QuantityRefillsLast FilledStart DateEnd DateStatus Semaglutide-Weight Management 0.5 MG/0.5ML solution auto-injector 06/22/2024ctive Active Problems ProblemNoted DateDiagnosed DateAcute postoperative pain of right knee10/17/2024 Status post arthroscopy of right knee10/17/2024 Family History FlyfkhqqGzlwYxvuwbWsdwvwshKtiealnnHivxb4VurxzxKumuzPpfhumZhure Social History Tobacco UseTypesPacks/DayYears UsedDateSmoking Tobacco: NeverSmokeless Tobacco: Never Tobacco Cessation:Counseling Given: Not Answered Alcohol UseStandard Drinks/WeekCommentsNot Currently0 (1 standard drink = 0.6 oz pure alcohol)Sex and Gender InformationValueDate RecordedSex Assigned at Not on fileLegal KfmAjhn9009/29/2022 7:19 PM EDTGender IdentityNot on fileSexual OrientationNot on file Last Filed Vital Signs Vital SignReadingTime TakenCommentsBlood Pressure--Pulse--Temperature-- Respiratory Rate--Oxygen Saturation--Inhaled Oxygen Concentration--Cuaows428 kg (240 lb)08/14/2024 11:31 AM YUPHrnpds068.9 cm (6')08/14/2024 11:31 AM ESTBody Mass Index32.55008/14/2024 11:31 AM EST Plan of Treatment Health MaintenanceDue DateLast DoneCommentsInfluenza GnfgevdXeooawscb86/06/2025, 04/17/2024, 04/26/2023, Additional history exists Insurance * Guarantor: Jaime Mccainadriana TypeRelation to PatientDate of BirthPhone Billing AddressPersonal/AltkktVxpq53/26/1981 [address] [address] Care Teams Team MemberRelationshipSpecialtyStart DateEnd Date Saurabh Mustafa MD PCP - GeneralFamily Medicine07/24/24 Saurabh Mustafa MD Referring PhysicianFamily Medicine07/24/24
--- OUTSIDE RECORDS SUMMARY | 2025-05-08 05:53 | XMS_ITS | Clinical Summary ---
Author Organization [place] tem Address [id number] [address] [place] [address] Care Team Providers Care Hatchery Attendant Name Role Phone KristelSaurabh nevarez Primary Care Provider [phone] Allergies No known active allergies Medications MedicationSigDispense QuantityRefillsLast FilledStart DateEnd DateStatus fluticasone propionate (FLONASE) 50 mcg/actuation nasal spray Administer 2 sprays into each nostril in the morning. 16 g 5Active semaglutide, weight loss, (WEGOVY) 0.5 mg/0.5 mL pen injector Indications:Class 1 obesity due to excess calories without serious comorbidity with body mass index (BMI) of 34.0 to 34.9 in adultInject 0.5 mL (0.5 mg total) under the skin every 7 days. 2 mL 5Active semaglutide, weight loss, (WEGOVY) 0.5 mg/0.5 mL pen injector Indications:Class 1 obesity due to excess calories without serious comorbidity with body mass index (BMI) of 34.0 to 34.9 in adultInject 0.6 mg subcutaneously weekly 2 mL /Discontinued(Dose adjustment) semaglutide, weight loss, (WEGOVY) 1 mg/0.5 mL pen injector Indications:Class 1 obesity due to excess calories without serious comorbidity with body mass index (BMI) of 34.0 to 34.9 in adultInject 0.5 mL (1 mg total) under the skin every 7 days. 2 mL 209/Discontinued(Dose adjustment) semaglutide, weight loss, (WEGOVY) 0.25 mg/0.5 mL pen injector Indications:Class 1 obesity due to excess calories without serious comorbidity with body mass index (BMI) of 34.0 to 34.9 in adultInject 0.5 mL (0.25 mg total) under the skin every 7 days. 2 mL /Discontinued(Dose adjustment) semaglutide, weight loss, (WEGOVY) 0.5 mg/0.5 mL pen injector 0.5 mL (0.5 mg total).Discontinued(Dose adjustment) Immunization, In Clinic, Indications:Need for immunization against influenzaonce. Sign this order to satisfy the OSBOP Positive ID requirements for immunization orders.04/22/2025 04/22/2025Expired Active Problems ProblemNoted DateDiagnosed DateLow testosterone in male04/18/2024Neoplasm of uncertain behavior of skin of face08/15/2023lass 1 obesity due to excess calories without serious comorbidity with body mass index (BMI) of 34.0 to 34.9 in adult08/15/2023Low HDL (under 40)08/15/2023 Encounters DateTypeDepartmentCare EfalWkmkaceuksj82/14/2025Results Follow-Up [facility] [address] [place] [address] Saurabh Mustafa DO Svefhghy17/14/2025Orders Only [facility] [address] [place] [id number] Nat Workman CMA Class 1 obesity due to excess calories without serious comorbidity with body mass index (BMI) of 34.0 to 34.9 in adult; Low testosterone in male04/29/2025Orders Only [facility] [address] [place] [address] Saurabh Mustafa DO Class 1 obesity due to excess calories without serious comorbidity with body mass index (BMI) of 34.0 to 34.9 in adult (Primary Dx)04/26/2025Telephone [facility] [address] [place] [address] Tyra Higuera, [facility] 04/25/2025Orders Only [facility] [address] [place] [address] Saurabh Mustafa, DO Class 1 obesity due to excess calories without serious comorbidity with body mass index (BMI) of 34.0 to 34.9 in adult (Primary Dx); Low testosterone in male04/23/2025Results Follow-Up [facility] [address] [place] [address] Saurabh Mustafa, DO POCT urinalysis dipstick only, C-reactive protein, TSH with Reflex, Additional followed-up results: 4:30 PM EDTOffice Visit [facility] [address] [place] [address] Saurabh Mustafa, DO Well adult exam (Primary Dx); Class 1 obesity due to excess calories without serious comorbidity with body mass index (BMI) of 34.0 to 34.9 in adult; Urinary frequency; Sinus congestion; Need for immunization against yktfqwskd79/06/2492Hjsmys75/25/2025Orders Only [facility] [address] [place] [address] Saurabh Mustafa, Class 1 obesity due to excess calories without serious comorbidity with body mass index (BMI) of 34.0 to 34.9 in adult (Primary Dx)04/11/2025Telephone [facility] [address] [place] [address] Tyra Higuera, [facility] 04/10/2025Orders Only [facility] [address] [place] [address] Saurabh Mustafa, Class 1 obesity due to excess calories with serious comorbidity and body mass index (BMI) of 33.0 to 33.9 in adult (Primary Dx); Class 1 obesity due to excess calories without serious comorbidity with body mass index (BMI) of 34.0 to 34.9 in adult04/08/2025Refill [facility] [address] [place] [address] Nat Workman CMA 04/08/2025Telephone [facility] [address] [address] Tyra Higuera CMA from Last 3 Months Immunizations ImmunizationAdministration DatesNext BunVPF2011/11/2020Influenza (IM) Preservative Free04/17/2024Influenza, Im Flucelvax (Pf)04/22/2025Influenza, Injectable, MDCK, Bvhgckhjdeog88/02/2020Influenza, Injectable, Mdck, Preservative Free, Quad 07/22/2019Influenza, Injectable, quadrivalent (PF)04/26/2023,04/04/2021, 05/09/2017Influenza, Smbhieuugwy57/10/2023,04/04/2021,04/18/2020,07/22/2019, 05/09/2017Tdap01/09/2020,07/23/2019 Family History Medical HistoryRelationNameCommentsNo Known ProblemsBrotherNo Known Problems DaughterNo Known ProblemsFatherHyperlipidemiaMotherHypertensionMotherNo Known ProblemsSisterRelationNameStatusCommentsBrotherAliveDaughterAliveFatherAlive MotherAliveSisterAlive Social History Tobacco UseTypesPacks/DayYears UsedDateSmoking Tobacco: NeverSmokeless Tobacco: Never Tobacco Cessation:Counseling Given: No Alcohol UseStandard Drinks/WeekCommentsYes1 (1 standard drink = 0.6 oz pure alcohol)socialAHC UtilitiesAnswerDate RecordedIn the past 12 months has the [employer], oil, or [employer] threatened to shut off services in your home?No08/15/2023Social Connection and Isolation PanelAnswerDate RecordedIn a typical week, how many times do you talk on the phone with family, friends, or neighbors?Three times a week08/15/2023How often do you get together with friends or relatives?Once a week08/15/2023How often do you attend jain or spiritism services?Never08/15/2023o you belong to any clubs or organizations such as jain groups, unions, fraternal or athletic groups, or school groups?Yes 08/15/2023How often do you attend meetings of the clubs or organizations you belong to?More than 4 times per year08/15/2023re you , , , , never , or living with a partner?Mcueotx0608/15/2023 AUDIT-CAnswerDate RecordedQ1: How often do you have [...] and heating?Not hard at all08/15/2023HQ-2 AnswerDate RecordedTotal Rsyxt921[place] human [place] of Occupational Health - Occupational Stress QuestionnaireAnswerDate RecordedDo you feel stress - tense, restless, nervous, or anxious, or unable to sleep at night because your mind is troubled all the time - these days?Only a liytjd3408/15/2023Exercise Vital SignAnswerDate RecordedOn average, how many days [...] of a household?No08/15/2023hildcareAnswerDate RecordedDo problems getting child monitor make it difficult for you to work [...] InformationValueDate RecordedSex Assigned at BirthNot on fileLegal WweLlkw4802/20/2015 11:21 AM EDTGender IdentityNot on fileSexual OrientationNot on file Last Filed Vital Signs Vital SignReadingTime TakenCommentsBlood Ozwxcnvp051/6004/22/2025 4:39 PM EDT Kniru486404/22/2025 4:39 PM THGPklzfigcmdj25.6 ??C (97.9 ??F)04/22/2025 4:39 PM EDTRespiratory Qhhc1909 4:39 PM EDTOxygen Nipvyxjcks62%04/22/2025 4:39 PM EDTInhaled Oxygen Concentration--Oluqef173.5 kg (250 lb 3.2 oz)04/22/2025 4:39 PM GWZHzsaqq811.9 cm (6')04/22/2025 4:39 PM EDTBody Mass Index33.93 04/22/2025 4:39 PM EDT Plan of Treatment Health MaintenanceDue DateLast DoneCommentsAdult BMI Follow Up Plan1998 COVID-19 Vaccine (2 - Baltazar risk series)/dult BMI Hlhbhrmwj41Depression Nniuvacvx23Tobacco Opnhwclli02DTaP,Tdap and Td Vaccines (4 - Td or Tdap) /, 01/09/2020, 07/23/2019Influenza VaccineCompleted 04/22/2025, 04/17/2024, 04/26/2023, Additional history exists Medical Devices ImplantedTypeAreaManufacturerDevice IdentifierShelf Expiration DateModel / Serial / LotScr Cortical 2.0x10mm - Sna - [id number] Implanted:Qty: 1 on 04/06/2017 by Prudencio [facility]vajal Jr. [facility]: HandZimmer [id number]/28/[id number] / NA / NAScr Cortical 2.0x10mm - Sna - [id number] Implanted:Qty: 1 on 04/06/2017 by Prudencio Carvajal Jr. DO at [facility]: HandZimmer Kgxopm94/28/[id number] / NA / NA Procedures Procedure NamePriorityDate/TimeAssociated DiagnosisCommentsCORTISOLRoutine 04/27/2025 Class 1 obesity due to excess calories without serious comorbidity with body mass index (BMI) of 34.0 to 34.9 in adult Low testosterone in male POCT URINALYSIS DIPSTICK AMXXZpqpefs45/06/2025 5:14 PM EDT Urinary frequency COMPREHENSIVE METABOLIC UIVXWMbmnlsg69/06/2025 5:05 PM EDT Well adult exam LIPID QWFPEKUHclceod74/06/2025 5:05 PM EDT Well adult exam TSH WITH QBVXUPLlvgubm11/06/2025 5:05 PM EDT Well adult exam C-REACTIVE GTGWSJKJqujfgc38/06/2025 5:05 PM EDT Class 1 obesity due to excess calories without serious comorbidity with body mass index (BMI) of 34.0 to 34.9 in adult from Last 3 Months Results * Cortisol (04/27/2025)ComponentValueRef RangeTest MethodAnalysis TimePerformed AtPathologist SignatureCortisol U6.9MANUALLY TRANSCRIBED RESULTSSpecimen (Source)Anatomical Location / LateralityCollection Method / VolumeCollection TimeReceived TimeBloodVenous blood / Fzshirp0504/27/2025 Narrative Authorizing ProviderResult TypeResult StatusDennis G Furlong DOLAB BLOOD ORDERABLESFinal ResultPerforming OrganizationAddressCity/State/ZIP CodePhone Number MANUALLY TRANSCRIBED RESULTS * POCT urinalysis dipstick only (04/22/2025 5:14 PM EDT)ComponentValueRef Range Test MethodAnalysis TimePerformed AtPathologist SignatureExternal Poct Urine ColoryellowMANUALLY TRANSCRIBED RESULTSExternal Poct Urine Appearanceclear MANUALLY TRANSCRIBED RESULTSExternal Poct Urine GlucoseNegativeMANUALLY TRANSCRIBED RESULTSExternal Poct Urine BilirubinNegativeMANUALLY TRANSCRIBED RESULTSExternal Poct Urine KetonesNegativeMANUALLY TRANSCRIBED RESULTSExternal Poct Urine Specific Gravity1.020MANUALLY TRANSCRIBED RESULTSExternal Poct Urine BloodNegativeMANUALLY TRANSCRIBED RESULTSExternal Poct Urine Ph6.5 MANUALLY TRANSCRIBED RESULTSExternal Poct Urine ProteinNegativeMANUALLY TRANSCRIBED RESULTSExternal Poct Urine Urobilinogen1.0MANUALLY TRANSCRIBED RESULTSExternal Poct Urine NitriteNegativeMANUALLY TRANSCRIBED RESULTSExternal Poct Urine Leukocyte EsteraseNegativeMANUALLY TRANSCRIBED RESULTSSpecimen (Source)Anatomical Location / LateralityCollection Method / VolumeCollection TimeReceived EtfoImpry63/06/2025 5:14 PM EDT Narrative Authorizing ProviderResult TypeResult StatusDennis G Furlong DOPOINT OF CARE TEST ORDERABLESFinal ResultPerforming OrganizationAddressCity/State/ZIP Code Phone Number MANUALLY TRANSCRIBED RESULTS * TSH with Reflex (04/22/2025 5:05 PM EDT)ComponentValueRef RangeTest Method Analysis TimePerformed AtPathologist SignatureTSH0.970.49 - 4.67 uIU/mL 04/22/2025 11:[address] [facility] LABORATORYSpecimen (Source) Anatomical Location / LateralityCollection Method / VolumeCollection Time Received TimeBloodVenous blood / Ubiffkg8104/22/2025 5:05 PM EDT1 5:05 PM EDT Narrative Authorizing ProviderResult TypeResult StatusDennis G Furlong DOLAB BLOOD ORDERABLESFinal ResultPerforming OrganizationAddressty/State/ZIP CodePhone Number [facility] [address] [place] [address], * C-reactive protein (04/22/2025 5:05 PM EDT)ComponentValueRef RangeTest Method Analysis TimePerformed AtPathologist SignatureC REACTIVE PROTEIN<0.1<=0.7 mg/dL04/22/2025 11:[address] [facility] LABORATORYSpecimen (Source)Anatomical Location / LateralityCollection Method / VolumeCollection TimeReceived TimeBloodVenous blood / Sovkfmd3304/22/2025 5:05 PM EDT1 5:05 PM EDT Narrative Authorizing ProviderResult TypeResult StatusDennis G Furlong DOLAB BLOOD ORDERABLESFinal ResultPerforming OrganizationAddressty/State/ZIP CodePhone Number [facility] [address] [place] [address], * (ABNORMAL) Lipid profile (04/22/2025 5:05 PM EDT)ComponentValueRef RangeTest MethodAnalysis TimePerformed AtPathologist SmmrnehdeNBWRGIBCDYU657712 - 200 mg/dL04/22/2025 11:[address] [facility] BONRGPTRNWGMVUNZSSQBGX478 (H)27 - 150 mg/dL04/22/2025 11:[address] [facility] LABORATORYHDL RJIAMMAANVW96>39 mg/dL04/22/2025 11:[address] [facility] LABORATORYComment: HDL <40 mg/dL - High Risk HDL > or = 40mg/dL- Desirable HDL >60 mg/dL - Negative Risk LDL (CALC)87<130 mg/dL04/22/2025 11:[address] [facility] Comment: LDL <100 mg/dL - Desirable LDL >160 mg/dL - High Risk CHOLESTEROL:HDL4.21.0 - 5.010 11:[address] [facility] LABORATORYVERY LOW DPCCPIMNUOE81(H)0 - 30 mg/dL04/22/2025 11:[address] [facility] LABORATORYSpecimen (Source)Anatomical Location / Laterality Collection Method / VolumeCollection TimeReceived TimeBloodVenous blood / Uhfumrx8704/22/2025 5:05 PM EDT1 5:05 PM EDT Narrative Authorizing ProviderResult TypeResult StatusDennis G Furlong DOLAB BLOOD ORDERABLESFinal ResultPerforming OrganizationAddressCity/State/ZIP CodePhone Number [facility] [address] [place] [address], * Comprehensive metabolic panel (04/22/2025 5:05 PM EDT)ComponentValueRef Range Test MethodAnalysis TimePerformed AtPathologist GqaxwttptNYBYUL574888 - 146 mmol/L1 11:[address] LABORATORYPOTASSIUM4.1 3.5 - 5.0 mmol/L1 11:[address] [facility] DUSAFRWJ56719 - 109 mmol/L1 11:[address] [facility] LABORATORYCARBON HXMBXCJ2518 - 32 mmol/L1 11:[address] [facility] LABORATORYANION GGC816 - 15 mmol/L1 11:[address] [facility] LABORATORYBLOOD UREA YLTJWUHI304 - 23 mg/dL04/22/2025 11:[address] [facility] LABORATORYCREATININE0.960.60 - 1.30 mg/dL 04/22/2025 11:[address] [facility] LABORATORYComment:METHOD TRACEABLE TO IDMS DERFEYEKVJSNWGG6481 - 99 mg/dL04/22/2025 11:[address] [facility] LABORATORYCALCIUM9.48.5 - 10.5 mg/dL04/22/2025 11:03 PM EDT [facility]ORYTOTAL PROTEIN7.36.0 - 8.0 g/dL04/22/2025 11:[address] LABORATORYALBUMIN4.93.2 - 5.3 g/dL 04/22/2025 11:[address] LABORATORYALKALINE PHOSPHATASE 4439 - 130 U/L1 11:[address] [facility] BDFJTJXCRTGKA34 <=41 U/L1 11:[address] [facility] IZBPVJVLHRAXO92<=40 U/L1 11:[address] [facility] LABORATORYBILIRUBIN,TOTAL 0.90.3 - 1.2 mg/dL04/22/2025 11:[address] [facility] EGFR Non-Race Dependent>90>=60 ml/min/1.73sq.m1 11:[address] [facility] LABORATORYComment: Reported eGFR is based on the CKD-EPI 2020 equation that does not use a race coefficient. Specimen (Source)Anatomical Location / LateralityCollection Method / Volume Collection TimeReceived TimeBloodVenous blood / Dhnledi6304/22/2025 5:05 PM EDT 04/22/2025 5:05 PM EDT Narrative Authorizing ProviderResult TypeResult StatusDennis G Furlong DOLAB BLOOD ORDERABLESFinal ResultPerforming OrganizationAddressCity/State/ZIP CodePhone Number [facility] [address] [place] [address], from Last 3 Months Insurance * Guarantor: Jaime Mccain TypeRelation to PatientDate of BirthPhone Billing AddressPersonal/JmzfoxIjhr88[birth year][address] [address] Care Teams Team MemberRelationshipSpecialtyStart DateEnd Date Saurabh Mustafa DO [address] [facility] [place] [address] PCP - GeneralFamily Medicine02/19/20
--- OUTSIDE RECORDS SUMMARY | 2025-05-08 05:53 | XMS_ITS | Encounter Summary ---
Author Organization [facility] tem Address [id number] [address] [place] [address] Care Team Providers Care Distribution Warehouse Manager Name Role Phone Saurabh Mustafa DO Primary Care Provider [phone] Reason for Referral * Medication Prior Authorization - ClosedSpecialtyDiagnoses / ProceduresReferred By ContactReferred To Contact Diagnoses Class 1 obesity due to excess calories without serious comorbidity with body mass index (BMI) of 34.0 to 34.9 in adult Saurabh Mustafa DO [address], [place] [address] Phone: tel: fax: Referral IDStatusReasonStart DateExpiration DateVisits RequestedVisits [id number] Encounter Details DateTypeDepartmentCare Team (Latest Contact Info)Baysklbhaep12/13/2025Orders Only [facility] [address] [place] [address] Saurabh Mustafa DO [address], [place] [address] Class 1 obesity due to excess calories without serious comorbidity with body mass index (BMI) of 34.0 to 34.9 in adult (Primary Dx) Social History Tobacco UseTypesPacks/DayYears UsedDateSmoking Tobacco: NeverSmokeless [...] relatives?Once a week08/15/2023How often do you attend zoroastrianism or pentecostal services?Never08/15/2023o you belong to any clubs or organizations such as zoroastrianism groups, unions, fraternal or athletic groups, or school groups?Yes 08/15/2023How often do you attend meetings of the clubs or organizations you belong to?More than 4 times per year08/15/2023re you , , , , never , or living with a partner?Fpjfhsi8008/15/2023 AUDIT-CAnswerDate RecordedQ1: How often do you have [...] and heating?Not hard at all08/15/2023HQ-2 AnswerDate RecordedTotal Ioplz673[place] human [place] of Occupational Health - Occupational Stress QuestionnaireAnswerDate RecordedDo you feel stress - tense, restless, nervous, or anxious, or unable to sleep at night because your mind is troubled all the time - these days?Only a gkixxu2608/15/2023Exercise Vital SignAnswerDate RecordedOn average, how many days [...] of a household?No08/15/2023hildcareAnswerDate RecordedDo problems getting child nutrition assistant make it difficult for you to work [...] InformationValueDate RecordedSex Assigned at BirthNot on fileLegal XrwRbkd3702/20/2015 11:21 AM EDTGender IdentityNot on fileSexual OrientationNot on filedocumented as of this encounter Plan of Treatment Not on file documented as of this encounter Visit Diagnoses Diagnosis Class 1 obesity due to excess calories without serious comorbidity with body mass index (BMI) of 34.0 to 34.9 in adult- Primary documented in this encounter Additional Health Concerns AssessmentNoted TimePHQ-9 Depression Total Score: 4:39 PM EDT documented as of this encounter Care Teams Team MemberRelationshipSpecialtyStart DateEnd Date Saurabh Mustafa DO [address] [facility], [place] [address] PCP - GeneralFamily Medicine02/19/20documented as of this encounter
--- OUTSIDE RECORDS SUMMARY | 2025-05-08 05:53 | XMS_ITS | Encounter Summary ---
Author Organization [facility] [employer] s tem Address [id number] [address] [place] [address] Care Team Providers Care Breaster Name Role Phone Saurabh Mustafa Primary Care Provider [phone] Encounter Details DateTypeDepartmentCare Team (Latest Contact Info)Bfgtrutjplx97/14/2025Orders Only [facility] [address] [facility] [place] [phone] Nat Workman CMA Class 1 obesity due to excess calories without serious comorbidity with body mass index (BMI) of 34.0 to 34.9 in adult; Low testosterone in male Social History Tobacco UseTypesPacks/DayYears UsedDateSmoking Tobacco: NeverSmokeless Tobacco: NeverAlcohol UseStandard Drinks/WeekCommentsYes1 (1 standard drink = 0.6 oz pure alcohol)socialAHC UtilitiesAnswerDate RecordedIn the past 12 months has the [employer], oil, or water [email or web address] threatened to shut off services in your home?No08/15/2023Social Connection and Isolation PanelAnswerDate RecordedIn a typical week, how many times do you talk on the phone with family, friends, or neighbors?Three times a week08/15/2023How often do you get together with friends or relatives?Once a week08/15/2023How often do you attend buddhist or yazidism services?Never08/15/2023o you belong to any clubs or organizations such as buddhist groups, unions, fraternal or athletic groups, or school groups?Yes 08/15/2023How often do you attend meetings of the clubs or organizations you belong to?More than 4 times per year08/15/2023re you , , , , never , or living with a partner?Ucdckwq3408/15/2023 AUDIT-CAnswerDate RecordedQ1: How often do you have [...] and heating?Not hard at all08/15/2023HQ-2 AnswerDate RecordedTotal Llxlh396Finbrigham city community hospital [place] of Occupational Health - Occupational Stress QuestionnaireAnswerDate RecordedDo you feel stress - tense, restless, nervous, or anxious, or unable to sleep at night because your mind is troubled all the time - these days?Only a aqhamu9908/15/2023Exercise Vital SignAnswerDate RecordedOn average, how many days [...] part of a household?No08/15/2023hildcareAnswerDate RecordedDo problems getting exceptional children's teacher make it difficult for you to work or study?No08/15/2023 EmploymentAnswerDate RecordedDo you need help finding a local career center and/or a training program?08/15/2023Hunger ScreeningAnswerDate RecordedWithin the past 12 months we [...] InformationValueDate RecordedSex Assigned at BirthNot on fileLegal DczSejp4202/20/2015 11:21 AM EDTGender IdentityNot on fileSexual OrientationNot on filedocumented as of this encounter Plan of Treatment Not on file documented as of this encounter Procedures Procedure NamePriorityDate/TimeAssociated DiagnosisCommentsCORTISOLRoutine 04/27/2025 Class 1 obesity due to excess calories without serious comorbidity with body mass index (BMI) of 34.0 to 34.9 in adult Low testosterone in male documented in this encounter Results * Cortisol (04/27/2025)ComponentValueRef RangeTest MethodAnalysis TimePerformed AtPathologist SignatureCortisol U6.9MANUALLY TRANSCRIBED RESULTSSpecimen (Source)Anatomical Location / LateralityCollection Method / VolumeCollection TimeReceived TimeBloodVenous blood / Qebvzbj4704/27/2025 Narrative Authorizing ProviderResult TypeResult StatusSaurabh Mustafa DOLAB BLOOD ORDERABLESFinal ResultPerforming OrganizationAddressCity/State/ZIP CodePhone Number MANUALLY TRANSCRIBED RESULTS documented in this encounter Visit Diagnoses Diagnosis Class 1 obesity due to excess calories without serious comorbidity with body mass index (BMI) of 34.0 to 34.9 in adult Low testosterone in male documented in this encounter Additional Health Concerns AssessmentNoted TimePHQ-9 Depression Total Score: 4:39 PM EDT documented as of this encounter Care Teams Team MemberRelationshipSpecialtyStart DateEnd Date Saurabh Mustafa DO [address] [facility], [place] [address] PCP - GeneralFamily Medicine02/19/20documented as of this encounter
--- OUTSIDE RECORDS SUMMARY | 2025-05-08 05:53 | XMS_ITS | Clinical Summary ---
Author Organization [facility] Address [address] [place] [address], [address] [place] [address] Care Team Providers Care Rubber Factory Worker Name Role Phone Edgar Quan MD Primary Care Provider [phone] Social History Tobacco UseTypesPacks/DayYears UsedDateSmoking Tobacco: Never AssessedSex and Gender InformationValueDate RecordedSex Assigned at BirthNot on fileLegal Sex Male08/27/2012 11:04 AM ESTGender IdentityNot on fileSexual OrientationNot on file Plan of Treatment Not on file Care Teams Team MemberRelationshipSpecialtyStart DateEnd Date Edgar Quan MD [address] [facility] [address] [place] [address] PCP - General09/17/14
--- OUTSIDE RECORDS SUMMARY | 2025-05-08 05:53 | XMS_ITS | Encounter Summary ---
Author Organization [facility] blinkbox music [facility] tem Address [id number] 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 Name Role Phone Saurabh Mustafa Primary Care Provider [phone] Encounter Details DateTypeDepartmentCare Team (Latest Contact Info)Ocnpyeiiuzm85/10/2025Telephone [facility] [address] [place] [address] Tyra Higuera CMA Social History Tobacco UseTypesPacks/DayYears UsedDateSmoking Tobacco: NeverSmokeless Tobacco: NeverAlcohol UseStandard Drinks/WeekCommentsYes1 (1 standard drink = 0.6 oz pure alcohol)socialAH UtilitiesAnswerDate RecordedIn the past 12 months has the electric, gas, oil, or water company threatened to shut off services in your home?No08/15/2023Social Connection and Isolation PanelAnswerDate RecordedIn a typical week, how many times do you talk on the phone with family, friends, or neighbors?Three times a week08/15/2023How often do you get together with friends or relatives?Once a week08/15/2023How often do you attend adventist or hindu services?Never4Do you belong to any clubs or organizations such as adventist groups, unions, fraternal or athletic groups, or school groups?Yes 08/15/2023How often do you attend meetings of the clubs or organizations you belong to?More than 4 times per year08/15/2023re you , , , , never , or living with a partner?Piegvnk1808/15/2023 AUDIT-CAnswerDate RecordedQ1: How often do you have [...] and heating?Not hard at all08/15/2023HQ-2 AnswerDate RecordedTotal Lhtos631[facility] [place] of Occupational Health - Occupational Stress QuestionnaireAnswerDate RecordedDo you feel stress - tense, restless, nervous, or anxious, or unable to sleep at night because your mind is troubled all the time - these days?Only a ynudkt4508/15/2023Exercise Vital SignAnswerDate RecordedOn average, how many days [...] of a household?No08/15/2023hildcareAnswerDate RecordedDo problems getting child nurse make it difficult for you to work or study?No08/15/2023 EmploymentAnswerDate RecordedDo you need help finding a local career center and/or a training program?No08/15/2023Hunger ScreeningAnswerDate RecordedWithin the past 12 months we worried whether our food would run out before we got money to buy more.Never True10/06/2025Within the past 12 months the food we bought just didn't last and we didn't have money to get more.Never True04/22/2025 Purpose - LifeAnswerDate RecordedI have a purpose and direction in my life. Strongly Agree08/15/2023Sex and Gender InformationValueDate RecordedSex Assigned at BirthNot on fileLegal XbhRybk9502/20/2015 11:21 AM EDTGender IdentityNot on fileSexual OrientationNot on filedocumented as of this encounter Miscellaneous Notes * [...] me do a prior Auth every time * Telephone Encounter - Tyra Higuera CMA - 04/26/2025 11:35 AM EDT Doesn't he pay out of pocket? * Telephone Encounter - Tyra Higuera CMA - 04/26/2025 11:35 AM EDT Then you don't have to worry about PA's. From his insurance company. documented in this encounter Plan of Treatment Not on file documented as of this encounter Visit Diagnoses Not on filedocumented in this encounter Additional Health Concerns AssessmentNoted TimePHQ-9 Depression Total Score: 4:39 PM EDT documented as of this encounter Care Teams Team MemberRelationshipSpecialtyStart DateEnd Date Saurabh Mustafa DO [address] [facility], [place] [address] PCP - GeneralFamily Medicine02/19/20documented as of this encounter
--- NOTE | 2025-05-08 06:23 | ED_ITS ---
HPI - Ear Problem General Chief complaint: Ear Stated complaint: EAR PAIN Time Seen by Provider: 05/08/25 05:55 Source: patient Mode of arrival: walk-in Limitations: no limitations History of Present Illness HPI Narrative: This 44-year-old male presents for evaluation of left-sided ear pain. The pain started over the weekend. He states that initially started with pain and pressure. He has also had some nasal congestion. He denies any fever. He did have ear tubes as a kid. He states that he had a virtual visit with the physician who prescribed him ofloxacin antibiotic drops and told him his symptoms should start resolving over the next 24 hours but the symptoms have not gotten better and he feels that the drops have made his ear pain worse. The pain at times radiates into his jaw. He has also had some drainage from the ear. He has not had any chest pain or shortness of breath. He denies any neck pain or stiffness. Related Data Home Medications ?Medication ?Instructions ?Recorded ?Confirmed ofloxacin 0.3 % ear drops drp otic (ear) 05/08/25 Allergies Allergy/AdvReac Type Severity Reaction Status Date / Time No Known Drug Allergies Allergy Verified 05/08/25 05:52 Review of Systems ROS Status of ROS 10 or more systems reviewed and unremark able except as noted in history and below PFSH PFS Social History Little interest or pleasure in doing things: not at all Feeling down, depressed, or hopeless: not at all Exam Narrative Exam Narrative: Vital signs and Nursing Notes reviewed: Patient is afebrile with a normal pulse, normal blood pressure, he is not hypoxic with pulse ox of 100% on room air General: Awake, alert, oriented, no acute distress, lying comfortably on the [facility] HEENT: Normocephalic atraumatic, mucous membranes are moist and pink, eyes are clear, normal conjunctiva, vision is grossly intact, posterior pharynx is normal in appearance. Right tympanic membrane is intact and normal in appearance, the left tympanic membrane is ruptured with a small amount of purulent drainage in the dependent portion of the external ear canal no sign of acute otitis externa Neck: Supple, no meningeal signs, no anterior or posterior cervical lymphadenopathy Chest: Lungs are clear to auscultation with good air entry, there is no wheezing rhonchi or rales appreciated no accessory muscle use, patient is speaking in complete sentences-no chest wall tenderness to palpation CVS: Regular rate and rhythm S1-S2, no murmurs rubs or gallops, pulses are brisk and equal bilaterally Extremities: Moving all extremities, no lower extremity tenderness or swelling noted Skin: Normal in appearance without rash,pallor, petechiae or purpura Neuro: No focal deficits Constitutional Vital Signs, click to edit/add: Last Vital Signs Temp 98.3 F 05/08/25 05:47 Pulse 67 05/08/25 05:47 Resp 18 05/08/25 05:47 BP 111/81 05/08/25 05:47 Pulse Ox 100 05/08/25 05:47 O2 Del Method Room Air 05/08/25 05:47 Course Vital Signs Vital signs: Vital Signs Temperature 98.3 F 05/08/25 05:47 Pulse Rate 67 05/08/25 05:47 Respiratory Rate 18 05/08/25 05:47 Blood Pressure 111/81 05/08/25 05:47 Pulse Oximetry 100 05/08/25 05:47 Oxygen Delivery Method Room Air 05/08/25 05:47 Temperature 98.3 F 05/08/25 05:47 Pulse Rate 67 05/08/25 05:47 Respiratory Rate 18 05/08/25 05:47 Blood Pressure 111/81 05/08/25 05:47 Pulse Oximetry 100 05/08/25 05:47 Oxygen Delivery Method Room Air 05/08/25 05:47 Medical Decision Making [facility] Narrative Medical decision making narrative: This otherwise healthy 44-year-old male presents for evaluation of left-sided ear pain that started last week and worsened over the weekend. He was seen by a virtual physician who diagnosed him allegedly with acute otitis externa as he was given ofloxacin solution. He has been using this without significant improvement. He states the drops seem to be making his symptoms worse. He has not had any fever but does have some nasal congestion. He has normal vital signs. He is well-appearing. Evaluation of his tympanic membranes bilaterally shows a normal-appearing right tympanic membrane and a ruptured left tympanic membrane with exudate in the dependent portion of the ear canal indicating he likely had acute otitis media with TM rupture. I suggested that he discontinue the ofloxacin drops and he will be prescribed Augmentin for acute otitis media. He states he has been managing his pain with Tylenol and Naprosyn. He was agreeable to taking 2 [place] home to use as needed if his pain should become more severe after work today. He was given a first dose of Augmentin in the emergency department and will be discharged home with a prescription for Augmentin for the next 10 days and ibuprofen 600 mg to use for pain. He will also be referred to outpatient ENT. Discharge Plan Discharge Chief Complaint: Ear Clinical Impression: Otitis media, Rupture of left tympanic membrane Patient Disposition: Home, Self-Care Time of Disposition Decision: 06:18 Condition: Good Prescriptions / Home Meds: No Action ofloxacin 0.3 % drops OTIC (EAR) Print Language: Uzbek Instructions: Ruptured Eardrum (ED), Ear Infection (ED) Referrals: GUILLAUME CONLEY [Primary Care Provider, Family Practice] - 1 week Sarah Mcknight MD [Physician, Ear, Nose, Throat] - 1 week
[2025-05-08] MEDS: HYDROCODONE/ACET 5-325 MG TABLET 2 TAB PO (06:46)
[2025-05-08] MEDS: AMOXICILLIN/POT CLAV 875-125 MG TABLET 1 TAB PO (06:46)
[2025-05-08] MEDS: IBUPROFEN 600 MG TABLET PO (06:46)
--- NOTE | 2025-05-08 06:51 | PC.NURSE ---
i gave this patient verbal and written discharge orders along with 2 Rx and take home pain medication, this patient voices yes to understanding these. at time of discharge this patient voices no concerns, needs and shows no sign of distress.
== END 2025-05-08 06:50 | disposition home or self-care (01) ==
PROVIDERS: Emergency Provider Emergency Medicine; PCP Family Medicine
DX: H66.92 Otitis media, unspecified, left ear (principal); H72.92 Unspecified perforation of tympanic membrane, left ear
CPT/HCPCS: 99284